=== PATIENT | female | born 1945 | race Caucasian/White ===

== ENCOUNTER 2020-12-09 19:57 | Emergency (ER) | payer MEDICARE, SELFPAY ==
--- NOTE | ~2020-12-09 | XR_ITS ---
XR foot LT min 3V DATE: 12/09/2020 20:20 INDICATION: Fall. Left lateral foot pain TECHNIQUE: 4 views COMPARISON: None FINDINGS: There is a linear oblique fracture through the mid to distal shaft of the fifth metatarsal bone with up to 1.5 mm medial and 2 mm dorsal displacement. No fracture or dislocation is noted otherwise. Osteopenia. IMPRESSION: Fifth metatarsal shaft fracture Reviewed, dictated and finalized at location A.
--- NOTE | 2020-12-09 20:05 | ED.LOWEXIN ---
HPI - Extremity Injury (Lower) General Chief Complaint: Extremity Injury, Lower Stated Complaint: left foot pain Time Seen by Provider: 12/09/20 20:05 Source: patient and RN notes reviewed Mode of arrival: ambulatory Limitations: no limitations History of Present Illness HPI Narrative: 75 yo female presents to the [facility] with C/O left lateral foot pain. States that she fell about 1500 today and her foot turned inversely. Pain and swelling along with Bruising noted along the 5th metatarsal. State that the pain and swelling was just getting worse so she came to the clinic. Walked into the clinic Denies hitting head. No back pain or neck pain. Denies loss of consciousness. Related Data Home Medications Medication Instructions Recorded Confirmed atorvastatin 10 mg PO HS 12/09/20 12/09/20 bimatoprost [Lumigan] 1 drp EACH EYE QPM 12/09/20 12/09/20 flecainide 100 mg PO Q12H 12/09/20 12/09/20 levothyroxine 112 mcg PO DAILY 12/09/20 12/09/20 lisinopril 10 mg PO DAILY 12/09/20 12/09/20 metformin 500 mg PO BID 12/09/20 12/09/20 metoprolol succinate 25 mg PO DAILY 12/09/20 12/09/20 pregabalin [Lyrica] 100 mg PO HS 12/09/20 12/09/20 rivaroxaban [Xarelto] 20 mg PO QPM 12/09/20 12/09/20 sertraline 50 mg PO DAILY 12/09/20 12/09/20 Allergies Allergy/AdvReac Type Severity Reaction Status Date / Time No Known Allergies Allergy Verified 12/09/20 20:20 Review of Systems Review of Systems: All systems reviewed & are unremarkable except as noted in HPI and below Constitutional: Constitutional: Reports no additional constitutional complaints Cardiovascular: Cardiovascular: Reports no additional cardiovascular complaints and Denies chest pain Respiratory: Respiratory: Reports no additional respiratory complaints, Denies cough and Denies dyspnea Gastrointestinal: Gastrointestinal: Reports no additional gastrointestinal complaints Musculoskeletal: Musculoskeletal: Reports no additional musculoskeletal complaints, Denies back pain, Denies myalgias, Denies arthralgias, Denies joint swelling and Denies muscle cramps Comments: Left foot pain lateral aspect, fifth metatarsal Integumentary/Breasts: Skin/Breast: Reports system reviewed and no additional complaints, except as docu and Denies rash Neurologic: Reports system reviewed and no additional complaints, except as documented, Denies dizziness, Denies headache(s), Denies focal weakness, Denies numbness and Denies weakness Psychiatric: Psychiatric: Reports no additional psychiatric complaints PMF Past Medical History Medical History (Updated 12/09/20 @ 20:32 by Marlene Baker) A-fib Depression Diabetes High cholesterol Hypertension Thyroid disease Surgical History Surgical History (Updated 12/09/20 @ 20:15 by Marlene Baker) H/O foot surgery H/O hand surgery History of thyroid surgery Comments At the time of my signature, I reviewed and agree with the nursing past medical, surgical, social, and family history. There is no relevant family history pertinent to the patient complaint. Exam Const: General: no acute distress and alert Nutritional Appearance: well nourished and obese Orientation/consciousness: patient oriented x3 Limitations: no limitations HENMT: Head: normal to inspection Neck: Neck: normal visual inspection, no lymphadenopathy and no meningeal signs Chest: Chest palpation & inspection: normal inspection of the chest Resp: Effort & Inspection: normal respiratory effort and no use of accessory muscles Auscultation: clear to auscultation bilaterally, no crackles, no rales, no rhonchi and no wheezes Cardio: Rate: regular rate Rhythm: regular rhythm Back/Spine/Pelvis: Back: no CVA tenderness Skin: General skin exam: normal color Rashes: no rashes Neuro: General: patient oriented x3, moves all extremities, no meningeal signs and no focal motor deficits Speech: normal speech Gait exam (Neuro): gait abnormal (limp favoring the left foor) Extrem
[2020-12-09 20:10] VITALS: BP 139/68; PULSE 73; RESP 16; TEMP 36.9; O2SAT 99
== END 2020-12-09 20:50 | disposition home or self-care (01) ==
PROVIDERS: Emergency Provider Nurse Practitioner
DX: S92.352A Displaced fracture of fifth metatarsal bone, left foot, initial encounter for closed fracture (principal); W19.XXXA Unspecified fall, initial encounter; I48.91 Unspecified atrial fibrillation; E11.9 Type 2 diabetes mellitus without complications; I10 Essential (primary) hypertension; F32.9 Major depressive disorder, single episode, unspecified; E03.9 Hypothyroidism, unspecified
CPT/HCPCS: 29515; 73630; 99204; G0463

== ENCOUNTER 2024-08-24 12:55 | Emergency (ER) | payer MEDICARE, SELFPAY ==
--- NOTE | ~2024-08-24 | XR_ITS ---
EXAMINATION: XR elbow LT min 3V DATE: 08/24/2024 13:29 INDICATION: Left arm pain post fall TECHNIQUE: Anteroposterior, two oblique and lateral views of the left elbow were obtained. COMPARISON: None. FINDINGS: Comminuted intra-articular fracture of the distal left humerus with sagittal oriented fracture plane separate fragments of the medial and lateral humeral condyles. There is 5 mm lateral of th e lateral condylar fragment. There is 6 mm anterior displacement and 45 degree valgus rotation of the medial condylar fragment. 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 No significant elbow joint effusion with no evident displa cement of the anterior posterior fat pads. There is mild soft tissue swelling about the elbow. IMPRESSION: 1. Comminuted intra-articular fracture of the distal humerus with mild displacement of the lateral co ndylar fragment and mild anterior displacement and 45 degree varus angulation of the medial condylar fragment. Reviewed, dictated and finalized at location A. COUNCIL MEMBER IMPRESSION: 1. Comminuted intra-articular fracture of the distal humerus with mild displace ment of the lateral condylar fragment and mild anterior displacement and 45 deg ree varus angulation of the medial condylar fragment.
[2024-08-24 12:58] VITALS: BP 181/63; PULSE 58; RESP 16; TEMP 36.1; O2SAT 98
--- OUTSIDE RECORDS SUMMARY | 2024-08-24 13:01 | XMS_ITS | Clinical Summary ---
Author Organization [facility] Address [address] [place] [address] Care Team Providers Care Bladder Trimmer Name Role Phone Shawn Huerta MD Primary Care Provider [phone] Leda Egan MD Unavailable [phone] John Lord MD Unavailable [phone] Paty Garcia MD Unavailable [phone] Allergies Active Allergy Reactions Criticality Noted Date Comments Metformin Diarrhea Low 05/24/2020 Medications cinnamon bark 500 mg capsule Take 1 capsule (500 mg total) by mouth labor contract analyst before breakfast Active cholecalciferol (VITAMIN D-3) 1,000 unitIndications:supple ment Take 1 tablet/capsule (1,000 Units total) by mouth labor contract analyst before breakfast Active blood glucose diagnostic (glucose blood) strip Patient tests once daily 100 each 11 2019 Active blood-glucose meter kit Use daily as directed 1 each 2019 Active Lumigan 0.01 % ophthalmic dropsIndications:ocula r hypertension Administer 1 drop into both eyes nightly 2020 Active nystatin-triamcinolone cream APPLY TO AFFECTED AREA TWICE A DAY FOR 7-14 DAYS,THEN NEEDED FOR RASH 15 g 2022 Active atorvastatin (LIPITOR) 10 mg tabletIndications:Pure hypercholesterolemia TAKE 1 TABLET BY MOUTH EVERY DAY 90 tablet 3 2023 Active Additional Information Patient taking differently:10 mg oralNightly, Indications: hyperlipidemia, Informant: Self, Reported on 07/29/2024 Xarelto 20 mg tablet TAKE 1 TABLET BY MOUTH EVERY DAY 90 tablet 3 2023 Active Additional Information Patient taking differently:20 mg oralDaily with breakfast, Indications: atrial fibrillation, Informant: Self, Reported on 07/29/2024 metoprolol XL (TOPROL-XL) 25 mg extended release tablet TAKE 1 TABLET BY MOUTH EVERY DAY IN THE EVENING 90 tablet 3 2023 Active Additional Information Patient taking differently:25 mg oralNightly, Indications: Atrial Arrhythmia, hypertension, Informant: Self, Reported on 07/29/2024 nystatin cream Apply topically 2 (two) times a day 60 g 3 10/22 Active Additional Information Patient taking differently: 1 ApplicationtopicalAs needed, Indications: Diaper Rash, Informant: Self, Reported on 07/14/2024 lisinopriL (PRINIVIL,ZESTRIL) 10 mg tabletIndications:Prim almita hypertension TAKE 1 TABLET BY MOUTH EVERY DAY 90 tablet 3 2023 Active Additional Information Patient taking differently: 10 mg oral Daily (early AM), Indications: hypertension, Informant: Self, Reported on 07/29/2024 levothyroxine (SYNTHROID) 112 mcg tabletIndications:Acqu ired hypothyroidism TAKE 1 TABLET BY MOUTH EVERY DAY 90 tablet 3 2023 Active Additional Information Patient taking differently:112 mcg oralDaily (early AM), Indications: hypothyroidism, Informant: Self, Reported on 07/29/2024 timolol (TIMOPTIC) 0.5 % ophthalmic solution Administer 1 drop into both eyes labor contract analyst before breakfast 2023 Active sertraline (ZOLOFT) 50 mg tabletIndications:Gene ralized anxiety disorder TAKE 1 TABLET BY MOUTH EVERY DAY 90 tablet 3 2023 Active Additional Information Patient taking differently:50 mg oralDaily (early AM), Indications: Anxiety with Depression, Generalized Anxiety Disorder, Informant: Self, Reported on 07/29/2024 flecainide (TAMBOCOR) 50 mg tablet TAKE 1 TABLET BY MOUTH TWICE A DAY 180 tablet 1 2023 Active Additional Information Patient taking differently:50 mg oral 2 times daily,Indications: Prevention of Recurrent Atrial Fibrillation, Informant: Self, Reported on 07/29/2024 Jardiance 25 mg tabletIndications:Type 2 diabetes mellitus without complication, without long-term current use of insulin ([facility]/HCC) (HCC) TAKE 1 TABLET BY MOUTH EVERY DAY 90 tablet 1 2023 Active Additional Information Patient taking differently:25 mg oralNightly, Indications: type 2 diabetes mellitus, Informant: Self, Reported on 07/29/2024 acetaminophen (TYLENOL) 500 mg tabletIndications:Post -op pain Take 1 tablet (500 mg total) by mouth every 6 (six) hours as needed for pain 40 tablet 2024 Active multivitamin tabletIndications:Post -op pain Take 1 tablet by mouth daily 30 tablet 2024 Active ibuprofen (ADVIL,MOTRIN) 600 mg tablet Take 1 tablet (600 mg total) by mouth every 6 (six) hours as needed for pain 40 tablet 07/28 Discont inued(R eorder) acetaminophen (TYLENOL) 500 mg tablet Take 1 tablet (500 mg total) by mouth every 6 (six) hours as needed for pain 40 tablet 07/28 Discont inued(R eorder) multivitamin tablet Take 1 tablet by mouth daily 30 tablet 07/28 Discont inued(R eorder) ibuprofen (ADVIL,MOTRIN) 600 mg tabletIndications:Post -op pain Take 1 tablet (600 mg total) by mouth every 6 (six) hours as needed for pain 40 tablet 07/29 Discont inued(S top Taking at [facility]) Active Problems Problem Noted Date Diagnosed Date Carpal tunnel syndrome of right wrist 05/24/2024 Left carpal tunnel syndrome 04/25/2024 Assessment & Plan (06/30/2024 1:38 PM BUSINESS ACCOUNT SPECIALIST): Encouraged completion of surgical rx given significant symptoms. Primary osteoarthritis involving multiple joints 10/23/2023 Overview (10/23/2023): Neck , shoulders, knees, back , thumb Assessment & Plan (06/30/2024 1:37 PM BUSINESS ACCOUNT SPECIALIST): Continue supportive care. Assessment & Plan (02/23/2024 10:37 AM CDT): Has been very bothered by her presumptive neck /shoulder issues Planning for nerve conduction studies, anticipate mri likely of neck after and then physiatry Assessment & Plan (10/26/2023 7:09 AM CDT): Continues to be bothersome especially in neck and shoulders now. Will evalutate the shoulder with x ray and mri if this normal. Possible ortho consult. Monitor for neurologic findings with neck pain High risk medication use 08/07/2023 Neck pain 06/23/2023 Assessment & Plan (06/23/2023 12:02 PM BUSINESS ACCOUNT SPECIALIST): No alarm neurologic complaint.s No weakness. Suggested PT Pain of right hip 06/23/2023 Assessment & Plan (06/23/2023 12:03 PM BUSINESS ACCOUNT SPECIALIST): Checking x rays , pt Cutaneous candidiasis 08/15/2022 Conductive hearing loss, bilateral 04/16/2022 Chronic right-sided low back pain without sciati ca 08/01/2021 Assessment & Plan (04/16/2022 10:18 AM CDT): Bothersome in the lower back Some hip pain as well No neurologic complications Continue exercises and will call if weakness, Pain is intolerable Assessment & Plan (08/01/2021 10:36 AM BUSINESS ACCOUNT SPECIALIST): This since the foot injury . Encouraged physical therapy . She will work on this and report if worsening. BMI 29.0-29.9,adult 05/17/2021 H/O thyroidectomy 01/24/2020 Assessment & Plan (01/24/2020 8:41 AM CDT): Checking tft's NO concerns. Pain in both hands 07/26/2019 Assessment & Plan (07/26/2019 12:29 PM BUSINESS ACCOUNT SPECIALIST): Likely dupytrens contracture. No complications . If progressive then ortho visit Sensorineural hearing loss, bilateral 10/05/2018 Medicare annual wellness visit, subsequent 08/31 Assessment & Plan (06/30/2024 1:36 PM BUSINESS ACCOUNT SPECIALIST): Checking labs per routine and pertaining to problems listed . HM items reviewed and updated . No new concerns. Immunizations reviewed and up-to-date Assessment & Plan (04/16/2022 10:24 AM CDT): Checking labs per routine and pertaining to problems listed . HM items reviewed and updated . No new concerns. Flu shot on Thursday . Assessment & Plan (01/29/2021 10:56 AM CDT): Checking labs per routine and pertaining to problems listed . HM items reviewed and updated . No new concerns. Memory difficulties 08/31/2018 Assessment & Plan (06/30/2024 1:37 PM BUSINESS ACCOUNT SPECIALIST): Not appreciable on exam . Monitoring clinically Assessment & Plan (02/23/2024 10:38 AM CDT): Mild lapses and not progressive Assessment & Plan (10/26/2023 7:09 AM CDT): No alarm neurologic complaints. Assessment & Plan (02/17/2023 1:07 PM CDT): Not obviously progressive . She will let me know if ongoing symptoms. Assessment & Plan (10/15/2022 9:53 AM CDT): No obvious progression in symptoms related. Assessment & Plan (04/16/2022 10:19 AM CDT): No progression in memory issues . Assessment & Plan (01/29/2021 10:55 AM CDT): Unchanged , Mild cognitive slips Assessment & Plan (01/24/2020 8:41 AM CDT): No progression . Not obvious on my exam Assessment & Plan (03/02/2019 3:08 PM CDT): Continue with current rx . With the sertraline. No complications. Assessment & Plan (08/31/2018 4:51 PM BUSINESS ACCOUNT SPECIALIST): Encouraged she get off lyrica and minimize meds. Checking labs now. NO other new complaints Knee pain 06/04/2017 Assessment & Plan (06/23/2023 12:00 PM BUSINESS ACCOUNT SPECIALIST): Symptoms are tolerble though encouraged PT Ganglion cyst 06/02/2017 Keratosis, senilis 02/19/2017 Lentigo 02/19/2017 Acne vulgaris 11/12/2016 Multiple actinic keratoses 10/17/2015 ALIN on CPAP 09/18/2015 Overview (06/11/2017): Obstructive sleep apnea apnea-hypopnea index 6.7. Desaturation 81%. Date of test September 10, 2015 Assessment & Plan (06/30/2024 11:30 AM BUSINESS ACCOUNT SPECIALIST): Stable on cpap Assessment & Plan (05/16/2024 11:38 AM BUSINESS ACCOUNT SPECIALIST): Compliance data reviewed and discussed ALIN - good compliance and response to therapy. Benefiting from therapy. Continue PAP therapy. Compliance data reviewed and discussed. Equipment maintenance discussed. RTC in one year or as needed. New Order for yearly supplies entered. gemma SIDDIQI Assessment & Plan (10/23/2023 11:51 AM CDT): Well treated on current regimen. Assessment & Plan (06/23/2023 11:59 AM BUSINESS ACCOUNT SPECIALIST): Stable cpap Well controlled on current regimen. Assessment & Plan (02/17/2023 1:03 PM CDT): Well controlled on cpap doing fine Assessment & Plan (04/16/2022 10:18 AM CDT): On cpap and feeling no differently than prior Assessment & Plan (01/29/2021 10:32 AM CDT): Is continuing to do well with CPAP machine - continue use of cpap Assessment & Plan (01/24/2020 8:34 AM CDT): Using her cpap mask regularly and no new sx. Assessment & Plan (03/02/2019 3:08 PM CDT): Doing well on the current cpap. No complications. Assessment & Plan (08/31/2018 4:47 PM BUSINESS ACCOUNT SPECIALIST): Continue supportive care and cpap. Paroxysmal atrial fibrillation (CMS/HCC) 016 Overview (2016): Paroxysmal atrial fibrillation Assessment & Plan (06/30/2024 11:30 AM BUSINESS ACCOUNT SPECIALIST): No a fib symptoms and following with ep. Assessment & Plan (02/23/2024 10:34 AM CDT): Her a fib has been well controlled on current regimen. No complications on the xarelto. Assessment & Plan (10/26/2023 7:07 AM CDT): Adequate rate control. No side effects on the xarelto. Assessment & Plan (06/23/2023 11:38 AM BUSINESS ACCOUNT SPECIALIST): No obvious palpitations, sob chest pain or other complaints. Assessment & Plan (03/17/2023 9:53 AM CDT): NSR in office Avoiding trial albuterol inh trial avoiding regressive arrhthymias Cnt flecainide for rate control, xarelto AC, CPAP use Assessment & Plan (02/17/2023 1:03 PM CDT): Well controlled since on cpap. Assessment & Plan (10/15/2022 9:52 AM CDT): No new symptoms related. No chest pain , palpitations. Assessment & Plan (04/16/2022 10:18 AM CDT): No symptoms. She has never had many symptoms. Much better since cpap Assessment & Plan (08/01/2021 10:37 AM BUSINESS ACCOUNT SPECIALIST): No Obvious symptoms related to this. Continue with current regimen. Assessment & Plan (01/29/2021 10:31 AM CDT): Doing well. Recently saw Dr. Martin. - continue Flecainide and Toprolol Assessment & Plan (08/01/2020 10:10 AM BUSINESS ACCOUNT SPECIALIST): No obvious palpitations, sob, Or other complications Following with cardiology . No complications of xarelto Assessment & Plan (01/24/2020 8:34 AM CDT): No recurrent sx. No chest pain , palpitations, Sob or other complaints. Assessment & Plan (07/26/2019 12:27 PM BUSINESS ACCOUNT SPECIALIST): No complications. Continue current regimen . Assessment & Plan (03/02/2019 3:07 PM CDT): Rarely in this with the flecainide. No symptoms related. Assessment & Plan (08/31/2018 4:48 PM BUSINESS ACCOUNT SPECIALIST): Has been tolerable. No palpitations or other complaints. 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 Otherwise prefer glp 1 med Then follow up in october Assessment & Plan (02/23/2024 10:36 AM CDT): Blood sugars poorly /inadequately controlled. She knows that insulin is needed if not now then by next visit if no improvement . She will work on diet since she hopes to avoid more medications. Assessment & Plan (10/26/2023 7:09 AM CDT): Blood sugars are elevated (A1c 8.2) and encouraged she increase the jardiance to 25 mg daily . Assessment & Plan (06/23/2023 11:59 AM BUSINESS ACCOUNT SPECIALIST): Diabetes Mellitus type II, under only checking occasionally so fair control. Current symptoms/problems include none and have been worsening. . Home blood sugar records: only checking occ Rx changes: none Counseling: Reviewed diabetes management : A1C , blood pressure , yearly eye exams and appropriate statin use Compliance at present is estimated to be excellent She prefers to try better diet control prior to increasing the jardiance . Assessment & Plan (02/17/2023 1:05 PM CDT): Diabetes Mellitus type II, under good control. Current symptoms/problems include none and have been improving. . Home blood sugar records: trend: stable Rx changes: none Counseling: Reviewed diabetes management : A1C , blood pressure , yearly eye exams and appropriate statin use Compliance at present is estimated to be good. Assessment & Plan (10/15/2022 1:29 PM CDT): Diabetes Mellitus type II, under fair control. Current symptoms/problems include none and have been worsening. . Home blood sugar records: trend: increasing steadily Rx changes: she wants to hold off med adjustment ie jardiance increase and try dietary rx first. Counseling: Reviewed diabetes management : A1C , blood pressure , yearly eye exams and appropriate statin use Compliance at present is estimated to be good. Assessment & Plan (04/16/2022 10:27 AM CDT): The patient has no obvious new dm related complaints. No hyper or hypoglycemic complaints. NO new complications. Eye md visit is utd. Tolerating current regimen well. Eye md is utd . Checking labs including hba1c, Urine microalbumin. Assessment & Plan (08/01/2021 10:37 AM BUSINESS ACCOUNT SPECIALIST): Diabetes Mellitus type II, under good control. Current symptoms/problems include none and have been unchanged. . Home blood sugar records: trend: stable Rx changes: none Counseling: Reviewed diabetes management : A1C , blood pressure , yearly eye exams and appropriate statin use Compliance at present is estimated to be excellent. Assessment & Plan (01/29/2021 10:42 AM CDT): A1c 7.2 today, up from 6.7. BG's 170's in the am. Tried metformin but could not tolerate because of diarrhea. Assessment & Plan (08/01/2020 10:15 AM BUSINESS ACCOUNT SPECIALIST): Well controlled , a1c at goal. She will work on diet and exercise. Dm education by summer. Assessment & Plan (01/24/2020 8:43 AM CDT): Has been without sx and checking hba1c now. Working on diet and exercise. NO new concerns. Encouraged home testing and inform me if sugars approaching 200 Assessment & Plan (07/27/2019 7:06 AM BUSINESS ACCOUNT SPECIALIST): Well controlled on current regimen . No complications. Discussed goals of rx . Her a1c is down from last visit so improving as listed. No other concerns. Assessment & Plan (03/02/2019 3:15 PM CDT): Checking hba1c now. No complications. Her a1c is elevated. She will work on behavioral measures and she will try and avoid metformin . However is aware this is clearly the next step Assessment & Plan (08/31/2018 4:54 PM BUSINESS ACCOUNT SPECIALIST): Diabetes is being checked, utd with eye md visit, Checking hba1c and chem panel. Urine microablumin Rosacea 03/11/2012 Assessment & Plan (08/31/2018 4:43 PM BUSINESS ACCOUNT SPECIALIST): Stable on metrogel. 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 Taking meds without obvious side effects . No muscle aches nor weakness. Assessment & Plan (02/23/2024 10:35 AM CDT): NO obvious sx or side effects from the elevation in cholesterol. Taking meds without obvious side effects . No muscle aches nor weakness. Assessment & Plan (10/26/2023 7:07 AM CDT): NO obvious sx or side effects from the elevation in cholesterol. Taking meds without obvious side effects . No muscle aches nor weakness. Assessment & Plan (06/23/2023 11:59 AM BUSINESS ACCOUNT SPECIALIST): NO obvious sx or side effects from the elevation in cholesterol. Taking meds without obvious side effects . No muscle aches nor weakness. ' Assessment & Plan (04/16/2022 10:30 AM CDT): No cholesterol related complications. Assessment & Plan (01/29/2021 10:43 AM CDT): Well treated on the lipitor. Assessment & Plan (01/24/2020 8:34 AM CDT): Checking labs now. No complications of meds. Assessment & Plan (07/26/2019 12:27 PM BUSINESS ACCOUNT SPECIALIST): Checking labs in follow up . Assessment & Plan (08/31/2018 4:44 PM BUSINESS ACCOUNT SPECIALIST): Lipid abnormalities are well controlled. Generalized anxiety disorder 02/13/2010 Assessment & Plan (06/30/2024 1:33 PM BUSINESS ACCOUNT SPECIALIST): No recent increased symptoms. No need for medications. Assessment & Plan (02/23/2024 10:35 AM CDT): Her symptoms have been well managed. No complications Assessment & Plan (10/26/2023 7:08 AM CDT): Generally well managed on sertraline. No breakthru panic . Assessment & Plan (06/23/2023 11:59 AM BUSINESS ACCOUNT SPECIALIST): Her anxiety is well controlled on current regimen. Assessment & Plan (02/17/2023 1:03 PM CDT): No progression in symptoms nor any depression. Assessment & Plan (10/15/2022 10:03 AM CDT): Adequately controlled currently. Assessment & Plan (04/16/2022 10:30 AM CDT): Symptoms are well controlled. No complications. Assessment & Plan (08/01/2021 10:41 AM BUSINESS ACCOUNT SPECIALIST): Doing fine on the sertraline Assessment & Plan (01/29/2021 10:43 AM CDT): Stress is well controlled on current regimen . NO new complications. Assessment & Plan (07/26/2019 12:27 PM BUSINESS ACCOUNT SPECIALIST): Well controlled on current regimen Assessment & Plan (08/31/2018 4:46 PM BUSINESS ACCOUNT SPECIALIST): Psychological condition is Well controlled on current regimen . Hypothyroidism 02/13/2010 Assessment & Plan (06/30/2024 1:34 PM BUSINESS ACCOUNT SPECIALIST): Checking TFTs though clinically euthyroid Assessment & Plan (02/23/2024 10:35 AM CDT): Her tft's are stable and will recheck in coming months Assessment & Plan (10/26/2023 7:08 AM CDT): No active symptoms Assessment & Plan (06/23/2023 11:40 AM BUSINESS ACCOUNT SPECIALIST): Checking tft's. NO complications. No associated Assessment & Plan (02/17/2023 1:05 PM CDT): Checking tft's next visit. Assessment & Plan (10/15/2022 9:58 AM CDT): Checking tft's yearly . Assessment & Plan (04/16/2022 10:30 AM CDT): Checking tft's . No overt symptoms related. Assessment & Plan (08/01/2021 10:38 AM BUSINESS ACCOUNT SPECIALIST): Stable by tft's Assessment & Plan (01/29/2021 10:42 AM CDT): Checking tft's . NO complications. Assessment & Plan (08/01/2020 10:13 AM BUSINESS ACCOUNT SPECIALIST): Checking labs in 6 months Assessment & Plan (07/26/2019 12:29 PM BUSINESS ACCOUNT SPECIALIST): stabvle clinically . No complicaitons Assessment & Plan (03/02/2019 3:12 PM CDT): Checking tft's at next visit. Assessment & Plan (08/31/2018 4:46 PM BUSINESS ACCOUNT SPECIALIST): Has been well controlled and checking on labs now. Hypertension 02/13/2010 Assessment & Plan (06/30/2024 1:34 PM BUSINESS ACCOUNT SPECIALIST): Blood pressure at goal and refilled medications. Checking labs Assessment & Plan (02/23/2024 10:36 AM CDT): Blood pressure is well controlled. Assessment & Plan (10/26/2023 7:08 AM CDT): Bp at goal on meds as reviewed. Assessment & Plan (06/23/2023 11:40 AM BUSINESS ACCOUNT SPECIALIST): Blood pressure is well controlled on current regimen. Assessment & Plan (02/17/2023 1:06 PM CDT): Blood pressure is well controlled. Assessment & Plan (10/15/2022 9:58 AM CDT): Blood pressure is well controlled on current regimen. Assessment & Plan (04/16/2022 10:30 AM CDT): Hypertension is improving with treatment. Associated signs and symptoms: none. Medication Side effects, no medication side effects noted Weight loss. Regular aerobic exercise. Patient Education: Reviewed risks of hypertension and principles of treatment. Blood pressure will be reassessed at the next regular appointment. Assessment & Plan (08/01/2021 10:38 AM BUSINESS ACCOUNT SPECIALIST): Hypertension is improving with treatment. Associated signs and symptoms: none. Medication Side effects, no medication side effects noted Continue current treatment regimen. Patient Education: Reviewed risks of hypertension and principles of treatment. Blood pressure will be reassessed at the next regular appointment. Assessment & Plan (01/29/2021 10:42 AM CDT): bp is well controlled on current regimen . NO complications. Assessment & Plan (08/01/2020 10:12 AM BUSINESS ACCOUNT SPECIALIST): Hypertension is improving with treatment. Associated signs and symptoms: none. Medication Side effects, no medication side effects noted Continue current treatment regimen. Patient Education: Reviewed risks of hypertension and principles of treatment. Blood pressure will be reassessed at the next regular appointment. Assessment & Plan (07/26/2019 12:29 PM BUSINESS ACCOUNT SPECIALIST): bp well controlled on current regimen . Assessment & Plan (03/02/2019 3:12 PM CDT): Well controlled on current regimen . No complications Assessment & Plan (08/31/2018 4:45 PM BUSINESS ACCOUNT SPECIALIST): Hypertension is Well controlled on current regimen. Resolved Problems Problem Noted Date Diagnosed Date Resolved Date Upper respiratory infection with cough and congestion 03/17/2023 03/17/2023 Assessment & Plan (03/17/2023 9:49 AM CDT): Suggestively viral URI w/ ongoing chest congestion Exam benign w/o PNA concerns- reassured Hopeful optimizing use of OTC supportives, alleviate chest congestion resolve over next few days + expectorant, flonase & coricidin & increase hydration benefit Update in 2-3 days for doxy course if warranted Nondisplaced fracture of fif th left metatarsal bone with routine healing 01/11/202106/2022 Assessment & Plan (08/01/2021 10:37 AM BUSINESS ACCOUNT SPECIALIST): Healing clinically . Reassured. If recurrent symptoms then repeat x ray Assessment & Plan (01/29/2021 10:43 AM CDT): Pain well controlled. Essential hypertension 08/15/201508/31 Overview (2016): Essential hypertension Snoring 08/15/2015 03/02/2019 Overview (2016): Snoring Skin benign neoplasm 03/11/2012 020 Encounters Date Type Department Care Team Description 08/16/2024 1:10 PM BUSINESS ACCOUNT SPECIALIST Office Visit [facility] Orthopaedic Surgery [id number] [place] [address] [address] [place] [address] Antonio Jasso MD Bilateral carpal tunnel syndrome (Primary Dx); Follow-up exam 08/10/2024 Telephone [facility] Cardiology [address] [facility] [place] [facility] [address]th [place] [address] [place] [address] Leda Egan MD 07/29/2024 8:20 AM BUSINESS ACCOUNT SPECIALIST Anesthesia Event [facility] [address] [place] [address] Gianluca Lainez MD DDS Dianna Earl NP 07/29/2024 8:15 AM BUSINESS ACCOUNT SPECIALIST - 07/29/2024 9:50 AM BUSINESS ACCOUNT SPECIALIST Surgery [facility] Operating [facility]) [address] [place] [id number] Antonio Jasso MD RELEASE CARPAL TUNNEL - RIGHT 07/29/2024 6:07 AM BUSINESS ACCOUNT SPECIALIST - 07/29/2024 9:57 AM BUSINESS ACCOUNT SPECIALIST Hospital Encounter [facility] ([facility]) [address] [place] [id number] Antonio Jasso MD Carpal tunnel syndrome of right wrist (Primary Dx) Discharge Disposition: Discharge to home or self care 07/28/2024 Telephone [facility] Orthopaedic Surgery [address] [facility] [place] [facility] 6th [place] [address] [place] [address] Antonio Jasso MD Ortho NPO 07/07/2024 Telephone [facility] Orthopaedic Surgery [address] [facility] 6th [place] [address] [place] [address] Antonio Jasso MD Pre-testing/Questions 06/30/2024 11:50 AM BUSINESS ACCOUNT SPECIALIST Lab [facility] at the [address] [id number] Memory difficulties; Acquired hypothyroidism; Primary osteoarthritis involving multiple joints; Type 2 diabetes mellitus without complication, without long-term current use of insulin (CMS/HCC) (HCC); Pure hypercholesterolemia; Medication monitoring encounter 06/30/2024 11:00 AM BUSINESS ACCOUNT SPECIALIST Office Visit [address] [id number] Shawn Huerta MD Medicare annual wellness visit, subsequent (Primary Dx); Type 2 diabetes mellitus without complication, without long-term current use of insulin (CMS/HCC) (HCC); ALIN on CPAP; Paroxysmal atrial fibrillation (CMS/HCC) (HCC); Pure hypercholesterolemia; Acquired hypothyroidism; Primary hypertension; Primary osteoarthritis involving multiple joints; Memory difficulties; Generalized anxiety disorder; Medication monitoring encounter; Left carpal tunnel syndrome from Last 3 Months Immunizations Immunization Administration Dates Next Due Hep A, Adult 09/01/2003,05/23/2002 Influenza, Quadrivalent, Hig h Dose, Preservative Free, Intrr 03/27/2023,04/14/2022,04/03/2021,04/18 Influenza, Trivalent, High D ose, Split, Preservative Free, Intramuscular 04/06/2024,03/23/2019,03/10/2018,03/11,04/15/2016,04/09/2015,04/15/2014 Influenza, Trivalent, Preser vative Free, Intramuscular 03/03/2013,03/09/2012 Moderna SARS-CoV-2 Monovalen t Vaccination (12+ YRS) 05/09/2021,09/12/2020,08/15/2020 Moderna Sars-cov-2 Bivalent Vaccine 50 Mcg/0.5 mL (12+ YRS)-Blue/Carcamo 04/14/2022 Pneumococcal Conjugate PCV 13 03/08/2019 Pneumococcal Polysaccharide PPV23 04/16/2022, RSV Vaccine, Pref, Recombina nt, Subunit, Adjuvanted, PF, IM (Arexvy) 03/31/2023 Tdap 04/22/2022,03/09/2012 ZOSTER LIVE 03/06/2011 ZOSTER Recombinant 02/28/2018,12/29/2017 Surgical History Surgery Date Site/Laterality Comments BUNIONECTOMY Right bunion surgery -pt unsure of date HAND SURGERY pt unsure date THYROIDECTOMY pt unsure of date COLONOSCOPY 07/06/2020 - 07/05/2021 CARPAL TUNNEL RELEASE 04/29/2024 Left Medical History Medical History Date Comments Primary fibromyalgia syndrome Fi bromyalgia Hypertension Hypertension Adiposity Obesity Anxiety disorder Anxiety Atrial fibrillation (CMS/HCC) (HCC) AFIB; Comments: AGR 08/01/2015 - Hypercholesterolemia Hypercholes terolemia; Comments: AGR 08/01/2015 - Rhinitis Rhinitis; Commen ts: AGR 08/01/2015 - Hx Other Medical Diabetes; Comme nts: AGR 08/01/2015 - Hypothyroidism Hypothyroidism; Comments: AGR 08/01/2015 - Personal history of other in fectious and parasitic diseases History of viral warts - (Ad ded by TW Conv) Local infection of skin and subcutaneous tissue Staph skin infection - (Adde d by TW Conv) Melena Hematochezia - ( Added by TW Conv) Impaired fasting glucose Impaire d fasting glucose - (Added by TW Conv) Ear problems HL (hearing loss) Type 2 diabetes mellitus (HCC) Cataract 2018 Glaucoma Fall 2019 Sleep apnea November 2015 PONV (postoperative nausea and vomiting) nausea, believes IV meds helps Family History Medical History Relation Name Comments Alzheimer's disease Brother Maddie Sewell Heart attack Father Tracy Sewell Acute Myocardia l Infarction - (Added by TW Conv)/Family history of heart attack - (Added by TW Conv). cause of Heart disease Father Tracy Sewell Cardiovascular disease; Cause of : Cardiovascular disease Stroke Mother arteri temporit is caused temporal arteritis Mother Heart disease Other Family history of Cardiovascular disease; Malig Hyperthermia Neg Hx Pseudochol deficiency Neg Hx Relation Name Status Comments Brother Maddie Sewell Father Tracy Sewell (Age 60) Mother Other Social History Tobacco Use Types Packs/Day Years Used Date Smoking Tobacco: Never Smokeless Tobacco: Never Tobacco Cessation:Counseling Given: Not Answered Alcohol Use Standard Drinks/Week Comments Not Currently 0 (1 standard drink = 0.6 oz pur e alcohol) AUDIT-C Answer Date Recorded Q1: How often do you have a drink containing alc ohol? Monthly or less 07/29/2024 Q2: How many drinks containi ng alcohol do you have on a typical day when you are drinking? 1 or 2 07/29/2024 Q3: How often do you have si x or more drinks on one occasion? Never 07/29/2024 PHQ-2 Answer Date Recorded PHQ-2 Total Score (If total score is 3 or more points, staff should administer the PHQ-9) 0 06/23/2024 Personal Safety Answer Date Recorded Have you ever been in or are you currently in a harmful physical or emotional relationship or is someone making you feel afraid or unsafe? Denies 07/29/2024 Comments No Sex and Gender Information Value Date Recorded Sex Assigned at Not on file Legal Sex Female 3:57 AM BUSINESS ACCOUNT SPECIALIST Gender Identity Not on file Sexual Orientation Not on file Obstetrics History Last Filed Vital Signs Vital Sign Reading Time Taken Comments Blood Pressure 125/58 07/29/2024 9:10 AM BUSINESS ACCOUNT SPECIALIST Pulse 58 07/29/2024 9:10 AM BUSINESS ACCOUNT SPECIALIST Temperature 36.2 C (97.2 F) 07/29/2024 8:55 AM BUSINESS ACCOUNT SPECIALIST Respiratory Rate 20 07/29/2024 9:10 AM BUSINESS ACCOUNT SPECIALIST Oxygen Saturation 94% 07/29/2024 9:10 AM BUSINESS ACCOUNT SPECIALIST Inhaled Oxygen Concentration - - Weight 80.3 kg (177 lb) 08/16/2024 1:12 PM BUSINESS ACCOUNT SPECIALIST Height 167.6 cm (5' 6 ) 08/16/2024 1:12 PM BUSINESS ACCOUNT SPECIALIST Body Mass Index 28.57 08/16/2024 1:12 PM BUSINESS ACCOUNT SPECIALIST Plan of Treatment Scheduled Procedures Name Priority Associated Diagnoses Date/Ti me COLONOSCOPY Screening for colon cancer Health Maintenance Due Date Last Done Comments Dilated Eye Exam 11/05/2021 11/05/2020 Foot Exam 04/16/2023 04/16/2022, 04/05, 01/29/2021, Additional history exists Osteoporosis Screening-Bone Density Scan 04/29/2024 04/29/2022, 03/14/2020, 02/08/2016, Additional history exists Covid-19 Vaccine (2023- 5 season) 2024 04/06/2024, 03/27/2023, 04/14/2022, Additional history exists Hemoglobin A1C 12/29/2024 06/30/2024, 02/04, 10/23/2023, Additional history exists Albumin Creatinine Ratio, Urine 06/30/2025 06/30/2024, 04/16/2022, 01/29/2021, Additional history exists Depression Screening 06/30/2025 06/30/2024, 06/23/2023, 04/16/2022, Additional history exists Lipid Panel 06/30/2025 06/30/2024, 06/05, 04/16/2022, Additional history exists Well Visit 65+ 06/30/2025 06/30/2024, 06/05, 04/16/2022, Additional history exists eGFR 06/30/2025 06/30/2024, 06/05, 10/15/2022, Additional history exists Fall Risk Assessment 07/29/2025 07/29/2024, 06/30/2024, 06/23/2023, Additional history exists DTaP/Tdap/Td Vaccine (3 - Td or Tdap) 04/22/2032 04/22/2022, 03/09/2012 Zoster Vaccine Completed 02/28/2018, 12/05, 03/06/2011 Hepatitis C Screening Completed 01/29/2021 Colon Cancer Screening-CT Colonography Discontinued 06/11/2021, 09/04/2015 Colon Cancer Screening-Colonoscopy Discontinued 06/11/2021, 09/04/2015 Colon Cancer Screening-DNA Stool Discontinued 06/11/20 21, 09/04/2015 Colon Cancer Screening-FIT Discontinued 06/11/2021, Colon Cancer Screening-FOBT Discontinued 06/11/2021, 0 09/04/2015 Colon Cancer Screening-Sigmoidoscopy Discontinued 06/11/2021, 09/04/2015 Colorectal Cancer Screening Discontinued Pneumococcal vaccine 65+ Completed 022, 03/08/2019, 06/21/2010 Influenza Vaccine Completed 04/06/2024, , 04/14/2022, Additional history exists Hepatitis B Screening Discontinued Procedures Procedure Name Priority Date/Time Associated Diagnosis Comments POCT GLUCOSE DEVICE Routine 07/29/2024 9 :01 AM BUSINESS ACCOUNT SPECIALIST RELEASE CARPAL TUNNEL 07/29/2024 8:23 AM BUSINESS ACCOUNT SPECIALIST Carpal tunnel syndrome of right wrist POCT GLUCOSE DEVICE Routine 07/29/2024 7 :02 AM BUSINESS ACCOUNT SPECIALIST EGFR Routine 06/30/2024 11:55 AM BUSINESS ACCOUNT SPECIALIST Medication monitoring encounter DIFFERENTIAL AUTO Routine 06/30/2024 11:55 AM BUSINESS ACCOUNT SPECIALIST Medication monitoring encounter CBC WITH AUTO DIFFERENTIAL Routine 06/30/2024 11:55 AM BUSINESS ACCOUNT SPECIALIST Medication monitoring encounter COMPREHENSIVE METABOLIC PANEL Routine 06/30/2024 11:55 AM BUSINESS ACCOUNT SPECIALIST Medication monitoring encounter LIPID PANEL Routine 06/30/2024 11:55 AM BUSINESS ACCOUNT SPECIALIST Pure hypercholesterolemia Medication monitoring encounter ALBUMIN CREATININE RATIO, URINE Routine 06/30/2024 11:55 AM BUSINESS ACCOUNT SPECIALIST Type 2 diabetes mellitus without complication, without long-term current use of insulin (CMS/HCC) ([facility]) ERYTHROCYTE SEDIMENTATION RATE Routine 06/30/2024 11:55 AM BUSINESS ACCOUNT SPECIALIST Primary osteoarthritis involving multiple joints TSH Routine 06/30/2024 11:55 AM BUSINESS ACCOUNT SPECIALIST Acquired hypothyroidism T4, FREE Routine 06/30/2024 11:55 AM BUSINESS ACCOUNT SPECIALIST Acquired hypothyroidism VITAMIN B12 Routine 06/30/2024 11:55 AM BUSINESS ACCOUNT SPECIALIST Memory difficulties POCT HEMOGLOBIN A1C Routine 06/30/2024 11:07 AM BUSINESS ACCOUNT SPECIALIST Type 2 diabetes mellitus without complication, without long-term current use of insulin (CMS/HCC) (HCC) DEXA AXIAL SKELETON BONE DENSITY 1 OR MORE SITES Schedule Routine, Read Routine (OP Routine) 04/29/2022 10:35 AM CDT Other specified disorders of bone density and structure, other site COLONOSCOPY 06/11/2021 2:25 PM BUSINESS ACCOUNT SPECIALIST HEPATITIS C ANTIBODY Routine 01/29/2021 11:40 AM CDT Need for hepatitis C screening test from Last 3 Months or Most Recently Relevant to Health Maintenance Results * POCT glucose (07/29/2024 9:01 AM BUSINESS ACCOUNT SPECIALIST) Glucose, POC 154 70 - 199 mg/dL Blood 07/29/2024 9:01 AM BUSINESS ACCOUNT SPECIALIST 07/29/2024 9:01 AM BUSINESS ACCOUNT SPECIALIST Antonio Jasso MD LAB POCT ORDERABLES - DEVICE Final Result Performing Organization Address [facility] Co de Phone Number [facility] Department [place] [address] * POCT glucose (07/29/2024 7:02 AM BUSINESS ACCOUNT SPECIALIST) Glucose, POC 183 70 - 199 mg/dL Blood 07/29/2024 7:02 AM BUSINESS ACCOUNT SPECIALIST 07/29/2024 7:02 AM BUSINESS ACCOUNT SPECIALIST Antonio Jasso MD LAB POCT ORDERABLES - DEVICE Final Result Performing Organization Address [facility] Co de Phone Number [facility] Department [place] [address] * eGFR (06/30/2024 11:55 AM BUSINESS ACCOUNT SPECIALIST) eGFR 64 >=60 mL/min/1. 73 m2 Comment: Interpretive Data Reference Interval Normal >/= 90 mL/min/1.73m2 Mildly decreased* 60 - 89 mL/min/1.73m2 Mildly to moderately decreased 45 - 59 mL/min/1.73m2 Moderately to severely decreased 30 - 44 mL/min/1.73m2 Severely decreased 15 - 29 mL/min/1.73m2 Kidney Failure < 15 mL/min/1.73m2 *Relative to young adult level Estimated glomerular filtration rate is determined by the 2020 CKD-EPI equation recommended by the National Kidney Foundation (A Unifying Approach to GFR Estimation: Recommendations of the NKF-ASK Task Force on Reassessing the Inclusion of Race in Diagnosing Kidney Disease, JASN 202). The CKD-EPI equation should not be used for patients with unstable renal function and has not been validated in children and those over 70. Current interpretive data was last reviewed 2021. Blood 06/30/2024 11:5 5 AM BUSINESS ACCOUNT SPECIALIST 06/30/2024 6:00 PM BUSINESS ACCOUNT SPECIALIST us Shawn Huerta MD LAB BLOOD ORDERABLES Final R esult [facility] Department [place] [address] * Differential, auto (06/30/2024 11:55 AM BUSINESS ACCOUNT SPECIALIST) Neutrophil abs 5.9 1.5 - 6.5 K/cumm Imm gran abs 0.0 0.0 - 0.1 K/cumm [facility] Lymphocyte abs 2.1 0.8 - 3.3 K/cumm [facility] Monocyte abs 0.7 0.2 - 0.8 K/cumm [facility] Eosinophil abs 0.2 0.0 - 0.5 K/cumm [facility] Basophil abs 0.0 0.0 - 0.1 K/cumm [facility] Neutrophil pct 66.1 % [facility] Comment: Interpretive Data Percent cell count reference ranges are not reported, since discordance with absolute values may lead to misinterpretation of CBC data. Current Interpretive Data was last revised on 2017. Imm gran pct 0.3 % [facility] Comment: Interpretive Data Percent cell count reference ranges are not reported, since discordance with absolute values may lead to misinterpretation of CBC data. Current Interpretive Data was last revised on 2017. Lymphocyte pct 22.9 % [facility] Comment: Interpretive Data Percent cell count reference ranges are not reported, since discordance with absolute values may lead to misinterpretation of CBC data. Current Interpretive Data was last revised on 2017. Monocyte pct 8.2 % [facility] Comment: Interpretive Data Percent cell count reference ranges are not reported, since discordance with absolute values may lead to misinterpretation of CBC data. Current Interpretive Data was last revised on 2017. Eosinophil pct 2.1 % [facility] Comment: Interpretive Data Percent cell count reference ranges are not reported, since discordance with absolute values may lead to misinterpretation of CBC data. Current Interpretive Data was last revised on 2017. Basophil pct 0.4 % [facility] Comment: Interpretive Data Percent cell count reference ranges are not reported, since discordance with absolute values may lead to misinterpretation of CBC data. Current Interpretive Data was last revised on 2017. Blood 06/30/2024 11:5 5 AM BUSINESS ACCOUNT SPECIALIST 06/30/2024 5:31 PM BUSINESS ACCOUNT SPECIALIST us Shawn Huerta MD LAB BLOOD ORDERABLES Final R esult [facility] Department [place] [address] * CBC with auto differential (06/30/2024 11:55 AM BUSINESS ACCOUNT SPECIALIST) WBC 9.0 3.8 - 9.9 K/cumm Hgb 14.6 11.9 - 15.5 g/dL [facility] Hct 44.5 35.6 - 45.5 % [facility] Plt 249 150 - 400 K/cumm [facility] MPV 10.4 9.1 - 12.[address] [facility] RBC 4.88 3.90 - 5.20 M/cumm [facility] MCV 91.2 81.3 - 96.[address] [facility] MCH 29.9 27.1 - 33.[address] [facility] MCHC 32.8 32.3 - 35.7 g/dL [facility] RDW CV 12.5 11.1 - 14.9 % [facility] RDW SD 41.8 35.7 - 48.[address] [facility] NRBC abs 0.00 0.00 - 0.01 K/cumm [facility] Blood 06/30/2024 11:5 5 AM BUSINESS ACCOUNT SPECIALIST 06/30/2024 5:31 PM BUSINESS ACCOUNT SPECIALIST Shawn Huerta MD LAB BLOOD ORDERABLES Final R esult Performing Organization Address [facility] Co de Phone Number [facility] [place] [address] * Albumin Creatinine Ratio, Urine (06/30/2024 11:55 AM BUSINESS ACCOUNT SPECIALIST) Albumin Ur 12.4 mg/L Comment: Interpretive Data No reference range established. Current interpretive data was last revised 2018. Creatinine Ur 61.6 mg/dL [facility] Comment: Interpretive Data No reference range established. Current interpretive data was last revised 2018. Albumin Creatinine Ratio, Ur 20 1 - 29 mg/g [facility] Urine 06/30/2024 11:5 5 AM BUSINESS ACCOUNT SPECIALIST 06/30/2024 5:31 PM BUSINESS ACCOUNT SPECIALIST Shawn Huerta MD LAB URINE ORDERABLES Final R esult Performing Organization Address [facility] Co de Phone Number [facility] [place] [address] * Erythrocyte sedimentation rate (06/30/2024 11:55 AM BUSINESS ACCOUNT SPECIALIST) Erythrocyte sedimentation rate 14 1 - 30 mm/hr Blood 06/30/2024 11:5 5 AM BUSINESS ACCOUNT SPECIALIST 06/30/2024 5:31 PM BUSINESS ACCOUNT SPECIALIST Shawn Huerta MD LAB BLOOD ORDERABLES Final R esult Performing Organization Address [facility] Co de Phone Number [facility] [place] [address] * TSH (06/30/2024 11:55 AM BUSINESS ACCOUNT SPECIALIST) Thyroid Stimulating Hormone 0.98 0.30 - 4.20 mcIUnit/mL Blood 06/30/2024 11:5 5 AM BUSINESS ACCOUNT SPECIALIST 06/30/2024 5:31 PM BUSINESS ACCOUNT SPECIALIST Shawn Huerta MD LAB BLOOD ORDERABLES Final R esult Performing Organization Address [facility] [place] [address] * T4, free (06/30/2024 11:55 AM BUSINESS ACCOUNT SPECIALIST) Pathologist [facility] Free T4 1.43 0.90 - 1.70 ng/dL Blood 06/30/2024 11:5 5 AM BUSINESS ACCOUNT SPECIALIST 06/30/2024 5:31 PM BUSINESS ACCOUNT SPECIALIST Shawn Huerta MD LAB BLOOD ORDERABLES Final R esult Performing Organization Address [facility] Co de Phone Number [facility] [place] [address] * Vitamin B12 (06/30/2024 11:55 AM BUSINESS ACCOUNT SPECIALIST) Pathologist [facility] Vitamin B12 1,097 230 - 1,250 pg/mL Blood 06/30/2024 11:5 5 AM BUSINESS ACCOUNT SPECIALIST 06/30/2024 5:31 PM BUSINESS ACCOUNT SPECIALIST Shawn Huerta MD LAB BLOOD ORDERABLES Final R esult Performing Organization Address [facility] Co de Phone Number [facility] [place] [address] * (ABNORMAL) Lipid panel (06/30/2024 11:55 AM BUSINESS ACCOUNT SPECIALIST) Cholesterol 189 30 - 199 mg/dL Comment: Interpretive Data Ages < or = 19 years Acceptable: <170 mg/dL Borderline high: 170-199 mg/dL High: >or= 200 mg/dL Ages > or = 20 years Desirable: <200 mg/dL Borderline high: 200-239 mg/dL High: >or= 240 mg/dL Literature References: 1. Expert Panel on Integrated Guidelines for Cardiovascular Health and Risk Reduction in Children and Adolescents. Pediatrics 2011;128:S213 2. NCEP Expert Panel. Circulation 2004;110:227 Current Interpretive Data was last revised on 2018. Triglycerides 177(H) <=149 mg/dL [facility] Comment: Interpretive Data Ages < or = 9 years Acceptable: <75 mg/dL Borderline high: 75-99 mg/dL High: >or= 100 mg/dL Ages 10 to 20 years Acceptable: <90 mg/dL Borderline high: 90-129 mg/dL High: >or= 130 mg/dL Ages > or = 20 years Desirable: <150 mg/dL Borderline high: 150-199 mg/dL High: 200-499 mg/dL Very high: >or= 499 mg/dL Literature References: 1. Expert Panel on Integrated Guidelines for Cardiovascular Health and Risk Reduction in Children and Adolescents. Pediatrics 2011;128:S213 2. NCEP Expert Panel. Circulation 2004;110:227 Current Interpretive Data was last revised on 2018. HDL 50 >=40 mg/dL [facility] Comment: Interpretive Data Ages < or = 19 years Acceptable: >45 mg/dL Borderline low: 40-45 mg/dL Low: <40 mg/dL Ages > or = 20 years Desirable: >or= 60 mg/dL Low: <40 mg/dL Literature References: 1. Expert Panel on Integrated Guidelines for Cardiovascular Health and Risk Reduction in Children and Adolescents. Pediatrics 2011;128:S213 2. NCEP Expert Panel. Circulation 2004;110:227 Current Interpretive Data was last revised on 2018. LDL, calculated 108 <=129 mg/dL [facility] Comment: Interpretive Data Ages < or = 19 years Acceptable: <110 mg/dL Borderline high: 110-129 mg/dL High: >or= 130 mg/dL Ages > or = 20 years Optimal: <100 mg/dL Near optimal: 100-129 mg/dL Borderline high: 130-159 mg/dL High: >160 mg/dL Calculated using the Leonel LDL-C estimating equation. This equation was implemented on 2024. Prior to this date LDL-C was estimated using the Friedewald equation. Literature References: 1. Expert Panel on Integrated Guidelines for Cardiovascular Health and Risk Reduction in Children and Adolescents. Pediatrics 2011;128:S213 2. NCEP Expert Panel. Circulation 2004;110:227 3. Leonel Haley et al. TAYLOR Cardiol. 2020 November 03;5(5):540-548. doi: 10.1001/jamacardio.2020.0013 Current Interpretive Data was last revised on 2024. Non-HDL Cholesterol 139 mg/dL [facility] Comment: Interpretive Data Ages < or = 19 years Acceptable: <120 mg/dL Borderline high: 120-144 mg/dL High: >145 mg/dL Ages > or = 20 years When triglycerides are >200 mg/dL, Non-HDL cholesterol is a secondary target of therapy with treatment goals that are 30 mg/dL greater than the LDL cholesterol target. Literature References: 1. Expert Panel on Integrated Guidelines for Cardiovascular Health and Risk Reduction in Children and Adolescents. Pediatrics 2011;128:S213 2. NCEP Expert Panel. Circulation 2004;110:227 Current Interpretive Data was last revised on 2018. Chol/HDL ratio [address] [facility] Blood 06/30/2024 11:5 5 AM BUSINESS ACCOUNT SPECIALIST 06/30/2024 5:31 PM BUSINESS ACCOUNT SPECIALIST us Shawn Huerta MD LAB BLOOD ORDERABLES Final R esult [facility] [place] [address] * (ABNORMAL) Comprehensive metabolic panel (06/30/2024 11:55 AM BUSINESS ACCOUNT SPECIALIST) Sodium 141 135 - 145 mmol/L Potassium, pl 4.6 3.3 - 4.9 mmol/L [facility] Chloride 101 97 - 110 mmol/L [facility] CO2 26 22 - 32 mmol/L [facility] Anion gap 14 2 - 15 mmol/L [facility] BUN 28(H) 6 - 25 mg/dL [facility] Creatinine 0.91 0.60 - 1.10 mg/dL [facility] Glucose 144 70 - 199 mg/dL [facility] Comment: Interpretive Data Fasting glucose >/= 126 mg/dl is diagnostic for diabetes. Fasting is defined as no caloric intake for at least 8 hours. Fasting glucose between 100 mg/dl to 125 mg/dl is diagnostic of prediabetes. In a patient with classic symptoms of hyperglycemia or hyperglycemic crisis, a random glucose >/= 200 mg/dl is diagnostic for diabetes. In the absence of unequivocal hyperglycemia, results should be confirmed by repeat testing. The classification and Diagnosis of Diabetes Diabetes Care 202; 46: S19-S40. Current interpretive data was last revised 2022. Calcium 10.7(H) 8.5 - 10.3 mg/dL [facility] Bilirubin, total 0.7 0.1 - 1.2 mg/dL [facility] Protein, pl 8.1 6.5 - 8.5 g/dL [facility] Albumin 4.9 3.5 - 5.0 g/dL [facility] Alk phos 87 40 - 130 Units/L [facility] ALT 17 7 - 45 Units/L [facility] AST 22 10 - 45 Units/L [facility] Blood 06/30/2024 11:5 5 AM BUSINESS ACCOUNT SPECIALIST 06/30/2024 5:31 PM BUSINESS ACCOUNT SPECIALIST Shawn Huerta MD LAB BLOOD ORDERABLES Final R esult [facility] Department [place] [address] * POCT hemoglobin A1c (06/30/2024 11:07 AM BUSINESS ACCOUNT SPECIALIST) Hemoglobin A1C, POC 8.5 4.0 - 5.6 % Blood 06/30/2024 11:0 7 AM BUSINESS ACCOUNT SPECIALIST us Shawn Huerta MD POINT OF CARE TEST ORDERABLE S Final Result * Dexa Axial Skeleton Bone Density 1 or 2 Site (04/29/2022 10:35 AM CDT) Anatomical Region Laterality Modality Body N/A Digital Radiogra phy 04/29/2022 10:3 9 AM CDT Impressions 04/29/2022 11:38 AM CDT 1. The bone mineral density of the lumbar spine is increased. There has been a statistically significant increase in bone mineral density since the baseline examination of 12/23/2012. Comparison with prior studies performed at this facility before March 2019 is less accurate because of a change in bone densitometry scanners. 2. The bone mineral density of the left femoral neck is mildly decreased. There has been a statistically significant decrease in bone mineral density since the baseline examination of 12/23/2012. Comparison with prior studies performed at this facility before March 2019 is less accurate because of a change in bone densitometry scanners. 3. The bone mineral density of the left total hip is mildly decreased. There has been a statistically significant decrease in bone mineral density since the baseline examination of 12/23/2012. Comparison with prior studies performed at this facility before March 2019 is less accurate because of a change in bone densitometry scanners. 4. Overall, the above findings are diagnostic of low bone mass (osteopenia) by WHO criteria. 5. Based on the FRAX fracture risk model, the 10-year probability for major osteoporotic fracture is 13% and that for hip fracture is 3.1%. This 10-year fracture risk estimate was calculated using the risk factors noted in the history above, along with the femoral neck bone density. FRAX is intended to help guide treatment decisions in men over age 50 and postmenopausal women with low bone mass (osteopenia). The National Osteoporosis Foundation (NOF) recommends that FDA-approved medical therapies be considered in postmenopausal women and men age 50 years and older with osteoporosis and those with low bone mass whose 10-year fracture probability by FRAX is >= 20% for major osteoporotic fracture or >= 3% for hip fracture. However, all treatment decisions require clinical judgment and consideration of individual patient factors, including patient preferences, comorbidities, previous drug use, risk factors not captured in the FRAX model (e.g., frailty, falls, vitamin D deficiency, increased bone turnover, interval significant decline in bone density) and possible under- or overestimation of fracture risk by FRAX. General comments regarding interpretation of bone density measurements: A) In children, premenopausal woman and males under age 50 not at increased risk for fractures only Z-scores, not T-scores are used to indicate risk. A Z-score above -2.0 is defined as within the expected range for age and Z-score at or less than -2.0 is below the expected range for age . A Z-score below the expected range for age in a patient with recent fractures and/or chronic corticosteroid treatment is consistent with a diagnosis of osteoporosis. B) In post menopausal women and males over 50, comparison of the measured bone mineral density with the average value in young normal subjects (the T-score ) has been found to be useful in assessing fracture risk. Fracture risk approximately doubles for each 1.0 standard deviation (SD) in individual's hip or spine bone mineral density is below the average value of young normal subjects. The World Health Organization (WHO) has defined T-scores of -1.0 to -2.5 as diagnostic of low bone mass (OSTEOPENIA), and T-scores of -2.5 or lower to be diagnostic of OSTEOPOROSIS, based on the site of lowest bone density. Note that there will be a change in reporting format and reference databases as patients move from the younger population (group A) to the older population (group B) The National Osteoporosis Foundation (www.nof.org) recommends adequate intake of calcium and vitamin D and regular weight-bearing exercise in all patients. They recommend pharmacologic treatment in postmenopausal women and men age 50 and older presenting with any of the followin) Osteoporosis, after appropriate evaluation to exclude secondary causes. 2) A hip or vertebral (clinical or radiographic) fracture, regardless of the bone density. 3) Low bone mass (Osteopenia) and one or more of: other prior fractures, secondary causes associated with high risk of fracture (such as glucocorticoid use or total immobilization), or computed high risk of fracture (10-yr probability of hip fracture >= 3% or a 10-yr probability of any major osteoporosis-related fracture >= 20% based on the [place].-adapted WHO algorithm), available at http://www.shef.ac.uk/FRAX). Dictated by: Paty Baeza M.D. The radiology attending physician has personally reviewed this study, and had reviewed and/or edited this written report and agrees with it. Electronically signed by: Violeta Martinez M.D. Narrative 04/29/2022 11:38 AM CDT BONE DENSITOMETRY OF THE SPINE AND HIP DATE OF STUDY: 04/29/2022 HISTORY: 76-year-old postmenopausal woman with osteopenia. She is being treated with calcium and vitamin D. Evaluate bone mineral density. Additional risk factors for fracture: none. FINDINGS (SPINE): The bone mineral density of L1-L4 was assessed by dual-energy x-ray absorptiometry. The average bone mineral density within this region is 1.273 gm/sq-cm. This is 4.6 standard deviations above the mean of the average bone mineral density for age- and gender-matched subjects (the Z-score). It is 2.1 standard deviations above the mean peak bone mineral density in young adults (the T-score). FINDINGS (FEMORAL NECK): The bone mineral density of the left femoral neck was assessed by dual-energy x-ray absorptiometry. The average bone mineral density within the femoral neck region is 0.649 gm/sq-cm. This is 0.4 standard deviations above the mean of the average bone mineral density for age- and gender-matched subjects (the Z-score). It is 1.8 standard deviations below the mean peak bone mineral density in young adults (the T-score). FINDINGS (TOTAL HIP): The bone mineral density of the left hip was assessed by dual-energy x-ray absorptiometry. The average bone mineral density within the total hip region is 0.721 gm/sq-cm. This is 0.1 standard deviations above the mean of the average bone mineral density for age- and gender-matched subjects (the Z-score). It is 1.8 standard deviations below the mean peak bone mineral density in young adults (the T-score). SUMMARY OF CURRENT RESULTS: Region BMD T-score Z-score AP Spine (L1-L4) 1.273 2.1 4.6 Femoral Neck (Left) 0.649 -1.8 0.4 Total Hip (Left) 0.721 -1.8 0.1 COMPARISON WITH PREVIOUS RESULTS Region Age BMD T-score BMD Change BMD Change Exam Date g/cm2 vs Baseline vs Previous AP Spine (L1-L4) 04/29/2022 76 1.273 2.1 22.1%# 3.4%* 03/14/2020 74 1.231 1.7 18.1%# 8.2%# 02/08/2016 70 1.138 0.8 9.2%* 9.2%* 12/23/2012 67 1.043 Femoral Neck(Left) 04/29/2022 76 0.649 -1.8 -5.6%# 2.6% 03/14/2020 74 0.633 -1.9 -8.0%# 0.9%# 02/08/2016 70 0.627 -2.0 -8.9%* -8.9%* 12/23/2012 67 0.688 -1.5 Total Hip(Left) 04/29/2022 76 0.721 -1.8 -16.2%# -1.6% 03/14/2020 74 0.733 -1.7 -14.8%# -12.0%# 02/08/2016 70 0.833 -0.9 -3.2%* -3.2%* 12/23/2012 67 0.861 -0.7 *Denotes significance at 95% confidence level # Denotes dissimilar scan types or analysis methods Procedure Note Violeta Martinez MD - 04/29/2022 BONE DENSITOMETRY OF THE SPINE AND HIP DATE OF STUDY: 04/29/2022 HISTORY: 76-year-old postmenopausal woman with osteopenia. She is being treated with calcium and vitamin D. Evaluate bone mineral density. Additional risk factors for fracture: none. FINDINGS (SPINE): The bone mineral density of L1-L4 was assessed by dual-energy x-ray absorptiometry. The average bone mineral density within this region is 1.273 gm/sq-cm. This is 4.6 standard deviations above the mean of the average bone mineral density for age- and gender-matched subjects (the Z-score). It is 2.1 standard deviations above the mean peak bone mineral density in young adults (the T-score). FINDINGS (FEMORAL NECK): The bone mineral density of the left femoral neck was assessed by dual-energy x-ray absorptiometry. The average bone mineral density within the femoral neck region is 0.649 gm/sq-cm. This is 0.4 standard deviations above the mean of the average bone mineral density for age- and gender-matched subjects (the Z-score). It is 1.8 standard deviations below the mean peak bone mineral density in young adults (the T-score). FINDINGS (TOTAL HIP): The bone mineral density of the left hip was assessed by dual-energy x-ray absorptiometry. The average bone mineral density within the total hip region is 0.721 gm/sq-cm. This is 0.1 standard deviations above the mean of the average bone mineral density for age- and gender-matched subjects (the Z-score). It is 1.8 standard deviations below the mean peak bone mineral density in young adults (the T-score). SUMMARY OF CURRENT RESULTS: Region BMD T-score Z-score AP Spine (L1-L4) 1.273 2.1 4.6 Femoral Neck (Left) 0.649 -1.8 0.4 Total Hip (Left) 0.721 -1.8 0.1 COMPARISON WITH PREVIOUS RESULTS Region Age BMD T-score BMD Change BMD Change Exam Date g/cm2 vs Baseline vs Previous AP Spine (L1-L4) 04/29/2022 76 1.273 2.1 22.1%# 3.4%* 03/14/2020 74 1.231 1.7 18.1%# 8.2%# 02/08/2016 70 1.138 0.8 9.2%* 9.2%* 12/23/2012 67 1.043 Femoral Neck(Left) 04/29/2022 76 0.649 -1.8 -5.6%# 2.6% 03/14/2020 74 0.633 -1.9 -8.0%# 0.9%# 02/08/2016 70 0.627 -2.0 -8.9%* -8.9%* 12/23/2012 67 0.688 -1.5 Total Hip(Left) 04/29/2022 76 0.721 -1.8 -16.2%# -1.6% 03/14/2020 74 0.733 -1.7 -14.8%# -12.0%# 02/08/2016 70 0.833 -0.9 -3.2%* -3.2%* 12/23/2012 67 0.861 -0.7 *Denotes significance at 95% confidence level # Denotes dissimilar scan types or analysis methods IMPRESSION: 1. The bone mineral density of the lumbar spine is increased. There has been a statistically significant increase in bone mineral density since the baseline examination of 12/23/2012. Comparison with prior studies performed at this facility before March 2019 is less accurate because of a change in bone densitometry scanners. 2. The bone mineral density of the left femoral neck is mildly decreased. There has been a statistically significant decrease in bone mineral density since the baseline examination of 12/23/2012. Comparison with prior studies performed at this facility before March 2019 is less accurate because of a change in bone densitometry scanners. 3. The bone mineral density of the left total hip is mildly decreased. There has been a statistically significant decrease in bone mineral density since the baseline examination of 12/23/2012. Comparison with prior studies performed at this facility before March 2019 is less accurate because of a change in bone densitometry scanners. 4. Overall, the above findings are diagnostic of low bone mass (osteopenia) by WHO criteria. 5. Based on the FRAX fracture risk model, the 10-year probability for major osteoporotic fracture is 13% and that for hip fracture is 3.1%. This 10-year fracture risk estimate was calculated using the risk factors noted in the history above, along with the femoral neck bone density. FRAX is intended to help guide treatment decisions in men over age 50 and postmenopausal women with low bone mass (osteopenia). The National Osteoporosis Foundation (NOF) recommends that FDA-approved medical therapies be considered in postmenopausal women and men age 50 years and older with osteoporosis and those with low bone mass whose 10-year fracture probability by FRAX is >= 20% for major osteoporotic fracture or >= 3% for hip fracture. However, all treatment decisions require clinical judgment and consideration of individual patient factors, including patient preferences, comorbidities, previous drug use, risk factors not captured in the FRAX model (e.g., frailty, falls, vitamin D deficiency, increased bone turnover, interval significant decline in bone density) and possible under- or overestimation of fracture risk by FRAX. General comments regarding interpretation of bone density measurements: A) In children, premenopausal woman and males under age 50 not at increased risk for fractures only Z-scores, not T-scores are used to indicate risk. A Z-score above -2.0 is defined as within the expected range for age and Z-score at or less than -2.0 is below the expected range for age . A Z-score below the expected range for age in a patient with recent fractures and/or chronic corticosteroid treatment is consistent with a diagnosis of osteoporosis. B) In post menopausal women and males over 50, comparison of the measured bone mineral density with the average value in young normal subjects (the T-score ) has been found to be useful in assessing fracture risk. Fracture risk approximately doubles for each 1.0 standard deviation (SD) in individual's hip or spine bone mineral density is below the average value of young normal subjects. The World Health Organization (WHO) has defined T-scores of -1.0 to -2.5 as diagnostic of low bone mass (OSTEOPENIA), and T-scores of -2.5 or lower to be diagnostic of OSTEOPOROSIS, based on the site of lowest bone density. Note that there will be a change in reporting format and reference databases as patients move from the younger population (group A) to the older population (group B) The National Osteoporosis Foundation (www.nof.org) recommends adequate intake of calcium and vitamin D and regular weight-bearing exercise in all patients. They recommend pharmacologic treatment in postmenopausal women and men age 50 and older presenting with any of the followin) Osteoporosis, after appropriate evaluation to exclude secondary causes. 2) A hip or vertebral (clinical or radiographic) fracture, regardless of the bone density. 3) Low bone mass (Osteopenia) and one or more of: other prior fractures, secondary causes associated with high risk of fracture (such as glucocorticoid use or total immobilization), or computed high risk of fracture (10-yr probability of hip fracture >= 3% or a 10-yr probability of any major osteoporosis-related fracture >= 20% based on the [place].-adapted WHO algorithm), available at http://www.shef.ac.uk/FRAX). Dictated by: Paty Baeza M.D. The radiology attending physician has personally reviewed this study, and had reviewed and/or edited this written report and agrees with it. Electronically signed by: Violeta Martinez M.D. Shawn Huerta MD IMG DXA PROCEDURES Final Res ult * COLONOSCOPY (06/11/2021 2:25 PM BUSINESS ACCOUNT SPECIALIST) Anatomical Region Laterality Modality Other Narrative Procedure Note Daxa Arita MD PhD - 06/11/2021 2:25 PM [facility] Patient Name: Ivania Sewell Procedure Date: 06/11/2021 2:25 PM Date of : 1945 Admit Type: Outpatient Age: 75 Gender: Female Attending MD: Daxa Arita MD,PHD Room: [facility] ENDOSCOPY ROOM 8 Note Status: Finalized Procedure: Colonoscopy Indications: High risk colon cancer surveillance: Personalhistory of colonic polyps, Last colonoscopy: June 2010 (the patient reported having colonoscopy 5 yearsago at an outside facility) Referring MD: Shawn Huerta M.D. Providers: Daxa Arita MD, PHD Medicines: Monitored Anesthesia Care Complications: No immediate complications. Estimated Blood Loss: Estimated blood loss: none. Procedure: Pre-Anesthesia Assessment: - Immediately prior to administration ofmedications, the patient was re-assessed for adequacy to receive sedatives. - The risks and benefits of the procedure and the sedation options and risks were discussed with the patient. All questions were answered and informed consent was obtained. The benefits, risks and alternatives of theprocedure and sedation were discussed and informed consentwas obtained. All questions were answered. Please referto the signed informed consent document in the medical record. The scope was passed under direct vision.The CF [id number] endoscope was introduced through the anus and advanced to the terminal ileum. The colonoscopy was performed with ease. The patient tolerated the procedure well. The quality of thebowel preparation was excellent. The quality of the bowel preparation was evaluated using the BBPS (BostonBowel Preparation Scale) with scores of: Right Colon = 3, Transverse Colon = 3 and Left Colon = 3 (entiremucosa seen well with no residual staining, smallfragments of stool or opaque liquid). The total BBPS score equals 9. The bowel preparation used waspolyethylene glycol (PEG) via split dose instruction. Bowel prep was administered using a split dose. Findings: The perianal and digital rectal examinations were normal. The terminal ileum appeared normal. Multiple small and large-mouthed diverticula were found in thesigmoid colon. The exam was otherwise without abnormality on direct and retroflexion views. Impression: - The examined portion of the ileum was normal. - Diverticulosis in the sigmoid colon. - The examination was otherwise normal on directand retroflexion views. Recommendation: - High fiber diet. - Return to referring physician as previously scheduled. Attending Participation: I personally performed the entire procedure. Electronically signed by Daxa Arita MD. Daxa Arita MD, PHD 06/11/2021 2:57:54 PM Number of Addenda: 0 Note Initiated On: 06/11/2021 2:25 PM Recognized by the [employer] for promoting quality in endoscopy Daxa Arita MD PhD ENDOSCOPY PROCEDURES Lilian l Result * Hepatitis C antibody (01/29/2021 11:40 AM CDT) Hep C Ab Nonreactive Nonreactive [facility] Comment:Antibodies to HCV no t detected. Does NOT exclude the possibility of recent exposure to HCV. Blood specimen (specimen) 01/29/2021 11:40 AM CDT 01/29/2021 1:46 PM CDT Shawn Huerta MD LAB MICROBIOLOGY - GENERAL O RDERABLES Edited Result - Final [facility] Department [place] [address] from Last 3 Months or Most Recently Relevant to Health Maintenance Insurance T MEDICARE MEDICARE MEDICARE MEDICARE Advance Directives For more information, please contact: [phone] * Full Code (Latest Code Status on File) Date Activated Date Inactivated Comments 06/11/2021 1:56 PM 06/11/2021 8:00 PM Care Teams Bladder Trimmer Relationship Specialty Start Date End Date Shawn Huerta MD PCP - General 10/08/16 Leda Egan MD Referring Physician Cardiology 08/31/18 John Lord MD [address] [facility] [address] [place], [place] [id number] Consulting Physician Pulmonary Disease 08/31/18 Paty Garcia MD [address] [place] [facility] [email or web address] [address] [place] [address] Referring Physician Dermatology 08/31/18
--- OUTSIDE RECORDS SUMMARY | 2024-08-24 13:01 | XMS_ITS | Referral Summary ---
Author Organization [facility] Address [address] [place] [address] Care Team Providers Care Concrete Mixer Truck Driver Name Role Phone Shawn Huerta MD Primary Care Provider [phone] Leda Egan MD Unavailable [phone] John Lord MD Unavailable [phone] Paty Garcia MD Unavailable [phone] Encounters Date Type Department Care Team Description 08/16/2024 1:10 PM RODDING MACHINE TENDER Office Visit [facility] Orthopaedic Surgery [address] [facility] 2nd [address] [place] [phone] Antonio Jasso MD Bilateral carpal tunnel syndrome (Primary Dx); Follow-up exam 08/10/2024 Telephone [facility] Cardiology [address] [facility] 8th [place] [address] [place] [address] Leda Egan MD 07/29/2024 8:15 AM RODDING MACHINE TENDER - 07/29/2024 9:50 AM RODDING MACHINE TENDER Surgery [facility] [address] [place] [address] Antonio Jasso MD RELEASE CARPAL TUNNEL - RIGHT 07/29/2024 8:20 AM RODDING MACHINE TENDER Anesthesia Event [facility] [address] [place] [address] Gianluca Lainez MD DDS Dianna Earl NP 07/29/2024 6:07 AM RODDING MACHINE TENDER - 07/29/2024 9:57 AM RODDING MACHINE TENDER Hospital Encounter [facility] [address] [place] [address] Antonio Jasso MD Carpal tunnel syndrome of right wrist (Primary Dx) Discharge Disposition: Discharge to home or self care 07/28/2024 Telephone [facility] Orthopaedic Surgery [address] [facility] 6th [place] [address] [place] [address] Antonio Jasso MD Ortho NPO 07/07/2024 Telephone [facility] Orthopaedic Surgery [facility] [facility] 6th [place] [address] [place] [address] Antonio Jasso MD Pre-testing/Questions 06/30/2024 11:50 AM RODDING MACHINE TENDER Lab [facility] at the [address] [address] Memory difficulties; Acquired hypothyroidism; Primary osteoarthritis involving multiple joints; Type 2 diabetes mellitus without complication, without long-term current use of insulin ([facility]) ([facility]); Pure hypercholesterolemia; Medication monitoring encounter 06/30/2024 11:00 AM RODDING MACHINE TENDER Office Visit [address] [address] Shawn Huerta MD Medicare annual wellness visit, subsequent (Primary Dx); Type 2 diabetes mellitus without complication, without long-term current use of insulin ([facility]) ([facility]); ALIN on CPAP; Paroxysmal atrial fibrillation (CMS/[facility]) ([facility]); Pure hypercholesterolemia; Acquired hypothyroidism; Primary hypertension; Primary osteoarthritis involving multiple joints; Memory difficulties; Generalized anxiety disorder; Medication monitoring encounter; Left carpal tunnel syndrome from Last 3 Months Allergies Active Allergy Reactions Criticality Noted Date Comments Metformin Diarrhea Low 05/24/2020 Medications cinnamon bark 500 mg capsule Take 1 capsule (500 mg total) by mouth electronic prepress technician before breakfast Active cholecalciferol (VITAMIN D-3) 1,000 unitIndications:supple ment Take 1 tablet/capsule (1,000 Units total) by mouth electronic prepress technician before breakfast Active blood glucose diagnostic (glucose [...] solution Administer 1 drop into both eyes electronic prepress technician before breakfast 2023 Active sertraline (ZOLOFT) 50 [...] complication, without long-term current use of insulin ([facility]) ([facility]) TAKE 1 TABLET BY MOUTH EVERY DAY [...] tablet 07/29 Discont inued(S top Taking at Dischar ) Active Problems Problem Noted Date Diagnosed Date Carpal tunnel syndrome of right wrist 05/24/2024 Left carpal tunnel syndrome 04/25/2024 Assessment & Plan (06/30/2024 1:38 PM RODDING MACHINE TENDER): Encouraged completion of surgical rx given significant symptoms. Primary osteoarthritis involving multiple joints 10/23/2023 Overview (10/23/2023): Neck , shoulders, knees, back , thumb Assessment & Plan (06/30/2024 1:37 PM RODDING MACHINE TENDER): Continue supportive care. Assessment & Plan (02/23/2024 [...] 06/23/2023 Assessment & Plan (06/23/2023 12:02 PM RODDING MACHINE TENDER): No alarm neurologic complaint.s No weakness. Suggested PT Pain of right hip 06/23/2023 Assessment & Plan (06/23/2023 12:03 PM RODDING MACHINE TENDER): Checking x rays , pt Cutaneous candidiasis 08/15/2022 Conductive hearing loss, bilateral 04/16/2022 Chronic right-sided low back pain without sciati ca 08/01/2021 Assessment & Plan (04/16/2022 10:18 AM CDT): Bothersome in the lower back Some hip pain as well No neurologic complications Continue exercises and will call if weakness, Pain is intolerable Assessment & Plan (08/01/2021 10:36 AM RODDING MACHINE TENDER): This since the foot injury . Encouraged physical therapy . She will work on this and report if worsening. BMI 29.0-29.9,adult 05/17/2021 H/O thyroidectomy 01/24/2020 Assessment & Plan (01/24/2020 8:41 AM CDT): Checking tft's NO concerns. Pain in both hands 07/26/2019 Assessment & Plan (07/26/2019 12:29 PM RODDING MACHINE TENDER): Likely dupytrens contracture. No complications . If progressive then ortho visit Sensorineural hearing loss, bilateral 10/05/2018 Medicare annual wellness visit, subsequent 08/31 Assessment & Plan (06/30/2024 1:36 PM RODDING MACHINE TENDER): Checking labs per routine and pertaining to [...] 08/31/2018 Assessment & Plan (06/30/2024 1:37 PM RODDING MACHINE TENDER): Not appreciable on exam . Monitoring clinically [...] complications. Assessment & Plan (08/31/2018 4:51 PM RODDING MACHINE TENDER): Encouraged she get off lyrica and minimize meds. Checking labs now. NO other new complaints Knee pain 06/04/2017 Assessment & Plan (06/23/2023 12:00 PM RODDING MACHINE TENDER): Symptoms are tolerble though encouraged PT Ganglion cyst 06/02/2017 Keratosis, senilis 02/19/2017 Lentigo 02/19/2017 Acne vulgaris 11/12/2016 Multiple actinic keratoses 10/17/2015 ALIN on CPAP 09/18/2015 Overview (06/11/2017): Obstructive sleep apnea apnea-hypopnea index 6.7. Desaturation 81%. Date of test September 10, 2015 Assessment & Plan (06/30/2024 11:30 AM RODDING MACHINE TENDER): Stable on cpap Assessment & Plan (05/16/2024 11:38 AM RODDING MACHINE TENDER): Compliance data reviewed and discussed ALIN - good compliance and response to therapy. Benefiting from therapy. Continue PAP therapy. Compliance data reviewed and discussed. Equipment maintenance discussed. RTC in one year or as needed. New Order for yearly supplies entered. gemma SIDDIQI Assessment & Plan (10/23/2023 11:51 AM CDT): Well treated on current regimen. Assessment & Plan (06/23/2023 11:59 AM RODDING MACHINE TENDER): Stable cpap Well controlled on current regimen. [...] complications. Assessment & Plan (08/31/2018 4:47 PM RODDING MACHINE TENDER): Continue supportive care and cpap. Paroxysmal atrial fibrillation ([facility]/HCC) 016 Overview (2016): Paroxysmal atrial fibrillation Assessment & Plan (06/30/2024 11:30 AM RODDING MACHINE TENDER): No a fib symptoms and following with ep. Assessment & Plan (02/23/2024 10:34 AM CDT): Her a fib has been well controlled on current regimen. No complications on the xarelto. Assessment & Plan (10/26/2023 7:07 AM CDT): Adequate rate control. No side effects on the xarelto. Assessment & Plan (06/23/2023 11:38 AM RODDING MACHINE TENDER): No obvious palpitations, sob chest pain or [...] cpap Assessment & Plan (08/01/2021 10:37 AM RODDING MACHINE TENDER): No Obvious symptoms related to this. Continue with current regimen. Assessment & Plan (01/29/2021 10:31 AM CDT): Doing well. Recently saw Dr. Martin. - continue Flecainide and Toprolol Assessment & Plan (08/01/2020 10:10 AM RODDING MACHINE TENDER): No obvious palpitations, sob, Or other complications Following with cardiology . No complications of xarelto Assessment & Plan (01/24/2020 8:34 AM CDT): No recurrent sx. No chest pain , palpitations, Sob or other complaints. Assessment & Plan (07/26/2019 12:27 PM RODDING MACHINE TENDER): No complications. Continue current regimen . Assessment & Plan (03/02/2019 3:07 PM CDT): Rarely in this with the flecainide. No symptoms related. Assessment & Plan (08/31/2018 4:48 PM RODDING MACHINE TENDER): Has been tolerable. No palpitations or other complaints. Senile lentigo 10/11/2014 Neoplasm of connective and soft tissue 3 Diabetes mellitus 03/28/2013 Assessment & Plan (06/30/2024 1:37 PM RODDING MACHINE TENDER): She prefers to hold off more meds [...] . Assessment & Plan (06/23/2023 11:59 AM RODDING MACHINE TENDER): Diabetes Mellitus type II, under only checking [...] microalbumin. Assessment & Plan (08/01/2021 10:37 AM RODDING MACHINE TENDER): Diabetes Mellitus type II, under good control. [...] diarrhea. Assessment & Plan (08/01/2020 10:15 AM RODDING MACHINE TENDER): Well controlled , a1c at goal. She will work on diet and exercise. Dm education by summer. Assessment & Plan (01/24/2020 8:43 AM CDT): Has been without sx and checking hba1c now. Working on diet and exercise. NO new concerns. Encouraged home testing and inform me if sugars approaching 200 Assessment & Plan (07/27/2019 7:06 AM RODDING MACHINE TENDER): Well controlled on current regimen . No [...] step Assessment & Plan (08/31/2018 4:54 PM RODDING MACHINE TENDER): Diabetes is being checked, utd with eye md visit, Checking hba1c and chem panel. Urine microablumin Rosacea 03/11/2012 Assessment & Plan (08/31/2018 4:43 PM RODDING MACHINE TENDER): Stable on metrogel. 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 Assessment & Plan (06/23/2023 11:59 AM RODDING MACHINE TENDER): NO obvious sx or side effects from [...] meds. Assessment & Plan (07/26/2019 12:27 PM RODDING MACHINE TENDER): Checking labs in follow up . Assessment & Plan (08/31/2018 4:44 PM RODDING MACHINE TENDER): Lipid abnormalities are well controlled. Generalized anxiety disorder 02/13/2010 Assessment & Plan (06/30/2024 1:33 PM RODDING MACHINE TENDER): No recent increased symptoms. No need for medications. Assessment & Plan (02/23/2024 10:35 AM CDT): Her symptoms have been well managed. No complications Assessment & Plan (10/26/2023 7:08 AM CDT): Generally well managed on sertraline. No breakthru panic . Assessment & Plan (06/23/2023 11:59 AM RODDING MACHINE TENDER): Her anxiety is well controlled on current regimen. Assessment & Plan (02/17/2023 1:03 PM CDT): No progression in symptoms nor any depression. Assessment & Plan (10/15/2022 10:03 AM CDT): Adequately controlled currently. Assessment & Plan (04/16/2022 10:30 AM CDT): Symptoms are well controlled. No complications. Assessment & Plan (08/01/2021 10:41 AM RODDING MACHINE TENDER): Doing fine on the sertraline Assessment & Plan (01/29/2021 10:43 AM CDT): Stress is well controlled on current regimen . NO new complications. Assessment & Plan (07/26/2019 12:27 PM RODDING MACHINE TENDER): Well controlled on current regimen Assessment & Plan (08/31/2018 4:46 PM RODDING MACHINE TENDER): Psychological condition is Well controlled on current regimen . Hypothyroidism 02/13/2010 Assessment & Plan (06/30/2024 1:34 PM RODDING MACHINE TENDER): Checking TFTs though clinically euthyroid Assessment & Plan (02/23/2024 10:35 AM CDT): Her tft's are stable and will recheck in coming months Assessment & Plan (10/26/2023 7:08 AM CDT): No active symptoms Assessment & Plan (06/23/2023 11:40 AM RODDING MACHINE TENDER): Checking tft's. NO complications. No associated Assessment & Plan (02/17/2023 1:05 PM CDT): Checking tft's next visit. Assessment & Plan (10/15/2022 9:58 AM CDT): Checking tft's yearly . Assessment & Plan (04/16/2022 10:30 AM CDT): Checking tft's . No overt symptoms related. Assessment & Plan (08/01/2021 10:38 AM RODDING MACHINE TENDER): Stable by tft's Assessment & Plan (01/29/2021 10:42 AM CDT): Checking tft's . NO complications. Assessment & Plan (08/01/2020 10:13 AM RODDING MACHINE TENDER): Checking labs in 6 months Assessment & Plan (07/26/2019 12:29 PM RODDING MACHINE TENDER): stabvle clinically . No complicaitons Assessment & Plan (03/02/2019 3:12 PM CDT): Checking tft's at next visit. Assessment & Plan (08/31/2018 4:46 PM RODDING MACHINE TENDER): Has been well controlled and checking on labs now. Hypertension 02/13/2010 Assessment & Plan (06/30/2024 1:34 PM RODDING MACHINE TENDER): Blood pressure at goal and refilled medications. Checking labs Assessment & Plan (02/23/2024 10:36 AM CDT): Blood pressure is well controlled. Assessment & Plan (10/26/2023 7:08 AM CDT): Bp at goal on meds as reviewed. Assessment & Plan (06/23/2023 11:40 AM RODDING MACHINE TENDER): Blood pressure is well controlled on current [...] appointment. Assessment & Plan (08/01/2021 10:38 AM RODDING MACHINE TENDER): Hypertension is improving with treatment. Associated signs [...] complications. Assessment & Plan (08/01/2020 10:12 AM RODDING MACHINE TENDER): Hypertension is improving with treatment. Associated signs and symptoms: none. Medication Side effects, no medication side effects noted Continue current treatment regimen. Patient Education: Reviewed risks of hypertension and principles of treatment. Blood pressure will be reassessed at the next regular appointment. Assessment & Plan (07/26/2019 12:29 PM RODDING MACHINE TENDER): bp well controlled on current regimen . Assessment & Plan (03/02/2019 3:12 PM CDT): Well controlled on current regimen . No complications Assessment & Plan (08/31/2018 4:45 PM RODDING MACHINE TENDER): Hypertension is Well controlled on current regimen. [...] 01/11/202106/2022 Assessment & Plan (08/01/2021 10:37 AM RODDING MACHINE TENDER): Healing clinically . Reassured. If recurrent symptoms then repeat x ray Assessment & Plan (01/29/2021 10:43 AM CDT): Pain well controlled. Essential hypertension 08/15/201508/31 Overview (2016): Essential hypertension Snoring 08/15/2015 03/02/2019 Overview (2016): Snoring Skin benign neoplasm 03/11/2012 020 Immunizations Immunization Administration Dates Next Due Hep [...] 04/22/2022,03/09/2012 ZOSTER LIVE 03/06/2011 ZOSTER Recombinant 02/28/2018,12/29/2017 Social History Tobacco Use Types Packs/Day Years [...] on file Legal Sex Female 3:57 AM RODDING MACHINE TENDER Gender Identity Not on file Sexual Orientation Not on file Last Filed Vital Signs Vital Sign Reading Time Taken Comments Blood Pressure 125/58 07/29/2024 9:10 AM RODDING MACHINE TENDER Pulse 58 07/29/2024 9:10 AM RODDING MACHINE TENDER Temperature 36.2 C (97.2 F) 07/29/2024 8:55 AM RODDING MACHINE TENDER Respiratory Rate 20 07/29/2024 9:10 AM RODDING MACHINE TENDER Oxygen Saturation 94% 07/29/2024 9:10 AM RODDING MACHINE TENDER Inhaled Oxygen Concentration - - Weight 80.3 kg (177 lb) 08/16/2024 1:12 PM RODDING MACHINE TENDER Height 167.6 cm (5' 6 ) 08/16/2024 1:12 PM RODDING MACHINE TENDER Body Mass Index 28.57 08/16/2024 1:12 PM RODDING MACHINE TENDER Plan of Treatment Scheduled Procedures Name Priority Associated Diagnoses Date/Ti me COLONOSCOPY Screening for colon cancer Procedures Procedure Name Priority Date/Time Associated Diagnosis Comments POCT GLUCOSE DEVICE Routine 07/29/2024 9 :01 AM RODDING MACHINE TENDER RELEASE CARPAL TUNNEL 07/29/2024 8:23 AM RODDING MACHINE TENDER Carpal tunnel syndrome of right wrist POCT GLUCOSE DEVICE Routine 07/29/2024 7 :02 AM RODDING MACHINE TENDER EGFR Routine 06/30/2024 11:55 AM RODDING MACHINE TENDER Medication monitoring encounter DIFFERENTIAL AUTO Routine 06/30/2024 11:55 AM RODDING MACHINE TENDER Medication monitoring encounter CBC WITH AUTO DIFFERENTIAL Routine 06/30/2024 11:55 AM RODDING MACHINE TENDER Medication monitoring encounter COMPREHENSIVE METABOLIC PANEL Routine 06/30/2024 11:55 AM RODDING MACHINE TENDER Medication monitoring encounter LIPID PANEL Routine 06/30/2024 11:55 AM RODDING MACHINE TENDER Pure hypercholesterolemia Medication monitoring encounter ALBUMIN CREATININE RATIO, URINE Routine 06/30/2024 11:55 AM RODDING MACHINE TENDER Type 2 diabetes mellitus without complication, without long-term current use of insulin (CMS/HCC) (HCC) ERYTHROCYTE SEDIMENTATION RATE Routine 06/30/2024 11:55 AM RODDING MACHINE TENDER Primary osteoarthritis involving multiple joints TSH Routine 06/30/2024 11:55 AM RODDING MACHINE TENDER Acquired hypothyroidism T4, FREE Routine 06/30/2024 11:55 AM RODDING MACHINE TENDER Acquired hypothyroidism VITAMIN B12 Routine 06/30/2024 11:55 AM RODDING MACHINE TENDER Memory difficulties POCT HEMOGLOBIN A1C Routine 06/30/2024 11:07 AM RODDING MACHINE TENDER Type 2 diabetes mellitus without complication, without long-term current use of insulin (CMS/HCC) (HCC) DEXA AXIAL SKELETON BONE DENSITY 1 OR MORE SITES Schedule Routine, Read Routine (OP Routine) 04/29/2022 10:35 AM CDT Other specified disorders of bone density and structure, other site COLONOSCOPY 06/11/2021 2:25 PM RODDING MACHINE TENDER HEPATITIS C ANTIBODY Routine 01/29/2021 11:40 AM CDT Need for hepatitis C screening test from Last 3 Months or Most Recently Relevant to Health Maintenance Results * POCT glucose (07/29/2024 9:01 AM RODDING MACHINE TENDER) Glucose, POC 154 70 - 199 mg/dL Blood 07/29/2024 9:01 AM RODDING MACHINE TENDER 07/29/2024 9:01 AM RODDING MACHINE TENDER Antonio Jasso MD LAB POCT ORDERABLES - DEVICE Final Result Performing Organization Address [facility]/ZIP Co de Phone Number [facility] Department [place] [address] * POCT glucose (07/29/2024 7:02 AM RODDING MACHINE TENDER) Glucose, POC 183 70 - 199 mg/dL Blood 07/29/2024 7:02 AM RODDING MACHINE TENDER 07/29/2024 7:02 AM RODDING MACHINE TENDER Antonio Jasso MD LAB POCT ORDERABLES - DEVICE Final Result Performing Organization Address City/[facility]/ZIP Co de Phone Number [facility] [place] [address] * eGFR (06/30/2024 11:55 AM RODDING MACHINE TENDER) eGFR 64 >=60 mL/min/1. 73 m2 Comment: [...] of Race in Diagnosing Kidney Disease, JASN 2020). The CKD-EPI equation should not be used for patients with unstable renal function and has not been validated in children and those over 70. Current interpretive data was last reviewed 2021. Blood 06/30/2024 11:5 5 AM RODDING MACHINE TENDER 06/30/2024 6:00 PM RODDING MACHINE TENDER us Shawn Huerta MD LAB BLOOD ORDERABLES Final R esult [facility] [place] [address] * Differential, auto (06/30/2024 11:55 AM RODDING MACHINE TENDER) Neutrophil abs 5.9 1.5 - 6.5 K/cumm Imm gran abs 0.0 0.0 - 0.1 K/cumm [facility] Lymphocyte abs 2.1 0.8 - 3.3 K/cumm [facility] Monocyte abs 0.7 0.2 - 0.8 K/cumm [facility] Eosinophil abs 0.2 0.0 - 0.5 K/cumm [facility] Basophil abs 0.0 0.0 - 0.1 K/cumm [facility] Neutrophil pct 66.1 % [facility] Comment: Interpretive Data Percent cell count reference ranges are not reported, since discordance with absolute values may lead to misinterpretation of CBC data. Current Interpretive Data was last revised on 2017. Imm gran pct 0.3 % [facility] Comment: Interpretive Data Percent cell count reference ranges are not reported, since discordance with absolute values may lead to misinterpretation of CBC data. Current Interpretive Data was last revised on 2017. Lymphocyte pct 22.9 % [facility] Comment: Interpretive Data Percent cell count reference ranges are not reported, since discordance with absolute values may lead to misinterpretation of CBC data. Current Interpretive Data was last revised on 2017. Monocyte pct 8.2 % [facility] Comment: Interpretive Data Percent cell count reference ranges are not reported, since discordance with absolute values may lead to misinterpretation of CBC data. Current Interpretive Data was last revised on 2017. Eosinophil pct 2.1 % [facility] Comment: Interpretive Data Percent cell count reference ranges are not reported, since discordance with absolute values may lead to misinterpretation of CBC data. Current Interpretive Data was last revised on 2017. Basophil pct 0.4 % [facility] Comment: Interpretive Data Percent cell count reference ranges are not reported, since discordance with absolute values may lead to misinterpretation of CBC data. Current Interpretive Data was last revised on 2017. Blood 06/30/2024 11:5 5 AM RODDING MACHINE TENDER 06/30/2024 5:31 PM RODDING MACHINE TENDER us Shawn Huerta MD LAB BLOOD ORDERABLES Final R esult [facility] [place] [address] * CBC with auto differential (06/30/2024 11:55 AM RODDING MACHINE TENDER) WBC 9.0 3.8 - 9.9 K/cumm Hgb 14.6 11.9 - 15.5 g/dL [facility] Hct 44.5 35.6 - 45.5 % [facility] Plt 249 150 - 400 K/cumm [facility] MPV 10.4 9.1 - 12.3 fL [facility] RBC 4.88 3.90 - 5.20 M/cumm [facility] MCV 91.2 81.3 - 96.4 fL [facility] MCH 29.9 27.1 - 33.3 pg [facility] MCHC 32.8 32.3 - 35.7 g/dL [facility] RDW CV 12.5 11.1 - 14.9 % [facility] RDW SD 41.8 35.7 - 48.1 fL [facility] NRBC abs 0.00 0.00 - 0.01 K/cumm [facility] Blood 06/30/2024 11:5 5 AM RODDING MACHINE TENDER 06/30/2024 5:31 PM RODDING MACHINE TENDER Shawn Huerta MD LAB BLOOD ORDERABLES Final R esult Performing Organization Address City/[facility] Co de Phone Number [facility] [place] [address] * Albumin Creatinine Ratio, Urine (06/30/2024 11:55 AM RODDING MACHINE TENDER) Albumin Ur 12.4 mg/L Comment: Interpretive Data No reference range established. Current interpretive data was last revised 2018. Creatinine Ur 61.6 mg/dL [facility] Comment: Interpretive Data No reference range established. Current interpretive data was last revised 2018. Albumin Creatinine Ratio, Ur 20 1 - 29 mg/g [facility] Urine 06/30/2024 11:5 5 AM RODDING MACHINE TENDER 06/30/2024 5:31 PM RODDING MACHINE TENDER Shawn Huerta MD LAB URINE ORDERABLES Final R esult [facility] Department [place] [address] * Erythrocyte sedimentation rate (06/30/2024 11:55 AM RODDING MACHINE TENDER) Erythrocyte sedimentation rate 14 1 - 30 mm/hr Blood 06/30/2024 11:5 5 AM RODDING MACHINE TENDER 06/30/2024 5:31 PM RODDING MACHINE TENDER Shawn Huerta MD LAB BLOOD ORDERABLES Final R esult Performing Organization Address City/[facility] Co de Phone Number [facility] [place] [address] * TSH (06/30/2024 11:55 AM RODDING MACHINE TENDER) Thyroid Stimulating Hormone 0.98 0.30 - 4.20 mcIUnit/mL Blood 06/30/2024 11:5 5 AM RODDING MACHINE TENDER 06/30/2024 5:31 PM RODDING MACHINE TENDER Shawn Huerta MD LAB BLOOD ORDERABLES Final R esult Performing Organization Address [facility] [place] [address] * T4, free (06/30/2024 11:55 AM RODDING MACHINE TENDER) Free T4 1.43 0.90 - 1.70 ng/dL Blood 06/30/2024 11:5 5 AM RODDING MACHINE TENDER 06/30/2024 5:31 PM RODDING MACHINE TENDER Shawn Huerta MD LAB BLOOD ORDERABLES Final R esult Performing Organization Address [facility] Co de Phone Number [facility] [place] [address] * Vitamin B12 (06/30/2024 11:55 AM RODDING MACHINE TENDER) Vitamin B12 1,097 230 - 1,250 pg/mL Blood 06/30/2024 11:5 5 AM RODDING MACHINE TENDER 06/30/2024 5:31 PM RODDING MACHINE TENDER Shawn Huerta MD LAB BLOOD ORDERABLES Final R esult Performing Organization Address [facility] Co de Phone Number [facility] [place] [address] * (ABNORMAL) Lipid panel (06/30/2024 11:55 AM RODDING MACHINE TENDER) Cholesterol 189 30 - 199 mg/dL Comment: [...] revised on 2018. Triglycerides 177(H) <=149 mg/dL [facility] Comment: Interpretive Data Ages < or = [...] revised on 2018. HDL 50 >=40 mg/dL [facility] Comment: Interpretive Data Ages < or = [...] on 2018. LDL, calculated 108 <=129 mg/dL [facility] Comment: Interpretive Data Ages < or = [...] revised on 2024. Non-HDL Cholesterol 139 mg/dL [facility] Comment: Interpretive Data Ages < or [...] last revised on 2018. Chol/HDL ratio 4 [facility] Blood 06/30/2024 11:5 5 AM RODDING MACHINE TENDER 06/30/2024 5:31 PM RODDING MACHINE TENDER us Shawn Huerta MD LAB BLOOD ORDERABLES Final R esult [facility] [place] [address] * (ABNORMAL) Comprehensive metabolic panel (06/30/2024 11:55 AM RODDING MACHINE TENDER) Sodium 141 135 - 145 mmol/L Potassium, pl 4.6 3.3 - 4.9 mmol/L [facility] Chloride 101 97 - 110 mmol/L [facility] CO2 26 22 - 32 mmol/L [facility] Anion gap 14 2 - 15 mmol/L [facility] BUN 28(H) 6 - 25 mg/dL [facility] Creatinine 0.91 0.60 - 1.10 mg/dL [facility] Glucose 144 70 - 199 mg/dL [facility] Comment: Interpretive Data Fasting glucose >/= [...] 2022. Calcium 10.7(H) 8.5 - 10.3 mg/dL [facility] Bilirubin, total 0.7 0.1 - 1.2 mg/dL [facility] Protein, pl 8.1 6.5 - 8.5 g/dL [facility] Albumin 4.9 3.5 - 5.0 g/dL [facility] Alk phos 87 40 - 130 Units/L [facility] ALT 17 7 - 45 Units/L [facility] AST 22 10 - 45 Units/L [facility] Blood 06/30/2024 11:5 5 AM RODDING MACHINE TENDER 06/30/2024 5:31 PM RODDING MACHINE TENDER Shawn Huerta MD LAB BLOOD ORDERABLES Final R esult [facility] [place] [address] * POCT hemoglobin A1c (06/30/2024 11:07 AM RODDING MACHINE TENDER) Hemoglobin A1C, POC 8.5 4.0 - 5.6 % Blood 06/30/2024 11:0 7 AM RODDING MACHINE TENDER us Shawn Huerta MD POINT OF CARE [...] it. Electronically signed by: Violeta Martinez M.D. us Shawn Huerta MD IMG DXA PROCEDURES Final Res ult * COLONOSCOPY (06/11/2021 2:25 PM RODDING MACHINE TENDER) Anatomical Region Laterality Modality Other Narrative Procedure Note Daxa Arita MD PhD - 06/11/2021 2:25 PM CST [facility] Patient Name: Ivania Sewell Procedure Date: 06/11/2021 2:25 PM Date of : 1945 Admit Type: Outpatient Age: 75 Gender: Female Attending MD: Daxa Arita MD,PHD Room: [facility] ENDOSCOPY ROOM 8 Note Status: Finalized Procedure: [...] scope was passed under direct vision.The CF [id number] endoscope was introduced through the anus [...] On: 06/11/2021 2:25 PM Recognized by the [place] [employer] for promoting quality in endoscopy Daxa Arita MD PhD ENDOSCOPY PROCEDURES Lilian l Result * Hepatitis C antibody (01/29/2021 11:40 AM CDT) Hep C Ab Nonreactive Nonreactive [facility] Comment:Antibodies to HCV no t detected. Does NOT exclude the possibility of recent exposure to HCV. Blood specimen (specimen) 01/29/2021 11:40 AM CDT 01/29/2021 1:46 PM CDT Shawn Huerta MD LAB MICROBIOLOGY - GENERAL O RDERABLES Edited Result - Final [facility] [place] [address] from Last 3 Months or Most Recently Relevant to Health Maintenance Insurance T MEDICARE MEDICARE MEDICARE MEDICARE Advance Directives For more information, please contact: [phone] * Full Code (Latest Code Status on File) Date Activated Date Inactivated Comments 06/11/2021 1:56 PM 06/11/2021 8:00 PM Care Teams Concrete Mixer Truck Driver Relationship Specialty Start Date End Date Shawn Huerta MD PCP - General 10/08/16 Leda Egan MD Referring Physician Cardiology 08/31/18 John Lord MD [address] [facility] [address] [place], [place] [id number] Consulting Physician Pulmonary Disease 08/31/18 Paty Garcia MD [address] [facility] [address] [place], [place] [id number] Referring Physician Dermatology 08/31/18
--- OUTSIDE RECORDS SUMMARY | 2024-08-24 13:01 | XMS_ITS | Encounter Summary ---
Author Organization [facility] Address [address] [place] [address] Phone Care Team Providers Care Filling Station Laborer Name Role Phone Shawn Huerta MD Primary Care Provider [phone] Leda Egan MD Unavailable [phone] John Lord MD Unavailable [phone] Paty Garcia MD Unavailable [phone] Encounter Details Date Type Department Care Team (Latest Contact Info) Description 02/28/2020 Orders Only [facility] Scanning, Provider Social History Tobacco Use Types Packs/Day Years Used Date Smoking Tobacco: Never Smokeless Tobacco: Never Alcohol Use Standard Drinks/Week Comments Not Currently 0 (1 standard drink = 0.6 oz pur e alcohol) PHQ-2 Answer Date Recorded PHQ-2 Total Score (If total score is 3 or more points, staff should administer the PHQ-9) 0 01/24/2020 Comments Unknown Sex and Gender Information Value Date Recorded Sex Assigned at Not on file Legal Sex Female 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 Gender Identity Not on file Sexual Orientation Not on file documented as of this encounter Plan of Treatment Scheduled Procedures Name Priority Associated Diagnoses Date/Ti me COLONOSCOPY Screening for colon cancer documented as of this encounter Procedures Procedure Name Priority Date/Time Associated Diagnosis Comments CARDIOLOGY DOCUMENT SCAN 02/28/2020 documented in this encounter Results * SCAN - CARDIOLOGY (02/28/2020) Anatomical Region Laterality Modality Other us Provider Scanning [facility] CARDIAC SERVICES PROCEDURES Final Result documented in this encounter Visit Diagnoses Not on filedocumented in this encounter Care Teams Filling Station Laborer Relationship Specialty Start Date End Date Shawn Huerta MD PCP - General 10/08/16 Leda Egan MD Referring Physician Cardiology 08/31/18 John oLrd MD [address] [facility] [address] [place] [address] Consulting Physician Pulmonary Disease 08/31/18 Paty Garcia MD [address] [facility] [address] [place] [address] Referring Physician Dermatology 08/31/18 documented as of this encounter
--- OUTSIDE RECORDS SUMMARY | 2024-08-24 13:01 | XMS_ITS | Encounter Summary ---
Author Organization [facility] Address [address] [place] [address] Phone Care Team Providers Care Advertising Account Executive Name Role Phone Shawn Huerta MD Primary Care Provider [phone] Leda Egan MD Unavailable [phone] John Lord MD Unavailable [phone] Paty Garcia MD Unavailable Encounter Details Date Type Department Care Team (Late st Contact Info) Description 08/10/2024 Telephone [facility] Cardiology [address] [facility] [address] [place] [address] [place] [address] Leda Egan MD [address] [facility] [address] [place] [address] Social History Tobacco Use Types Packs/Day Years [...] on file Legal Sex Female 3:57 AM DIRECTOR HARDWARE Gender Identity Not on file Sexual Orientation Not on file documented as of this encounter Miscellaneous Notes * Telephone Encounter - Goivanna Campa - 08/10/2024 3:33 PM CST Julisa Pt calling and states she received VM she needs to call and reschedule 08/12 ROV w/ Dr. Egan. No device. CTOR HARDWARE documented in this encounter Plan of Treatment Scheduled Procedures Name Priority Associated Diagnoses Date/Ti me COLONOSCOPY Screening for colon cancer documented as of this encounter Visit Diagnoses Not on filedocumented in this encounter Care Teams Advertising Account Executive Relationship Specialty Start Date End Date Shawn Huerta MD PCP - General 10/08/16 Leda Egan MD Referring Physician Cardiology 08/31/18 John Lord MD [address] [place] [address] Consulting Physician Pulmonary Disease 08/31/18 Paty Garcia MD [address] [place] [address] Referring Physician Dermatology 08/31/18 documented as of this encounter
[2024-08-24] MEDS: ACETAMINOPHEN 500 MG TABLET 1000 MG PO (13:39)
[2024-08-24] MEDS: ONDANSETRON HCL ODT 4 MG TABLET PO (13:39)
--- NOTE | 2024-08-24 13:55 | ED.FALL ---
HPI - Fall General Chief Complaint: Fall Stated Complaint: fall Time Seen by Provider: 08/24/24 12:59 Source: patient Mode of arrival: ambulatory Limitations: no limitations History of Present Illness HPI Narrative: This is a 78-year-old female that presents to the emergency department after a fall today with left elbow pain. Reports she slipped and landed on her left elbow. Reports pain in the elbow, decreased range of motion, nausea. She did not hit her head or lose consciousness. No other injuries or focal areas of pain. Denies numbness. Related Data Home Medications ?Medication ?Instructions ?Recorded ?Confirmed ?Last Taken ?Type atorvastatin 10 mg tablet 10 mg PO HS 12/09/20 12/09/20 Unknown History bimatoprost 0.01 % eye drops 1 drp EACH EYE QPM 12/09/20 12/09/20 Unknown History (Parvez) flecainide 100 mg tablet 100 mg PO Q12H 12/09/20 12/09/20 Unknown History levothyroxine 112 mcg tablet 112 mcg PO DAILY 12/09/20 12/09/20 Unknown History lisinopril 10 mg tablet 10 mg PO DAILY 12/09/20 12/09/20 Unknown History metformin 500 mg tablet 500 mg PO BID 12/09/20 12/09/20 Unknown History metoprolol succinate 25 mg 25 mg PO DAILY 12/09/20 12/09/20 Unknown History tablet,extended release 24 hr pregabalin 100 mg capsule (Lyrica) 100 mg PO HS 12/09/20 12/09/20 Unknown History rivaroxaban 20 mg tablet (Xarelto) 20 mg PO QPM 12/09/20 12/09/20 Unknown History sertraline 50 mg tablet 50 mg PO DAILY 12/09/20 12/09/20 Unknown History Allergies Allergy/AdvReac Type Severity Reaction Status Date / Time No Known Allergies Allergy Verified 12/09/20 20:20 Review of Systems Review of Systems: CONSTITUTIONAL: Denies fever MUSCULOSKELETAL: Reports joint pain, and myalgia. NEUROLOGIC: Denies numbness, or weakness. All systems reviewed & are unremarkable except as noted in HPI and below PMFSH Past Medical History Medical History (Updated 08/24/24 @ 15:56 by Heidi Alvarez PA-C) Diabetes Depression Thyroid disease A-fib Hypertension High cholesterol Surgical History Surgical History (Updated 12/09/20 @ 20:15 by Marlene Baker APRN) H/O foot surgery H/O hand surgery History of thyroid surgery Exam Narrative: GENERAL: Well-appearing, well-nourished, and in no acute distress. HEAD: Normocephalic, atraumatic. EYES: EOMI. CHEST: No respiratory distress. HEART: Regular rate EXTREMITIES: Normal range of motion, except decreased active ROM in the left elbow. No obvious deformity. Normal radial pulse. Normal sensation SKIN: Warm, dry, no rash. NEURO: No focal deficits. Alert and oriented x3. PSYCH: Normal mood and affect Course Course Emergency Course: patient updated on workup. Agrees with plan of care. Reports she will get a referral to orthopedics by her PCP. I will print her a disc of her images Vital Signs Vital signs: Vital Signs Temperature 97.0 F L 08/24/24 12:58 Pulse Rate 58 L 08/24/24 12:58 Respiratory Rate 16 08/24/24 12:58 Blood Pressure 181/63 H 08/24/24 12:58 Pulse Oximetry 98 08/24/24 12:58 Temperature 97.0 F L 08/24/24 12:58 Pulse Rate 58 L 08/24/24 12:58 Respiratory Rate 16 08/24/24 12:58 Blood Pressure 181/63 H 08/24/24 12:58 Pulse Oximetry 98 08/24/24 12:58 Procedures Orthopedic Splinting/Casting Injury #1: Splinting/Casting Date: 08/24/24 Splinting/Casting Time: 16:02 Side: left Upper Extremity Injury Location: elbow Splint: customized in ED OCL: long arm Pre-Procedure Neuro Vascular Exam: normal Post-Procedure Neuro Vascular Exam: normal Other Orthopedic Equipment: other (sling) MDM - Fall MDM Narrative Medical decision making narrative: patient presents the emergency department after a fall today with left elbow pain. She is neurovascularly intact. Left elbow x-ray shows a comminuted intra-articular fracture of the distal humerus. Patient placed in a long-arm posterior. patient updated on workup. Agrees with plan of care. Reports she will get a referral to orthopedics by her PCP. I will print her a disc of her images. She was given warnings to return to the ER Differential Diagnosis Differential diagnosis: Likely other ( elbow fracture, elbow contusion, elbow sprain) Imaging Data Radiologist's impression: ITS Impressions Elbow X-Ray 08/24/24 13:30 IMPRESSION: 1. Comminuted intra-articular fracture of the distal humerus with mild displacement of the lateral condylar fragment and mild anterior displacement and 45 degree varus angulation of the medial condylar fragment. Critical Care Time Critical Care Time Critical Care Time: No Discharge Plan Discharge Clinical Impression: Closed fracture of distal end of left humerus Patient Disposition: Home, Self-Care Condition: Stable Instructions: Elbow Fracture (ED) Additional Instructions: Return to the ER if you experience fever, redness and swelling of your extremity, numbness or any other symptoms that are concerning to you Wear splint. No weight on the affected extremity. Ice and elevate extremity. Artm-nug-gaolaat pain medication as needed. Prescribed pain medication as needed Follow up with orthopedics for further care. Patient Language: Gabonese Prescriptions: New hydrocodone-acetaminophen 5-325 mg tablet 1 tablet PO Q6H PRN (Reason: pain) Qty: 20 0RF No Action metformin 500 mg Tablet 500 mg PO BID atorvastatin 10 mg Tablet 10 mg PO HS lisinopril 10 mg Tablet 10 mg PO DAILY flecainide 100 mg Tablet 100 mg PO Q12H metoprolol succinate 25 mg Tablet Extended Release 24 Hr 25 mg PO DAILY sertraline 50 mg Tablet 50 mg PO DAILY levothyroxine 112 mcg Tablet 112 mcg PO DAILY pregabalin [Lyrica] 100 mg Capsule 100 mg PO HS Lumigan 0.01 % Drops 1 drp EACH EYE QPM Xarelto 20 mg Tablet 20 mg PO QPM hydrocodone-acetaminophen 5-325 mg tablet 1 tablet PO Q6H PRN (Reason: pain) Qty: 15 0RF Follow-up/Referrals: Barry Cabrera MD [Physician] - UNKNOWN,DOCTOR [Primary Care Provider] -
[2024-08-24 14:50] VITALS: BP 168/79; PULSE 64; RESP 17; O2SAT 99
== END 2024-08-24 16:14 | disposition home or self-care (01) ==
PROVIDERS: Emergency Provider Physician Assistant
DX: S42.492A Other displaced fracture of lower end of left humerus, initial encounter for closed fracture (principal); I48.91 Unspecified atrial fibrillation; I10 Essential (primary) hypertension; E78.00 Pure hypercholesterolemia, unspecified; E11.9 Type 2 diabetes mellitus without complications; E07.9 Disorder of thyroid, unspecified; Z79.84 Long term (current) use of oral hypoglycemic drugs; Z79.899 Other long term (current) drug therapy; Z79.01 Long term (current) use of anticoagulants; W01.0XXA Fall on same level from slipping, tripping and stumbling without subsequent striking against object, initial encounter
CPT/HCPCS: 29105; 73080; 96374; 99284; A4565; A9270

== ENCOUNTER 2025-05-29 06:27 | Inpatient (IN) | payer MEDICARE, SELFPAY ==
[2025-05-29] VITALS (13 sets, daily range): BP systolic 155–183; BP diastolic 56–91; PULSE 75–83; RESP 16–20; TEMP 36.5–37.3; O2SAT 90–98; BMI 28.8
--- NOTE | 2025-05-29 | ECHO_ITS ---
Patient Info Name: Ivania Sewell Age: 79 years : 1945 Gender: Female Ht: 66 in Wt: 178 lbs BSA: 1.96 m2 BP: 155 / 85 mmHg Technical Quality: Poor Exam Date: 05/29/2025 3:12 PM Patient Status: I Admit Date: 05/29/2025 Exam Type: CA echo dop color flow w con Complete two-dimensional, color flow and Doppler transthoracic echocardiogram is performed with contrast to opacify the left ventricle and to improve the deliniation of the left ventricle endocardial borders. Staff Referring Physician: Romaine Kelly MD Cotton Jammer: Prema Quinones Attending Provider: Rehan Dean Contrast/Agitated Saline Contrast/Ag. Saline: Definity Amount: 2.00 ml Existing IV Access: Yes Reason for Poor Study: poor patient cooperation Summary 1. Normal left ventricular size with hyperdynamic systolic function. 2. Grade 1 diastolic noncompliance. 3. Mild left atrial enlargement. 4. Mild mitral regurgitation. Left Ventricle Left ventricular chamber dimension is normal. Left ventricular systolic function is hyperdynamic, estimated at >70. There is mild concentric increased left ventricular wall thickness. The left ventricular diastolic function is grade I diastolic dysfunction. Right Ventricle Right ventricular chamber dimension is normal. Left Atria Left atrial chamber dimension is mildly enlarged. Right Atria Right atrial chamber dimension is normal. Aortic Valve The aortic valve is normal. Pulmonic Valve The pulmonic valve is normal. Mitral Valve The mitral valve has normal leaflets. There is mild mitral valve regurgitation. Tricuspid Valve The tricuspid valve leaflets are normal. Pericardium/Pleural The pericardium appears normal. Aorta The aortic root size at the sinus of Valsalva is normal. Left Ventricular Outflow Tract Name Value Normal LVOT 2D LVOT Diameter 1.9 cm LVOT Doppler LVOT Peak Velocity 97 cm/s LVOT Peak Gradient 4 mmHg LVOT Mean Gradient 2 mmHg LVOT VTI 20 cm LVOT VTI/AV VTI Ratio 0.8 LVOT Stroke Volume 55 ml LVOT CO 5.0 l/min LVOT CI 2.5 l/min/m2 Pulmonic Valve Name Value Normal PV Doppler PV Peak Velocity 121 cm/s PV Peak Gradient 6 mmHg Mitral Valve Name Value Normal MV Diastolic Function MV E Peak Velocity 69 cm/s MV A Peak Velocity 104 cm/s MV E/A 0.7 MV Decel Time (PW) 169 ms MV Annular TDI MV E/e' (Septal) 10.4 MV E/e' (Lateral) 9.1 MV E/e' (Average) 9.8 Tricuspid Valve Name Value Normal TV Regurgitation Doppler TR Peak Velocity 287 cm/s TR Peak Gradient 17 mmHg Estimated PAP/RSVP RA Pressure 10 mmHg <=5 PA Systolic Pressure 43 mmHg <36 RV Systolic Pressure 43 mmHg <36 Aortic Valve Name Value Normal AV Doppler AV Peak Velocity 136 cm/s AV Peak Gradient 7 mmHg AV Mean Gradient 4 mmHg AV VTI 24 cm AV Area (Cont Eq VTI) 2.3 cm2 >=3.0 AV Area (Cont Eq Jose Raul) 2.0 cm2 AV DI (Jose Raul) 0.71 AV Regurgitation 2D LVOT Area 2.8 cm2 Ventricles Name Value Normal LV Dimensions 2D/MM IVS Diastolic Thickness (2D) 0.8 cm 0.6-1.0 LVID Diastole (2D) 4.1 cm 3.8-5.2 LVIW Diastolic Thickness (2D) 0.8 cm 0.6-0.9 LVID Systole (2D) 2.4 cm 2.2-3.5 LVOT Diameter 1.9 cm LV Mass (2D Cubed) 102.06 g 67.00-162.00 LV Mass Index (2D Cubed) 52 g/m2 43-95 Relative Wall Thickness (2D) 0.40 <=0.42 LV Fractional Shortening/Ejection Fraction 2D/MM LV Fractional Shortening (2D) 41 % 27-45 LV EF (2D Teichholz) 72 % LV Diastolic Volume (4C MOD) 82 ml LV EF (4C MOD) 44 % LV Diastolic Volume (2C MOD) 85 ml LV EF (2C MOD) 67 % LV Diastolic Volume (BP MOD) 89 ml 46-106 LV Diastolic Volume Index (BP MOD) 45 ml/m2 29-61 LV Systolic Volume (BP MOD) 31 ml 14-42 LV Systolic Volume Index (BP MOD) 16 ml/m2 8-24 LV EF (BP MOD) 65 % 54-74 LV Diastolic Length (4C) 7.0 cm LV Systolic Length (4C) 7.1 cm LV Stroke Volume (4C MOD) 36 ml Atria Name Value Normal LA Dimensions LA Volume (4C A-L) 73 ml LA Volume (BP A-L) 58 ml Report Signatures
--- NOTE | ~2025-05-29 | XR_ITS ---
EXAMINATION: XR hip RT 1V w AP pelvis, 05/30/2025 13:42 PERCUSSION TEACHER HISTORY: POST-OP RIGHT BIPOLAR HIP COMPARISON: No comparisons available. Findings: No acute fracture or malalignment. Right arthroplasty intact. Moderate to severe left-sided degenerative changes Soft tissues unremarkable. Impression: No acute fracture or malalignment. Reviewed, dictated and finalized at location P. USSION TEACHER Impression: No acute fracture or malalignment.
--- NOTE | ~2025-05-29 | XR_ITS ---
EXAMINATION: XR surgery orthopedic DATE: 05/30/2025 11:37 INDICATION: Intraoperative evaluation during right total hip arthroplasty TECHNIQUE: Frontal view of the right hip was obtained on 2 radiographs. COMPARISON: None. FINDINGS: Intraoperative image during a right total hip arthroplasty demonstrate resection of the previously fractured right femoral head and neck. There has been placement of a femoral broach which is in expected position with the proximal tip centered in the right acetabulum. Portions of the pelvis are obscured by overlying surgical instrumentation. No fractures in the visualized bones. IMPRESSION: 1. Expected appearance during right total hip arthroplasty. Reviewed, dictated and finalized at location A. NETWORK ARCHITECT
--- NOTE | ~2025-05-29 | XR_ITS ---
XR hip RT 2V w AP pelvis 05/29/2025 06:57 Indication: Right hip pain Procedure: AP pelvis and 2 views right hip Comparison: No prior studies for comparison. Findings: There is a right femoral intertrochanteric fracture with varus angulation. 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 Pelvic rings intact. No soft tissue abnormality. Impression: 1: Right femoral intertrochanteric fracture with varus angulation. Reviewed, dictated and finalized at location O. RVOIR ENGINEER Impression: 1: Right femoral intertrochanteric fracture with varus angulation.
--- NOTE | ~2025-05-29 | XR_ITS ---
Examination: XR chest 1V Clinical History: trauma, FELL, AFIB Comparison: None Technique: Portable AP Findings: Heart size normal. Lungs clear. No acute bony abnormality. IMPRESSION: 1. No acute cardiopulmonary findings given portable technique. Reviewed, dictated and finalized at location R. O COORDINATOR
--- NOTE | ~2025-05-29 | CT_ITS ---
EXAMINATION: CT hip RT wo con DATE: 05/29/2025 13:33 INDICATION: Right hip fracture TECHNIQUE: High resolution computed tomography (CT) of the right hip was performed without intravenous contrast. Additional sagittal and coronal reconstructions were performed. Automated exposure control and iterative reconstruction technique were employed. The dose-length product was 327.37 mGy-cm. COMPARISON: Radiographs dated 05/29/2025 FINDINGS: There is a sagittally oriented transcervical fracture of the proximal right femur, the inferior extent of which extends to the anterosuperior margin of the lesser trochanter. There is mild varus and anterior angulation with the femoral head rotated within the right acetabulum as with mild abduction and internal rotation. There is mild comminution along the main fracture plane. No fracture of the visualized pelvis. Moderate osteoarthritis at the right sacroiliac joint. Mild osteoarthritis at the right hip. No significant joint effusion/osteoarthrosis or other abnormal fluid collections. Bladder is normal. Age-appropriate uterine atrophy. There are several diverticula along the sigmoid colon without adjacent inflammatory stranding to suggest diverticulitis. No pathologically enlarged right pelvic or inguinal lymphadenopathy. IMPRESSION 1. Mildly comminuted transcervical fracture of the proximal right femur with mild varus and anterior angulation. Reviewed, dictated and finalized at location A. LOPMENTAL MATHEMATICS PROFESSOR IMPRESSION 1. Mildly comminuted transcervical fracture of the proximal right femur with mi ld varus and anterior angulation.
--- NOTE | ~2025-05-29 | XR_ITS ---
EXAMINATION: XR hip RT 1V DATE: 05/29/2025 08:29 INDICATION: Right hip fracture TECHNIQUE: Crosstable lateral views of the right hip were obtained. COMPARISON: None. FINDINGS: There is foreshortening of the right femoral neck resulting from the varus angulation of the right femoral neck fracture which is seen on the prior radiograph and which is not well profiled on the current study. There is no significant anteroposterior displacement of the femoral head remains normally c entered in the right acetabulum. IMPRESSION: 1. Right femoral neck fracture Reviewed, dictated and finalized at location A. RESEARCH AIDE
--- NOTE | ~2025-05-29 | CT_ITS ---
CT HEAD NON-CONTRAST Clinical History: trauma Comparison: None Technique: Unenhanced axial images skull base to vertex Coronal, sagittal reformats CT images acquired with automatic exposure control for dose reduction DLP: 605 mGy-cm Findings: Chronic white matter microvascular ischemic changes. Age-related atrophy. Sulci, ventricles: Unremarkable. No intracerebral hemorrhage. No evidence acute territorial infarct. No mass effect, midline shift. Bony calvarium intact. Visualized paranasal sinuses: Clear. Mastoid air cells: Clear. IMPRESSION: 1. No acute intracranial findings. Reviewed, dictated and finalized at location R. BUSINESS PARTNER
--- NOTE | 2025-05-29 07:02 | ECG_ITS ---
Test Date: 2025-05-29 07:25:40 Measurements Intervals [place] Rate: 74 P: 17 MI: 176 QRS: -14 QRSD: 101 T: 45 QT: 392 QTc: 435 Interpretive Statements SINUS RHYTHM INFERIOR MYOCARDIAL INFARCTION , PROBABLY OLD [40+ ms Q WAVE AND/OR ST/T ABNORMALITY IN II/aVF] LOW QRS VOLTAGE ABNORMAL ECG No previous ECG available for comparison Electronically Signed On 05-29-2025 07:29:37 BREEDER HEN SERVICE TECHNICIAN by Stone Red M.D.
[2025-05-29 07:14] LABS: Hematocrit 45.5 % (37.0-47.0); Hemoglobin 15.2 g/dL (12.0-15.0); Immature Granulocyte Percent A 0.6 % (0-0.5); Lymphocytes Absolute Auto 1.32 K/mm3 (0.9-3.2); Mean Corpuscular HGB Conc 33.4 g/dl (32-36); Mean Corpuscular Hemoglobin 29.9 pg (26-34); Mean Corpuscular Volume 89.6 fl (80-100); Nucleated Red Blood Cells Absolute Auto 0.000 K/mm3 (0.0-0.012); Nucleated Red Blood Cells Perc 0.0 % (0.0-0.2); Platelet Count Result 214 k/mm3 (150-375); Red Blood Count 5.08 M/mm3 (4.2-5.4); White Blood Count 14.3 K/mm3 (4.5-10.0)
[2025-05-29 07:26] LABS: INR 1.1; Partial Thromboplastin Time 26.1 Seconds (22.3-36.8); Prothrombin Time 14.3 Seconds (11.1-14.7)
[2025-05-29 07:33] LABS: Alanine Aminotransferase 34 U/L (6-35); Albumin Level 5.0 g/dL (3.5-5.1); Alkaline Phosphatase 111 U/L (38-126); Anion Gap 13 mmol/L (4-12); Aspartate Amino Transferase 39 U/L (14-36); Bilirubin,Total 1.0 mg/dL (0.2-1.3); Blood Urea Nitrogen 24 mg/dL (7-17); Calcium 10.7 mg/dL (8.4-10.2); Carbon Dioxide 21 mmol/L (22-30); Chloride 102 mmol/L (98-107); Creatine Kinase 48 U/L (30-135); Estimated Glomerular Filt Rate > 60; Glucose 197 mg/dL (65-110); Potassium 4.2 mmol/L (3.4-5.0); Sodium 136 mmol/L (137-145); Total Protein 8.7 g/dL (6.3-8.2)
--- OUTSIDE RECORDS SUMMARY | 2025-05-29 07:42 | XMS_ITS | Encounter Summary ---
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 [address] [place] [address] PCP - General Internal Medicine 09/03/24 09/05/24 [place] [address] [facility] [address] [place] [address] PCP - General Internal Medicine 09/06/24 Leda Egan MD Referring Physician Cardiology 08/31/18 John Lord MD [address] [facility] [address] [place] [address] Consulting Physician Pulmonary Disease 08/31/18 Paty Garcia MD [address] [facility] [address] [place] [address] Referring Physician Dermatology 08/31/18 documented as of this encounter
--- OUTSIDE RECORDS SUMMARY | 2025-05-29 07:42 | XMS_ITS | Encounter Summary ---
Author Organization [facility] Address [address] [place] [address] Phone Care Team Providers Care Fitness Consultant Name Role Phone Leda Egan MD Unavailable [phone] John Lord MD Unavailable [phone] Paty Garcia MD Unavailable [phone] Shawn Huerta MD Primary Care Provider [phone] Encounter Details Date Type Department Care Team (Latest Contact Info) Description 05/27/2025 Results Follow-Up [facility] [address] [place] [address] [place] [address] [facility] [address] [place] [address] Hemoglobin A1c, Comprehensive metabolic panel Social History Tobacco Use Types Packs/Day Years Used Date Smoking Tobacco: Never Smokeless Tobacco: Never Alcohol Use Standard Drinks/Week Comments Not Currently 0 (1 standard drink = 0.6 oz pur e alcohol) AUDIT-C Answer Date Recorded Q1: How often do you have a drink containing alc ohol? Monthly or less 09/02/2024 Q2: How many drinks containi ng alcohol do you have on a typical day when you are drinking? 1 or 2 09/02/2024 Q3: How often do you have si x or more drinks on one occasion? Never 09/02/2024 PHQ-2 Answer Date Recorded PHQ-2 Total Score (If total score is 3 or more points, staff should administer the PHQ-9) 0 06/23/2024 Personal Safety Answer Date Recorded Have you ever been in or are you currently in a harmful physical or emotional relationship or is someone making you feel afraid or unsafe? Denies 09/02/2024 Comments No Sex and Gender Information Value Date Recorded Sex Assigned at Not on file Legal Sex Female 3:57 AM SHOE CASER Gender Identity Not on file Sexual Orientation Not on file documented as of this encounter Plan of Treatment Scheduled Procedures Name Priority Associated Diagnoses Date/Ti me COLONOSCOPY Screening for colon cancer documented as of this encounter Visit Diagnoses Not on filedocumented in this encounter Care Teams Fitness Consultant Relationship Specialty [place] [address] [place] [address] PCP - General Internal Medicine 09/06/24 Leda Egan MD Referring Physician Cardiology 08/31/18 John Lord MD [address] [place] [address] Consulting Physician Pulmonary Disease 08/31/18 Paty Garcia MD [address] [place] [address] Referring Physician Dermatology 08/31/18 documented as of this encounter
--- OUTSIDE RECORDS SUMMARY | 2025-05-29 07:42 | XMS_ITS | Encounter Summary ---
Author Organization [facility] Address [address] [place] [address] Care Team Providers Care Corporate Communications Associate Name Role Phone Leda Egan MD Unavailable [phone] John Lord MD Unavailable [phone] Paty Garcia MD Unavailable [phone] Shawn Huerta MD Primary Care Provider [phone] Encounter Details Date Type Department Care Team (Late st Contact Info) Description 01/23/2025 Telephone [facility] [address] [place] [address] Doreen Chen, RT Social History Tobacco Use Types Packs/Day Years [...] on file 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 Gender Identity Not on file Sexual Orientation Not on file documented as of this encounter Functional Status * BP Location Answer Date of Assessment Author Left arm 01/25/2025 1:07 PM CDT Gene Santacruz RMA * BP Location Answer Date of Assessment Author Left arm 01/25/2025 1:07 PM CDT Gene Santacruz RMA documented as of this encounter Plan of Treatment Scheduled Procedures Name Priority Associated Diagnoses Date/Ti me COLONOSCOPY Screening for colon cancer documented as of this encounter Visit Diagnoses Not on filedocumented in this encounter Care Teams Corporate Communications Associate Relationship Specialty [place] [address] [facility] [address] [place] [address] PCP - General Internal Medicine 09/06/24 Leda Egan MD Referring Physician Cardiology 08/31/18 John Lord MD [address] [facility] [address] [place] [address] Consulting Physician Pulmonary Disease 08/31/18 Paty Garcia MD [address] [facility] [address] [place] [address] Referring Physician Dermatology 08/31/18 documented as of this encounter
--- OUTSIDE RECORDS SUMMARY | 2025-05-29 07:42 | XMS_ITS | Clinical Summary ---
Author Organization [facility] Address [address] [place] [address] Care Team Providers Care Turning Sander Tender Name Role Phone Leda Egan MD Unavailable [phone] John Lord MD Unavailable [phone] Paty Garcia MD Unavailable [phone] Shawn Huerta MD Primary Care Provider [phone] Allergies Active Allergy Reactions Criticality Noted Date Comments Metformin Diarrhea Low 05/24/2020 Medications blood glucose diagnostic (glucose blood) strip Patient tests once daily 100 each 11 01/24/20 20 Active blood-glucose meter kit Use daily as directed 1 each 01/24/20 20 Active Lumigan 0.01 % ophthalmic dropsIndications:ocular hypertension Administer 1 drop into both eyes nightly 07/20/19 21 Active timolol (TIMOPTIC) 0.5 % ophthalmic solution 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 02/19/20 24 Active acetaminophen (TYLENOL) 500 mg tabletIndications:Posto perative Acute Pain Take 1 tablet (500 mg total) by mouth every 6 (six) hours as needed for pain 60 tablet 09/02/19 25 Active cholecalciferol (VITAMIN D-3) 25 mcg (1,000 unit) tabletIndications:Vitam in D Deficiency Take 1 tablet (1,000 Units total) by mouth daily 30 tablet 09/02/19 25 Active multivitamin tabletIndications:Vitam in Deficiency Prevention Take 1 tablet by mouth daily 30 tablet 09/02/19 25 Active lisinopriL (PRINIVIL,ZESTRIL) 10 mg tabletIndications:Prima ry hypertension TAKE 1 TABLET BY MOUTH EVERY DAY 90 tablet 3 09/07/19 25 Active atorvastatin (LIPITOR) 10 mg tabletIndications:Pure hypercholesterolemia TAKE 1 TABLET BY MOUTH EVERY DAY 90 tablet 3 09/11/19 25 Active Xarelto 20 mg tablet TAKE 1 TABLET BY MOUTH EVERY DAY 90 tablet 3 09/30/19 25 Active metoprolol XL (TOPROL-XL) 25 mg extended release tablet TAKE 1 TABLET BY MOUTH EVERY DAY IN THE EVENING 90 tablet 3 10/20/19 25 Active Jardiance 25 mg tabletIndications:Type 2 diabetes mellitus without complication, without long-term current use of insulin (HCC) TAKE 1 TABLET BY MOUTH EVERY DAY 90 tablet 1 11/09/19 25 Active sertraline (ZOLOFT) 50 mg tabletIndications:Gener alized anxiety disorder TAKE 1 TABLET BY MOUTH EVERY DAY 90 tablet 3 12/22/19 25 Active flecainide (TAMBOCOR) 50 mg tablet TAKE 1 TABLET BY MOUTH TWICE A DAY 180 tablet 1 01/27/20 25 Active levothyroxine (SYNTHROID) 112 mcg tabletIndications:Acqui red hypothyroidism Take 1 tablet (112 mcg total) by mouth daily 90 tablet 3 02/03/20 25 Active Ozempic 0.25 mg or 0.5 mg (2 mg/3 mL) pen injector injection Inject 0.5 mg under the skin once a week 3 mL 11 04/24/20 Active blood-glucose sensor (FreeStyle Malik 3 Plus Sensor) device Use as directed to monitor blood sugar, change sensor every 15 days 6 each 3 05/26/20 Active Active Problems Problem Noted Date Diagnosed Date Left elbow pain 05/26/2025 Assessment & Plan (05/26/2025 10:46 AM COUPLES THERAPIST): From previous fracture though based upon location could be some tendonitis. Continue with some exercises as taught and suggested stretching exercises for this prior to more ortho intervention Other specified disorders of bone density and structure, other site 01/11/2025 Closed fracture of left distal humerus Carpal tunnel syndrome of right wrist 05/24/2024 Left carpal tunnel syndrome 04/25/2024 Assessment & Plan (06/30/2024 1:38 PM COUPLES THERAPIST): Encouraged completion of surgical rx given significant symptoms. Primary osteoarthritis involving multiple joints 10/23/2023 Overview (10/23/2023): Neck , shoulders, knees, back , thumb Assessment & Plan (01/11/2025 10:18 AM CDT): Continue with current regimen of tylenol. NO new concerns Assessment & Plan (06/30/2024 1:37 PM COUPLES THERAPIST): Continue supportive care. Assessment & Plan (02/23/2024 [...] 06/23/2023 Assessment & Plan (06/23/2023 12:02 PM COUPLES THERAPIST): No alarm neurologic complaint.s No weakness. Suggested PT Pain of right hip 06/23/2023 Assessment & Plan (06/23/2023 12:03 PM COUPLES THERAPIST): Checking x rays , pt Cutaneous candidiasis 08/15/2022 Conductive hearing loss, bilateral 04/16/2022 Chronic right-sided low back pain without sciati ca 08/01/2021 Assessment & Plan (04/16/2022 10:18 AM CDT): Bothersome in the lower back Some hip pain as well No neurologic complications Continue exercises and will call if weakness, Pain is intolerable Assessment & Plan (08/01/2021 10:36 AM COUPLES THERAPIST): This since the foot injury . Encouraged physical therapy . She will work on this and report if worsening. BMI 29.0-29.9,adult 05/17/2021 H/O thyroidectomy 01/24/2020 Assessment & Plan (01/24/2020 8:41 AM CDT): Checking tft's NO concerns. Pain in both hands 07/26/2019 Assessment & Plan (07/26/2019 12:29 PM COUPLES THERAPIST): Likely dupytrens contracture. No complications . If progressive then ortho visit Sensorineural hearing loss, bilateral 10/05/2018 Medicare annual wellness visit, subsequent 08/31 Assessment & Plan (06/30/2024 1:36 PM COUPLES THERAPIST): Checking labs per routine and pertaining to [...] 08/31/2018 Assessment & Plan (06/30/2024 1:37 PM COUPLES THERAPIST): Not appreciable on exam . Monitoring clinically [...] complications. Assessment & Plan (08/31/2018 4:51 PM COUPLES THERAPIST): Encouraged she get off lyrica and minimize meds. Checking labs now. NO other new complaints Knee pain 06/04/2017 Assessment & Plan (06/23/2023 12:00 PM COUPLES THERAPIST): Symptoms are tolerble though encouraged PT Ganglion cyst 06/02/2017 Keratosis, senilis 02/19/2017 Lentigo 02/19/2017 Acne vulgaris 11/12/2016 Multiple actinic keratoses 10/17/2015 ALIN on CPAP 09/18/2015 Overview (06/11/2017): Obstructive sleep apnea apnea-hypopnea index 6.7. Desaturation 81%. Date of test September 10, 2015 Assessment & Plan (05/16/2025 11:27 AM COUPLES THERAPIST): Compliance data reviewed and discussed ALIN - good compliance and response to therapy. Benefiting from therapy. Continue PAP therapy. Compliance data reviewed and discussed. Equipment maintenance discussed. RTC in one year or as needed. Continue non-invasive ventilation, New Order for yearly supplies entered. DME is [facility]. Mask is Nasal Pillows Assessment & Plan (01/11/2025 10:19 AM CDT): Restarting the cpap. NO complications though recent fracture Assessment & Plan (06/30/2024 11:30 AM COUPLES THERAPIST): Stable on cpap Assessment & Plan (05/16/2024 11:38 AM COUPLES THERAPIST): Compliance data reviewed and discussed ALIN - good compliance and response to therapy. Benefiting from therapy. Continue PAP therapy. Compliance data reviewed and discussed. Equipment maintenance discussed. RTC in one year or as needed. New Order for yearly supplies entered. BJC, pillows Assessment & Plan (10/23/2023 11:51 AM CDT): Well treated on current regimen. Assessment & Plan (06/23/2023 11:59 AM COUPLES THERAPIST): Stable cpap Well controlled on current regimen. [...] complications. Assessment & Plan (08/31/2018 4:47 PM COUPLES THERAPIST): Continue supportive care and cpap. Paroxysmal atrial fibrillation 08/15/2015 Overview (2016): Paroxysmal atrial fibrillation Assessment & Plan (05/26/2025 10:47 AM COUPLES THERAPIST): No symptoms related . NO palpitations, sob , or other complaints Assessment & Plan (01/11/2025 9:59 AM CDT): Has been fine without symptoms or complaints. Assessment & Plan (06/30/2024 11:30 AM COUPLES THERAPIST): No a fib symptoms and following with ep. Assessment & Plan (02/23/2024 10:34 AM CDT): Her a fib has been well controlled on current regimen. No complications on the xarelto. Assessment & Plan (10/26/2023 7:07 AM CDT): Adequate rate control. No side effects on the xarelto. Assessment & Plan (06/23/2023 11:38 AM COUPLES THERAPIST): No obvious palpitations, sob chest pain or [...] cpap Assessment & Plan (08/01/2021 10:37 AM COUPLES THERAPIST): No Obvious symptoms related to this. Continue with current regimen. Assessment & Plan (01/29/2021 10:31 AM CDT): Doing well. Recently saw Dr. Martin. - continue Flecainide and Toprolol Assessment & Plan (08/01/2020 10:10 AM COUPLES THERAPIST): No obvious palpitations, sob, Or other complications Following with cardiology . No complications of xarelto Assessment & Plan (01/24/2020 8:34 AM CDT): No recurrent sx. No chest pain , palpitations, Sob or other complaints. Assessment & Plan (07/26/2019 12:27 PM COUPLES THERAPIST): No complications. Continue current regimen . Assessment & Plan (03/02/2019 3:07 PM CDT): Rarely in this with the flecainide. No symptoms related. Assessment & Plan (08/31/2018 4:48 PM COUPLES THERAPIST): Has been tolerable. No palpitations or other complaints. Senile lentigo 10/11/2014 Neoplasm of connective and soft tissue 3 Diabetes mellitus 03/28/2013 Assessment & Plan (05/26/2025 10:49 AM COUPLES THERAPIST): Inadequate control of blood sugars. No hyper or hypoglycemic complaints. Checking hba1c Assessment & Plan (01/11/2025 10:01 AM CDT): The patient has no obvious new dm related complaints. No hyper or hypoglycemic complaints. NO new complications. Eye md visit is utd. Tolerating current regimen well. No hyper hypoglycemic complaints. Assessment & Plan (06/30/2024 1:37 PM COUPLES THERAPIST): She prefers to hold off more meds [...] . Assessment & Plan (06/23/2023 11:59 AM COUPLES THERAPIST): Diabetes Mellitus type II, under only checking [...] microalbumin. Assessment & Plan (08/01/2021 10:37 AM COUPLES THERAPIST): Diabetes Mellitus type II, under good control. [...] diarrhea. Assessment & Plan (08/01/2020 10:15 AM COUPLES THERAPIST): Well controlled , a1c at goal. She will work on diet and exercise. Dm education by summer. Assessment & Plan (01/24/2020 8:43 AM CDT): Has been without sx and checking hba1c now. Working on diet and exercise. NO new concerns. Encouraged home testing and inform me if sugars approaching 200 Assessment & Plan (07/27/2019 7:06 AM COUPLES THERAPIST): Well controlled on current regimen . No [...] step Assessment & Plan (08/31/2018 4:54 PM COUPLES THERAPIST): Diabetes is being checked, utd with eye md visit, Checking hba1c and chem panel. Urine microablumin Rosacea 03/11/2012 Assessment & Plan (08/31/2018 4:43 PM COUPLES THERAPIST): Stable on metrogel. Atypical migraine 02/13/2010 Assessment & Plan (05/26/2025 10:47 AM COUPLES THERAPIST): No recent increase in symptoms. Hyperlipidemia 02/13/2010 Assessment & Plan (01/11/2025 9:59 AM CDT): NO obvious sx or side effects from the elevation in cholesterol. Taking meds without obvious side effects . No muscle aches nor weakness. Assessment & Plan (06/30/2024 1:33 PM COUPLES THERAPIST): NO obvious sx or side effects from [...] weakness. Assessment & Plan (06/23/2023 11:59 AM COUPLES THERAPIST): NO obvious sx or side effects from [...] meds. Assessment & Plan (07/26/2019 12:27 PM COUPLES THERAPIST): Checking labs in follow up . Assessment & Plan (08/31/2018 4:44 PM COUPLES THERAPIST): Lipid abnormalities are well controlled. Generalized anxiety disorder 02/13/2010 Assessment & Plan (01/11/2025 10:00 AM CDT): Has been well controlled on sertraline. NO complications Assessment & Plan (06/30/2024 1:33 PM COUPLES THERAPIST): No recent increased symptoms. No need for medications. Assessment & Plan (02/23/2024 10:35 AM CDT): Her symptoms have been well managed. No complications Assessment & Plan (10/26/2023 7:08 AM CDT): Generally well managed on sertraline. No breakthru panic . Assessment & Plan (06/23/2023 11:59 AM COUPLES THERAPIST): Her anxiety is well controlled on current regimen. Assessment & Plan (02/17/2023 1:03 PM CDT): No progression in symptoms nor any depression. Assessment & Plan (10/15/2022 10:03 AM CDT): Adequately controlled currently. Assessment & Plan (04/16/2022 10:30 AM CDT): Symptoms are well controlled. No complications. Assessment & Plan (08/01/2021 10:41 AM COUPLES THERAPIST): Doing fine on the sertraline Assessment & Plan (01/29/2021 10:43 AM CDT): Stress is well controlled on current regimen . NO new complications. Assessment & Plan (07/26/2019 12:27 PM COUPLES THERAPIST): Well controlled on current regimen Assessment & Plan (08/31/2018 4:46 PM COUPLES THERAPIST): Psychological condition is Well controlled on current regimen . Hypothyroidism 02/13/2010 Assessment & Plan (01/11/2025 10:00 AM CDT): Checking tft's . NO low thyroid related complaints. Assessment & Plan (06/30/2024 1:34 PM COUPLES THERAPIST): Checking TFTs though clinically euthyroid Assessment & Plan (02/23/2024 10:35 AM CDT): Her tft's are stable and will recheck in coming months Assessment & Plan (10/26/2023 7:08 AM CDT): No active symptoms Assessment & Plan (06/23/2023 11:40 AM COUPLES THERAPIST): Checking tft's. NO complications. No associated Assessment & Plan (02/17/2023 1:05 PM CDT): Checking tft's next visit. Assessment & Plan (10/15/2022 9:58 AM CDT): Checking tft's yearly . Assessment & Plan (04/16/2022 10:30 AM CDT): Checking tft's . No overt symptoms related. Assessment & Plan (08/01/2021 10:38 AM COUPLES THERAPIST): Stable by tft's Assessment & Plan (01/29/2021 10:42 AM CDT): Checking tft's . NO complications. Assessment & Plan (08/01/2020 10:13 AM COUPLES THERAPIST): Checking labs in 6 months Assessment & Plan (07/26/2019 12:29 PM COUPLES THERAPIST): stabvle clinically . No complicaitons Assessment & Plan (03/02/2019 3:12 PM CDT): Checking tft's at next visit. Assessment & Plan (08/31/2018 4:46 PM COUPLES THERAPIST): Has been well controlled and checking on labs now. Hypertension 02/13/2010 Assessment & Plan (05/26/2025 10:49 AM COUPLES THERAPIST): Blood pressure is well controlled on current regimen. Assessment & Plan (01/11/2025 10:33 AM CDT): Blood pressure is well controlled on current regimen. Mild elevation here today. Encouraged she check at home and report back Assessment & Plan (06/30/2024 1:34 PM COUPLES THERAPIST): Blood pressure at goal and refilled medications. Checking labs Assessment & Plan (02/23/2024 10:36 AM CDT): Blood pressure is well controlled. Assessment & Plan (10/26/2023 7:08 AM CDT): Bp at goal on meds as reviewed. Assessment & Plan (06/23/2023 11:40 AM COUPLES THERAPIST): Blood pressure is well controlled on current [...] appointment. Assessment & Plan (08/01/2021 10:38 AM COUPLES THERAPIST): Hypertension is improving with treatment. Associated signs [...] complications. Assessment & Plan (08/01/2020 10:12 AM COUPLES THERAPIST): Hypertension is improving with treatment. Associated signs and symptoms: none. Medication Side effects, no medication side effects noted Continue current treatment regimen. Patient Education: Reviewed risks of hypertension and principles of treatment. Blood pressure will be reassessed at the next regular appointment. Assessment & Plan (07/26/2019 12:29 PM COUPLES THERAPIST): bp well controlled on current regimen . Assessment & Plan (03/02/2019 3:12 PM CDT): Well controlled on current regimen . No complications Assessment & Plan (08/31/2018 4:45 PM COUPLES THERAPIST): Hypertension is Well controlled on current regimen. [...] 01/11/202106/2022 Assessment & Plan (08/01/2021 10:37 AM COUPLES THERAPIST): Healing clinically . Reassured. If recurrent symptoms then repeat x ray Assessment & Plan (01/29/2021 10:43 AM CDT): Pain well controlled. Essential hypertension 08/15/201508/31 Overview (2016): Essential hypertension Snoring 08/15/2015 03/02/2019 Overview (2016): Snoring Skin benign neoplasm 03/11/2012 020 Encounters Date Type Department Care Team Description 05/27/[address] [address] [facility] [address] [place] [address] Shawn Huerta MD 05/27/2025 Results Follow-Up [facility] [address] [facility] [address] [place] [address] Shawn Huerta MD Hemoglobin A1c, Comprehensive metabolic panel 05/26/2025 10:15 AM COUPLES THERAPIST Office Visit [facility] [address] [facility] [address] [place] [address] Shawn Huerta MD Type 2 diabetes mellitus without complication, without long-term current use of insulin (HCC) (Primary Dx); Left elbow pain; Primary hypertension; Paroxysmal atrial fibrillation (HCC); Atypical migraine; Medication monitoring encounter 05/16/2025 10:30 AM COUPLES THERAPIST Office Visit [facility] [address] [place] [address] [address] [place] [address] Cameron [place] DO ALIN on CPAP (Primary Dx); Hyperglycemia 04/28/2025 10:30 AM CDT Office Visit [facility] Dermatology [address] [place] [address] [address] [place] [address] Paty Garcia MD Actinic keratosis (Primary Dx); Multiple benign nevi; Solar lentigo; Seborrheic keratosis; History of nonmelanoma skin cancer; Excoriation 04/17/2025 3:20 PM CDT Office Visit [facility] Orthopaedic Surgery [address] [facility] [address] [place] [address] [place] [id number] Antonio Jasso MD Left elbow pain (Primary Dx); Other closed displaced fracture of distal end of left humerus with routine healing, subsequent encounter 04/17/2025 3:12 PM CDT - 04/17/2025 11:59 PM CDT Hospital Encounter [facility] [address] [place] [address] Antonio Jasso MD Discharge Disposition: Discharge to home or self care 03/07/2025 Orders Only [facility] [id number] [place] [address] [address] [place] [address] Marta Ruiz MD from Last 3 Months Immunizations Immunization Administration Dates Next Due COVID-19 mRNA (PFIZER) 0.3 m L (30 mcg) vaccine (12 years and up) 01/15/2025 Hep A, Adult 09/01/2003,05/23/2002 Influenza, Quadrivalent, Hig [...] date THYROIDECTOMY pt unsure of date COLONOSCOPY 06/11/2021 CARPAL TUNNEL RELEASE 04/29/2024 Left CARPAL TUNNEL RELEASE 07/29/2024 Right Medical History Medical History Date Comments Primary fibromyalgia syndrome Fi bromyalgia Hypertension Jun 1994 Hypertension Adiposity Obesity Anxiety disorder Anxiety Atrial fibrillation (HCC) AFIB; Comments: AGR 08/01/2015 - Hypercholesterolemia [...] HL (hearing loss) Type 2 diabetes mellitus Cataract 2018 Glaucoma Fall 2019 Sleep apnea November 2015 uses cpap corinne e PONV (postoperative nausea and vomiting) nausea, believes IV meds helps Motion sickness Family History Medical History Relation Name Comments [...] on file Legal Sex Female 3:57 AM COUPLES THERAPIST Gender Identity Not on file Sexual Orientation Not on file Last Filed Vital Signs Vital Sign Reading Time Taken Comments Blood Pressure 136/72 05/26/2025 10:04 AM COUPLES THERAPIST Pulse 77 05/26/2025 10:04 AM COUPLES THERAPIST Temperature 36.7 C (98.1 F) 05/16/2025 11:03 AM COUPLES THERAPIST Respiratory Rate 21 05/16/2025 11:03 AM COUPLES THERAPIST Oxygen Saturation 94% 05/26/2025 10:04 AM COUPLES THERAPIST Inhaled Oxygen Concentration - - Weight 78 kg (172 lb) 05/26/2025 10:04 AM COUPLES THERAPIST Height 167.6 cm (5' 6) 05/16/2025 11:03 AM COUPLES THERAPIST Body Mass Index 27.76 05/16/2025 11:03 AM COUPLES THERAPIST Plan of Treatment Scheduled Procedures Name Priority Associated Diagnoses Date/Ti me COLONOSCOPY Screening for colon cancer Health Maintenance Due Date Last Done Comments Dilated Eye Exam 11/05/2021 11/05/2020 Foot Exam 04/16/2023 04/16/2022, 04/05, 01/29/2021, Additional history exists Influenza Vaccine (#1) 2025 , 03/27/2023, 04/14/2022, Additional history exists Covid-19 Vaccine (2024-08 6 season) 2025 01/15/2025, 04/06/2024, 03/27/2023, Additional history exists Albumin Creatinine Ratio, Urine 06/30/2025 06/30/2024, 04/16/2022, 01/29/2021, Additional history exists Depression Screening 06/30/2025 06/30/2024, 06/23/2023, 04/16/2022, Additional history exists Lipid Panel 06/30/2025 06/30/2024, 06/05, 04/16/2022, Additional history exists Well Visit 65+ 06/30/2025 06/30/2024, 06/05, 04/16/2022, Additional history exists Fall Risk Assessment 09/02/2025 09/02/2024, 06/30/2024, 06/23/2023, Additional history exists Hemoglobin A1C 11/23/2025 05/26/2025, 07/0 03/2025, 06/30/2024, Additional history exists eGFR 05/26/2026 05/26/2025, 07/0 03/2025, 06/30/2024, Additional history exists Osteoporosis Screening-Bone Density Scan 01/25/2027 01/25/2025, 04/29/2022, 03/14/2020, Additional history exists DTaP/Tdap/Td Vaccine (3 - Td or Tdap) 04/22/2032 04/22/2022, 03/09/2012 Zoster Vaccine Completed 02/28/2018, 12/05, 03/06/2011 Colon Cancer Screening-CT Colonography Discontinued 06/11/2021, 09/04/2015 Colon Cancer Screening-Colonoscopy Discontinued 06/11/2021, 09/04/2015 Colon Cancer Screening-DNA Stool Discontinued 06/11/20 21, 09/04/2015 Colon Cancer Screening-FIT Discontinued 06/11/2021, Colon Cancer Screening-FOBT Discontinued 06/11/2021, 0 09/04/2015 Colon Cancer Screening-Sigmoidoscopy Discontinued 06/11/2021, 09/04/2015 Colorectal Cancer Screening Discontinued Pneumococcal vaccine 65+ Completed 022, 03/08/2019, 06/21/2010 Hepatitis B Screening Discontinued Medical Devices Implanted Type Area Groundhand Device Identifier Shelf Expiration Date Model / Serial / Lot Allosource Freeze Dried Chips Graft 15ml Bone Cancellous Cortical [id number] - [id number] - [id number] Implanted:Qty: 1 on 09/02/2024 by Antonio Jasso MD at [facility] Graft Left: Elbow [employer]ource 06/20/2029 [id number] / [id number] / [id number] Digby Graft Bone Augment 3cc Allograft Injectable Kit [id number] - [id number] Implanted:Qty: 1 on 09/02/2024 by Antonio Jasso MD at [facility] Left: Elbow [employer] [id number] 11/30/2026 [id number] / / [id number] 2.4mm X 46 Locking Implanted:Qty: 1 on 09/02/2024 by Antonio Jasso MD at [facility] Left: Elbow Melissa [id number] / / Description:INACTIVE SENT TO [facility]ONSO [facility]AR[facility] #[id number] [employer] Screw Bone Cortical Full Thread Locking Variax 2.4x28mm Ti [id number] - [id number] Implanted:Qty: 1 on 09/02/2024 by Antonio Jasso MD at [facility] Left: Elbow [employer] [id number] / / [employer] Screw Bone Cortical Full Thread Locking Variax 2.4x18mm Ti [id number] - [id number] Implanted:Qty: 1 on 09/02/2024 by Antonio Jasso MD at [facility] Left: Elbow [employer] [id number] / / [employer] Variax 2.4mm 16mm Lock T8 Full Thread Screw Bone Nonsterile [id number] - [id number] Implanted:Qty: 1 on 09/02/2024 by Antonio Jasso MD at [facility] Left: Elbow [employer] [id number] / / 10 Hole 2.4mm Plate Implanted:Qty: 1 on 09/02/2024 by Antonio Jasso MD at [facility] Left: Elbow [place] [id number] / / Description:ITEM INACTIVE SE NT TO [facility]ON[facility] #[id number] [employer] Screw Bone Cortical St Full Thread Non Locking Evolve 2.7x26mm Ss [id number] - [id number] Implanted:Qty: 1 on 09/02/2024 by Antonio Jasso MD at [facility] Left: Elbow [employer] [id number] / / [employer] Screw Bone Cortical St Full Thread Non Locking Evolve 2.7x16mm Ss [id number] - [id number] Implanted:Qty: 1 on 09/02/2024 by Antonio Jasso MD at [facility] Left: Elbow [employer] [id number] / / [employer] Screw Bone Cortical St Full Thread Non Locking Evolve 2.7x20mm Ss [id number] - [id number] Implanted:Qty: 1 on 09/02/2024 by Antonio Jasso MD at [facility] Left: Elbow [employer] [id number] / / [employer] Plate Bone Compression Locking 9 Hole Left Right Olecranon Evolve Ortholoc 76mm Ss [id number] - [id number] Implanted:Qty: 1 on 09/02/2024 by Antonio Jasso MD at [facility] Left: Elbow [employer] [id number] / / [employer] Plate Bone Compression Locking 13 Hole Left Posterior Lateral Evolve Ortholoc 91mm Ss [id number] - [id number] Implanted:Qty: 1 on 09/02/2024 by Antonio Jasso MD at [facility] Left: Elbow [employer] [id number] / / [employer] Ortholoc 2.7mm 16mm Polyaxial Lock Self Tap Foot Cortical 15d [id number] - [id number] Implanted:Qty: 4 on 09/02/2024 by Antonio Jasso MD at [facility] Left: Elbow [employer] [id number] / / [employer] Plate Bone Compression Locking 12 Hole Left Right Evolve Ortholoc 94mm Ss [id number] - [id number] Implanted:Qty: 1 on 09/02/2024 by Antonio Jasso MD at [facility] Left: Elbow [employer] [id number] / / [employer] Screw Bone Cortical Full Thread Non Locking Variax 2.4x38mm Ti [id number] - [id number] Implanted:Qty: 1 on 09/02/2024 by Antonio Jasso MD at [facility] Left: Elbow [employer] [id number] / / [employer] Screw Bone Cortical St Full Thread Non Locking Evolve 2.7x28mm Ss [id number] - [id number] Implanted:Qty: 1 on 09/02/2024 by Antonio Jasso MD at [facility] Left: Elbow [employer] [id number] / / [employer] Screw Bone Cortical St Full Thread Non Locking Evolve 2.7x45mm Ss [id number] - [id number] Implanted:Qty: 1 on 09/02/2024 by Antonio Jasso MD at [facility] Left: Elbow [employer] [id number] / / [employer] Ortholoc 2.7mm 18mm Polyaxial Lock Self Tap Foot Cortical 15d [id number] - [id number] Implanted:Qty: 1 on 09/02/2024 by Antonio Jasso MD at [facility] Left: Elbow [employer] [id number] / / [employer] Ortholoc 2.7mm 26mm Polyaxial Lock Self Tap Foot Ankle Cortical [id number] - [id number] Implanted:Qty: 1 on 09/02/2024 at [facility] Left: Elbow [employer] [id number] / / [employer] Claw Ii Ortholoc 2.7mm 24mm 3dsi Technology Locking Cortical [id number] - [id number] Implanted:Qty: 2 on 09/02/2024 by Antonio Jasso MD at [facility] Left: Elbow [employer] [id number] / / [employer] Screw Bone Cortical St Full Thread Non Locking Evolve Eps 2.7x50mm Ss [id number] - [id number] Implanted:Qty: 1 on 09/02/2024 by Antonio Jasso MD at [facility] Left: Elbow [employer] [id number] / / [employer] Ortholoc 2.7mm 28mm Polyaxial Lock Self Tap Foot Ankle Cortical [id number] - [id number] Implanted:Qty: 1 on 09/02/2024 by Antonio Jasso MD at [facility] Left: Elbow [employer] [id number] / / [employer] Ortholoc Claw Ii 2.7mm 34mm 3dsi Technology Polyaxial Locking [id number] - [id number] Implanted:Qty: 1 on 09/02/2024 by Antonio Jasso MD at [facility] Left: Elbow [employer] [id number] / / Procedures Procedure Name Priority Date/Time Associated Diagnosis Comments COMPREHENSIVE METABOLIC PANEL Routine 05/26/2025 10:50 AM COUPLES THERAPIST Type 2 diabetes mellitus without complication, without long-term current use of insulin (HCC) Medication monitoring encounter HEMOGLOBIN A1C Routine 05/26/2025 10:50 AM COUPLES THERAPIST Type 2 diabetes mellitus without complication, without long-term current use of insulin (HCC) XR ELBOW LEFT 3 OR MORE VIEWS Schedule Routine, Read Routine (OP Routine) 04/17/2025 3:22 PM CDT Left elbow pain MAMMOGRAPHY Schedule Routine, Read Routine (OP Routine) 03/07/2025 3:21 PM CDT DEXA AXIAL SKELETON BONE DENSITY 1 OR MORE SITES Schedule Routine, Read Routine (OP Routine) 01/25/2025 2:43 PM CDT Other specified disorders of bone density and structure, other site LIPID PANEL Routine 06/30/2024 11:55 AM COUPLES THERAPIST Pure hypercholesterole ailyn Medication monitoring encounter ALBUMIN CREATININE RATIO, URINE Routine 06/30/2024 11:55 AM COUPLES THERAPIST Type 2 diabetes mellitus without complication, without long-term current use of insulin (HCC) COLONOSCOPY 06/11/2021 2:25 PM COUPLES THERAPIST from Last 3 Months or Most Recently Relevant to Health Maintenance Results * (ABNORMAL) Hemoglobin A1c (05/26/2025 10:50 AM COUPLES THERAPIST) Hgb A1C 7.5(H) <5.7 % of total Hgb [facility] Torres Comment: For someone without known diabetes, a hemoglobin A1c value of 6.5% or greater indicates that they may have diabetes and this should be confirmed with a follow-up test. For someone with known diabetes, a value <7% indicates that their diabetes is well controlled and a value greater than or equal to 7% indicates suboptimal control. A1c targets should be individualized based on duration of diabetes, age, comorbid conditions, and other considerations. Currently, no consensus exists regarding use of hemoglobin A1c for diagnosis of diabetes for children. Blood 05/26/2025 10:5 0 AM COUPLES THERAPIST 05/26/2025 10:29 PM COUPLES THERAPIST us Shawn Huerta MD LAB BLOOD ORDERABLES Final R esult [facility] [address] [place] [address] * (ABNORMAL) Comprehensive metabolic panel (05/26/2025 10:50 AM COUPLES THERAPIST) Glucose 133(H) 65 - 99 mg/dL Britany [employer] courtney Brian Comment: Fasting reference interval For someone without known diabetes, a glucose value >125 mg/dL indicates that they may have diabetes and this should be confirmed with a follow-up test. BUN 25 7 - 25 mg/dL Britany JonesDavid courtney Brian Creatinine 0.86 0.60 - 0.95 mg/dL Britany Jaron courtney Brian eGFR 68 > OR = 60 mL/min/1.7 3m2 Britany courtney Brian BUN/creat ratio SEE NOTE: 6 - 22 (calc) Britany courtney Brian Comment: Not Reported: BUN and Creatinine are within reference range. Sodium 139 135 - 146 mmol/L Britany JonesDavid courtney Brian Potassium, pl 4.1 3.5 - 5.3 mmol/L Britany JonesDavid courtney Brian Chloride 105 98 - 110 mmol/L Britany [employer]David courtney Brian CO2 27 20 - 32 mmol/L Britany RobertDavid courtney Brian Calcium 10.3 8.6 - 10.4 mg/dL Britany courtney Brian Protein, sr 8.0 6.1 - 8.1 g/dL Britany JonesDavid courtney Brian Albumin 4.9 3.6 - 5.1 g/dL Britany JonesDavid courtney Brian GLOBULIN 3.1 1.9 - 3.7 g/dL (calc) Britany JonesDavid courtney Brian Alb/glob ratio 1.6 1.0 - 2.5 (calc) Britany [employer] courtney Brian Bilirubin, total 0.6 0.2 - 1.2 mg/dL Britany [employer] courtney Brian Alk phos 83 37 - 153 U/L Britany [employer] courtney Brian AST 23 10 - 35 U/L Britany RobertDavid courtney Brian ALT (SGPT) 21 6 - 29 U/L [employer] courtney Brian Blood 05/26/2025 10:5 0 AM COUPLES THERAPIST 05/26/2025 10:30 PM COUPLES THERAPIST Shawn Huerta MD LAB BLOOD ORDERABLES Final R esult [facility] [address] [place] [address] * XR Elbow Left 3 or More Views (04/17/2025 3:22 PM CDT) Anatomical Region Laterality Modality Upper Extremities, Elbow Left Compute d Radiography 04/17/2025 4:37 PM CDT Impressions 04/17/2025 4:37 PM CDT Healing reduced and internally fixed left distal humerus fracture and internally fixed olecranon osteotomy. Electronically signed by: Girish Hawk M.D. Narrative 04/17/2025 4:37 PM CDT EXAMINATION: XR ELBOW LEFT 3 OR MORE VIEWS HISTORY: Left elbow fracture FINDINGS: 3 views of the left elbow were performed with comparison made to 01/30/2025. There is a healing reduced and internally fixed intra-articular left distal humerus fracture. There is a healing internally fixed ulnar osteotomy. There is a small elbow effusion. There is mild osteoarthritis. Instrumentation appears intact and unchanged. Procedure Note Girish Hawk MD PhD - 04/17/2025 EXAMINATION: XR ELBOW LEFT 3 OR MORE VIEWS HISTORY: Left elbow fracture FINDINGS: 3 views of the left elbow were performed with comparison made to 01/30/2025. There is a healing reduced and internally fixed intra-articular left distal humerus fracture. There is a healing internally fixed ulnar osteotomy. There is a small elbow effusion. There is mild osteoarthritis. Instrumentation appears intact and unchanged. IMPRESSION: Healing reduced and internally fixed left distal humerus fracture and internally fixed olecranon osteotomy. Electronically signed by: Girish Hawk M.D. Antonio Jasso MD IMG XR PROCEDURES Fi nal Result * MAMMOGRAPHY (03/07/2025 3:21 PM CDT) Anatomical Region Laterality Modality Breast Mammography Historical Provider MD SAEZ MAMMO PROCEDURES Lilian l Result * Dexa Axial Skeleton Bone Density 1 or 2 Site (01/25/2025 2:43 PM CDT) Anatomical Region Laterality Modality Body N/A Digital Radiogra phy 01/25/2025 3:01 PM CDT Impressions 01/25/2025 5:20 PM CDT 1. The bone mineral density of the lumbar spine is increased. There has been no significant change in bone mineral density since the baseline examination of 04/29/2022. 2. The bone mineral density of the left femoral neck is mildly decreased. 3. The bone mineral density of the left total hip is mildly decreased. There has been no significant change in bone mineral density since the baseline examination of 04/29/2022. 4. Overall, the above findings are diagnostic of low bone mass (osteopenia) by WHO criteria. 5. Based on the FRAX fracture risk model, the 10-year probability for major osteoporotic fracture is 21% and that for hip fracture is 4.8%. This 10-year fracture risk estimate was calculated [...] -2.0 is below the expected range for age. A Z-score below the expected range for age in a patient with recent fractures and/or chronic corticosteroid treatment is consistent with a diagnosis of osteoporosis. B) In post menopausal women and males over 50, comparison of the measured bone mineral density with the average value in young normal subjects (the T-score) has been found to be useful in [...] WHO algorithm), available at http://www.shef.ac.uk/FRAX). Dictated by: Stone Pavon M.D.(R) The radiology attending physician has personally reviewed this study, and had reviewed and/or edited this written report and agrees with it. Electronically signed by: DO Dali Hernandez 01/25/2025 5:20 PM CDT BONE DENSITOMETRY OF THE SPINE AND HIP DATE OF STUDY: 01/25/2025 HISTORY: 79-year-old postmenopausal woman with previously diagnosed osteopenia. She is being treated with bone medications. Evaluate bone mineral density. Additional risk factors for fracture: previous fracture. FINDINGS (SPINE): The bone mineral density of L1, L2 was assessed by dual-energy x-ray absorptiometry. The L3 and L4 vertebrae were excluded because of degenerative changes. The average bone mineral density within this region is 1.200 gm/sq-cm. This is 4.5 standard deviations above the mean of the average bone mineral density for age- and gender-matched subjects (the Z-score). It is 2.0 standard deviations above the mean peak bone mineral density in young adults (the T-score). FINDINGS (FEMORAL NECK): The bone mineral density of the left femoral neck was assessed by dual-energy x-ray absorptiometry. The average bone mineral density within the femoral neck region is 0.660 gm/sq-cm. This is 0.6 standard deviations above the mean of the average bone mineral density for age- and gender-matched subjects (the Z-score). It is 1.7 standard deviations below the mean peak bone mineral density in young adults (the T-score). FINDINGS (TOTAL HIP): The bone mineral density of the left hip was assessed by dual-energy x-ray absorptiometry. The average bone mineral density within the total hip region is 0.701 gm/sq-cm. This is 0.1 standard deviations above the mean of the average bone mineral density for age- and gender-matched subjects (the Z-score). It is 2.0 standard deviations below the mean peak bone mineral density in young adults (the T-score). SUMMARY OF CURRENT RESULTS: Region BMD T-score Z-score AP Spine (L1, L2) 1.200 2.0 4.5 Femoral Neck (Left) 0.660 -1.7 0.6 Total Hip (Left) 0.701 -2.0 0.1 COMPARISON WITH PREVIOUS RESULTS Region Age BMD T-score BMD Change BMD Change Exam Date g/cm2 vs Baseline vs Previous AP Spine (L1-L2) 01/25/2025 79 1.200 2.0 0.5% 0.5% 04/29/2022 76 1.194 2.0 Total Hip(Left) 01/25/2025 79 0.701 -2.0 -2.8% -2.8% 04/29/2022 76 0.721 -1.8 *Denotes significance at 95% confidence level Procedure Note Rahul Malagon DO - 01/25/2025 BONE DENSITOMETRY OF THE SPINE AND HIP DATE OF STUDY: 01/25/2025 HISTORY: 79-year-old postmenopausal woman with previously diagnosed osteopenia. She is being treated with bone medications. Evaluate bone mineral density. Additional risk factors for fracture: previous fracture. FINDINGS (SPINE): The bone mineral density of L1, L2 was assessed by dual-energy x-ray absorptiometry. The L3 and L4 vertebrae were excluded because of degenerative changes. The average bone mineral density within this region is 1.200 gm/sq-cm. This is 4.5 standard deviations above the mean of the average bone mineral density for age- and gender-matched subjects (the Z-score). It is 2.0 standard deviations above the mean peak bone mineral density in young adults (the T-score). FINDINGS (FEMORAL NECK): The bone mineral density of the left femoral neck was assessed by dual-energy x-ray absorptiometry. The average bone mineral density within the femoral neck region is 0.660 gm/sq-cm. This is 0.6 standard deviations above the mean of the average bone mineral density for age- and gender-matched subjects (the Z-score). It is 1.7 standard deviations below the mean peak bone mineral density in young adults (the T-score). FINDINGS (TOTAL HIP): The bone mineral density of the left hip was assessed by dual-energy x-ray absorptiometry. The average bone mineral density within the total hip region is 0.701 gm/sq-cm. This is 0.1 standard deviations above the mean of the average bone mineral density for age- and gender-matched subjects (the Z-score). It is 2.0 standard deviations below the mean peak bone mineral density in young adults (the T-score). SUMMARY OF CURRENT RESULTS: Region BMD T-score Z-score AP Spine (L1, L2) 1.200 2.0 4.5 Femoral Neck (Left) 0.660 -1.7 0.6 Total Hip (Left) 0.701 -2.0 0.1 COMPARISON WITH PREVIOUS RESULTS Region Age BMD T-score BMD Change BMD Change Exam Date g/cm2 vs Baseline vs Previous AP Spine (L1-L2) 01/25/2025 79 1.200 2.0 0.5% 0.5% 04/29/2022 76 1.194 2.0 Total Hip(Left) 01/25/2025 79 0.701 -2.0 -2.8% -2.8% 04/29/2022 76 0.721 -1.8 *Denotes significance at 95% confidence level IMPRESSION: 1. The bone mineral density of the lumbar spine is increased. There has been no significant change in bone mineral density since the baseline examination of 04/29/2022. 2. The bone mineral density of the left femoral neck is mildly decreased. 3. The bone mineral density of the left total hip is mildly decreased. There has been no significant change in bone mineral density since the baseline examination of 04/29/2022. 4. Overall, the above findings are diagnostic of low bone mass (osteopenia) by WHO criteria. 5. Based on the FRAX fracture risk model, the 10-year probability for major osteoporotic fracture is 21% and that for hip fracture is 4.8%. This 10-year fracture risk estimate was calculated [...] -2.0 is below the expected range for age. A Z-score below the expected range for age in a patient with recent fractures and/or chronic corticosteroid treatment is consistent with a diagnosis of osteoporosis. B) In post menopausal women and males over 50, comparison of the measured bone mineral density with the average value in young normal subjects (the T-score) has been found to be useful in [...] WHO algorithm), available at http://www.shef.ac.uk/FRAX). Dictated by: Stone Pavon M.D.(R) The radiology attending physician has personally reviewed this study, and had reviewed and/or edited this written report and agrees with it. Electronically signed by: Rahul Malagon DO Shawn Huerta MD IMG DXA PROCEDURES Final Res ult * Albumin Creatinine Ratio, Urine (06/30/2024 11:55 AM COUPLES THERAPIST) Albumin Ur 12.4 mg/L Comment: Interpretive Data No reference range established. Current interpretive data was last revised 2018. Creatinine Ur 61.6 mg/dL [facility] Comment: Interpretive Data No reference range established. Current interpretive data was last revised 2018. Albumin Creatinine Ratio, Ur 20 1 - 29 mg/g [facility] Urine 06/30/2024 11:5 5 AM COUPLES THERAPIST 06/30/2024 5:31 PM COUPLES THERAPIST Shawn Huerta MD LAB URINE ORDERABLES Final R esult [facility] Department [place] [address] * (ABNORMAL) Lipid panel (06/30/2024 11:55 AM COUPLES THERAPIST) Cholesterol 189 30 - 199 mg/dL Comment: [...] revised on 2018. Triglycerides 177(H) <=149 mg/dL [facility] Comment: Interpretive Data Ages < or [...] on 2018. HDL 50 >=40 mg/dL [facility] Comment: Interpretive Data Ages < or = [...] 2018. LDL, calculated 108 <=129 mg/dL [facility] Comment: Interpretive Data Ages < or = [...] NCEP Expert Panel. Circulation 2004;110:227 3. Leonel Dukes al. TAYLOR Cardiol. 2020 November 03;5(5):540-548. doi: 10.1001/jamacardio.2020.0013 Current Interpretive Data was last revised on 2024. Non-HDL Cholesterol 139 mg/dL [facility] Comment: Interpretive Data Ages < or [...] last revised on 2018. Chol/HDL ratio 4 [facility] Blood 06/30/2024 11:5 5 AM COUPLES THERAPIST 06/30/2024 5:31 PM COUPLES THERAPIST us Shawn Huerta MD LAB BLOOD ORDERABLES Final R esult [facility] Department [place] [address] * COLONOSCOPY (06/11/2021 2:25 PM COUPLES THERAPIST) Anatomical Region Laterality Modality Other Narrative Procedure Note Daxa Arita MD PhD - 06/11/2021 2:25 PM [facility] Patient Name: Ivania Sewell Procedure Date: 06/11/2021 2:25 PM Date of : 1945 Admit Type: Outpatient Age: 75 Gender: Female Attending MD: Daxa Arita MD,PHD Room: [facility] ENDOSCOPY ROOM 8 Note Status: Finalized Procedure: [...] The scope was passed under direct vision.The [id number] endoscope was introduced through the anus [...] On: 06/11/2021 2:25 PM Recognized by the [place] [employer] for promoting quality in endoscopy Daxa Arita MD PhD ENDOSCOPY PROCEDURES Lilian l Result from Last 3 Months or Most Recently Relevant to Health Maintenance Insurance [employer] MEDICARE [facility] MEDICARE MEDICARE MEDICARE MEDICARE Advance Directives For more information, please contact: [phone] * Full Code (Latest Code Status on File) Date Activated Date Inactivated Comments 06/11/2021 1:56 PM 06/11/2021 8:00 PM Care Teams Turning Sander Tender Relationship Specialty [place] [id number] [facility] [address] [place] [address] PCP - General Internal Medicine 09/06/24 Leda Egan MD Referring Physician Cardiology 08/31/18 John Lord MD [address] [facility] [address] [place] [address] Consulting Physician Pulmonary Disease 08/31/18 Paty Garcia MD [address] [facility] [address] [place] [address] Referring Physician Dermatology 08/31/18
--- OUTSIDE RECORDS SUMMARY | 2025-05-29 07:42 | XMS_ITS | Encounter Summary ---
Author Organization [facility] Address [address] [place] [address] Phone Care Team Providers Care Continuous Linter Drier Operator Name Role Phone Leda Egan MD Unavailable [phone] John Lord MD Unavailable [phone] Paty Garcia MD Unavailable [phone] Shawn Huerta MD Primary Care Provider [phone] Encounter Details Date Type Department Care Team (Late st Contact Info) Description 05/27/2025 Telephone [facility] [address] [place] [address] [place] [address] [place] [address] Social History Tobacco Use Types Packs/Day Years [...] on file Legal Sex Female 3:57 AM POWER EQUIPMENT TECHNOLOGY INSTRUCTOR Gender Identity Not on file Sexual Orientation Not on file documented as of this encounter Miscellaneous Notes * Telephone Encounter - Shawn Huerta MD - 05/27/2025 11:16 AM POWER EQUIPMENT TECHNOLOGY INSTRUCTOR Please make certain patient aware sugars are in acceptable range and improved. Will recheck in 4 months R EQUIPMENT TECHNOLOGY INSTRUCTOR documented in this encounter Plan of Treatment Scheduled Procedures Name Priority Associated Diagnoses Date/Ti me COLONOSCOPY Screening for colon cancer documented as of this encounter Visit Diagnoses Not on filedocumented in this encounter Care Teams Continuous Linter Drier Operator Relationship Specialty [place] [address] [address] [address] [place] [address] PCP - General Internal Medicine 09/06/24 Leda Egan MD Referring Physician Cardiology 08/31/18 John Lord MD [address] [facility] [address] [place] [address] Consulting Physician Pulmonary Disease 08/31/18 Paty Garcia MD [address] [facility] [address] [place] [address] Referring Physician Dermatology 08/31/18 documented as of this encounter
--- NOTE | 2025-05-29 07:44 | ED.GENADULT ---
HPI - General Adult General Chief complaint: Fall Stated complaint: GLF c R hip pain/poss fx Time Seen by Provider: 05/29/25 06:59 History of Present Illness HPI narrative: 79-year-old female presented to the emergency department for evaluation for right hip pain. Patient reports that she got caught up in her sheets and had mechanical fall causing her to land on her right hip. Patient denies any other pain or injury but patient was unable to stand after the injury. Patient is on Xarelto for AFib. Patient has been taking his medication. Patient denies striking head denies loss of consciousness. Patient reports she did land the ground for approximately 4 hours hoping that the hip pain would improve. patient denies any prior history of ACS, patient does have history AFib, hypertension and she is borderline diabetic. Related Data Home Medications ?Medication ?Instructions ?Recorded ?Confirmed ?Last Taken ?Type atorvastatin 10 mg tablet 10 mg PO HS 12/09/20 05/29/25 05/28/25 History bimatoprost 0.01 % eye drops 1 drp EACH EYE QPM 12/09/20 05/29/25 05/28/25 History (Lumigan) levothyroxine 112 mcg tablet 112 mcg PO DAILY 12/09/20 05/29/25 05/28/25 History lisinopril 10 mg tablet 10 mg PO DAILY 12/09/20 05/29/25 05/28/25 History metoprolol succinate 25 mg 25 mg PO DAILY 12/09/20 05/29/25 05/28/25 History tablet,extended release 24 hr pregabalin 100 mg capsule (Lyrica) 100 mg PO HS 12/09/20 05/29/25 05/28/25 History rivaroxaban 20 mg tablet (Xarelto) 20 mg PO QPM 12/09/20 05/29/25 05/28/25 History sertraline 50 mg tablet 50 mg PO DAILY 12/09/20 05/29/25 05/28/25 History empagliflozin 25 mg tablet 25 mg PO HS 05/29/25 05/29/25 05/28/25 History (Jardidemetrius) flecainide 50 mg tablet 50 mg PO Q12H 05/29/25 05/29/25 05/28/25 History timolol maleate 0.5 % eye drops 1 drp EACH EYE DAILY 1105/29/25 05/28/25 History Allergies Allergy/AdvReac Type Severity Reaction Status Date / Time metformin AdvReac Diarrhea Verified 05/29/25 09:49 Review of Systems Review of Systems: All systems reviewed & are unremarkable except as noted in HPI and below PMFSH Past Medical History Medical History Diabetes Depression Thyroid disease A-fib Hypertension High cholesterol Surgical History Surgical History H/O foot surgery H/O hand surgery History of thyroid surgery Social History Social History Smoking status: Never smoker Alcohol intake: current Drinks per week: 0 Substance use: never Lack of Transportation: No Lack of Food: Never True Current Housing: I Have Housing Concerned About Future Housing: No Difficulty Paying Gas/Electric Bills: No Difficulty Paying for Meds: No Currently Unemployed: No Education: Decline to Answer Difficulty w/ Childcare or Family Care: No Spiritual care concerns: No Exam Narrative: APPEARANCE: Well appearing, no pain, no distress, well-nourished. HEAD: normocephalic, atraumatic. EYES: PERRLA/EOMI, conjunctivae clear. NOSE: Normal no drainage EARS:TMS clear with good light reflex. THROAT: Pharynx clear, no exudate. NECK: Supple. No adenopathy, no masses. RESPIRATORY: Airway patent, respirations nonlabored. Clear to auscultation bilaterally, no rales, rhonchi, wheezing. CARDIOVASCULAR: Regular rate and rhythm without murmurs rubs or gallops. ABDOMINAL: Soft, nontender, nondistended, normal bowel sounds MUSCULOSKELETAL: Tenderness of the right hip, right leg is neurovascularly intact with strong distal pulse NEURO: Alert. Cranial nerves II through XII intact. Good gait. Good coordination SKIN: Warm, dry. Normal Color Course Vital Signs Vital signs: Vital Signs Temperature 98.1 F 05/29/25 06:34 Pulse Rate 75 05/29/25 06:34 Respiratory Rate 20 05/29/25 06:34 Blood Pressure 170/91 H 05/29/25 06:34 Pulse Oximetry 97 05/29/25 06:34 Oxygen Delivery Room Air 05/29/25 06:34 Temperature 97.7 F 05/29/25 14:00 Pulse Rate 81 05/29/25 16:00 Respiratory Rate 16 05/29/25 14:00 Blood Pressure 155/85 H 05/29/25 14:00 Pulse Oximetry 90 05/29/25 14:00 Oxygen Delivery Nasal Cannula 05/29/25 12:52 Oxygen Flow Rate 1 05/29/25 12:52 Medical Decision Making MDM Narrative Medical decision making narrative: 79 year old female presented emergency department for evaluation after having a ground level fall. Patient does have intertrochanteric fracture of the right hip. head CT was negative. Chest x-ray shows no acute cardiopulmonary abnormality. Patient is afebrile but does have a leukocytosis of 14.3 and hemoglobin of 15.2. INR of 1.1 but patient is on Xarelto. X-ray does show a intertrochanteric fracture of the right hip. Head CT was negative. Case was discussed with Orthopedics and they suspect they may be able to operate tonight. Patient was made NPO. Case was discussed with hospitalist patient was accepted for admission. Patient was updated on the results of the imaging, plan for admission and potential plan for surgery. All questions concerns were addressed patient was well-appearing at time of admission. Differential Diagnosis Differential Diagnosis: Subdural hematoma, subarachnoid hemorrhage, hip fracture, hip strain pelvic fracture Vital Signs Vital Signs: Vital Signs Temperature 98.1 F 05/29/25 06:34 Pulse Rate 75 05/29/25 06:34 Respiratory Rate 20 05/29/25 06:34 Blood Pressure 170/91 H 05/29/25 06:34 Pulse Oximetry 97 05/29/25 06:34 Oxygen Delivery Room Air 05/29/25 06:34 Temperature 97.7 F 05/29/25 14:00 Pulse Rate 81 05/29/25 16:00 Respiratory Rate 16 05/29/25 14:00 Blood Pressure 155/85 H 05/29/25 14:00 Pulse Oximetry 90 05/29/25 14:00 Oxygen Delivery Nasal Cannula 05/29/25 12:52 Oxygen Flow Rate 1 05/29/25 12:52 Lab Data Lab results reviewed: Yes I reviewed the patient's lab results. 05/29/25 07:06 05/29/25 07:06 Labs: Lab Results 05/29/25 Range/Units 07:06 WBC 14.3 H (4.5-10.0) K/mm3 RBC 5.08 (4.2-5.4) M/mm3 Hgb 15.2 H (12.0-15.0) g/dL Hct 45.5 (37.0-47.0) % MCV 89.6 (80-100) fl MCH 29.9 (26-34) pg MCHC 33.4 (32-36) g/dl RDW 12.6 (11.5-14.5) % Plt Count 214 (150-375) k/mm3 MPV 9.8 (7.4-10.4) fl Immature Gran % (Auto) 0.6 H (0-0.5) % Neut % (Auto) 83.9 H (45.5-73.1) % Lymph % (Auto) 9.2 L (18.3-44.2) % [place] % (Auto) 5.8 (2.6-8.5) % Eos % (Auto) 0.2 (0-4.4) % Baso % (Auto) 0.3 (0.2-1.2) % Lymph # (Auto) 1.32 (0.9-3.2) K/mm3 [place] # (Auto) 0.8 H (0.1-0.6) K/mm3 Eos # (Auto) 0.0 (0-0.3) K/mm3 Baso # (Auto) 0.0 (0.0-0.1) K/mm3 Abs Immat Gran (auto) 0.08 H (0.00-0.031) K/mm3 Absolute Neuts (auto) 12.0 H (1.3-6.7) K/mm3 Absolute Nucleated RBC 0.000 (0.0-0.012) K/mm3 Nucleated RBC % 0.0 (0.0-0.2) % PT 14.3 (11.1-14.7) Seconds INR 1.1 APTT 26.1 (22.3-36.8) Seconds Sodium 136 L (137-145) mmol/L Potassium 4.2 (3.4-5.0) mmol/L Chloride 102 (98-107) mmol/L Carbon Dioxide 21 L (22-30) mmol/L Anion Gap 13 H (4-12) mmol/L BUN 24 H (7-17) mg/dL Creatinine 0.77 (0.7-1.0) mg/dL Estim Creat Clear Calc Not Reportable Estimated GFR > 60 (59 - ) Glucose 197 H (65-110) mg/dL Hemoglobin A1c 7.0 H (<5.7) % Calcium 10.7 H (8.4-10.2) mg/dL Total Bilirubin 1.0 (0.2-1.3) mg/dL AST 39 H (14-36) U/L ALT 34 (6-35) U/L Alkaline Phosphatase 111 (38-126) U/L Total Creatine Kinase 48 (30-135) U/L Total Protein 8.7 H (6.3-8.2) g/dL Albumin 5.0 (3.5-5.1) g/dL Blood Type O Positive Antibody Screen Negative Imaging Data Radiologist's impression: Impressions Hip/Pelvis X-Ray 05/29/25 07:00 Impression: 1: Right femoral intertrochanteric fracture with varus angulation. Chest X-Ray 05/29/25 07:35 IMPRESSION: 1. No acute cardiopulmonary findings given portable technique. Head CT 05/29/25 07:38 IMPRESSION: 1. No acute intracranial findings. Discharge Plan Discharge Clinical Impression: Hip fracture, right Clinical Impression: (Ruled Out): Concussion with loss of consciousness Patient Disposition: Still a Patient Condition: Stable
--- NOTE | 2025-05-29 07:53 | PM.IMHP ---
H&P: HPI History of Present Illness Date/Time: 05/29/25 07:53 Chief Complaint: Fall Narrative: Patient is an 79-year-old female with a past medical history of atrial fibrillation on Xarelto and metoprolol, diabetes, and hypothyroidism who visited the ER due to a ground-level fall. She was on the ground for approximately 4 hours, hoping that her hip pain would improve but eventually got help. Patient has a friend and niece in [place]. Never got or had children. Her Labs review indicated WBC 14.3, probably reactive nad no other significant findings. CK level is 48. HbA1c pending. The right hip X-ray shows a right femoral fracture. Orthopedics was consulted, and possible surgery is tomorrow. Will continue to hold Xarelto; the last dose was yesterday. Cardiology has been consulted for a pre-op evaluation. [facility] Past Medical History Medical History Diabetes Depression Thyroid disease A-fib Hypertension High cholesterol Surgical History Surgical History H/O foot surgery H/O hand surgery History of thyroid surgery Social History Social History Smoking status: Never smoker Alcohol intake: current Drinks per week: 0 Substance use: never Lack of Transportation: No Lack of Food: Never True Current Housing: I Have Housing Concerned About Future Housing: No Difficulty Paying Gas/Electric Bills: No Difficulty Paying for Meds: No Currently Unemployed: No Education: Decline to Answer Difficulty w/ Childcare or Family Care: No Spiritual care concerns: No Meds Home Medications and Allergies Home Medications ?Medication ?Instructions ?Recorded ?Confirmed ?Type atorvastatin 10 mg tablet 10 mg PO HS 12/09/20 05/29/25 History bimatoprost 0.01 % eye drops 1 drp EACH EYE QPM 12/09/20 05/29/25 History (Parvez) levothyroxine 112 mcg tablet 112 mcg PO DAILY 12/09/20 05/29/25 History lisinopril 10 mg tablet 10 mg PO DAILY 12/09/20 05/29/25 History metoprolol succinate 25 mg 25 mg PO DAILY 12/09/20 05/29/25 History tablet,extended release 24 hr pregabalin 100 mg capsule (Lyrica) 100 mg PO HS 12/09/20 05/29/25 History rivaroxaban 20 mg tablet (Xarelto) 20 mg PO QPM 12/09/20 05/29/25 History sertraline 50 mg tablet 50 mg PO DAILY 12/09/20 05/29/25 History empagliflozin 25 mg tablet 25 mg PO HS 05/29/25 05/29/25 History (Jardiance) flecainide 50 mg tablet 50 mg PO Q12H 05/29/25 05/29/25 History timolol maleate 0.5 % eye drops 1 drp EACH EYE DAILY 05/29/25 05/29/25 History Allergies Allergy/AdvReac Type Severity Reaction Status Date / Time metformin AdvReac Diarrhea Verified 05/29/25 09:49 Vital Signs Vital Signs - 24 hr 05/29/25 06:34 05/29/25 07:30 05/29/25 07:50 Temperature 98.1 F Pulse Rate 75 75 78 Respiratory Rate 20 18 Blood Pressure 170/91 H 183/86 H Pulse Oximetry 97 96 Oxygen Delivery Room Air Exam Narrative: APPEARANCE: Well appearing, no pain, no distress, well-nourished. HEAD: normocephalic, atraumatic. EYES: PERRLA/EOMI, conjunctivae clear. NOSE: Normal no drainage EARS:TMS clear with good light reflex. THROAT: Pharynx clear, no exudate. NECK: Supple. No adenopathy, no masses. RESPIRATORY: Airway patent, respirations nonlabored. Clear to auscultation bilaterally, no rales, rhonchi, wheezing. CARDIOVASCULAR: Regular rate and rhythm without murmurs rubs or gallops. ABDOMINAL: Soft, nontender, nondistended, normal bowel sounds MUSCULOSKELETAL: venous of the right hip, right leg is neurovascularly intact with strong distal pulse NEURO: Alert. Cranial nerves II through XII intact. Good gait. Good coordination SKIN: Warm, dry. Normal Color H&P: Results Labs Labs: Short CBC 05/29/25 Range/Units 07:06 WBC 14.3 H (4.5-10.0) K/mm3 Hgb 15.2 H (12.0-15.0) g/dL Hct 45.5 (37.0-47.0) % Plt Count 214 (150-375) k/mm3 BMP 05/29/25 07:06 Sodium 136 L Potassium 4.2 Chloride 102 Carbon Dioxide 21 L BUN 24 H Creatinine 0.77 Glucose 197 H Calcium 10.7 H Cardiac Enzymes 05/29/25 Range/Units 07:06 Total Creatine Kinase 48 (30-135) U/L Liver Function 05/29/25 Range/Units 07:06 Total Bilirubin 1.0 (0.2-1.3) mg/dL AST 39 H (14-36) U/L ALT 34 (6-35) U/L Alkaline Phosphatase 111 (38-126) U/L Albumin 5.0 (3.5-5.1) g/dL Assessment and Plan Assessment and plan (1) Hip fracture, right: Code(s): S72.001A - Fracture of unspecified part of neck of right femur, initial encounter for closed fracture Status: Acute Assessment and Plan: -hip x-ray: right femoral neck fracture -evaluate for incidence of hypoglycemia -avoid any sedatives or anxiolytic -will evaluate for any arrhythmias -we evaluate for postural hypotension -medications were reviewed which does not include anxiolytics or sedatives -head CT scan shows no acute intracranial findings -physical therapy for balance, gait and strength training after clearance from Orthopedics (2) A-fib: Code(s): I48.91 - Unspecified atrial fibrillation Status: Acute Assessment and Plan: Holding Xarelto due to possible surgery tomorrow Continue metoprolol 25 mg p.o. q.d. (3) Hypothyroid: Code(s): E03.9 - Hypothyroidism, unspecified Status: Acute Assessment and Plan: Continue levothyroxine 112 mcg Hospitalist [facility] Advance Care Plan I have confirmed that the patient's Advanced Care Plan is present, code status is documented, or surrogate decision maker is listed in patient medical record.: Yes Medication Reconciliation I have utilized all available resources to obtain, update and review the patients current medications (includes all prescriptions, OTC, herbals, cannabis, and nutritional supplements).: Yes
[2025-05-29] MEDS: LACTATED RINGERS 1,000 ML 999 ML IV CONT (08:03)
[2025-05-29] MEDS: HYDROmorphone HCL INJ (*CRX) 1 MG/ML SYR 0.5 MG IV PUSH (08:03)
[2025-05-29] MEDS: LACTATED RINGERS 1,000 ML 125 ML IV CONT ×2 (08:42→23:54)
--- NOTE | 2025-05-29 08:45 | WPCEDHO ---
ED Hand Off Checklist All vitals saved: YES IV Site documented: YES All med administrations documented: YES Triage Note Triage Note brought in by ems from home. pt 05/29/25 06:34 said she was going to get up to go to bathroom and tripped and fell from wrapped in bedsheet and landed on left hip. i just laid there for 4 hours and dragged myself in to other room to get my cell phone to call for help. hx of afib on xeralto. left hip appears externally rotated and shortened. +anterior pulse weak and posterior pedal pulse per doppler. oriented x 4 Allergies No Known Allergies Allergy (Verified 05/29/25 07:30) Active Medications including assessments/comments Lactated Ringer's (Lr - Lactated Ringers Iv) 1,000 mls @ 999 mls/hr IV CONT .Q1H1M STA Stop: 05/29/25 08:50 Last Admin: 05/29/25 08:03 Dose: 999 mls/hr Documented By: LUKE Infusion/Titration Document 05/29/25 08:03 LUKE (Rec: 05/29/25 08:03 LUKE [id number]) Intake IV Site Peripheral Access Right Antecubital Container Volume 1,000 Waste Amount 0 Dosing Infusion Rate 999 Cumulative Dose Not Applicable Increase/Decrease Started Elapsed Time Elapsed Time ( 0m minutes) Lactated Ringer's (Lr - Lactated Ringers Iv) 1,000 mls @ 125 mls/hr IV CONT .Q8H [facility] Last Admin: 05/29/25 08:42 Dose: 125 mls/hr Documented By: LUKE Infusion/Titration Document 05/29/25 08:42 LUKE (Rec: 05/29/25 08:42 LUKE [id number]) Intake IV Site Peripheral Access Right Antecubital Container Volume 1,000 Waste Amount 0 Dosing Infusion Rate 125 Cumulative Dose Not Applicable Increase/Decrease Started Elapsed Time Elapsed Time ( 0m minutes) Administered/Completed Medications Discontinued Medications Hydromorphone HCl (Hydromorphone Hcl Inj (*Crx) 1 Mg/Ml Syr) 0.5 mg IV PUSH ONCE STA Stop: 05/29/25 07:52 Last Admin: 05/29/25 08:03 Dose: 0.5 mg Documented By: LUKE Interventions/Assessments Cardiac Monitoring Start: 05/29/25 07:50 Freq: Status: Active Protocol: Document 05/29/25 08:36 KED (Rec: 05/29/25 08:37 KED [id number]) District Court Administrator Assessment District Court Administrator Yes Applied Pulse Rate (60-100) 75 EKG Rythm Sinus Rhythm IV / Saline Lock, Insert Start: 05/29/25 08:01 Freq: ONCE Status: Active Protocol: Document 05/29/25 08:36 KED (Rec: 05/29/25 08:37 KED [id number]) IV Assessment Peripheral Access Left Antecubital IV Catheter Access Initiated IV Insertion Date 05/29/25 IV Insertion Time 08:37 Catheter Gauge 20 IV Insertion 1 Attempts Ultrasound Used for No Placement IV Site Assessment WNL IV Care and WNL Maintenance IV Line Assessment Start: 05/29/25 06:20 Freq: Status: Active Protocol: Document 05/29/25 06:43 SRW (Rec: 05/29/25 06:43 SRW [id number]) IV Assessment Peripheral Access Right Antecubital IV Catheter Access Initiated Before Arrival Catheter Gauge 20 Ultrasound Used for No Placement IV Site Assessment WNL IV Care and WNL Maintenance PA: Neurological Assessment Start: 05/29/25 06:20 Freq: Status: Active Protocol: Document 05/29/25 07:30 KED (Rec: 05/29/25 08:13 KED [id number]) Neurological Assessment Level of Alert,Awake Consciousness Arousable to Verbal Orientation Oriented to Person,Oriented to Place,Oriented to Time Behavior Appropriate,Cooperative Patient Able to Comprehend Comprehension Last Vital Signs Temperature 98.1 F 05/29/25 08:36 Pulse Rate 75 05/29/25 08:36 Respiratory Rate 16 05/29/25 08:36 Pulse Oximetry 98 05/29/25 08:36 Blood Pressure 164/68 H 05/29/25 08:36 Blood Pressure Mean 100 05/29/25 08:36 Blood Pressure Position Supine 05/29/25 06:34 Oxygen Delivery Nasal Cannula 05/29/25 08:14 Oxygen Flow Rate 1 05/29/25 08:14 Last Result - Abnormals Only WBC 14.3 K/mm3 (4.5-10.0) H 05/29/25 07:06 Hgb 15.2 g/dL (12.0-15.0) H 05/29/25 07:06 Immature Gran % (Auto) 0.6 % (0-0.5) H 05/29/25 07:06 Neut % (Auto) 83.9 % (45.5-73.1) H 05/29/25 07:06 Lymph % (Auto) 9.2 % (18.3-44.2) L 05/29/25 07:06 [place] # (Auto) 0.8 K/mm3 (0.1-0.6) H 05/29/25 07:06 Abs Immat Gran (auto) 0.08 K/mm3 (0.00-0.031) H 05/29/25 07:06 Absolute Neuts (auto) 12.0 K/mm3 (1.3-6.7) H 05/29/25 07:06 Sodium 136 mmol/L (137-145) L 05/29/25 07:06 Carbon Dioxide 21 mmol/L (22-30) L 05/29/25 07:06 Anion Gap 13 mmol/L (4-12) H 05/29/25 07:06 BUN 24 mg/dL (7-17) H 05/29/25 07:06 Glucose 197 mg/dL (65-110) H 05/29/25 07:06 Calcium 10.7 mg/dL (8.4-10.2) H 05/29/25 07:06 AST 39 U/L (14-36) H 05/29/25 07:06 Total Protein 8.7 g/dL (6.3-8.2) H 05/29/25 07:06 Most Recent Suicide Severity Rating Suicide Severity Rating NO RISK INDICATED 05/29/25 06:34
--- NOTE | 2025-05-29 09:45 | ADMGEN ---
This patient, Ivania Sewell, was admitted to [facility] Surg Room 307-01. Patient/family oriented to hospital policies and general routines including ID bracelet, bed and alarms, visiting hours, pain management, procedures, bathroom and other care routines, personal items, smoking policy, room service/diet, and visiting hours. Information on how to activate the Rapid Response Team has been discussed. Patient/Family are encouraged to report perceived risks to care and to ask questions if they do not understand what they are told or what they should do.
[2025-05-29] MEDS: MORPHINE SULFATE (*CRX) 4 MG/ML INJ 2 MG IV PUSH ×2 (12:19→21:57)
--- NOTE | 2025-05-29 13:31 | PM.CNCAR ---
Assessment and Plan Assessment and plan (1) Preoperative cardiovascular examination: Code(s): Z01.810 - Encounter for preprocedural cardiovascular examination <VIANEY Griffin - Last Filed: 05/29/25 15:22> Status: Acute <Adrianna KaurGumaro VIANEY Maciel - Last Filed: 05/29/25 15:22> Assessment and Plan: She has atrial fibrillation which is rhythm controlled with flecainide. She is on anticoagulation for stroke risk reduction. No other cardiac diagnoses. Will check an echocardiogram, but her most recent echocardiogram performed in 2020 showed normal biventricular function with no valvular abnormalities. Would consider her low risk for intraoperative cardiovascular events. <VIANEY Griffin - Last Filed: 05/29/25 15:22> She has atrial fibrillation which is rhythm controlled with flecainide. She is on anticoagulation for stroke risk reduction. No other cardiac diagnoses. Will check an echocardiogram, but her most recent echocardiogram performed in 2020 showed normal biventricular function with no valvular abnormalities. She is low risk for intraoperative cardiovascular events from planned orthopedic surgery for right hip fracture. No further cardiac work up recommended prior to surgery. <Coty Valderrama MD - Last Filed: 05/29/25 15:48> (2) A-fib: Code(s): I48.91 - Unspecified atrial fibrillation <VIANEY Griffin - Last Filed: 05/29/25 15:22> Status: Acute <VIANEY Griffin - Last Filed: 05/29/25 15:22> Assessment and Plan: Rhythm controlled with flecainide. Would resume anticoagulation post surgery as soon as okay with Dr. Valentin. <VIANEY Griffin - Last Filed: 05/29/25 15:22> Assessment and Plan: If echocardiogram is unremarkable, Cardiology will sign off. Please call with any questions. <VIANEY Griffin - Last Filed: 05/29/25 15:22> History of Present Illness History of Present Illness Consult date/time: 05/29/25 13:31 <VIANEY Griffin - Last Filed: 05/29/25 15:22> Requesting physician: Romaine Kelly MD <VIANEY Griffin - Last Filed: 05/29/25 15:22> Consult reason: pre-op evaluation <VIANEY Griffin - Last Filed: 05/29/25 15:22> Reason For Visit: right hip it fracture <VIANEY Griffin - Last Filed: 05/29/25 15:22> Narrative: Ivania Sewell is an 79 year old female with atrial fibrillation on flecainide and anticoagulation, diabetes, hypertension, and hyperlipidemia. She comes to the hospital with right hip fracture following a fall. Cardiology is consulted for preoperative cardiac risk assessment. She states that she has had a diagnosis of atrial fibrillation for many years and has been rhythm controlled on flecainide for several years. She has no other cardiac history. She denies any chest pain, shortness of breath, palpitations, swelling. <VIANEY Griffin - Last Filed: 05/29/25 15:22> Ivania Sewell is an 79 year old female with atrial fibrillation on flecainide and anticoagulation, diabetes, hypertension, and hyperlipidemia. She comes to the hospital with right hip fracture following a fall. Cardiology is consulted for preoperative cardiac risk assessment prior to planned orthopedic surgery. She states that she has had a diagnosis of atrial fibrillation for many years and has been rhythm controlled on flecainide for several years. She has no other cardiac history. She denies any chest pain, shortness of breath, palpitations, swelling. <Coty Valderrama MD - Last Filed: 05/29/25 15:48> Review of Systems Review of Systems: All systems reviewed & are unremarkable except as noted in HPI and below <VIANEY Griffin - Last Filed: 05/29/25 15:22> [facility] Past Medical History Medical History: Medical History Diabetes Depression Thyroid disease A-fib Hypertension High cholesterol <VIANEY Griffin - Last Filed: 05/29/25 15:22> Surgical History Surgical History: Surgical History H/O foot surgery H/O hand surgery History of thyroid surgery <VIANEY Griffin - Last Filed: 05/29/25 15:22> Social History Social History: Social History Smoking status: Never smoker Alcohol intake: current Drinks per week: 0 Substance use: never Lack of Transportation: No Lack of Food: Never True Current Housing: I Have Housing Concerned About Future Housing: No Difficulty Paying Gas/Electric Bills: No Difficulty Paying for Meds: No Currently Unemployed: No Education: Decline to Answer Difficulty w/ Childcare or Family Care: No Spiritual care concerns: No <VIANEY Griffin - Last Filed: 05/29/25 15:22> Meds Home Medications and Allergies Home medications: Home Medications ?Medication ?Instructions ?Recorded ?Confirmed ?Type atorvastatin 10 mg tablet 10 mg PO HS 12/09/20 12/09/20 History bimatoprost 0.01 % eye drops 1 drp EACH EYE QPM 12/09/20 12/09/20 History (Parvez) flecainide 100 mg tablet 100 mg PO Q12H 12/09/20 12/09/20 History hydrocodone 5 mg-acetaminophen 325 1 tablet PO Q6H PRN pain #15 tabs 12/09/20 Rx mg tablet levothyroxine 112 mcg tablet 112 mcg PO DAILY 12/09/20 12/09/20 History lisinopril 10 mg tablet 10 mg PO DAILY 12/09/20 12/09/20 History metformin 500 mg tablet 500 mg PO BID 12/09/20 12/09/20 History metoprolol succinate 25 mg 25 mg PO DAILY 12/09/20 12/09/20 History tablet,extended release 24 hr pregabalin 100 mg capsule (Lyrica) 100 mg PO HS 12/09/20 12/09/20 History rivaroxaban 20 mg tablet (Xarelto) 20 mg PO QPM 12/09/20 12/09/20 History sertraline 50 mg tablet 50 mg PO DAILY 12/09/20 12/09/20 History hydrocodone 5 mg-acetaminophen 325 1 tablet PO Q6H PRN pain #20 tabs 08/24/24 Rx mg tablet <VIANEY Griffin - Last Filed: 05/29/25 15:22> Allergies/Adverse reactions: Allergies Allergy/AdvReac Type Severity Reaction Status Date / Time metformin AdvReac Diarrhea Verified 05/29/25 09:49 <VIANEY Griffin - Last Filed: 05/29/25 15:22> Vital Signs Vital Signs - 24 hr 05/29/25 06:34 05/29/25 07:30 05/29/25 07:50 Temperature 36.7 C Pulse Rate 75 75 78 Respiratory Rate 20 18 Blood Pressure 170/91 H 183/86 H Pulse Oximetry 97 96 Oxygen Delivery Room Air Oxygen Flow Rate 05/29/25 08:14 05/29/25 08:36 05/29/25 08:36 Temperature 36.7 C Pulse Rate 75 75 Respiratory Rate 16 Blood Pressure 164/68 H Pulse Oximetry 97 98 Oxygen Delivery Nasal Cannula Oxygen Flow Rate 1 05/29/25 08:59 05/29/25 09:45 05/29/25 12:52 Temperature Pulse Rate 75 75 Respiratory Rate 18 18 Blood Pressure 169/72 H Pulse Oximetry 96 96 92 Oxygen Delivery Nasal Cannula Nasal Cannula Oxygen Flow Rate 1 1 <VIANEY Griffin - Last Filed: 05/29/25 15:22> Exam Const: General: comfortable, no acute distress, alert and awake <VIANEY Griffin - Last Filed: 05/29/25 15:22> Orientation/consciousness: patient oriented x3 <VIANEY Griffin - Last Filed: 05/29/25 15:22> HENMT: Head: normal to inspection <VIANEY Griffin - Last Filed: 05/29/25 15:22> Eyes: General: appearance normal, both eyes and all related structures <VIANEY Griffin - Last Filed: 05/29/25 15:22> Pupils: Equal, round and reactive pupils present <VIANEY Griffin - Last Filed: 05/29/25 15:22> Neck: Neck: normal visual inspection, supple and no JVD <VIANEY Griffin - Last Filed: 05/29/25 15:22> Carotids: normal carotid upstroke <GUILLERIMNA GriffinC - Last Filed: 05/29/25 15:22> Resp: Effort & Inspection: normal respiratory effort <GUILLERMINA GriffinC - Last Filed: 05/29/25 15:22> Auscultation: clear to auscultation bilaterally <GUILLERMINA GriffinC - Last Filed: 05/29/25 15:22> Cardio: Rate: regular rate <GUILLERMINA GriffinC - Last Filed: 05/29/25 15:22> Rhythm: regular rhythm <GUILLERMINA GriffinC - Last Filed: 05/29/25 15:22> Heart sounds: S1 normal heart sound present, S2 normal heart sound present and no murmurs <GUILLERMINA GriffinC - Last Filed: 05/29/25 15:22> GI: Auscultation: normal bowel sounds <GUILLERMINA GriffinC - Last Filed: 05/29/25 15:22> Skin: General skin exam: normal color <VIANEY Griffin - Last Filed: 05/29/25 15:22> Neuro: General: patient oriented x3 <GUILLERMINA GriffinC - Last Filed: 05/29/25 15:22> Cranial nerves: Yes Equal, round and reactive pupils present <GUILLERMINA GriffinC - Last Filed: 05/29/25 15:22> Extrem: General: normal to inspection <GUILLERMINA GriffinC - Last Filed: 05/29/25 15:22> Psych: Appearance: grossly normal <VIANEY Griffin - Last Filed: 05/29/25 15:22> Mental Status: mental status grossly normal <VIANEY Griffin - Last Filed: 05/29/25 15:22> Results Labs and Meds Result diagrams: 05/29/25 07:06 05/29/25 07:06 <VIANEY Griffin - Last Filed: 05/29/25 15:22> Lab results: Cardiac Enzymes 05/29/25 Range/Units 07:06 AST 39 H (14-36) U/L Coagulation 05/29/25 Range/Units 07:06 PT 14.3 (11.1-14.7) Seconds APTT 26.1 (22.3-36.8) Seconds CBC 05/29/25 Range/Units 07:06 WBC 14.3 H (4.5-10.0) K/mm3 RBC 5.08 (4.2-5.4) M/mm3 Hgb 15.2 H (12.0-15.0) g/dL Hct 45.5 (37.0-47.0) % Plt Count 214 (150-375) k/mm3 Lymph # (Auto) 1.32 (0.9-3.2) K/mm3 [place] # (Auto) 0.8 H (0.1-0.6) K/mm3 Eos # (Auto) 0.0 (0-0.3) K/mm3 Baso # (Auto) 0.0 (0.0-0.1) K/mm3 Comprehensive Metabolic Panel 05/29/25 Range/Units 07:06 Sodium 136 L (137-145) mmol/L Potassium 4.2 (3.4-5.0) mmol/L Chloride 102 (98-107) mmol/L Carbon Dioxide 21 L (22-30) mmol/L BUN 24 H (7-17) mg/dL Creatinine 0.77 (0.7-1.0) mg/dL Glucose 197 H (65-110) mg/dL Calcium 10.7 H (8.4-10.2) mg/dL AST 39 H (14-36) U/L ALT 34 (6-35) U/L Alkaline Phosphatase 111 (38-126) U/L Total Protein 8.7 H (6.3-8.2) g/dL Albumin 5.0 (3.5-5.1) g/dL Intake and Output 05/28/25 05/29/25 05/29/25 23:59 07:59 15:59 Intake Total 1000 Balance 1000 Intake: IV 1000 Lactated Ringers 1,000 ml @ 999 1000 mls/hr IV CONT .Q1H1M STA Rx#: [id number] Patient Weight 11/24/25 23:59 Weight 81.1 kg <Adrianna Maciel APN-Marce - Last Filed: 05/29/25 15:22>
[2025-05-29 13:49] LABS: Hemoglobin A1C 7.0 % (<5.7)
[2025-05-29] MEDS: PERFLUTREN LIPID MICROSPHERES 1.5 ML VIAL DILUTED TO 10 ML TOTAL VOLUME IV PUSH (15:54)
--- NOTE | 2025-05-29 15:54 | IVDEFINITY ---
Prior to administration of IV Definity the patient was educated on the risks and benefits of the imaging enhancing agent including potential adverse side effects. The patient verbalized understanding. Allergies were verified. No exclusion criteria were identified and at least one of the following inclusion criteria were met: 1) physician request, 2) patient technically difficult to image (per the [place] [employer] guidelines of two or more segments not discernable within the apical view), or 3) questionable left ventricular function. ?
--- NOTE | 2025-05-29 16:13 | PM.CNOR ---
Assessment and Plan Assessment and plan (1) Displaced fracture of right femoral neck: Code(s): S72.001A - Fracture of unspecified part of neck of right femur, initial encounter for closed fracture Status: Acute Assessment and Plan: Patient is an 79-year-old female who was seen in the emergency room at 7:00 a.m. this morning after a fall last night when she had her feet tangled up on the bed sheets and she laid on the floor for for hours waiting for symptoms to improve but she was still unable to ambulate. X-rays demonstrate a transcervical right femoral neck fracture with proximal extension. CT scan demonstrates that posteromedial calcar comminution the reaches down to about 5 mm proximal to the lesser trochanter laterally the fracture is subcapital so this is a displaced vertical transcervical femoral neck fracture pattern. Patient does take Xarelto 20 mg each evening and her last dose was last evening. She has a history of atrial fibrillation. The cardiology service has seen her and felt that she should be at acceptably low risk for cardiac complications with planned hip surgery as long as there were no new abnormalities noted on echocardiogram which has been performed and we are waiting for tax processor interpretation. ECG this morning showed sinus rhythm, inferior myocardial infarction, probably old, low QRS voltage, abnormal EKG. No previous EKG available for comparison. Laboratory studies this morning on admission hemoglobin 15.2, white count 14.3, normal INR protime and APTT, sodium 136, BUN 24, creatinine 0.77, GFR greater than 60, glucose 197, hemoglobin A1c 7.0, mild elevation in total protein 8.7. Albumin 5.0. It would appear she may be dehydrated. AST slightly elevated at 39 is nonspecific and may be related to laying on the floor for 4 hours. Assessment and plan Patient has displaced transcervical right femoral neck fracture. Internal fixation is not successful with this pattern and a bipolar hemiarthroplasty will be recommended. Because of the comminution extending below the anticipated femoral neck cut, a cemented bipolar hemiarthroplasty femoral component would be utilized. She will be approximately 38 hours from her last Xarelto dose at the time of surgery. Several more recent study show that it is not necessary or advisable to postpone hip surgery due to being on these anticoagulants if patient is deemed stable to proceed as the increased blood loss associated with the anticoagulation the does not seem to be clinically important and the benefit of early surgery outweighs the risk of some degree of increased bleeding. The Her history of diabetes increases her risk of infection therefore extended oral antibiotics will be indicated to mitigate the increased risk. Surgery has been tentatively scheduled for 9:30 a.m. Wednesday 05/30 Addendum: This morning, 05/30/2025, her echocardiogram which appear to be unremarkable. She has normal left ventricular size with hyperdynamic systolic function estimated at greater than 70%. Grade 1 diastolic noncompliance. Mild left atrial enlargement. Mild mitral regurgitation. Her laboratory studies this morning are stable. Hemoglobin is still 14.6. White count 10.7. Platelets 435325. Creatinine 0.76. Creatinine clearance 55. AST is now normal. Creatinine kinase was checked yesterday morning and was normal. This morning total protein and albumin are in the normal range. It would appear that she was somewhat dehydrated yesterday and this has been corrected with IV fluids. Physical examination On examination today the right leg is shortened and externally rotated. She has 2+ posterior tibial and dorsalis pedis pulses palpable. She has intact sensation in the right foot in is able to wiggle her toes up and down. She reports her greatest pain is in the anterior groin area of the right hip secondly she has pain in the right buttock. She fell backwards onto the right buttock. She did not hit her head and she denies any other injury. Examination of her upper extremities is unremarkable except for some loss of range of motion of the left elbow due to open reduction internal fixation previous left T-condylar distal humerus fracture that she sustained on August 24 which was treated with internal fixation in [place]. She has reasonable ability to push with the left arm but does have mild soreness in the left elbow while doing this. Left lower extremity is atraumatic. She denies any pain in her head or neck. She is alert and oriented. She verbalized today with present the year and the date today. She is an excellent historian. She lives alone in her home and takes care of all of her finances. She walks normally and does not use a gait aid such as a cane or walker. She was a fairly avid golfer until this year and did not play this year due to her left elbow injury. Patient denies any history of problems with her right hip prior to her fall. Assessment and plan Patient has a comminuted vertical transfer occult displaced right femoral neck fracture with fracture extension to below the anticipated level of the femoral neck cut for bipolar hemiarthroplasty therefore methylmethacrylate will be indicated. I explained the procedure of bipolar hemiarthroplasty to her. Risks of surgery were discussed in detail including risk of dislocation fracture leg length discrepancy. Risk of infection blood clots nerve injury, need for revision surgery, and medical complications such as heart attack stroke pulmonary embolism and were reviewed. I discussed the alternative to having this operation which would be to treat her fracture non operatively which would result in her being unable to walk and she wants to proceed as discussed. Questions were answered. I explained that we would have her use a walker for approximately 6 weeks after surgery but a lower to be weight-bearing as tolerated. After that she would use a cane for a while until she felt her balance was excellent at which time she could wean off the cane if she chose to do so. All of her questions were answered. 65 minutes were spent in total care this patient History of Present Illness HPI Consult date: 05/30/25 Chief complaint: right hip it fracture PMFSH Past Medical History Medical History Diabetes Depression Thyroid disease A-fib Hypertension High cholesterol Surgical History Surgical History H/O foot surgery H/O hand surgery History of thyroid surgery Social History Social History Smoking status: Never smoker Alcohol intake: current Drinks per week: 0 Substance use: never Lack of Transportation: No Lack of Food: Never True Current Housing: I Have Housing Concerned About Future Housing: No Difficulty Paying Gas/Electric Bills: No Difficulty Paying for Meds: No Currently Unemployed: No Education: Decline to Answer Difficulty w/ Childcare or Family Care: No Spiritual care concerns: No Meds Home Medications and Allergies Home Medications ?Medication ?Instructions ?Recorded ?Confirmed ?Type atorvastatin 10 mg tablet 10 mg PO HS 12/09/20 05/29/25 History bimatoprost 0.01 % eye drops 1 drp EACH EYE QPM 12/09/20 05/29/25 History (Parvez) levothyroxine 112 mcg tablet 112 mcg PO DAILY 12/09/20 05/29/25 History lisinopril 10 mg tablet 10 mg PO DAILY 12/09/20 05/29/25 History metoprolol succinate 25 mg 25 mg PO DAILY 12/09/20 05/29/25 History tablet,extended release 24 hr pregabalin 100 mg capsule (Lyrica) 100 mg PO HS 12/09/20 05/29/25 History rivaroxaban 20 mg tablet (Xarelto) 20 mg PO QPM 12/09/20 05/29/25 History sertraline 50 mg tablet 50 mg PO DAILY 12/09/20 05/29/25 History empagliflozin 25 mg tablet 25 mg PO HS 05/29/25 05/29/25 History (Jardiance) flecainide 50 mg tablet 50 mg PO Q12H 05/29/25 05/29/25 History timolol maleate 0.5 % eye drops 1 drp EACH EYE DAILY 05/29/25 05/29/25 History Allergies Allergy/AdvReac Type Severity Reaction Status Date / Time metformin AdvReac Diarrhea Verified 05/29/25 09:49 Vital Signs Vital Signs - 24 hr 05/29/25 06:34 05/29/25 07:30 05/29/25 07:50 Temperature 36.7 C Pulse Rate 75 75 78 Respiratory Rate 20 18 Blood Pressure 170/91 H 183/86 H Pulse Oximetry 97 96 Oxygen Delivery Room Air Oxygen Flow Rate 05/29/25 08:14 05/29/25 08:36 05/29/25 08:36 Temperature 36.7 C Pulse Rate 75 75 Respiratory Rate 16 Blood Pressure 164/68 H Pulse Oximetry 97 98 Oxygen Delivery Nasal Cannula Oxygen Flow Rate 1 05/29/25 08:59 05/29/25 09:45 05/29/25 12:00 Temperature Pulse Rate 75 75 78 Respiratory Rate 18 18 Blood Pressure 169/72 H Pulse Oximetry 96 96 Oxygen Delivery Nasal Cannula Oxygen Flow Rate 1 05/29/25 12:52 05/29/25 14:00 Temperature 36.5 C Pulse Rate 78 Respiratory Rate 16 Blood Pressure 155/85 H Pulse Oximetry 92 90 Oxygen Delivery Nasal Cannula Oxygen Flow Rate 1 Results Labs 05/30/25 06:22 05/30/25 06:22 Labs: Abnormal lab results 05/29/25 Range/Units 07:06 WBC 14.3 H (4.5-10.0) K/mm3 Hgb 15.2 H (12.0-15.0) g/dL Immature Gran % (Auto) 0.6 H (0-0.5) % Neut % (Auto) 83.9 H (45.5-73.1) % Lymph % (Auto) 9.2 L (18.3-44.2) % [place] # (Auto) 0.8 H (0.1-0.6) K/mm3 Abs Immat Gran (auto) 0.08 H (0.00-0.031) K/mm3 Absolute Neuts (auto) 12.0 H (1.3-6.7) K/mm3 Sodium 136 L (137-145) mmol/L Carbon Dioxide 21 L (22-30) mmol/L Anion Gap 13 H (4-12) mmol/L BUN 24 H (7-17) mg/dL Glucose 197 H (65-110) mg/dL Hemoglobin A1c 7.0 H (<5.7) % Calcium 10.7 H (8.4-10.2) mg/dL AST 39 H (14-36) U/L Total Protein 8.7 H (6.3-8.2) g/dL H & H 05/29/25 Range/Units 07:06 Hgb 15.2 H (12.0-15.0) g/dL Hct 45.5 (37.0-47.0) % Coagulation 05/29/25 Range/Units 07:06 INR 1.1 All other labs normal.
[2025-05-30] VITALS (21 sets, daily range): BP systolic 101–159; BP diastolic 55–66; PULSE 73–96; RESP 14–20; TEMP 36.2–38.1; O2SAT 90–100
[2025-05-30 06:43] LABS: Hematocrit 43.9 % (37.0-47.0); Hemoglobin 14.6 g/dL (12.0-15.0); Mean Corpuscular HGB Conc 33.3 g/dl (32-36); Mean Corpuscular Hemoglobin 29.9 pg (26-34); Mean Corpuscular Volume 89.8 fl (80-100); Platelet Count Result 167 k/mm3 (150-375); Red Blood Count 4.89 M/mm3 (4.2-5.4); White Blood Count 10.7 K/mm3 (4.5-10.0)
[2025-05-30 07:34] LABS: Alanine Aminotransferase 21 U/L (6-35); Albumin Level 4.2 g/dL (3.5-5.1); Alkaline Phosphatase 85 U/L (38-126); Anion Gap 10 mmol/L (4-12); Aspartate Amino Transferase 30 U/L (14-36); Bilirubin,Total 1.7 mg/dL (0.2-1.3); Blood Urea Nitrogen 18 mg/dL (7-17); Calcium 9.4 mg/dL (8.4-10.2); Carbon Dioxide 23 mmol/L (22-30); Chloride 100 mmol/L (98-107); Estimated CRCL calculation 55 ml/min; Estimated Glomerular Filt Rate > 60; Glucose 142 mg/dL (65-110); Potassium 4.2 mmol/L (3.4-5.0); Sodium 133 mmol/L (137-145); Total Protein 7.3 g/dL (6.3-8.2)
[2025-05-30] MEDS: LACTATED RINGERS 1,000 ML 30 ML IV CONT ×2 (08:00→13:32)
[2025-05-30] MEDS: VANCOMYCIN 1,250 MG/NS 250 ML BAG 166.67 MG IVPB (08:01)
[2025-05-30] MEDS: TRANEXAMIC ACID 1,000MG/ISO100 1,000 MG/100 ML BAG 200 MG IVPB (09:00)
--- NOTE | 2025-05-30 09:08 | WPDHPUPDATE1 ---
History and Physical Update Update Date/Time: 05/30/25 09:08 History and Physical has been reviewed, including an updated exam of the patient. There are NO changes in the patient's condition. Risks, benefits, and alternatives have been discussed and questions answered. Patient agrees to proceed with procedure.
--- NOTE | 2025-05-30 09:35 | WPDANESEPPF ---
Anes - Initial Pre Proc Eval Procedure: Operation Date: 05/30/25 09:30 Proposed Procedures p Right Bipolar Hip Replacement - Romaine Kelly MD Date/Time: 05/30/25 09:35 Surgeon: Rehan Dean MD Pre Op Diagnosis: right hip it fracture Patient Data Age: 79 Gender: F Height: 1.68 m Weight: 81.1 kg Last Vital Signs Temp 38.1 C H 05/30/25 09:00 Pulse 89 05/30/25 08:00 Resp 14 05/30/25 05:42 BP 159/60 H 05/30/25 08:00 Pulse Ox 92 05/30/25 08:00 O2 Del Method Nasal Cannula 05/30/25 08:00 O2 Flow Rate 1 05/30/25 08:00 Allergies Allergy/AdvReac Type Severity Reaction Status Date / Time metformin AdvReac Diarrhea Verified 05/29/25 09:49 Home Medications ?Medication ?Instructions ?Recorded ?Confirmed ?Type atorvastatin 10 mg tablet 10 mg PO HS 12/09/20 05/29/25 History bimatoprost 0.01 % eye drops 1 drp EACH EYE QPM 12/09/20 05/29/25 History (Lumigan) levothyroxine 112 mcg tablet 112 mcg PO DAILY 12/09/20 05/29/25 History lisinopril 10 mg tablet 10 mg PO DAILY 12/09/20 05/29/25 History metoprolol succinate 25 mg 25 mg PO DAILY 12/09/20 05/29/25 History tablet,extended release 24 hr pregabalin 100 mg capsule (Lyrica) 100 mg PO HS 12/09/20 05/29/25 History rivaroxaban 20 mg tablet (Xarelto) 20 mg PO QPM 12/09/20 05/29/25 History sertraline 50 mg tablet 50 mg PO DAILY 12/09/20 05/29/25 History empagliflozin 25 mg tablet 25 mg PO HS 05/29/25 05/29/25 History (Jardiance) flecainide 50 mg tablet 50 mg PO Q12H 05/29/25 05/29/25 History timolol maleate 0.5 % eye drops 1 drp EACH EYE DAILY 05/29/25 05/29/25 History Laboratory Tests 05/29/25 05/29/25 05/29/25 07:06 17:13 20:53 WBC RBC Hgb Hct MCV MCH MCHC RDW Plt Count MPV Sodium Potassium Chloride Carbon Dioxide Anion Gap BUN Creatinine Estim Creat Clear Calc Estimated GFR Glucose POC Capillary Glucose 134 H mg/dl 150 H mg/dl (65-105) (65-105) Hemoglobin A1c 7.0 H % (<5.7) Calcium Total Bilirubin AST ALT Alkaline Phosphatase Total Protein Albumin 05/30/25 05/30/25 06:22 08:18 WBC 10.7 H K/mm3 (4.5-10.0) RBC 4.89 M/mm3 (4.2-5.4) Hgb 14.6 g/dL (12.0-15.0) Hct 43.9 % (37.0-47.0) MCV 89.8 fl (80-100) MCH 29.9 pg (26-34) MCHC 33.3 g/dl (32-36) RDW 12.3 % (11.5-14.5) Plt Count 167 k/mm3 (150-375) MPV 9.5 fl (7.4-10.4) Sodium 133 L mmol/L (137-145) Potassium 4.2 mmol/L (3.4-5.0) Chloride 100 mmol/L (98-107) Carbon Dioxide 23 mmol/L (22-30) Anion Gap 10 mmol/L (4-12) BUN 18 H mg/dL (7-17) Creatinine 0.76 mg/dL (0.7-1.0) Estim Creat Clear Calc 55 ml/min Estimated GFR > 60 (59 - ) Glucose 142 H mg/dL (65-110) POC Capillary Glucose 161 H mg/dl (65-105) Hemoglobin A1c Calcium 9.4 mg/dL (8.4-10.2) Total Bilirubin 1.7 H mg/dL (0.2-1.3) AST 30 U/L (14-36) ALT 21 U/L (6-35) Alkaline Phosphatase 85 U/L (38-126) Total Protein 7.3 g/dL (6.3-8.2) Albumin 4.2 g/dL (3.5-5.1) Patient hx anesthesia problems: none Family hx anesthesia problems: none Results Review: All pre-operative results and documents have been reviewed as part of the pre-operative evaluation. [facility] Past Medical History Medical History Diabetes Depression Thyroid disease A-fib Hypertension High cholesterol Surgical History Surgical History H/O foot surgery H/O hand surgery History of thyroid surgery Social History Social History Smoking status: Never smoker Alcohol intake: current Drinks per week: 0 Substance use: never Lack of Transportation: No Lack of Food: Never True Current Housing: I Have Housing Concerned About Future Housing: No Difficulty Paying Gas/Electric Bills: No Difficulty Paying for Meds: No Currently Unemployed: No Education: Decline to Answer Difficulty w/ Childcare or Family Care: No Spiritual care concerns: No Anes - Eval Final PreProcedure Day of Procedure 05/30/25 09:35 Patient weight: overweight Heart: regular rate and rhythm Lungs: clear to auscultation Airway: Mallampati scale class II Neurological: alert and oriented Last oral intake: >/= 8 hours ASA classification: III Emergent: no Anesthetic plan: proceed Anesthesia type and monitoring: general ETT and standard monitoring Results Review: All pre-operative results and documents have been reviewed as part of the pre-operative evaluation. Informed Consent: The patient's anesthetic plan and its attendant risks and benefits were discussed with the patient/family/POA. Questions were solicited and answers provided to the satisfaction of the patient/family/POA.
[2025-05-30] MEDS: ceFAZolin 2 GM in SODIUM CHLORIDE 0.9% IV 50 ML 100 ML IVPB ×2 (10:18→22:19)
--- NOTE | 2025-05-30 11:08 | S_PTH ---
PATIENT: Ivania Sewell LOC: [id number] U#:[id number] AGE/SX: 79/F ROOM: 243 RE05/29/[address]: Molly Low MD : [id number] BED: 01 DIS: 06/08/2025 SPEC #: [id number] RECD: 05/30/25 13:18 STATUS: SOUMYA REQ #: [id number] JENNIFER: 05/30/25 11:[address]: Romaine Kelly DEPT: [facility] Surgical RECD BY: Marc Perry ENTERED: 05/30/25 13:19 SP TYPE: Surgical OTHR DR: MD Adrianna Truong, DISTILLER-C MD Lv Terrell MD UNKNOWN,DOCTOR Tissues: A - Femoral Head Procedures: Hematoxylin and Eosin Stain Gross and Microscopic Level 5 Decalcification
[2025-05-30] MEDS: SODIUM CHLORIDE 0.9% IV 37.7 ML, MORPHINE SULFATE INJ (*CRX) 2 MG, ROPivacaine HCL 1% 2... INFILTRATE (11:24)
[2025-05-30 11:25] LABS: Add Urine Microscopic? YES; Appearance Urine Clear (Clear); Glucose Urine UA 3+ mg/dL (Negative); Leukocyte Esterase Ur Negative LEU/UL (Negative); Need Manual Microscopic Reviewed; Nitrate Urine Negative (Negative); Specific Grav Ur 1.032 (1.001-1.035)
[2025-05-30] MEDS: TRANEXAMIC ACID 1,000 MG/10 ML AMPUL 1000 MG IV PUSH (12:12)
--- NOTE | 2025-05-30 14:53 | PM.IMPN ---
Progress Note: A&P Assessment and Plan (1) Hip fracture, right: Code(s): S72.001A - Fracture of unspecified part of neck of right femur, initial encounter for closed fracture Status: Acute Assessment and Plan: -hip x-ray: right femoral neck fracture -evaluate for incidence of hypoglycemia -avoid any sedatives or anxiolytic -will evaluate for any arrhythmias -we evaluate for postural hypotension -medications were reviewed which does not include anxiolytics or sedatives -head CT scan shows no acute intracranial findings -For ORIF today (2) A-fib: Code(s): I48.91 - Unspecified atrial fibrillation Status: Acute Assessment and Plan: Holding Xarelto due to possible surgery today Continue metoprolol 25 mg p.o. q.d. (3) Hypothyroid: Code(s): E03.9 - Hypothyroidism, unspecified Status: Acute Assessment and Plan: Continue levothyroxine 112 mcg Plan DVT prophylaxis on Sq Lovenox Subjective Date/time seen: 05/30/25 14:53 Interval history: comfortable at bedside FOr OR today Exam Narrative: APPEARANCE: Well appearing, no pain, no distress, well-nourished. HEAD: normocephalic, atraumatic. EYES: PERRLA/EOMI, conjunctivae clear. NOSE: Normal no drainage EARS:TMS clear with good light reflex. THROAT: Pharynx clear, no exudate. NECK: Supple. No adenopathy, no masses. RESPIRATORY: Airway patent, respirations nonlabored. Clear to auscultation bilaterally, no rales, rhonchi, wheezing. CARDIOVASCULAR: Regular rate and rhythm without murmurs rubs or gallops. ABDOMINAL: Soft, nontender, nondistended, normal bowel sounds MUSCULOSKELETAL: venous of the right hip, right leg is neurovascularly intact with strong distal pulse NEURO: Alert. Cranial nerves II through XII intact. Good gait. Good coordination SKIN: Warm, dry. Normal Color Objective Data Vital Signs Vital Signs: Vital Signs - 24 hr 05/29/25 16:00 05/29/25 20:00 05/29/25 20:00 Temperature Pulse Rate 81 81 Respiratory Rate Blood Pressure Pulse Oximetry 90 Oxygen Delivery Nasal Cannula Oxygen Flow Rate 1 05/29/25 22:00 05/30/25 00:00 05/30/25 04:00 Temperature 99.1 F Pulse Rate 83 88 92 Respiratory Rate 16 Blood Pressure 165/56 H Pulse Oximetry 90 Oxygen Delivery Oxygen Flow Rate 05/30/25 05:42 05/30/25 08:00 05/30/25 09:00 Temperature 99.2 F 99.6 F 100.6 F H Pulse Rate 96 89 Respiratory Rate 14 Blood Pressure 125/66 159/60 H Pulse Oximetry 92 92 Oxygen Delivery Nasal Cannula Oxygen Flow Rate 1 05/30/25 13:32 05/30/25 13:45 05/30/25 14:00 Temperature 97.2 F L Pulse Rate 83 83 84 Respiratory Rate 15 18 18 Blood Pressure 144/66 H 145/56 H 150/65 H Pulse Oximetry 100 100 97 Oxygen Delivery Bag Valve Mask Simple Face Mask Nasal Cannula Oxygen Flow Rate 8 8 2 05/30/25 14:15 05/30/25 14:30 05/30/25 14:42 Temperature Pulse Rate 80 80 86 Respiratory Rate 20 20 20 Blood Pressure 148/64 H 148/65 H 143/60 H Pulse Oximetry 98 93 97 Oxygen Delivery Nasal Cannula Nasal Cannula Nasal Cannula Oxygen Flow Rate 2 2 2 Intake/Output Intake/Output: Intake & Output 05/27/25 05/28/25 05/29/25 05/30/25 23:59 23:59 23:59 23:59 Intake Total 2240 250 Output Total 600 1050 Balance 1640 -800 Meds/Results Medications: Active Medications Generic Name Dose Route Start Last Admin Trade Name Freq PRN Reason Stop Dose Admin Acetaminophen 500 mg 05/30/25 14:46 Acetaminophen 500 Mg Tablet PO Q4H [facility] Atorvastatin Calcium 10 mg 05/30/25 21:00 Atorvastatin 10 Mg Tablet PO HS [facility] Doxycycline Hyclate 100 mg 05/31/25 09:00 Doxycycline Hyclate 100 Mg Tablet PO 06/12/25 08:59 Q12HR [facility] Empagliflozin 25 mg 05/30/25 21:00 Empagliflozin 25 Mg Tablet PO HS [facility] Flecainide Acetate 50 mg 05/30/25 21:00 Flecainide Acetate 50 Mg Tablet PO Q12H VICTORIA Vancomycin HCl 1,000 mg/ 250 mls @ 250 mls/hr 05/30/25 14:46 Sodium Chloride IVPB 05/31/25 03:45 Q12H [facility] Cefazolin Sodium 2 gm/ Sodium 50 mls @ 100 mls/hr 05/30/25 14:46 Chloride IVPB 05/31/25 07:15 Q8H [facility] Sodium Chloride 1,000 mls @ 125 mls/hr 05/30/25 14:46 Normal Saline Iv IV CONT .Q8H [facility] Latanoprost 1 drop 05/30/25 18:00 Latanoprost 0.005% Op Soln 2.5 Ml Btl EACH EYE QPM [facility] Levothyroxine Sodium 112 mcg 05/31/25 06:30 Levothyroxine Sodium 112 Mcg Tablet PO DAILY@0630 [facility] Metoprolol Succinate 25 mg 05/30/25 14:55 Metoprolol Succinate Ext Rel 25 Mg Tabcr PO DAILY [facility] Morphine Sulfate 2 mg 05/29/25 07:51 05/29/25 21:57 Morphine Sulfate (*Crx) 4 Mg/Ml Inj IV PUSH 2 mg Q2H PRN Administration Pain Rated 7-10 Naloxone HCl 0.1 mg 05/30/25 14:46 Naloxone Hcl 0.4 Mg/Ml Vial IV PUSH Q2M PRN Opiate Reversal Oxycodone HCl 2.5 mg 05/30/25 14:46 Oxycodone Hcl (*Crx) 2.5 Mg Tab Ir PO Q4H [facility] Oxycodone HCl 2.5 mg 05/30/25 14:46 Oxycodone Hcl (*Crx) 2.5 Mg Tab Ir PO Q4H PRN Pain Rated 4-10 Polyethylene Glycol 17 gm 05/31/25 09:00 Polyethylene Glycol 3350 17 Gm Powd.Pack PO QAM [facility] Polyethylene Glycol 17 gm 05/31/25 09:00 Polyethylene Glycol 3350 17 Gm Powd.Pack PO QAM [facility] Pregabalin 100 mg 05/30/25 21:00 Pregabalin (*Crx) 50 Mg Capsule PO HS [facility] Rivaroxaban 10 mg 05/31/25 08:00 Rivaroxaban 10 Mg Tablet PO DAILY@17 [facility] Senna/Docusate Sodium 2 tab 05/30/25 17:00 Senna/Docusate Sodium Tablet PO BID [facility] Sertraline HCl 50 mg 05/31/25 09:00 Sertraline Hcl 50 Mg Tablet PO DAILY [facility] Timolol Maleate 1 drop 05/31/25 09:00 Timolol Maleate 0.5% Op Soln 5 Ml Bottle EACH EYE DAILY [facility] Radiology Results: ITS Impressions Chest X-Ray 05/29/25 07:35 IMPRESSION: 1. No acute cardiopulmonary findings given portable technique. Head CT 05/29/25 07:38 IMPRESSION: 1. No acute intracranial findings. Hip X-Ray 05/29/25 08:30 IMPRESSION: 1. Right femoral neck fracture Hip CT 05/29/25 13:34 IMPRESSION 1. Mildly comminuted transcervical fracture of the proximal right femur with mild varus and anterior angulation. Intraoperative X-Ray 05/30/25 13:14 IMPRESSION: 1. Expected appearance during right total hip arthroplasty. Hip/Pelvis X-Ray 05/30/25 13:53 Impression: No acute fracture or malalignment. Labs Labs: Laboratory Results - last 24 hr 05/29/25 05/29/25 05/30/25 17:13 20:53 06:22 WBC 10.7 H RBC 4.89 Hgb 14.6 Hct 43.9 MCV 89.8 MCH 29.9 MCHC 33.3 RDW 12.3 Plt Count 167 MPV 9.5 Sodium 133 L Potassium 4.2 Chloride 100 Carbon Dioxide 23 Anion Gap 10 BUN 18 H Creatinine 0.76 Estim Creat Clear Calc 55 Estimated GFR > 60 Glucose 142 H POC Capillary Glucose 134 H 150 H Calcium 9.4 Total Bilirubin 1.7 H AST 30 ALT 21 Alkaline Phosphatase 85 Total Protein 7.3 Albumin 4.2 Urine Color Urine Appearance Urine pH Ur Specific [place] Urine Protein Urine Glucose (UA) Urine Ketones Ur Blood (Man) Urine Nitrate Urine Bilirubin Urine Urobilinogen Add Ur Microanalysis Leukocyte Esterase Rfl Urine RBC Urine WBC Ur Squamous Epith Cells Urine Bacteria Urine Casts 05/30/25 05/30/25 08:18 10:51 WBC RBC Hgb Hct MCV MCH MCHC RDW Plt Count MPV Sodium Potassium Chloride Carbon Dioxide Anion Gap BUN Creatinine Estim Creat Clear Calc Estimated GFR Glucose POC Capillary Glucose 161 H Calcium Total Bilirubin AST ALT Alkaline Phosphatase Total Protein Albumin Urine Color Yellow Urine Appearance Clear Urine pH 6.0 Ur Specific [place] 1.032 Urine Protein Trace Urine Glucose (UA) 3+ H Urine Ketones 3+ H Ur Blood (Man) Negative Urine Nitrate Negative Urine Bilirubin Negative Urine Urobilinogen 1.0 Add Ur Microanalysis Reviewed Leukocyte Esterase Rfl Negative Urine RBC 0-2 Urine WBC 0-5 Ur Squamous Epith Cells None seen Urine Bacteria None seen Urine Casts 3-5
[2025-05-30] MEDS: ACETAMINOPHEN 500 MG TABLET PO ×3 (15:12→22:21)
[2025-05-30] MEDS: oxyCODONE HCL (*CRX) 2.5 MG TAB IR PO ×3 (15:12→22:20)
[2025-05-30] MEDS: METOPROLOL SUCCINATE EXT REL 25 MG TABCR PO (15:12)
[2025-05-30] MEDS: SERTRALINE HCL 50 MG TABLET PO (15:12)
[2025-05-30] MEDS: LATANOPROST 0.005% OP SOLN 2.5 ML BTL 1 DROP EACH EYE (18:00)
[2025-05-30] MEDS: SENNA/DOCUSATE SODIUM TABLET 2 TAB PO (18:00)
[2025-05-30] MEDS: INSULIN ASPART (*BKC) 100 UNITS/ML SUB-Q (18:46)
[2025-05-30] MEDS: VANCOMYCIN HCL 1,000 MG in SODIUM CHLORIDE 0.9% IV 250 ML 250 MG IVPB (20:06)
[2025-05-30] MEDS: PREGABALIN (*CRX) 50 MG CAPSULE 100 MG PO (22:20)
[2025-05-30] MEDS: EMPAGLIFLOZIN 25 MG TABLET PO (22:20)
[2025-05-30] MEDS: ATORVASTATIN 10 MG TABLET PO (22:20)
[2025-05-30] MEDS: FLECAINIDE ACETATE 50 MG TABLET PO (22:22)
[2025-05-30] MEDS: SODIUM CHLORIDE 0.9% IV 1,000 ML 125 ML IV CONT (22:27)
[2025-05-31] VITALS (17 sets, daily range): BP systolic 93–137; BP diastolic 46–64; PULSE 64–150; RESP 14–18; TEMP 36.4–37.4; O2SAT 90–98
[2025-05-31 06:05] LABS: Anion Gap 2 mmol/L (4-12); Blood Urea Nitrogen 21 mg/dL (7-17); Calcium 8.7 mg/dL (8.4-10.2); Carbon Dioxide 25 mmol/L (22-30); Chloride 105 mmol/L (98-107); Estimated CRCL calculation 57 ml/min; Estimated Glomerular Filt Rate > 60; Glucose 110 mg/dL (65-110); Potassium 4.1 mmol/L (3.4-5.0); Sodium 132 mmol/L (137-145)
[2025-05-31 06:10] LABS: Hematocrit 34.8 % (37.0-47.0); Hemoglobin 11.5 g/dL (12.0-15.0); Immature Granulocyte Percent A 0.5 % (0-0.5); Lymphocytes Absolute Auto 1.20 K/mm3 (0.9-3.2); Mean Corpuscular HGB Conc 33.0 g/dl (32-36); Mean Corpuscular Hemoglobin 30.6 pg (26-34); Mean Corpuscular Volume 92.6 fl (80-100); Nucleated Red Blood Cells Absolute Auto 0.000 K/mm3 (0.0-0.012); Nucleated Red Blood Cells Perc 0.0 % (0.0-0.2); Platelet Count Result 148 k/mm3 (150-375); Red Blood Count 3.76 M/mm3 (4.2-5.4); White Blood Count 11.1 K/mm3 (4.5-10.0)
[2025-05-31] MEDS: SODIUM CHLORIDE 0.9% IV 1,000 ML 125 ML IV CONT ×2 (06:25→22:01)
[2025-05-31] MEDS: ceFAZolin 2 GM in SODIUM CHLORIDE 0.9% IV 50 ML 100 ML IVPB ×2 (06:25→14:33)
[2025-05-31] MEDS: ACETAMINOPHEN 500 MG TABLET PO ×5 (06:26→22:02)
[2025-05-31] MEDS: LEVOTHYROXINE SODIUM 112 MCG TABLET PO (06:26)
[2025-05-31] MEDS: oxyCODONE HCL (*CRX) 2.5 MG TAB IR PO ×5 (06:26→22:02)
--- NOTE | 2025-05-31 07:18 | W.PM.PROC2 ---
Procedure Note - Detailed Date of Procedure 05/31/25 Pre-op Diagnosis Displaced vertical transcervical right femoral neck fracture Post-op Diagnosis Same Procedure Performed Cemented bipolar hemiarthroplasty right hip Surgeon Romaine Kelly MD Manager Corporate Marketing Shari Anesthesia General Description of Procedure Patient was brought to the operating room and general anesthesia was administered. She received 2 g of Ancef preoperatively 1 g of TXA and weight based vancomycin. A Bauman catheter was placed and a urine specimen sent before giving the Ancef. She had had a single episode of elevated temperature in the preop holding area. She was placed in the lateral decubitus position. The skin was carefully scrubbed with the Ari prep chlorhexidine cloths. The right hip was prepped draped usual fashion. A 7 in longitudinal incision was made over lateral aspect of the hip fascia francisco javier incised in line with the incision and anterior 40% of gluteus medius and gluteus minimus elevated off the greater trochanter. Standard Oakes approach utilized She was noted to have intermediate grade articular sided partial thickness tearing of the gluteus minimus and medius tendons which looked normal from the outside but the had significant detachment from the proximal 1/2 of the insertions on the greater trochanter of both tendons and there were rather large smooth bulbous enthesophytes associated with the deep sided tendon tearing on the anterior and lateral aspects of the proximal 1/2 the lateral surface of the greater trochanter and these were debrided to bleeding cancellous bone surface. Capsule was incised longitudinally at the superior aspect of the joint. Labrum was intact. Provisional femoral neck cut made. The head was removed. It had a long cortical spike extending down the medial neck attached to the femoral head with some comminution the fragments were removed. The femoral head measured 46.5 mm in diameter and the 47 bipolar head fit snugly in the acetabulum. The cartilage in the acetabulum and on the surface of the femoral head looked normal. The head was sent for pathology per routine. The proximal femur was prepared. After broaching to a size 3 intraoperative x-ray was obtained and showed we were at the proper neck height but suggested we could go up 1 size on the broach. We broached up to a Dougherty cemented size 4 broach and an intraoperative x-ray was obtained trialing with the standard neck and the 47 bipolar head and the size 1.5 mm length inner head and a showed equal offsets and leg lengths matching our preoperative templating plan. Calcar planing was then performed. We continued to have a v-shaped defect along the medial femoral neck at the calcar extending about 7 or 8 mm distal to the level of the neck cut and at the neck cut the defect was about 1 cm wide for this reason we elected to use a cemented stem. A cement restrictor was placed 1 cm distal to the anticipated placement of the stem with a 9 mm centralizer attached to the distal aspect of the cemented Dougherty stem. Pulsavac lavage was used to thoroughly irrigate the canal epinephrine-soaked sponges used followed by drying. Two batches of methylmethacrylate were mixed on the back table 1 with gentamicin powder and the cement was injected into the canal pressurized and the size 4 standard neck offset Dougherty cemented stem was inserted and carefully inserted flush with the neck cut. The collar was over the defect and therefore it required great care to maintain the proper height of the stem which was carefully held until cement curing at 15 minutes. Excess cement was removed and we trialed with the 47 bipolar in the 1.5 long head which gave appropriate soft tissue tension and stability in all positions. After changing our gloves and after thorough irrigation of the wound the 47 mm bipolar head was assembled to the 28 mm inner head 1.5 mm length and this construct placed on the clean and dried trunnion of the femoral component impacted in place hip reduced stability reconfirmed. The superior limb of the capsulotomy was repaired with running number 2 Ethibond. The gluteus minimus and medius were reapproximated to the greater trochanter with number 5 Ethibond and multiple number 2 at the bounce through bone. The split in the vastus medialis and gluteus medius repaired with running number 2 Ethibond. The fascia was repaired with interrupted 2. Vicryl and running 1. Unidirectional barbed Stratafix suture in a watertight closure was achieved. A medium Hemovac drain was placed deep in the subcutaneous tissues and the skin closed with 2 subcutaneous Vicryl and glue. EBL was 250 cc. Two additional g of Ancef 1 g of TXA given time wound closure. There were no complications. She was transferred to postop recovery room in stable condition. Urine Output 600 [facility] Billing Surgery - Charge Forward: Surgery Billing (Bipolar hemiarthroplasty for displaced femoral neck fracture)
--- NOTE | 2025-05-31 07:31 | PM.PNORT ---
Progress Note: A&P Assessment and Plan (1) Status post hemiarthroplasty of right hip: Code(s): Z96.641 - Presence of right artificial hip joint Status: Acute Assessment and Plan: Patient is post op day 1. After cemented bipolar hemiarthroplasty right hip for transcervical femoral neck fracture. She is comfortable this morning. She is completely alert and oriented. She has not been out of bed yet. Her drain was removed earlier this morning. There is no blood showing on the Mepilex dressing. She has no swelling in the leg. Intact sensation motor function right foot. She has no other complaints. Laboratory studies show hemoglobin 11.5 representing acute blood loss anemia. Platelets 554005. Sodium 132. She did have an elevated glucose at 300 yesterday and diabetic treatment protocol initiated per hospitalist. Patient was under the impression that she had borderline diabetes but I think she has true type 2 diabetes. Hemoglobin A1c is 7 despite oral anti hypoglycemics. We will mobilize her today. 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 She will be allowed to be weight-bearing as tolerated trying to keep a little bit of weight off the right hip to protect the soft tissue repair as much as she can. She may require placement in rehab facility postoperatively. We will see how she does over the next couple of days. Since her bilirubin was elevated yesterday we will check a CMP tomorrow. Subjective Subjective Date/Time Seen: 05/31/25 07:31 Objective Data Vital Signs Vital Signs: Vital Signs - 24 hr 05/30/25 08:00 05/30/25 09:00 05/30/25 13:32 Temperature 37.6 C 38.1 C H 36.2 C L Pulse Rate 89 83 Respiratory Rate 15 Blood Pressure 159/60 H 144/66 H Pulse Oximetry 92 100 Oxygen Delivery Nasal Cannula Bag Valve Mask Oxygen Flow Rate 1 8 Fraction of Inspired Oxygen 05/30/25 13:45 05/30/25 14:00 05/30/25 14:15 Temperature Pulse Rate 83 84 80 Respiratory Rate 18 18 20 Blood Pressure 145/56 H 150/65 H 148/64 H Pulse Oximetry 100 97 98 Oxygen Delivery Simple Face Mask Nasal Cannula Nasal Cannula Oxygen Flow Rate 8 2 2 Fraction of Inspired Oxygen 05/30/25 14:30 05/30/25 14:42 05/30/25 14:46 Temperature 36.6 C Pulse Rate 80 86 82 Respiratory Rate 20 20 18 Blood Pressure 148/65 H 143/60 H 136/62 Pulse Oximetry 93 97 99 Oxygen Delivery Nasal Cannula Nasal Cannula Oxygen Flow Rate 2 2 Fraction of Inspired Oxygen 05/30/25 15:01 05/30/25 15:12 05/30/25 15:31 Temperature 36.3 C L 36.7 C Pulse Rate 85 86 96 Respiratory Rate 19 18 Blood Pressure 148/63 H 146/55 H Pulse Oximetry 97 95 Oxygen Delivery Oxygen Flow Rate Fraction of Inspired Oxygen 05/30/25 16:00 05/30/25 16:00 05/30/25 16:31 Temperature 37.1 C Pulse Rate 88 88 80 Respiratory Rate 18 Blood Pressure 101/58 L Pulse Oximetry 90 Oxygen Delivery Oxygen Flow Rate Fraction of Inspired Oxygen 05/30/25 19:56 05/30/25 20:00 05/30/25 20:00 Temperature Pulse Rate 77 73 Respiratory Rate Blood Pressure Pulse Oximetry 95 Oxygen Delivery Nasal Cannula Oxygen Flow Rate 1 Fraction of Inspired Oxygen 05/30/25 20:31 05/30/25 22:22 05/31/25 00:00 Temperature 36.7 C Pulse Rate 82 75 77 Respiratory Rate 18 Blood Pressure 106/55 L Pulse Oximetry 96 Oxygen Delivery Oxygen Flow Rate Fraction of Inspired Oxygen 05/31/25 00:31 05/31/25 04:00 05/31/25 04:31 Temperature 36.6 C 36.4 C L Pulse Rate 70 73 76 Respiratory Rate 14 16 Blood Pressure 98/64 L 115/49 L Pulse Oximetry 96 98 Oxygen Delivery Oxygen Flow Rate Fraction of Inspired Oxygen Intake/Output Intake/Output: Intake & Output 05/28/25 05/29/25 05/30/25 05/31/25 23:59 23:59 23:59 23:59 Intake Total 2240 1290 995.8 Output Total 600 1500 1500 Balance 2143 -050 -745.2 Meds/Results Medications: Active Medications Generic Name Dose Route Start Last Admin Trade Name Freq PRN Reason Stop Dose Admin Acetaminophen 500 mg 05/30/25 15:00 05/31/25 06:26 Acetaminophen 500 Mg Tablet PO 500 mg Q4H VICTORIA Administration Atorvastatin Calcium 10 mg 05/30/25 21:00 05/30/25 22:20 Atorvastatin 10 Mg Tablet PO 10 mg HS VICTORIA Administration Dextrose 12.5 gm 05/30/25 17:28 Dextrose 50% 25 Gm/50 Ml Syringe IV PUSH PRN PRN Hypoglycemia Protocol Doxycycline Hyclate 100 mg 05/31/25 09:00 Doxycycline Hyclate 100 Mg Tablet PO 06/12/25 08:59 Q12HR VICTORIA Empagliflozin 25 mg 05/30/25 21:00 05/30/25 22:20 Empagliflozin 25 Mg Tablet PO 25 mg HS VICTORIA Administration Flecainide Acetate 50 mg 05/30/25 21:00 05/30/25 22:22 Flecainide Acetate 50 Mg Tablet PO 50 mg Q12H VICTORIA Administration Glucagon 1 mg 05/30/25 17:28 Glucagon For Inj 1 Mg Vial IM PRN PRN Hypoglycemia Protocol Glucose 15 gm 05/30/25 17:28 Glucose Oral Gel 15 Gm Of Glucse In 37.5 Gm Tube PO PRN PRN Hypoglycemia Protocol Vancomycin HCl 1,000 mg/ 250 mls @ 250 mls/hr 05/30/25 20:00 05/30/25 21:06 Sodium Chloride IVPB 05/31/25 08:59 Infused Q12H VICTORIA Infusion Cefazolin Sodium 2 gm/ Sodium 50 mls @ 100 mls/hr 05/30/25 22:00 05/31/25 06:25 Chloride IVPB 05/31/25 14:29 100 mls/hr Q8H VICTORIA Administration Sodium Chloride 1,000 mls @ 125 mls/hr 05/30/25 14:46 05/31/25 06:25 Normal Saline Iv IV CONT 125 mls/hr .Q8H VICTORIA Administration Dextrose 1,000 mls @ 100 mls/hr 05/30/25 17:28 Dextrose 5% 1,000 Ml IVPB PRN PRN Hypoglycemia Protocol Insulin Aspart 2 - 5 units 05/30/25 18:40 05/30/25 18:46 Insulin Aspart (*Bkc) 100 Units/Ml SUB-Q 4 units TIDWM VICTORIA Administration Protocol Latanoprost 1 drop 05/30/25 18:00 05/30/25 18:00 Latanoprost 0.005% Op Soln 2.5 Ml Btl EACH EYE 1 drop QPM VICTORIA Administration Levothyroxine Sodium 112 mcg 05/31/25 06:30 05/31/25 06:26 Levothyroxine Sodium 112 Mcg Tablet PO 112 mcg DAILY@0630 [facility] Administration Metoprolol Succinate 25 mg 05/30/25 14:55 05/30/25 15:12 Metoprolol Succinate Ext Rel 25 Mg Tabcr PO 25 mg DAILY VICTORIA Administration Morphine Sulfate 2 mg 05/29/25 07:51 05/29/25 21:57 Morphine Sulfate (*Crx) 4 Mg/Ml Inj IV PUSH 2 mg Q2H PRN Administration Pain Rated 7-10 Naloxone HCl 0.1 mg 05/30/25 14:46 Naloxone Hcl 0.4 Mg/Ml Vial IV PUSH Q2M PRN Opiate Reversal Oxycodone HCl 2.5 mg 05/30/25 15:00 05/31/25 06:26 Oxycodone Hcl (*Crx) 2.5 Mg Tab Ir PO 2.5 mg Q4H VICTORIA Administration Oxycodone HCl 2.5 mg 05/30/25 14:46 Oxycodone Hcl (*Crx) 2.5 Mg Tab Ir PO Q4H PRN Pain Rated 4-10 Polyethylene Glycol 17 gm 05/31/25 09:00 Polyethylene Glycol 3350 17 Gm Powd.Pack PO QAM VICTORIA Polyethylene Glycol 17 gm 05/31/25 09:00 Polyethylene Glycol 3350 17 Gm Powd.Pack PO QAM VICTORIA Pregabalin 100 mg 05/30/25 21:00 05/30/25 22:20 Pregabalin (*Crx) 50 Mg Capsule PO 100 mg HS [facility] Administration Rivaroxaban 10 mg 05/31/25 08:00 Rivaroxaban 10 Mg Tablet PO DAILY@17 [facility] Senna/Docusate Sodium 2 tab 05/30/25 17:00 05/30/25 18:00 Senna/Docusate Sodium Tablet PO 2 tab BID [facility] Administration Sertraline HCl 50 mg 05/30/25 14:55 05/30/25 15:12 Sertraline Hcl 50 Mg Tablet PO 50 mg DAILY [facility] Administration Timolol Maleate 1 drop 05/31/25 09:00 Timolol Maleate 0.5% Op Soln 5 Ml Bottle EACH EYE DAILY [facility] Radiology Results: ITS Impressions Chest X-Ray 05/29/25 07:35 IMPRESSION: 1. No acute cardiopulmonary findings given portable technique. Head CT 05/29/25 07:38 IMPRESSION: 1. No acute intracranial findings. Hip X-Ray 05/29/25 08:30 IMPRESSION: 1. Right femoral neck fracture Hip CT 05/29/25 13:34 IMPRESSION 1. Mildly comminuted transcervical fracture of the proximal right femur with mild varus and anterior angulation. Intraoperative X-Ray 05/30/25 13:14 IMPRESSION: 1. Expected appearance during right total hip arthroplasty. Hip/Pelvis X-Ray 05/30/25 13:53 Impression: No acute fracture or malalignment. Labs Labs: Laboratory Results - last 24 hr 05/30/25 05/30/25 05/30/25 06:22 08:18 10:51 WBC RBC Hgb Hct MCV MCH MCHC RDW Plt Count MPV Immature Gran % (Auto) Neut % (Auto) Lymph % (Auto) [place] % (Auto) Eos % (Auto) Baso % (Auto) Lymph # (Auto) [place] # (Auto) Eos # (Auto) Baso # (Auto) Abs Immat Gran (auto) Absolute Neuts (auto) Absolute Nucleated RBC Nucleated RBC % Sodium 133 L Potassium 4.2 Chloride 100 Carbon Dioxide 23 Anion Gap 10 BUN 18 H Creatinine 0.76 Estim Creat Clear Calc 55 Estimated GFR > 60 Glucose 142 H POC Capillary Glucose 161 H Calcium 9.4 Total Bilirubin 1.7 H AST 30 ALT 21 Alkaline Phosphatase 85 Total Protein 7.3 Albumin 4.2 Urine Color Yellow Urine Appearance Clear Urine pH 6.0 Ur Specific [place] 1.032 Urine Protein Trace Urine Glucose (UA) 3+ H Urine Ketones 3+ H Ur Blood (Man) Negative Urine Nitrate Negative Urine Bilirubin Negative Urine Urobilinogen 1.0 Add Ur Microanalysis Reviewed Leukocyte Esterase Rfl Negative Urine RBC 0-2 Urine WBC 0-5 Ur Squamous Epith Cells None seen Urine Bacteria None seen Urine Casts 3-5 05/30/25 05/30/25 05/31/25 17:02 20:11 05:30 WBC 11.1 H RBC 3.76 L Hgb 11.5 L D Hct 34.8 L MCV 92.6 MCH 30.6 MCHC 33.0 RDW 12.8 Plt Count 148 L MPV 9.7 Immature Gran % (Auto) 0.5 Neut % (Auto) 77.5 H Lymph % (Auto) 10.8 L [place] % (Auto) 10.3 H Eos % (Auto) 0.7 Baso % (Auto) 0.2 Lymph # (Auto) 1.20 [place] # (Auto) 1.2 H Eos # (Auto) 0.1 Baso # (Auto) 0.0 Abs Immat Gran (auto) 0.06 H Absolute Neuts (auto) 8.6 H Absolute Nucleated RBC 0.000 Nucleated RBC % 0.0 Sodium 132 L Potassium 4.1 Chloride 105 Carbon Dioxide 25 Anion Gap 2 L BUN 21 H Creatinine 0.73 Estim Creat Clear Calc 57 Estimated GFR > 60 Glucose 110 POC Capillary Glucose 307 H 213 H Calcium 8.7 Total Bilirubin AST ALT Alkaline Phosphatase Total Protein Albumin Urine Color Urine Appearance Urine pH Ur Specific [place] Urine Protein Urine Glucose (UA) Urine Ketones Ur Blood (Man) Urine Nitrate Urine Bilirubin Urine Urobilinogen Add Ur Microanalysis Leukocyte Esterase Rfl Urine RBC Urine WBC Ur Squamous Epith Cells Urine Bacteria Urine Casts
[2025-05-31] MEDS: FLECAINIDE ACETATE 50 MG TABLET PO ×2 (09:17→20:57)
[2025-05-31] MEDS: VANCOMYCIN HCL 1,000 MG in SODIUM CHLORIDE 0.9% IV 250 ML 250 MG IVPB (09:17)
[2025-05-31] MEDS: SENNA/DOCUSATE SODIUM TABLET 2 TAB PO ×2 (09:17→17:39)
[2025-05-31] MEDS: DOXYCYCLINE HYCLATE 100 MG TABLET PO ×2 (09:17→20:57)
[2025-05-31] MEDS: RIVAROXABAN 10 MG TABLET PO ×2 (09:17→17:40)
[2025-05-31] MEDS: TIMOLOL MALEATE 0.5% OP SOLN 5 ML BOTTLE 1 DROP EACH EYE (09:19)
[2025-05-31] MEDS: CALCIUM CITRATE 315 MG/VITAMIN D 6.25 MCG (250 UNITS) TAB 1 TABLET PO ×2 (09:20→17:39)
[2025-05-31] MEDS: SERTRALINE HCL 50 MG TABLET PO (12:35)
[2025-05-31] MEDS: METOPROLOL SUCCINATE EXT REL 25 MG TABCR PO (12:35)
[2025-05-31] MEDS: INSULIN ASPART (*BKC) 100 UNITS/ML SUB-Q (12:36)
--- NOTE | 2025-05-31 14:06 | P.PNIM_ITS ---
Progress Note: A&P Assessment and Plan (1) Hip fracture, right: Code(s): S72.001A - Fracture of unspecified part of neck of right femur, initial encounter for closed fracture Status: Acute Assessment and Plan: -hip x-ray: right femoral neck fracture -evaluate for incidence of hypoglycemia -avoid any sedatives or anxiolytic -will evaluate for any arrhythmias -we evaluate for postural hypotension -medications were reviewed which does not include anxiolytics or sedatives -head CT scan shows no acute intracranial findings -s/p ORIF, pain controlled, will continue current treatment. (2) A-fib: Code(s): I48.91 - Unspecified atrial fibrillation Status: Acute Assessment and Plan: Continue with Xarelto Continue metoprolol 25 mg p.o. q.d. (3) Hypothyroid: Code(s): E03.9 - Hypothyroidism, unspecified Status: Acute Assessment and Plan: Continue levothyroxine 112 mcg Plan DVT prophylaxis on xarelto Subjective Date/time seen: 05/31/25 14:06 Interval history: Patient was seen during the morning rounds today. Patient pain is under control. No shortness of breath or chest pain Review of Systems Review of Systems: All systems reviewed & are unremarkable except as noted in HPI and below (the History and physical examination.) Exam Narrative: APPEARANCE: Well appearing, no pain, no distress, well-nourished. HEAD: normocephalic, atraumatic. EYES: PERRLA/EOMI, conjunctivae clear. NOSE: Normal no drainage EARS:TMS clear with good light reflex. THROAT: Pharynx clear, no exudate. NECK: Supple. No adenopathy, no masses. RESPIRATORY: Airway patent, respirations nonlabored. Clear to auscultation bilaterally, no rales, rhonchi, wheezing. CARDIOVASCULAR: Regular rate and rhythm without murmurs rubs or gallops. ABDOMINAL: Soft, nontender, nondistended, normal bowel sounds MUSCULOSKELETAL: s/p surgery of the right hip, right leg is neurovascularly intact with strong distal pulse NEURO: Alert. Cranial nerves II through XII intact. Good gait. Good coordination SKIN: Warm, dry. Normal Color Objective Data Vital Signs Vital Signs: Vital Signs - 24 hr 05/30/25 14:15 05/30/25 14:30 05/30/25 14:42 Temperature Pulse Rate 80 80 86 Respiratory Rate 20 20 20 Blood Pressure 148/64 H 148/65 H 143/60 H Pulse Oximetry 98 93 97 Oxygen Delivery Nasal Cannula Nasal Cannula Nasal Cannula Oxygen Flow Rate 2 2 2 Fraction of Inspired Oxygen 05/30/25 14:46 05/30/25 15:01 05/30/25 15:12 Temperature 36.6 C 36.3 C L Pulse Rate 82 85 86 Respiratory Rate 18 19 Blood Pressure 136/62 148/63 H Pulse Oximetry 99 97 Oxygen Delivery Oxygen Flow Rate Fraction of Inspired Oxygen 05/30/25 15:31 05/30/25 16:00 05/30/25 16:00 Temperature 36.7 C Pulse Rate 96 88 88 Respiratory Rate 18 Blood Pressure 146/55 H Pulse Oximetry 95 Oxygen Delivery Oxygen Flow Rate Fraction of Inspired Oxygen 05/30/25 16:31 05/30/25 19:56 05/30/25 20:00 Temperature 37.1 C Pulse Rate 80 77 Respiratory Rate 18 Blood Pressure 101/58 L Pulse Oximetry 90 95 Oxygen Delivery Nasal Cannula Oxygen Flow Rate 1 Fraction of Inspired Oxygen 05/30/25 20:00 05/30/25 20:31 05/30/25 22:22 Temperature 36.7 C Pulse Rate 73 82 75 Respiratory Rate 18 Blood Pressure 106/55 L Pulse Oximetry 96 Oxygen Delivery Oxygen Flow Rate Fraction of Inspired Oxygen 05/31/25 00:00 05/31/25 00:31 05/31/25 04:00 Temperature 36.6 C Pulse Rate 77 70 73 Respiratory Rate 14 Blood Pressure 98/64 L Pulse Oximetry 96 Oxygen Delivery Oxygen Flow Rate Fraction of Inspired Oxygen 05/31/25 04:31 05/31/25 07:53 05/31/25 08:00 Temperature 36.4 C L Pulse Rate 76 Respiratory Rate 16 Blood Pressure 115/49 L Pulse Oximetry 98 Oxygen Delivery Room Air Room Air Oxygen Flow Rate Fraction of Inspired Oxygen 05/31/25 08:00 05/31/25 08:16 05/31/25 09:23 Temperature 37.0 C Pulse Rate 64 81 Respiratory Rate 18 Blood Pressure 108/58 L Pulse Oximetry 90 Oxygen Delivery Room Air Oxygen Flow Rate Fraction of Inspired Oxygen 05/31/25 12:00 05/31/25 12:29 05/31/25 12:35 Temperature 37.0 C Pulse Rate 86 93 64 Respiratory Rate 18 Blood Pressure 100/46 L Pulse Oximetry 93 Oxygen Delivery Oxygen Flow Rate Fraction of Inspired Oxygen Intake/Output Intake/Output: Intake & Output 05/28/25 05/29/25 05/30/25 05/31/25 23:59 23:59 23:59 23:59 Intake Total 2240 1290 2165.8 Output Total 600 1500 2000 Balance 1640 -210 165.8 Meds/Results Medications: Active Medications Generic Name Dose Route Start Last Admin Trade Name Freq PRN Reason Stop Dose Admin Acetaminophen 500 mg 05/30/25 15:00 05/31/25 12:01 Acetaminophen 500 Mg Tablet PO 500 mg Q4H VICTORIA Administration Atorvastatin Calcium 10 mg 05/30/25 21:00 05/30/25 22:20 Atorvastatin 10 Mg Tablet PO 10 mg HS VICTORIA Administration Calcium Citrate 1 tablet 05/31/25 09:00 05/31/25 09:20 Calcium Citrate 315 Mg/Vitamin D 6.25 Mcg (250 Units) Tab PO 1 tablet BID VICTORIA Administration Dextrose 12.5 gm 05/30/25 17:28 Dextrose 50% 25 Gm/50 Ml Syringe IV PUSH PRN PRN Hypoglycemia Protocol Doxycycline Hyclate 100 mg 05/31/25 09:00 05/31/25 09:17 Doxycycline Hyclate 100 Mg Tablet PO 06/12/25 08:59 100 mg Q12HR VICTORIA Administration Empagliflozin 25 mg 05/30/25 21:00 05/30/25 22:20 Empagliflozin 25 Mg Tablet PO 25 mg HS VICTORIA Administration Flecainide Acetate 50 mg 05/30/25 21:00 05/31/25 09:17 Flecainide Acetate 50 Mg Tablet PO 50 mg Q12H VICTORIA Administration Glucagon 1 mg 05/30/25 17:28 Glucagon For Inj 1 Mg Vial IM PRN PRN Hypoglycemia Protocol Glucose 15 gm 05/30/25 17:28 Glucose Oral Gel 15 Gm Of Glucse In 37.5 Gm Tube PO PRN PRN Hypoglycemia Protocol Cefazolin Sodium 2 gm/ Sodium 50 mls @ 100 mls/hr 05/30/25 22:00 05/31/25 06:25 Chloride IVPB 05/31/25 14:29 100 mls/hr Q8H VICTORIA Administration Sodium Chloride 1,000 mls @ 125 mls/hr 05/30/25 14:46 05/31/25 06:25 Normal Saline Iv IV CONT 125 mls/hr .Q8H VICTORIA Administration Dextrose 1,000 mls @ 100 mls/hr 05/30/25 17:28 Dextrose 5% 1,000 Ml IVPB PRN PRN Hypoglycemia Protocol Insulin Aspart 2 - 5 units 05/30/25 18:40 05/31/25 12:36 Insulin Aspart (*Bkc) 100 Units/Ml SUB-Q 3 units TIDWM VICTORIA Administration Protocol Latanoprost 1 drop 05/30/25 18:00 05/30/25 18:00 Latanoprost 0.005% Op Soln 2.5 Ml Btl EACH EYE 1 drop QPM VICTORIA Administration Levothyroxine Sodium 112 mcg 05/31/25 06:30 05/31/25 06:26 Levothyroxine Sodium 112 Mcg Tablet PO 112 mcg DAILY@0630 [facility]CTORIA Administration Metoprolol Succinate 25 mg 05/30/25 14:55 05/31/25 12:35 Metoprolol Succinate Ext Rel 25 Mg Tabcr PO 25 mg DAILY VICTORIA Administration Morphine Sulfate 2 mg 05/29/25 07:51 05/29/25 21:57 Morphine Sulfate (*Crx) 4 Mg/Ml Inj IV PUSH 2 mg Q2H PRN Administration Pain Rated 7-10 Naloxone HCl 0.1 mg 05/30/25 14:46 Naloxone Hcl 0.4 Mg/Ml Vial IV PUSH Q2M PRN Opiate Reversal Oxycodone HCl 2.5 mg 05/30/25 15:00 05/31/25 12:01 Oxycodone Hcl (*Crx) 2.5 Mg Tab Ir PO 2.5 mg Q4H VICTORIA Administration Oxycodone HCl 2.5 mg 05/30/25 14:46 Oxycodone Hcl (*Crx) 2.5 Mg Tab Ir PO Q4H PRN Pain Rated 4-10 Polyethylene Glycol 17 gm 05/31/25 09:00 05/31/25 09:18 Polyethylene Glycol 3350 17 Gm Powd.Pack PO Not Given QAM VICTORIA Polyethylene Glycol 17 gm 05/31/25 09:00 05/31/25 09:18 Polyethylene Glycol 3350 17 Gm Powd.Pack PO Not Given QAM VICTORIA Pregabalin 100 mg 05/30/25 21:00 05/30/25 22:20 Pregabalin (*Crx) 50 Mg Capsule PO 100 mg HS VICTORIA Administration Rivaroxaban 10 mg 05/31/25 08:00 05/31/25 09:17 Rivaroxaban 10 Mg Tablet PO 10 mg DAILY@17 VICTORIA Administration Senna/Docusate Sodium 2 tab 05/30/25 17:00 05/31/25 09:17 Senna/Docusate Sodium Tablet PO 2 tab BID VICTORIA Administration Sertraline HCl 50 mg 05/30/25 14:55 05/31/25 12:35 Sertraline Hcl 50 Mg Tablet PO 50 mg DAILY VICTORIA Administration Timolol Maleate 1 drop 05/31/25 09:00 05/31/25 09:19 Timolol Maleate 0.5% Op Soln 5 Ml Bottle EACH EYE 1 drop DAILY VICTORIA Administration Radiology Results: ITS Impressions Chest X-Ray 05/29/25 07:35 IMPRESSION: 1. No acute cardiopulmonary findings given portable technique. Head CT 05/29/25 07:38 IMPRESSION: 1. No acute intracranial findings. Hip X-Ray 05/29/25 08:30 IMPRESSION: 1. Right femoral neck fracture Hip CT 05/29/25 13:34 IMPRESSION 1. Mildly comminuted transcervical fracture of the proximal right femur with mild varus and anterior angulation. Intraoperative X-Ray 05/30/25 13:14 IMPRESSION: 1. Expected appearance during right total hip arthroplasty. Hip/Pelvis X-Ray 05/30/25 13:53 Impression: No acute fracture or malalignment. Labs Labs: Laboratory Results - last 24 hr 05/30/25 05/30/25 05/31/25 17:02 20:11 05:30 WBC 11.1 H RBC 3.76 L Hgb 11.5 L D Hct 34.8 L MCV 92.6 MCH 30.6 MCHC 33.0 RDW 12.8 Plt Count 148 L MPV 9.7 Immature Gran % (Auto) 0.5 Neut % (Auto) 77.5 H Lymph % (Auto) 10.8 L [place] % (Auto) 10.3 H Eos % (Auto) 0.7 Baso % (Auto) 0.2 Lymph # (Auto) 1.20 [place] # (Auto) 1.2 H Eos # (Auto) 0.1 Baso # (Auto) 0.0 Abs Immat Gran (auto) 0.06 H Absolute Neuts (auto) 8.6 H Absolute Nucleated RBC 0.000 Nucleated RBC % 0.0 Sodium 132 L Potassium 4.1 Chloride 105 Carbon Dioxide 25 Anion Gap 2 L BUN 21 H Creatinine 0.73 Estim Creat Clear Calc 57 Estimated GFR > 60 Glucose 110 POC Capillary Glucose 307 H 213 H Calcium 8.7 05/31/25 05/31/25 07:56 11:37 WBC RBC Hgb Hct MCV MCH MCHC RDW Plt Count MPV Immature Gran % (Auto) Neut % (Auto) Lymph % (Auto) [place] % (Auto) Eos % (Auto) Baso % (Auto) Lymph # (Auto) [place] # (Auto) Eos # (Auto) Baso # (Auto) Abs Immat Gran (auto) Absolute Neuts (auto) Absolute Nucleated RBC Nucleated RBC % Sodium Potassium Chloride Carbon Dioxide Anion Gap BUN Creatinine Estim Creat Clear Calc Estimated GFR Glucose POC Capillary Glucose 112 H 271 H Calcium
[2025-05-31] MEDS: METOPROLOL TARTRATE 25 MG TABLET PO (17:40)
[2025-05-31] MEDS: METOPROLOL TARTRATE INJ 5 MG/5 ML VIAL IV PUSH ×2 (17:56→18:50)
[2025-05-31] MEDS: LATANOPROST 0.005% OP SOLN 2.5 ML BTL 1 DROP EACH EYE (18:51)
[2025-05-31 19:48] LABS: Thyroid Stimulating Hormone 0.124 uIU/mL (0.465-4.680)
--- NOTE | 2025-05-31 20:14 | PM.EVENT ---
Event Note Event Note Event Note: Patient currently an AFib RVR, rate 150. Patient has history of same and is on metoprolol ER 25 mg daily. Patient received metoprolol 25 mg p.o. this afternoon at 5:30 a.m. and metoprolol 5 mg IV x2 without rate control. Diltiazem 10 mg IV additionally given with little effect on rate, only briefly had reduction in rate to 119 but has continue to sustain in the 140s to 150s. Patient to be transferred to IMU for close telemetry monitoring and initiation of diltiazem gtt. Metoprolol held. Continue Flecainide. Repeat EKG upon transfer. BP 112/56.
--- NOTE | 2025-05-31 20:17 | ECG_ITS ---
Test Date: 2025-05-31 21:44:24 Measurements Intervals [place] Rate: 136 P: 0 MA: 0 QRS: 19 QRSD: 110 T: 10 QT: 293 QTc: 441 Interpretive Statements ATRIAL FIBRILLATION WITH RAPID VENTRICULAR RESPONSE INFERIOR MYOCARDIAL INFARCTION, OLD ABNORMAL ECG Compared to ECG 05/29/2025 07:25:40 Sinus rhythm no longer present Electronically Signed On 06-01-2025 08:50:53 RETRIMMER by Robbie Whipple M.D.
[2025-05-31] MEDS: ATORVASTATIN 10 MG TABLET PO (20:57)
[2025-05-31] MEDS: EMPAGLIFLOZIN 25 MG TABLET PO (20:57)
[2025-05-31] MEDS: PREGABALIN (*CRX) 50 MG CAPSULE 100 MG PO (20:57)
--- NOTE | 2025-05-31 21:42 | ADMGEN ---
This patient, Ivania Sewell, was admitted to IMU Room 206-01. Patient/family oriented to hospital policies and general routines including ID bracelet, bed and alarms, visiting hours, pain management, procedures, bathroom and other care routines, personal items, smoking policy, room service/diet, and visiting hours. Information on how to activate the Rapid Response Team has been discussed. Patient/Family are encouraged to report perceived risks to care and to ask questions if they do not understand what they are told or what they should do.
[2025-05-31] MEDS: dilTIAZem 100 MG/100 ML 100 MG/100 ML BAG IV CONT (22:00)
--- NOTE | 2025-05-31 22:18 | PC.NURSE ---
This patient, Ivania Sewell, was transferred to [facility] on 05/31/25 at 2140. Personal belongings sent with patient. Report given to Hilary QUACH. Appropriate documentation sent with patient.
--- NOTE | 2025-05-31 23:46 | ECG_ITS ---
Test Date: 2025-05-31 23:53:21 Measurements Intervals [place] Rate: 83 P: 4 MN: 163 QRS: 1 QRSD: 96 T: 11 QT: 373 QTc: 439 Interpretive Statements SINUS RHYTHM INFERIOR MYOCARDIAL INFARCTION, OLD ABNORMAL ECG Compared to ECG 05/31/2025 21:44:24 Atrial fibrillation no longer present Electronically Signed On 06-01-2025 08:52:21 [employer]ATOR by Robbie Whipple M.D.
--- NOTE | 2025-05-31 23:57 | PC.NURSE ---
pt converted from Afib RVR to normal sinus rhythm at 2350 rate of 80-90s
[2025-06-01] VITALS (20 sets, daily range): BP systolic 100–136; BP diastolic 44–62; PULSE 70–104; RESP 12–28; TEMP 36.7–37.2; O2SAT 90–98
[2025-06-01] MEDS: ACETAMINOPHEN 500 MG TABLET PO ×6 (03:50→23:19)
[2025-06-01] MEDS: oxyCODONE HCL (*CRX) 2.5 MG TAB IR PO ×5 (03:50→20:17)
[2025-06-01 04:12] LABS: Hematocrit 34.3 % (37.0-47.0); Hemoglobin 11.0 g/dL (12.0-15.0); Mean Corpuscular HGB Conc 32.1 g/dl (32-36); Mean Corpuscular Hemoglobin 30.0 pg (26-34); Mean Corpuscular Volume 93.5 fl (80-100); Platelet Count Result 138 k/mm3 (150-375); Red Blood Count 3.67 M/mm3 (4.2-5.4); White Blood Count 9.5 K/mm3 (4.5-10.0)
[2025-06-01 04:32] LABS: Alanine Aminotransferase 21 U/L (6-35); Albumin Level 3.5 g/dL (3.5-5.1); Alkaline Phosphatase 81 U/L (38-126); Anion Gap 5 mmol/L (4-12); Aspartate Amino Transferase 44 U/L (14-36); Bilirubin,Total 0.8 mg/dL (0.2-1.3); Blood Urea Nitrogen 20 mg/dL (7-17); Calcium 9.2 mg/dL (8.4-10.2); Carbon Dioxide 22 mmol/L (22-30); Chloride 108 mmol/L (98-107); Estimated CRCL calculation 57 ml/min; Estimated Glomerular Filt Rate > 60; Glucose 123 mg/dL (65-110); Potassium 3.7 mmol/L (3.4-5.0); Sodium 135 mmol/L (137-145); Total Protein 6.3 g/dL (6.3-8.2)
--- NOTE | 2025-06-01 07:55 | P.PNOP_ITS ---
Progress Note: A&P Assessment and Plan (1) Status post hemiarthroplasty of right hip: Code(s): Z96.641 - Presence of right artificial hip joint Status: Acute Assessment and Plan: 79 yr old female s/p Right Hip Hemiarthroplasty 05/30/2025 with RVR in the 150s last night. Feeling much better this morning with HR 70s, Hgb 11, WBC 9.5 Platelet 138 and Glucose 127. - she lives alone and will be transitioning to rehab postop. - encouraged ankle pumps and incentive spirometry regularly as well as sitting in a chair most of the day - especially with meals. - long history of Afib, continue Xarelto and telemetry. Time Spent With Patient Time with patient: 15 - 25 minutes Subjective Subjective Date/Time Seen: 06/01/25 07:55 Post Op day: 2 (Right Hip Hemiarthroplasty) Principal diagnosis: POD 2 - Right Hip Hemiarthroplasty Interval history: Feeling much better today, increase energy and good appetite. Minimal Right Hip Pain. Exam Narrative: Right hip bandaged and dry. Heels off of bed with pillow under calves. +DF at ankle. Const: General: comfortable, no acute distress, alert and awake Orientation/consciousness: oriented to person, oriented to place and oriented to time Objective Data Vital Signs Vital Signs: Vital Signs - 24 hr 05/31/25 08:00 05/31/25 08:00 05/31/25 08:16 Temperature 37.0 C Pulse Rate 64 81 Respiratory Rate 18 Blood Pressure 108/58 L Pulse Oximetry 90 Oxygen Delivery Room Air 05/31/25 09:23 05/31/25 12:00 05/31/25 12:29 Temperature 37.0 C Pulse Rate 86 93 Respiratory Rate 18 Blood Pressure 100/46 L Pulse Oximetry 93 Oxygen Delivery Room Air 05/31/25 12:35 05/31/25 16:00 05/31/25 16:31 Temperature 37.3 C Pulse Rate 64 90 90 Respiratory Rate 18 Blood Pressure 137/62 Pulse Oximetry 93 Oxygen Delivery 05/31/25 18:35 05/31/25 18:50 05/31/25 20:27 Temperature 37.4 C Pulse Rate 150 H 82 Respiratory Rate 18 Blood Pressure 112/56 L 107/50 L Pulse Oximetry 90 Oxygen Delivery 05/31/25 20:57 05/31/25 22:00 05/31/25 22:02 Temperature 37.4 C Pulse Rate 145 H 139 H 131 H Respiratory Rate 18 Blood Pressure 115/62 93/54 L Pulse Oximetry 92 Oxygen Delivery 06/01/25 00:00 06/01/25 00:00 06/01/25 00:09 Temperature 36.8 C Pulse Rate 81 82 83 Respiratory Rate 18 Blood Pressure 100/56 L 100/56 L Pulse Oximetry 90 Oxygen Delivery 06/01/25 02:00 06/01/25 02:07 06/01/25 04:00 Temperature Pulse Rate 79 76 Respiratory Rate Blood Pressure 106/58 L Pulse Oximetry Oxygen Delivery Room Air 06/01/25 04:00 06/01/25 04:04 06/01/25 04:50 Temperature 36.8 C Pulse Rate 101 H 104 H Respiratory Rate 16 25 H Blood Pressure 106/47 L Pulse Oximetry 90 90 98 Oxygen Delivery Autopap CPAP 06/01/25 05:32 06/01/25 06:13 Temperature Pulse Rate 73 71 Respiratory Rate Blood Pressure 106/47 L 108/52 L Pulse Oximetry Oxygen Delivery Intake/Output Intake/Output: Intake & Output 05/29/25 05/30/25 05/31/25 06/01/25 23:59 23:59 23:59 23:59 Intake Total 2240 1290 3635.8 41.1 Output Total 600 1500 2400 500 Balance 1640 -210 1235.8 -458.9 Meds/Results Medications: Active Medications Generic Name Dose Route Start Last Admin Trade Name Freq PRN Reason Stop Dose Admin Acetaminophen 500 mg 05/30/25 15:00 06/01/25 03:50 Acetaminophen 500 Mg Tablet PO 500 mg Q4H VICTORIA Administration Atorvastatin Calcium 10 mg 05/30/25 21:00 05/31/25 20:57 Atorvastatin 10 Mg Tablet PO 10 mg HS VICTORIA Administration Calcium Citrate 1 tablet 05/31/25 09:00 05/31/25 17:39 Calcium Citrate 315 Mg/Vitamin D 6.25 Mcg (250 Units) Tab PO 1 tablet BID VICTORIA Administration Dextrose 12.5 gm 05/30/25 17:28 Dextrose 50% 25 Gm/50 Ml Syringe IV PUSH PRN PRN Hypoglycemia Protocol Doxycycline Hyclate 100 mg 05/31/25 09:00 05/31/25 20:57 Doxycycline Hyclate 100 Mg Tablet PO 06/12/25 08:59 100 mg Q12HR VICTORIA Administration Empagliflozin 25 mg 05/30/25 21:00 05/31/25 20:57 Empagliflozin 25 Mg Tablet PO 25 mg HS VICTORIA Administration Flecainide Acetate 50 mg 05/30/25 21:00 05/31/25 20:57 Flecainide Acetate 50 Mg Tablet PO 50 mg Q12H VICTORIA Administration Glucagon 1 mg 05/30/25 17:28 Glucagon For Inj 1 Mg Vial IM PRN PRN Hypoglycemia Protocol Glucose 15 gm 05/30/25 17:28 Glucose Oral Gel 15 Gm Of Glucse In 37.5 Gm Tube PO PRN PRN Hypoglycemia Protocol Dextrose 1,000 mls @ 100 mls/hr 05/30/25 17:28 Dextrose 5% 1,000 Ml IVPB PRN PRN Hypoglycemia Protocol Diltiazem HCl 100 mg in 100 mls @ 5 mls/hr 05/31/25 20:15 06/01/25 06:13 Cardizem 100 Mg/100 Ml IV CONT 5 mg/hr .Q20H VICTORIA 5 mls/hr 5 MG/HR Infusion Insulin Aspart 2 - 5 units 05/30/25 18:40 05/31/25 16:59 Insulin Aspart (*Bkc) 100 Units/Ml SUB-Q Not Given TIDWM [facility] Protocol Latanoprost 1 drop 05/30/25 18:00 05/31/25 18:51 Latanoprost 0.005% Op Soln 2.5 Ml Btl EACH EYE 1 drop QPM VICTORIA Administration Levothyroxine Sodium 112 mcg 05/31/25 06:30 05/31/25 06:26 Levothyroxine Sodium 112 Mcg Tablet PO 112 mcg On Hold: 05/31/25 19:22 DAILY@0630 VICTORIA Administration Metoprolol Succinate 25 mg 05/30/25 14:55 05/31/25 12:35 Metoprolol Succinate Ext Rel 25 Mg Tabcr PO 25 mg DAILY VICTORIA Administration Morphine Sulfate 2 mg 05/29/25 07:51 05/29/25 21:57 Morphine Sulfate (*Crx) 4 Mg/Ml Inj IV PUSH 2 mg Q2H PRN Administration Pain Rated 7-10 Naloxone HCl 0.1 mg 05/30/25 14:46 Naloxone Hcl 0.4 Mg/Ml Vial IV PUSH Q2M PRN Opiate Reversal Oxycodone HCl 2.5 mg 05/30/25 15:00 06/01/25 03:50 Oxycodone Hcl (*Crx) 2.5 Mg Tab Ir PO 2.5 mg Q4H VICTORIA Administration Oxycodone HCl 2.5 mg 05/30/25 14:46 Oxycodone Hcl (*Crx) 2.5 Mg Tab Ir PO Q4H PRN Pain Rated 4-10 Polyethylene Glycol 17 gm 05/31/25 09:00 05/31/25 09:18 Polyethylene Glycol 3350 17 Gm Powd.Pack PO Not Given QAM VICTORIA Pregabalin 100 mg 05/30/25 21:00 05/31/25 20:57 Pregabalin (*Crx) 50 Mg Capsule PO 100 mg HS VICTORIA Administration Rivaroxaban 10 mg 05/31/25 08:00 05/31/25 17:40 Rivaroxaban 10 Mg Tablet PO 10 mg DAILY@17 VICTORIA Administration Senna/Docusate Sodium 2 tab 05/30/25 17:00 05/31/25 17:39 Senna/Docusate Sodium Tablet PO 2 tab BID VICTORIA Administration Sertraline HCl 50 mg 05/30/25 14:55 05/31/25 12:35 Sertraline Hcl 50 Mg Tablet PO 50 mg DAILY VICTORIA Administration Timolol Maleate 1 drop 05/31/25 09:00 05/31/25 09:19 Timolol Maleate 0.5% Op Soln 5 Ml Bottle EACH EYE 1 drop DAILY VICTORIA Administration Radiology Results: ITS Impressions Chest X-Ray 05/29/25 07:35 IMPRESSION: 1. No acute cardiopulmonary findings given portable technique. Head CT 05/29/25 07:38 IMPRESSION: 1. No acute intracranial findings. Hip X-Ray 05/29/25 08:30 IMPRESSION: 1. Right femoral neck fracture Hip CT 05/29/25 13:34 IMPRESSION 1. Mildly comminuted transcervical fracture of the proximal right femur with mild varus and anterior angulation. Intraoperative X-Ray 05/30/25 13:14 IMPRESSION: 1. Expected appearance during right total hip arthroplasty. Hip/Pelvis X-Ray 05/30/25 13:53 Impression: No acute fracture or malalignment. Labs Labs: Laboratory Results - last 24 hr 05/31/25 05/31/25 05/31/25 05:30 07:56 11:37 WBC RBC Hgb Hct MCV MCH MCHC RDW Plt Count MPV Sodium Potassium Chloride Carbon Dioxide Anion Gap BUN Creatinine Estim Creat Clear Calc Estimated GFR Glucose POC Capillary Glucose 112 H 271 H Calcium Total Bilirubin AST ALT Alkaline Phosphatase Total Protein Albumin Vitamin D 25-Hydroxy TSH 0.124 L 05/31/25 05/31/25 06/01/25 16:54 19:36 04:02 WBC 9.5 RBC 3.67 L Hgb 11.0 L Hct 34.3 L MCV 93.5 MCH 30.0 MCHC 32.1 RDW 13.0 Plt Count 138 L MPV 9.5 Sodium 135 L Potassium 3.7 Chloride 108 H Carbon Dioxide 22 Anion Gap 5 BUN 20 H Creatinine 0.73 Estim Creat Clear Calc 57 Estimated GFR > 60 Glucose 123 H POC Capillary Glucose 171 H 221 H Calcium 9.2 Total Bilirubin 0.8 AST 44 H ALT 21 Alkaline Phosphatase 81 Total Protein 6.3 Albumin 3.5 Vitamin D 25-Hydroxy 31.9 TSH 06/01/25 07:07 WBC RBC Hgb Hct MCV MCH MCHC RDW Plt Count MPV Sodium Potassium Chloride Carbon Dioxide Anion Gap BUN Creatinine Estim Creat Clear Calc Estimated GFR Glucose POC Capillary Glucose 127 H Calcium Total Bilirubin AST ALT Alkaline Phosphatase Total Protein Albumin Vitamin D 25-Hydroxy TSH
[2025-06-01] MEDS: SENNA/DOCUSATE SODIUM TABLET 2 TAB PO ×2 (08:36→20:17)
[2025-06-01] MEDS: CALCIUM CITRATE 315 MG/VITAMIN D 6.25 MCG (250 UNITS) TAB 1 TABLET PO ×2 (08:36→20:16)
[2025-06-01] MEDS: DOXYCYCLINE HYCLATE 100 MG TABLET PO ×2 (08:36→20:17)
[2025-06-01] MEDS: SERTRALINE HCL 50 MG TABLET PO (08:36)
[2025-06-01] MEDS: METOPROLOL SUCCINATE EXT REL 25 MG TABCR PO (08:36)
[2025-06-01] MEDS: FLECAINIDE ACETATE 50 MG TABLET PO ×2 (08:36→20:17)
--- NOTE | 2025-06-01 09:18 | P.PNCA_ITS ---
Progress Note: A&P Assessment and Plan (1) Preoperative cardiovascular examination: Code(s): Z01.810 - Encounter for preprocedural cardiovascular examination Status: Acute Assessment and Plan: She has atrial fibrillation which is rhythm controlled with flecainide. She is on anticoagulation for stroke risk reduction. No other cardiac diagnoses. (2) A-fib: Code(s): I48.91 - Unspecified atrial fibrillation Status: Acute Assessment and Plan: She should be on full-dose anticoagulation Xarelto 20 mg p.o. daily if okay with Dr. Valentin. Otherwise, will discontinue the diltiazem drip that was started yesterday. Resume metoprolol succinate 25 mg p.o. daily. Continue flecainide. Okay to transfer out of IMU Subjective Date/time seen: 06/01/25 09:18 Interval history: 79-year-old status post hip fracture history atrial fibrillation Date of service 06/01/2025: Was called to see patient again because of atrial fibrillation. Patient went in atrial fibrillation with rapid ventricular response. Transferred from 3rd floor to IMU for diltiazem drip. She has since reverted back into sinus rhythm. She otherwise feels fine and denies any chest pain or shortness of breath Review of Systems Review of Systems: All systems reviewed & are unremarkable except as noted in HPI and below ENT: Reports Normal hearing present Cardiovascular: Cardiovascular: Denies chest pain and Denies palpitations Respiratory: Respiratory: Denies hemoptysis Genitourinary: Genitourinary: Denies hematuria Integumentary/Breasts: Skin/Breast: Reports dry skin Exam Const: General: comfortable, no acute distress, alert and awake Orientation/consciousness: patient oriented x3 HENMT: Head: normal to inspection Eyes: General: appearance normal, both eyes and all related structures Pupils: Equal, round and reactive pupils present Neck: Neck: normal visual inspection, supple and no JVD Carotids: normal carotid upstroke Resp: Effort & Inspection: normal respiratory effort Auscultation: clear to auscultation bilaterally Cardio: Rate: regular rate Rhythm: regular rhythm Heart sounds: S1 normal heart sound present, S2 normal heart sound present and no murmurs GI: Auscultation: normal bowel sounds Skin: General skin exam: normal color Neuro: General: patient oriented x3 Cranial nerves: Yes Equal, round and reactive pupils present Extrem: General: normal to inspection Psych: Appearance: grossly normal Mental Status: mental status grossly normal Objective Data Vital Signs Vital Signs: Vital Signs - 24 hr 05/31/25 09:23 05/31/25 12:00 05/31/25 12:29 Temperature 37.0 C Pulse Rate 86 93 Respiratory Rate 18 Blood Pressure 100/46 L Pulse Oximetry 93 Oxygen Delivery Room Air 05/31/25 12:35 05/31/25 16:00 05/31/25 16:31 Temperature 37.3 C Pulse Rate 64 90 90 Respiratory Rate 18 Blood Pressure 137/62 Pulse Oximetry 93 Oxygen Delivery 05/31/25 18:35 05/31/25 18:50 05/31/25 20:27 Temperature 37.4 C Pulse Rate 150 H 82 Respiratory Rate 18 Blood Pressure 112/56 L 107/50 L Pulse Oximetry 90 Oxygen Delivery 05/31/25 20:57 05/31/25 22:00 05/31/25 22:02 Temperature 37.4 C Pulse Rate 145 H 139 H 131 H Respiratory Rate 18 Blood Pressure 115/62 93/54 L Pulse Oximetry 92 Oxygen Delivery 06/01/25 00:00 06/01/25 00:00 06/01/25 00:09 Temperature 36.8 C Pulse Rate 81 82 83 Respiratory Rate 18 Blood Pressure 100/56 L 100/56 L Pulse Oximetry 90 Oxygen Delivery 06/01/25 02:00 06/01/25 02:07 06/01/25 04:00 Temperature Pulse Rate 79 76 Respiratory Rate Blood Pressure 106/58 L Pulse Oximetry Oxygen Delivery Room Air 06/01/25 04:00 06/01/25 04:04 06/01/25 04:50 Temperature 36.8 C Pulse Rate 101 H 104 H Respiratory Rate 16 25 H Blood Pressure 106/47 L Pulse Oximetry 90 90 98 Oxygen Delivery Autopap CPAP 06/01/25 05:32 06/01/25 06:13 06/01/25 08:00 Temperature 36.7 C Pulse Rate 73 71 73 Respiratory Rate 20 Blood Pressure 106/47 L 108/52 L 115/53 L Pulse Oximetry 94 Oxygen Delivery 06/01/25 08:36 06/01/25 08:36 Temperature Pulse Rate 77 75 Respiratory Rate Blood Pressure Pulse Oximetry Oxygen Delivery Intake/Output Intake/Output: Intake & Output 1105/30/25 05/31/25 06/01/25 23:59 23:59 23:59 23:59 Intake Total 2240 1290 3635.8 161.1 Output Total 600 1500 2400 500 Balance 1640 -210 1235.8 -338.9 Meds/Results Medications: Active Medications Generic Name Dose Route Start Last Admin Trade Name Freq PRN Reason Stop Dose Admin Acetaminophen 500 mg 05/30/25 15:00 06/01/25 08:36 Acetaminophen 500 Mg Tablet PO 500 mg Q4H VICTORIA Administration Atorvastatin Calcium 10 mg 05/30/25 21:00 05/31/25 20:57 Atorvastatin 10 Mg Tablet PO 10 mg HS VICTORIA Administration Calcium Citrate 1 tablet 05/31/25 09:00 06/01/25 08:36 Calcium Citrate 315 Mg/Vitamin D 6.25 Mcg (250 Units) Tab PO 1 tablet BID VICTORIA Administration Dextrose 12.5 gm 05/30/25 17:28 Dextrose 50% 25 Gm/50 Ml Syringe IV PUSH PRN PRN Hypoglycemia Protocol Doxycycline Hyclate 100 mg 05/31/25 09:00 06/01/25 08:36 Doxycycline Hyclate 100 Mg Tablet PO 06/12/25 08:59 100 mg Q12HR VICTORIA Administration Empagliflozin 25 mg 05/30/25 21:00 05/31/25 20:57 Empagliflozin 25 Mg Tablet PO 25 mg HS VICTORIA Administration Flecainide Acetate 50 mg 05/30/25 21:00 06/01/25 08:36 Flecainide Acetate 50 Mg Tablet PO 50 mg Q12H VICTORIA Administration Glucagon 1 mg 05/30/25 17:28 Glucagon For Inj 1 Mg Vial IM PRN PRN Hypoglycemia Protocol Glucose 15 gm 05/30/25 17:28 Glucose Oral Gel 15 Gm Of Glucse In 37.5 Gm Tube PO PRN PRN Hypoglycemia Protocol Dextrose 1,000 mls @ 100 mls/hr 05/30/25 17:28 Dextrose 5% 1,000 Ml IVPB PRN PRN Hypoglycemia Protocol Insulin Aspart 2 - 5 units 05/30/25 18:40 06/01/25 08:35 Insulin Aspart (*Bkc) 100 Units/Ml SUB-Q Not Given TIDWM VICTORIA Protocol Latanoprost 1 drop 05/30/25 18:00 05/31/25 18:51 Latanoprost 0.005% Op Soln 2.5 Ml Btl EACH EYE 1 drop QPM VICTORIA Administration Levothyroxine Sodium 112 mcg 05/31/25 06:30 05/31/25 06:26 Levothyroxine Sodium 112 Mcg Tablet PO 112 mcg On Hold: 05/31/25 19:22 DAILY@0630 VICTORIA Administration Metoprolol Succinate 25 mg 05/30/25 14:55 06/01/25 08:36 Metoprolol Succinate Ext Rel 25 Mg Tabcr PO 25 mg DAILY VICTORIA Administration Morphine Sulfate 2 mg 05/29/25 07:51 05/29/25 21:57 Morphine Sulfate (*Crx) 4 Mg/Ml Inj IV PUSH 2 mg Q2H PRN Administration Pain Rated 7-10 Naloxone HCl 0.1 mg 05/30/25 14:46 Naloxone Hcl 0.4 Mg/Ml Vial IV PUSH Q2M PRN Opiate Reversal Oxycodone HCl 2.5 mg 05/30/25 15:00 06/01/25 08:36 Oxycodone Hcl (*Crx) 2.5 Mg Tab Ir PO 2.5 mg Q4H VICTORIA Administration Oxycodone HCl 2.5 mg 05/30/25 14:46 Oxycodone Hcl (*Crx) 2.5 Mg Tab Ir PO Q4H PRN Pain Rated 4-10 Polyethylene Glycol 17 gm 05/31/25 09:00 06/01/25 08:38 Polyethylene Glycol 3350 17 Gm Powd.Pack PO 17 gm QAM VICTORIA Administration Pregabalin 100 mg 05/30/25 21:00 05/31/25 20:57 Pregabalin (*Crx) 50 Mg Capsule PO 100 mg HS VICTORIA Administration Rivaroxaban 10 mg 05/31/25 08:00 05/31/25 17:40 Rivaroxaban 10 Mg Tablet PO 10 mg DAILY@17 VICTORIA Administration Senna/Docusate Sodium 2 tab 05/30/25 17:00 06/01/25 08:36 Senna/Docusate Sodium Tablet PO 2 tab BID VICTORIA Administration Sertraline HCl 50 mg 05/30/25 14:55 06/01/25 08:36 Sertraline Hcl 50 Mg Tablet PO 50 mg DAILY VICTORIA Administration Timolol Maleate 1 drop 05/31/25 09:00 05/31/25 09:19 Timolol Maleate 0.5% Op Soln 5 Ml Bottle EACH EYE 1 drop DAILY VICTORIA Administration Radiology Results: ITS Impressions Chest X-Ray 05/29/25 07:35 IMPRESSION: 1. No acute cardiopulmonary findings given portable technique. Head CT 05/29/25 07:38 IMPRESSION: 1. No acute intracranial findings. Hip X-Ray 05/29/25 08:30 IMPRESSION: 1. Right femoral neck fracture Hip CT 05/29/25 13:34 IMPRESSION 1. Mildly comminuted transcervical fracture of the proximal right femur with mil d varus and anterior angulation. Intraoperative X-Ray 05/30/25 13:14 IMPRESSION: 1. Expected appearance during right total hip arthroplasty. Hip/Pelvis X-Ray 05/30/25 13:53 Impression: No acute fracture or malalignment. Labs Labs: Laboratory Results - last 24 hr 05/31/25 05/31/25 05/31/25 05:30 11:37 16:54 WBC RBC Hgb Hct MCV MCH MCHC RDW Plt Count MPV Sodium Potassium Chloride Carbon Dioxide Anion Gap BUN Creatinine Estim Creat Clear Calc Estimated GFR Glucose POC Capillary Glucose 271 H 171 H Calcium Total Bilirubin AST ALT Alkaline Phosphatase Total Protein Albumin Vitamin D 25-Hydroxy TSH 0.124 L 05/31/25 06/01/25 06/01/25 19:36 04:02 07:07 WBC 9.5 RBC 3.67 L Hgb 11.0 L Hct 34.3 L MCV 93.5 MCH 30.0 MCHC 32.1 RDW 13.0 Plt Count 138 L MPV 9.5 Sodium 135 L Potassium 3.7 Chloride 108 H Carbon Dioxide 22 Anion Gap 5 BUN 20 H Creatinine 0.73 Estim Creat Clear Calc 57 Estimated GFR > 60 Glucose 123 H POC Capillary Glucose 221 H 127 H Calcium 9.2 Total Bilirubin 0.8 AST 44 H ALT 21 Alkaline Phosphatase 81 Total Protein 6.3 Albumin 3.5 Vitamin D 25-Hydroxy 31.9 TSH
--- NOTE | 2025-06-01 11:17 | PM.IMPN ---
Progress Note: A&P Assessment and Plan (1) Hip fracture, right: Code(s): S72.001A - Fracture of unspecified part of neck of right femur, initial encounter for closed fracture Status: Acute Assessment and Plan: Hip x-ray on admission showing right femoral IT fracture with varus angulation Ortho consulted. Patient underwent a cemented bipolar hemiarthroplasty right hip on 05/31/25 Patient tolerated the procedure well. Tolerating therapy. Pain controlled (2) Fall: Code(s): W19.XXXA - Unspecified fall, initial encounter Status: Acute Assessment and Plan: Patient with ground level fall. Related to hypoglycemia? UA not consistent with UTI. Medications were reviewed which does not include anxiolytics or sedatives Head CT scan shows no acute intracranial findings PT/OT ordered (3) A-fib: Code(s): I48.91 - Unspecified atrial fibrillation Status: Acute Assessment and Plan: Patient developed AFib/RVR and was moved to IMU. Metoprolol resumed but ultimately had to be placed on Diltiazem drip. She has been continued with Xarelto at lower dose. She has converted to NSR so will resume oral metoprolol Stop diltiazem. Continue flecanide Home with Xarelto 20mg daily (4) Hypothyroid: Code(s): E03.9 - Hypothyroidism, unspecified Status: Acute Assessment and Plan: TSH low at 0.124. But no FT4 ordered Resume levothyroxine 112 mcg Check FT4 (5) Diabetes: Code(s): E11.9 - Type 2 diabetes mellitus without complications Status: Acute Assessment and Plan: The patient's blood glucose was reviewed on 06/01 Glucose better controlled today. Continue AccuCheks covering with sliding scale. Hypoglycemia protocol available as needed. Continue to follow (6) Hypertension: Code(s): I10 - Essential (primary) hypertension Status: Acute Assessment and Plan: Patient's blood pressure was reviewed on 06/01 Blood pressure remains well controlled. Will continue to follow Plan DVT prophylaxis on xarelto Code status - full Subjective Date/time seen: 06/01/25 11:17 Interval history: 79yo female with DM, HTN and pAFib here afte sustaining a ground-level fall and hip pain. Assuming care. Chart reviewed. She is eating okay. No nausea vomiting. No chest pain or shortness of breath. Minimal hip pain at rest. She was up walking to the bathroom yesterday. Hip pain with walking was tolerable. Exam Narrative: AF 98.1 115/53 77 20 94% ra Gen - NARD Chest - CTA bilaterally, nml RR CV - RRR S1/S2. Tele showing atrial fibrillation that shows she converted to normal sinus rhythm Abd - Soft, NT/ND, Positive BS Ext - No pedal edema. Right hip dressing is clean, dry and intact Neuro - Alert and oriented. Nonfocal exam. Psych - Nml mood and affect Skin - Warm and dry Objective Data Vital Signs Vital Signs: Vital Signs - 24 hr 05/31/25 12:00 05/31/25 12:29 05/31/25 12:35 Temperature 98.6 F Pulse Rate 86 93 64 Respiratory Rate 18 Blood Pressure 100/46 L Pulse Oximetry 93 Oxygen Delivery 05/31/25 16:00 05/31/25 16:31 05/31/25 18:35 Temperature 99.1 F Pulse Rate 90 90 Respiratory Rate 18 Blood Pressure 137/62 112/56 L Pulse Oximetry 93 Oxygen Delivery 05/31/25 18:50 05/31/25 20:27 05/31/25 20:57 Temperature 99.4 F Pulse Rate 150 H 82 145 H Respiratory Rate 18 Blood Pressure 107/50 L Pulse Oximetry 90 Oxygen Delivery 05/31/25 22:00 05/31/25 22:02 06/01/25 00:00 Temperature 99.4 F Pulse Rate 139 H 131 H 81 Respiratory Rate 18 Blood Pressure 115/62 93/54 L 100/56 L Pulse Oximetry 92 Oxygen Delivery 06/01/25 00:00 06/01/25 00:09 06/01/25 02:00 Temperature 98.3 F Pulse Rate 82 83 Respiratory Rate 18 Blood Pressure 100/56 L Pulse Oximetry 90 Oxygen Delivery Room Air 06/01/25 02:07 06/01/25 04:00 06/01/25 04:00 Temperature 98.2 F Pulse Rate 79 76 101 H Respiratory Rate 16 Blood Pressure 106/58 L 106/47 L Pulse Oximetry 90 Oxygen Delivery 06/01/25 04:04 06/01/25 04:50 06/01/25 05:32 Temperature Pulse Rate 104 H 73 Respiratory Rate 25 H Blood Pressure 106/47 L Pulse Oximetry 90 98 Oxygen Delivery Autopap CPAP 06/01/25 06:13 06/01/25 08:00 06/01/25 08:00 Temperature 98.1 F Pulse Rate 71 73 73 Respiratory Rate 20 Blood Pressure 108/52 L 115/53 L 115/53 L Pulse Oximetry 94 Oxygen Delivery 06/01/25 08:00 06/01/25 08:36 06/01/25 08:36 Temperature Pulse Rate 74 77 75 Respiratory Rate Blood Pressure Pulse Oximetry Oxygen Delivery 06/01/25 09:00 Temperature Pulse Rate 73 Respiratory Rate Blood Pressure 115/53 L Pulse Oximetry Oxygen Delivery Intake/Output Intake/Output: Intake & Output 05/29/25 05/30/25 05/31/25 06/01/25 23:59 23:59 23:59 23:59 Intake Total 2240 1290 3635.8 175.0 Output Total 600 1500 2400 500 Balance 1640 -210 1235.8 -325.0 Meds/Results Medications: Active Medications Generic Name Dose Route Start Last Admin Trade Name Freq PRN Reason Stop Dose Admin Acetaminophen 500 mg 05/30/25 15:00 06/01/25 08:36 Acetaminophen 500 Mg Tablet PO 500 mg Q4H VICTORIA Administration Atorvastatin Calcium 10 mg 05/30/25 21:00 05/31/25 20:57 Atorvastatin 10 Mg Tablet PO 10 mg HS VICTORIA Administration Calcium Citrate 1 tablet 06/01/25 21:00 Calcium Citrate 315 Mg/Vitamin D 6.25 Mcg (250 Units) Tab PO Q12HR VICTORIA Dextrose 12.5 gm 05/30/25 17:28 Dextrose 50% 25 Gm/50 Ml Syringe IV PUSH PRN PRN Hypoglycemia Protocol Doxycycline Hyclate 100 mg 05/31/25 09:00 06/01/25 08:36 Doxycycline Hyclate 100 Mg Tablet PO 06/12/25 08:59 100 mg Q12HR VICTORIA Administration Empagliflozin 25 mg 05/30/25 21:00 05/31/25 20:57 Empagliflozin 25 Mg Tablet PO 25 mg HS VICTORIA Administration Flecainide Acetate 50 mg 05/30/25 21:00 06/01/25 08:36 Flecainide Acetate 50 Mg Tablet PO 50 mg Q12H VICTORIA Administration Glucagon 1 mg 05/30/25 17:28 Glucagon For Inj 1 Mg Vial IM PRN PRN Hypoglycemia Protocol Glucose 15 gm 05/30/25 17:28 Glucose Oral Gel 15 Gm Of Glucse In 37.5 Gm Tube PO PRN PRN Hypoglycemia Protocol Dextrose 1,000 mls @ 100 mls/hr 05/30/25 17:28 Dextrose 5% 1,000 Ml IVPB PRN PRN Hypoglycemia Protocol Insulin Aspart 2 - 5 units 05/30/25 18:40 06/01/25 08:35 Insulin Aspart (*Bkc) 100 Units/Ml SUB-Q Not Given TIDWM [facility] Protocol Latanoprost 1 drop 05/30/25 18:00 05/31/25 18:51 Latanoprost 0.005% Op Soln 2.5 Ml Btl EACH EYE 1 drop QPM VICTORIA Administration Levothyroxine Sodium 112 mcg 05/31/25 06:30 05/31/25 06:26 Levothyroxine Sodium 112 Mcg Tablet PO 112 mcg On Hold: 05/31/25 19:22 DAILY@0630 VICTORIA Administration Metoprolol Succinate 25 mg 05/30/25 14:55 06/01/25 08:36 Metoprolol Succinate Ext Rel 25 Mg Tabcr PO 25 mg DAILY VICTORIA Administration Morphine Sulfate 2 mg 05/29/25 07:51 05/29/25 21:57 Morphine Sulfate (*Crx) 4 Mg/Ml Inj IV PUSH 2 mg Q2H PRN Administration Pain Rated 7-10 Naloxone HCl 0.1 mg 05/30/25 14:46 Naloxone Hcl 0.4 Mg/Ml Vial IV PUSH Q2M PRN Opiate Reversal Oxycodone HCl 2.5 mg 05/30/25 15:00 06/01/25 08:36 Oxycodone Hcl (*Crx) 2.5 Mg Tab Ir PO 2.5 mg Q4H VICTORIA Administration Oxycodone HCl 2.5 mg 05/30/25 14:46 Oxycodone Hcl (*Crx) 2.5 Mg Tab Ir PO Q4H PRN Pain Rated 4-10 Polyethylene Glycol 17 gm 05/31/25 09:00 06/01/25 08:38 Polyethylene Glycol 3350 17 Gm Powd.Pack PO 17 gm QAM VICTORIA Administration Pregabalin 100 mg 05/30/25 21:00 05/31/25 20:57 Pregabalin (*Crx) 50 Mg Capsule PO 100 mg HS VICTORIA Administration Rivaroxaban 10 mg 06/01/25 17:00 Rivaroxaban 10 Mg Tablet PO 07/04/25 17:01 DAILY@17 VICTORIA Senna/Docusate Sodium 2 tab 06/01/25 21:00 Senna/Docusate Sodium Tablet PO Q12HR VICTORIA Sertraline HCl 50 mg 05/30/25 14:55 06/01/25 08:36 Sertraline Hcl 50 Mg Tablet PO 50 mg DAILY VI[facility]IA Administration Timolol Maleate 1 drop 05/31/25 09:00 05/31/25 09:19 Timolol Maleate 0.5% Op Soln 5 Ml Bottle EACH EYE 1 drop DAILY VICTORIA Administration Radiology Results: ITS Impressions Chest X-Ray 05/29/25 07:35 IMPRESSION: 1. No acute cardiopulmonary findings given portable technique. Head CT 05/29/25 07:38 IMPRESSION: 1. No acute intracranial findings. Hip X-Ray 05/29/25 08:30 IMPRESSION: 1. Right femoral neck fracture Hip CT 05/29/25 13:34 IMPRESSION 1. Mildly comminuted transcervical fracture of the proximal right femur with mild varus and anterior angulation. Intraoperative X-Ray 05/30/25 13:14 IMPRESSION: 1. Expected appearance during right total hip arthroplasty. Hip/Pelvis X-Ray 05/30/25 13:53 Impression: No acute fracture or malalignment. Labs Labs: Laboratory Results - last 24 hr 05/31/25 05/31/25 05/31/25 05:30 11:37 16:54 WBC RBC Hgb Hct MCV MCH MCHC RDW Plt Count MPV Sodium Potassium Chloride Carbon Dioxide Anion Gap BUN Creatinine Estim Creat Clear Calc Estimated GFR Glucose POC Capillary Glucose 271 H 171 H Calcium Total Bilirubin AST ALT Alkaline Phosphatase Total Protein Albumin Vitamin D 25-Hydroxy TSH 0.124 L 05/31/25 06/01/25 06/01/25 19:36 04:02 07:07 WBC 9.5 RBC 3.67 L Hgb 11.0 L Hct 34.3 L MCV 93.5 MCH 30.0 MCHC 32.1 RDW 13.0 Plt Count 138 L MPV 9.5 Sodium 135 L Potassium 3.7 Chloride 108 H Carbon Dioxide 22 Anion Gap 5 BUN 20 H Creatinine 0.73 Estim Creat Clear Calc 57 Estimated GFR > 60 Glucose 123 H POC Capillary Glucose 221 H 127 H Calcium 9.2 Total Bilirubin 0.8 AST 44 H ALT 21 Alkaline Phosphatase 81 Total Protein 6.3 Albumin 3.5 Vitamin D 25-Hydroxy 31.9 TSH
[2025-06-01] MEDS: TIMOLOL MALEATE 0.5% OP SOLN 5 ML BOTTLE 1 DROP EACH EYE (12:07)
[2025-06-01] MEDS: RIVAROXABAN 10 MG TABLET PO (16:20)
[2025-06-01] MEDS: PREGABALIN (*CRX) 50 MG CAPSULE 100 MG PO (20:17)
[2025-06-01] MEDS: ATORVASTATIN 10 MG TABLET PO (20:18)
[2025-06-01] MEDS: EMPAGLIFLOZIN 25 MG TABLET PO (20:18)
[2025-06-01] MEDS: LATANOPROST 0.005% OP SOLN 2.5 ML BTL 1 DROP EACH EYE (20:19)
[2025-06-02] VITALS (15 sets, daily range): BP systolic 103–152; BP diastolic 43–94; PULSE 70–97; RESP 16–22; TEMP 36.3–36.8; O2SAT 91–93
[2025-06-02] MEDS: oxyCODONE HCL (*CRX) 2.5 MG TAB IR PO ×7 (00:08→23:30)
[2025-06-02] MEDS: ACETAMINOPHEN 500 MG TABLET PO ×6 (03:46→23:31)
[2025-06-02 03:56] LABS: Hematocrit 36.1 % (37.0-47.0); Hemoglobin 11.6 g/dL (12.0-15.0); Mean Corpuscular HGB Conc 32.1 g/dl (32-36); Mean Corpuscular Hemoglobin 30.2 pg (26-34); Mean Corpuscular Volume 94.0 fl (80-100); Platelet Count Result 163 k/mm3 (150-375); Red Blood Count 3.84 M/mm3 (4.2-5.4); White Blood Count 9.2 K/mm3 (4.5-10.0)
[2025-06-02 04:09] LABS: Anion Gap 5 mmol/L (4-12); Blood Urea Nitrogen 21 mg/dL (7-17); Calcium 9.2 mg/dL (8.4-10.2); Carbon Dioxide 21 mmol/L (22-30); Chloride 106 mmol/L (98-107); Estimated CRCL calculation 61 ml/min; Estimated Glomerular Filt Rate > 60; Glucose 105 mg/dL (65-110); Potassium 3.8 mmol/L (3.4-5.0); Sodium 132 mmol/L (137-145)
[2025-06-02 04:40] LABS: Thyroid Stimulating Hormone Reflex 1.720 uIU/mL (0.465-4.68)
--- NOTE | 2025-06-02 07:53 | PM.PNORT ---
Progress Note: A&P Assessment and Plan (1) Status post hemiarthroplasty of right hip: Code(s): Z96.641 - Presence of right artificial hip joint Status: Acute Assessment and Plan: Hemoglobin stable 11.6. No change management coordinator the past 2 days. Therefore it should be safe to resume her home Xarelto 20 mg every 5:00 p.m. today at 5:00 p.m.. She received 10 mg Xarelto yesterday at 5:00 p.m.. Systolic blood pressure this morning was 150 at 3:00 a.m.. Will resume the lisinopril that has been on hold anticipating lower blood pressure due to acute blood loss anemia associated with her fracture and her surgery. Since pressure is higher today will resume 10 mg daily. Subjective Subjective Date/Time Seen: 06/02/25 07:53 Objective Data Vital Signs Vital Signs: Vital Signs - 24 hr 06/01/25 08:00 06/01/25 08:00 06/01/25 08:00 Temperature 36.7 C Pulse Rate 73 73 74 Respiratory Rate 20 Blood Pressure 115/53 L 115/53 L Pulse Oximetry 94 Oxygen Delivery 06/01/25 08:36 06/01/25 08:36 06/01/25 09:00 Temperature Pulse Rate 77 75 73 Respiratory Rate Blood Pressure 115/53 L Pulse Oximetry Oxygen Delivery 06/01/25 10:00 06/01/25 12:00 06/01/25 12:00 Temperature 36.7 C Pulse Rate 77 73 76 Respiratory Rate 12 Blood Pressure 104/53 L Pulse Oximetry 92 Oxygen Delivery 06/01/25 12:00 06/01/25 14:00 06/01/25 16:00 Temperature Pulse Rate 70 73 Respiratory Rate Blood Pressure Pulse Oximetry 92 Oxygen Delivery Room Air 06/01/25 16:00 06/01/25 18:00 06/01/25 20:00 Temperature 36.7 C 37.2 C Pulse Rate 74 73 73 Respiratory Rate 28 H 28 H Blood Pressure 122/49 L 136/62 Pulse Oximetry 91 90 Oxygen Delivery 06/01/25 20:00 06/01/25 20:00 06/01/25 20:17 Temperature Pulse Rate 74 74 Respiratory Rate Blood Pressure Pulse Oximetry Oxygen Delivery Room Air 06/01/25 22:00 06/01/25 22:30 06/01/25 23:26 Temperature 36.9 C Pulse Rate 76 73 Respiratory Rate 28 H Blood Pressure 127/44 L Pulse Oximetry 95 Oxygen Delivery Autopap 06/02/25 00:00 06/02/25 00:00 06/02/25 02:00 Temperature Pulse Rate 76 77 Respiratory Rate Blood Pressure Pulse Oximetry Oxygen Delivery CPAP 06/02/25 03:44 06/02/25 04:00 06/02/25 04:00 Temperature 36.8 C Pulse Rate 73 72 Respiratory Rate 20 Blood Pressure 152/63 H Pulse Oximetry 91 Oxygen Delivery CPAP 06/02/25 06:00 Temperature Pulse Rate 70 Respiratory Rate Blood Pressure Pulse Oximetry Oxygen Delivery Intake/Output Intake/Output: Intake & Output 05/30/25 05/31/25 06/01/25 06/02/25 23:59 23:59 23:59 23:59 Intake Total 1290 3635.8 855.0 Output Total 1500 2400 1100 900 Balance -210 1235.8 -245.0 -900 Meds/Results Medications: Active Medications Generic Name Dose Route Start Last Admin Trade Name Freq PRN Reason Stop Dose Admin Acetaminophen 500 mg 05/30/25 15:00 06/02/25 03:46 Acetaminophen 500 Mg Tablet PO 500 mg Q4H VICTORIA Administration Atorvastatin Calcium 10 mg 05/30/25 21:00 06/01/25 20:18 Atorvastatin 10 Mg Tablet PO 10 mg HS VICTORIA Administration Calcium Citrate 1 tablet 06/01/25 21:00 06/01/25 20:16 Calcium Citrate 315 Mg/Vitamin D 6.25 Mcg (250 Units) Tab PO 1 tablet Q12HR VICTORIA Administration Dextrose 12.5 gm 05/30/25 17:28 Dextrose 50% 25 Gm/50 Ml Syringe IV PUSH PRN PRN Hypoglycemia Protocol Doxycycline Hyclate 100 mg 05/31/25 09:00 06/01/25 20:17 Doxycycline Hyclate 100 Mg Tablet PO 06/12/25 08:59 100 mg Q12HR VICTORIA Administration Empagliflozin 25 mg 05/30/25 21:00 06/01/25 20:18 Empagliflozin 25 Mg Tablet PO 25 mg HS VICTORIA Administration Flecainide Acetate 50 mg 05/30/25 21:00 06/01/25 20:17 Flecainide Acetate 50 Mg Tablet PO 50 mg Q12H VICTORIA Administration Glucagon 1 mg 05/30/25 17:28 Glucagon For Inj 1 Mg Vial IM PRN PRN Hypoglycemia Protocol Glucose 15 gm 05/30/25 17:28 Glucose Oral Gel 15 Gm Of Glucse In 37.5 Gm Tube PO PRN PRN Hypoglycemia Protocol Dextrose 1,000 mls @ 100 mls/hr 05/30/25 17:28 Dextrose 5% 1,000 Ml IVPB PRN PRN Hypoglycemia Protocol Insulin Aspart 2 - 5 units 05/30/25 18:40 06/01/25 18:34 Insulin Aspart (*Bkc) 100 Units/Ml SUB-Q Not Given TIDWM [facility] Protocol Latanoprost 1 drop 06/01/25 21:00 06/01/25 20:19 Latanoprost 0.005% Op Soln 2.5 Ml Btl EACH EYE 1 drop HS VICTORIA Administration Levothyroxine Sodium 112 mcg 05/31/25 06:30 05/31/25 06:26 Levothyroxine Sodium 112 Mcg Tablet PO 112 mcg On Hold: 05/31/25 19:22 DAILY@0630 VICTORIA Administration Lisinopril 10 mg 06/02/25 09:00 Lisinopril 10 Mg Tablet PO DAILY VICTORIA Metoprolol Succinate 25 mg 05/30/25 14:55 06/01/25 08:36 Metoprolol Succinate Ext Rel 25 Mg Tabcr PO 25 mg DAILY [facility] Administration Morphine Sulfate 2 mg 05/29/25 07:51 05/29/25 21:57 Morphine Sulfate (*Crx) 4 Mg/Ml Inj IV PUSH 2 mg Q2H PRN Administration Pain Rated 7-10 Naloxone HCl 0.1 mg 05/30/25 14:46 Naloxone Hcl 0.4 Mg/Ml Vial IV PUSH Q2M PRN Opiate Reversal Oxycodone HCl 2.5 mg 05/30/25 14:46 Oxycodone Hcl (*Crx) 2.5 Mg Tab Ir PO Q4H PRN Pain Rated 4-10 Oxycodone HCl 2.5 mg 06/01/25 16:00 06/02/25 03:46 Oxycodone Hcl (*Crx) 2.5 Mg Tab Ir PO 2.5 mg Q4H VICTORIA Administration Polyethylene Glycol 17 gm 05/31/25 09:00 06/01/25 08:38 Polyethylene Glycol 3350 17 Gm Powd.Pack PO 17 gm QAM VICTORIA Administration Pregabalin 100 mg 05/30/25 21:00 06/01/25 20:17 Pregabalin (*Crx) 50 Mg Capsule PO 100 mg HS VICTORIA Administration Rivaroxaban 20 mg 06/02/25 17:00 Rivaroxaban 20 Mg Tablet PO DAILY@1700 VICTORIA Senna/Docusate Sodium 2 tab 06/01/25 21:00 06/01/25 20:17 Senna/Docusate Sodium Tablet PO 2 tab Q12HR VICTORIA Administration Sertraline HCl 50 mg 05/30/25 14:55 06/01/25 08:36 Sertraline Hcl 50 Mg Tablet PO 50 mg DAILY VICTORIA Administration Timolol Maleate 1 drop 05/31/25 09:00 06/01/25 12:07 Timolol Maleate 0.5% Op Soln 5 Ml Bottle EACH EYE 1 drop DAILY VICTORIA Administration Radiology Results: ITS Impressions Chest X-Ray 05/29/25 07:35 IMPRESSION: 1. No acute cardiopulmonary findings given portable technique. Head CT 05/29/25 07:38 IMPRESSION: 1. No acute intracranial findings. Hip X-Ray 05/29/25 08:30 IMPRESSION: 1. Right femoral neck fracture Hip CT 05/29/25 13:34 IMPRESSION 1. Mildly comminuted transcervical fracture of the proximal right femur with mild varus and anterior angulation. Intraoperative X-Ray 05/30/25 13:14 IMPRESSION: 1. Expected appearance during right total hip arthroplasty. Hip/Pelvis X-Ray 05/30/25 13:53 Impression: No acute fracture or malalignment. Labs Labs: Laboratory Results - last 24 hr 06/01/25 06/01/25 06/01/25 11:24 15:54 20:23 WBC RBC Hgb Hct MCV MCH MCHC RDW Plt Count MPV Sodium Potassium Chloride Carbon Dioxide Anion Gap BUN Creatinine Estim Creat Clear Calc Estimated GFR Glucose POC Capillary Glucose 171 H 131 H 129 H Calcium TSH (Reflex) 06/02/25 06/02/25 03:32 07:25 WBC 9.2 RBC 3.84 L Hgb 11.6 L Hct 36.1 L MCV 94.0 MCH 30.2 MCHC 32.1 RDW 12.7 Plt Count 163 MPV 9.7 Sodium 132 L Potassium 3.8 Chloride 106 Carbon Dioxide 21 L Anion Gap 5 BUN 21 H Creatinine 0.68 L Estim Creat Clear Calc 61 Estimated GFR > 60 Glucose 105 POC Capillary Glucose 111 H Calcium 9.2 TSH (Reflex) 1.720
[2025-06-02] MEDS: SERTRALINE HCL 50 MG TABLET PO (09:22)
[2025-06-02] MEDS: CALCIUM CITRATE 315 MG/VITAMIN D 6.25 MCG (250 UNITS) TAB 1 TABLET PO ×2 (09:23→20:47)
[2025-06-02] MEDS: FLECAINIDE ACETATE 50 MG TABLET PO ×2 (09:23→20:47)
[2025-06-02] MEDS: DOXYCYCLINE HYCLATE 100 MG TABLET PO ×2 (09:23→20:47)
[2025-06-02] MEDS: SENNA/DOCUSATE SODIUM TABLET 2 TAB PO ×2 (09:23→20:47)
[2025-06-02] MEDS: METOPROLOL SUCCINATE EXT REL 25 MG TABCR PO (09:23)
[2025-06-02] MEDS: TIMOLOL MALEATE 0.5% OP SOLN 5 ML BOTTLE 1 DROP EACH EYE (09:24)
--- NOTE | 2025-06-02 09:24 | P.PNIM_ITS ---
Progress Note: A&P Assessment and Plan (1) Hip fracture, right: Code(s): S72.001A - Fracture of unspecified part of neck of right femur, initial encounter for closed fracture Status: Acute Assessment and Plan: Hip x-ray on admission showing right femoral IT fracture with varus angulation Ortho consulted. Patient underwent a cemented bipolar hemiarthroplasty right hip on 05/31/25 Patient tolerated the procedure well. Tolerating therapy. Pain controlled (2) Fall: Code(s): W19.XXXA - Unspecified fall, initial encounter Status: Acute Assessment and Plan: Patient with ground level fall. Related to hypoglycemia? UA not consistent with UTI. Medications were reviewed which does not include anxiolytics or sedatives Head CT scan shows no acute intracranial findings PT/OT ordered working with therapy. Suggest LUCHO (3) A-fib: Code(s): I48.91 - Unspecified atrial fibrillation Status: Acute Assessment and Plan: Patient developed AFib/RVR and was moved to IMU. Metoprolol resumed but ultimately had to be placed on Diltiazem drip. She has been continued with Xarelto at lower dose. She has converted to NSR so will resume oral metoprolol Stop diltiazem. Continue flecanide Home with Xarelto 20mg daily (4) Hypothyroid: Code(s): E03.9 - Hypothyroidism, unspecified Status: Acute Assessment and Plan: TSH low at 0.124. But no FT4 ordered. Repeat TSH was normal 06/02/2025 Resume levothyroxine 112 mcg (5) Diabetes: Code(s): E11.9 - Type 2 diabetes mellitus without complications Status: Acute Assessment and Plan: Glucose better controlled today. Continue AccuCheks covering with sliding scale. Hypoglycemia protocol available as needed. Continue to follow (6) Hypertension: Code(s): I10 - Essential (primary) hypertension Status: Acute Assessment and Plan: Blood pressure remains well controlled. Will continue to follow On lisinopril 10 mg Plan DVT prophylaxis on xarelto Code status - full Disposition: Plan for LUCHO. Awaiting insurance authorization. Transferred to [facility] Date/time seen: 06/02/25 09:24 Interval history: No overnight events. See is status post hip surgery. Post surgery developed AFib with RVR. Placed on diltiazem drip. Converted back to sinus rhythm and Remains in sinus rhythm Review of Systems Review of Systems: All systems reviewed & are unremarkable except as noted in HPI and below (the History and physical examination.) Exam Narrative: Gen - NARD Chest - CTA bilaterally, nml RR CV - RRR S1/S2. Tele showing sinus rhythm Abd - Soft, NT/ND, Positive BS Ext - No pedal edema. Right hip dressing is clean, dry and intact Neuro - Alert and oriented. Nonfocal exam. Psych - Nml mood and affect Skin - Warm and dry Objective Data Vital Signs Vital Signs: Vital Signs - 24 hr 06/01/25 10:00 06/01/25 12:00 06/01/25 12:00 Temperature 98.1 F Pulse Rate 77 73 76 Respiratory Rate 12 Blood Pressure 104/53 L Pulse Oximetry 92 Oxygen Delivery 06/01/25 12:00 06/01/25 14:00 06/01/25 16:00 Temperature Pulse Rate 70 73 Respiratory Rate Blood Pressure Pulse Oximetry 92 Oxygen Delivery Room Air 06/01/25 16:00 06/01/25 18:00 06/01/25 20:00 Temperature 98.0 F 98.9 F Pulse Rate 74 73 73 Respiratory Rate 28 H 28 H Blood Pressure 122/49 L 136/62 Pulse Oximetry 91 90 Oxygen Delivery 06/01/25 20:00 06/01/25 20:00 06/01/25 20:17 Temperature Pulse Rate 74 74 Respiratory Rate Blood Pressure Pulse Oximetry Oxygen Delivery Room Air 06/01/25 22:00 06/01/25 22:30 06/01/25 23:26 Temperature 98.4 F Pulse Rate 76 73 Respiratory Rate 28 H Blood Pressure 127/44 L Pulse Oximetry 95 Oxygen Delivery Autopap 06/02/25 00:00 06/02/25 00:00 06/02/25 02:00 Temperature Pulse Rate 76 77 Respiratory Rate Blood Pressure Pulse Oximetry Oxygen Delivery CPAP 06/02/25 03:44 06/02/25 04:00 06/02/25 04:00 Temperature 98.3 F Pulse Rate 73 72 Respiratory Rate 20 Blood Pressure 152/63 H Pulse Oximetry 91 Oxygen Delivery CPAP 06/02/25 06:00 06/02/25 07:56 06/02/25 08:00 Temperature 97.4 F L Pulse Rate 70 75 78 Respiratory Rate 18 Blood Pressure 127/94 H Pulse Oximetry 91 Oxygen Delivery Intake/Output Intake/Output: Intake & Output 05/30/25 05/31/25 06/01/25 06/02/25 23:59 23:59 23:59 23:59 Intake Total 1290 3635.8 855.0 100 Output Total 1500 2400 1100 900 Balance -210 1235.8 -245.0 -800 Meds/Results Medications: Active Medications Generic Name Dose Route Start Last Admin Trade Name Freq PRN Reason Stop Dose Admin Acetaminophen 500 mg 05/30/25 15:00 06/02/25 03:46 Acetaminophen 500 Mg Tablet PO 500 mg Q4H VICTORIA Administration Atorvastatin Calcium 10 mg 05/30/25 21:00 06/01/25 20:18 Atorvastatin 10 Mg Tablet PO 10 mg HS VICTORIA Administration Calcium Citrate 1 tablet 06/01/25 21:00 06/01/25 20:16 Calcium Citrate 315 Mg/Vitamin D 6.25 Mcg (250 Units) Tab PO 1 tablet Q12HR VICTORIA Administration Dextrose 12.5 gm 05/30/25 17:28 Dextrose 50% 25 Gm/50 Ml Syringe IV PUSH PRN PRN Hypoglycemia Protocol Doxycycline Hyclate 100 mg 05/31/25 09:00 06/01/25 20:17 Doxycycline Hyclate 100 Mg Tablet PO 06/12/25 08:59 100 mg Q12HR VICTORIA Administration Empagliflozin 25 mg 05/30/25 21:00 06/01/25 20:18 Empagliflozin 25 Mg Tablet PO 25 mg HS VICTORIA Administration Flecainide Acetate 50 mg 05/30/25 21:00 06/01/25 20:17 Flecainide Acetate 50 Mg Tablet PO 50 mg Q12H VICTORIA Administration Glucagon 1 mg 05/30/25 17:28 Glucagon For Inj 1 Mg Vial IM PRN PRN Hypoglycemia Protocol Glucose 15 gm 05/30/25 17:28 Glucose Oral Gel 15 Gm Of Glucse In 37.5 Gm Tube PO PRN PRN Hypoglycemia Protocol Dextrose 1,000 mls @ 100 mls/hr 05/30/25 17:28 Dextrose 5% 1,000 Ml IVPB PRN PRN Hypoglycemia Protocol Insulin Aspart 2 - 5 units 05/30/25 18:40 06/01/25 18:34 Insulin Aspart (*Bkc) 100 Units/Ml SUB-Q Not Given TIDWM VICTORIA Protocol Latanoprost 1 drop 06/01/25 21:00 06/01/25 20:19 Latanoprost 0.005% Op Soln 2.5 Ml Btl EACH EYE 1 drop HS [facility] Administration Levothyroxine Sodium 112 mcg 05/31/25 06:30 05/31/25 06:26 Levothyroxine Sodium 112 Mcg Tablet PO 112 mcg On Hold: 05/31/25 19:22 DAILY@0630 VICTORIA Administration Lisinopril 10 mg 06/02/25 09:00 Lisinopril 10 Mg Tablet PO DAILY [facility] Metoprolol Succinate 25 mg 05/30/25 14:55 06/01/25 08:36 Metoprolol Succinate Ext Rel 25 Mg Tabcr PO 25 mg DAILY [facility] Administration Morphine Sulfate 2 mg 05/29/25 07:51 05/29/25 21:57 Morphine Sulfate (*Crx) 4 Mg/Ml Inj IV PUSH 2 mg Q2H PRN Administration Pain Rated 7-10 Naloxone HCl 0.1 mg 05/30/25 14:46 Naloxone Hcl 0.4 Mg/Ml Vial IV PUSH Q2M PRN Opiate Reversal Oxycodone HCl 2.5 mg 05/30/25 14:46 Oxycodone Hcl (*Crx) 2.5 Mg Tab Ir PO Q4H PRN Pain Rated 4-10 Oxycodone HCl 2.5 mg 06/01/25 16:00 06/02/25 03:46 Oxycodone Hcl (*Crx) 2.5 Mg Tab Ir PO 2.5 mg Q4H VICTORIA Administration Polyethylene Glycol 17 gm 05/31/25 09:00 06/01/25 08:38 Polyethylene Glycol 3350 17 Gm Powd.Pack PO 17 gm QAM VICTORIA Administration Pregabalin 100 mg 05/30/25 21:00 06/01/25 20:17 Pregabalin (*Crx) 50 Mg Capsule PO 100 mg HS VICTORIA Administration Rivaroxaban 20 mg 06/02/25 17:00 Rivaroxaban 20 Mg Tablet PO DAILY@1700 [facility] Senna/Docusate Sodium 2 tab 06/01/25 21:00 06/01/25 20:17 Senna/Docusate Sodium Tablet PO 2 tab Q12HR VICTORIA Administration Sertraline HCl 50 mg 05/30/25 14:55 06/01/25 08:36 Sertraline Hcl 50 Mg Tablet PO 50 mg DAILY [facility] Administration Timolol Maleate 1 drop 05/31/25 09:00 06/01/25 12:07 Timolol Maleate 0.5% Op Soln 5 Ml Bottle EACH EYE 1 drop DAILY VICTORIA Administration Radiology Results: ITS Impressions Chest X-Ray 05/29/25 07:35 IMPRESSION: 1. No acute cardiopulmonary findings given portable technique. Head CT 05/29/25 07:38 IMPRESSION: 1. No acute intracranial findings. Hip X-Ray 05/29/25 08:30 IMPRESSION: 1. Right femoral neck fracture Hip CT 05/29/25 13:34 IMPRESSION 1. Mildly comminuted transcervical fracture of the proximal right femur with mild varus and anterior angulation. Intraoperative X-Ray 05/30/25 13:14 IMPRESSION: 1. Expected appearance during right total hip arthroplasty. Hip/Pelvis X-Ray 05/30/25 13:53 Impression: No acute fracture or malalignment. Labs Labs: Laboratory Results - last 24 hr 06/01/25 06/01/25 06/01/25 11:24 15:54 20:23 WBC RBC Hgb Hct MCV MCH MCHC RDW Plt Count MPV Sodium Potassium Chloride Carbon Dioxide Anion Gap BUN Creatinine Estim Creat Clear Calc Estimated GFR Glucose POC Capillary Glucose 171 H 131 H 129 H Calcium TSH (Reflex) 06/02/25 06/02/25 03:32 07:25 WBC 9.2 RBC 3.84 L Hgb 11.6 L Hct 36.1 L MCV 94.0 MCH 30.2 MCHC 32.1 RDW 12.7 Plt Count 163 MPV 9.7 Sodium 132 L Potassium 3.8 Chloride 106 Carbon Dioxide 21 L Anion Gap 5 BUN 21 H Creatinine 0.68 L Estim Creat Clear Calc 61 Estimated GFR > 60 Glucose 105 POC Capillary Glucose 111 H Calcium 9.2 TSH (Reflex) 1.720
--- NOTE | 2025-06-02 11:15 | P.PNCA_ITS ---
Progress Note: A&P Assessment and Plan (1) A-fib: Code(s): I48.91 - Unspecified atrial fibrillation Status: Acute Plan 79-year-old lady with paroxysmal atrial fibrillation. Continue her regimen of flecainide and Xarelto. Following discharge she will follow up with her community development manager, Dr. Grijalva at [place]. We will sign off of inpatient follow-up at this time since there are no additional active cardiac issues Stone Red MD [facility] Subjective Date/time seen: Date of service: 06/02/25 11:15 Interval history: 79-year-old status post hip fracture history atrial fibrillation Date of service 06/01/2025: Was called to see patient again because of atrial fibrillation. Patient went in atrial fibrillation with rapid ventricular response. Transferred from 3rd floor to IMU for diltiazem drip. She has since reverted back into sinus rhythm. She otherwise feels fine and denies any chest pain or shortness of breath Date of service 06/02/2025: The patient is comfortable recovering from her fracture repair and has no complaints. Still maintaining sinus rhythm on telemetry. Says she follows up with community development manager at [place] regarding her arrhythmias Exam Const: General: comfortable, no acute distress, alert and awake Orientation/consciousness: patient oriented x3 HENMT: Head: normal to inspection Eyes: General: appearance normal, both eyes and all related structures Pupils: Equal, round and reactive pupils present Neck: Neck: normal visual inspection, supple and no JVD Carotids: normal carotid upstroke Resp: Effort & Inspection: normal respiratory effort Auscultation: clear to auscultation bilaterally Cardio: Rate: regular rate Rhythm: regular rhythm Heart sounds: S1 normal heart sound present, S2 normal heart sound present and no murmurs GI: Auscultation: normal bowel sounds Skin: General skin exam: normal color Neuro: General: patient oriented x3 Cranial nerves: Yes Equal, round and reactive pupils present and Yes Normal hearing present Extrem: General: normal to inspection Psych: Appearance: grossly normal Mental Status: mental status grossly normal Objective Data Vital Signs Vital Signs: Vital Signs - 24 hr 06/01/25 12:00 06/01/25 12:00 06/01/25 12:00 Temperature 36.7 C Pulse Rate 73 76 Respiratory Rate 12 Blood Pressure 104/53 L Pulse Oximetry 92 92 Oxygen Delivery Room Air 06/01/25 14:00 06/01/25 16:00 06/01/25 16:00 Temperature 36.7 C Pulse Rate 70 73 74 Respiratory Rate 28 H Blood Pressure 122/49 L Pulse Oximetry 91 Oxygen Delivery 06/01/25 18:00 06/01/25 20:00 06/01/25 20:00 Temperature 37.2 C Pulse Rate 73 73 Respiratory Rate 28 H Blood Pressure 136/62 Pulse Oximetry 90 Oxygen Delivery Room Air 06/01/25 20:00 06/01/25 20:17 06/01/25 22:00 Temperature Pulse Rate 74 74 76 Respiratory Rate Blood Pressure Pulse Oximetry Oxygen Delivery 06/01/25 22:30 06/01/25 23:26 06/02/25 00:00 Temperature 36.9 C Pulse Rate 73 Respiratory Rate 28 H Blood Pressure 127/44 L Pulse Oximetry 95 Oxygen Delivery Autopap CPAP 06/02/25 00:00 06/02/25 02:00 06/02/25 03:44 Temperature 36.8 C Pulse Rate 76 77 73 Respiratory Rate 20 Blood Pressure 152/63 H Pulse Oximetry 91 Oxygen Delivery 06/02/25 04:00 06/02/25 04:00 06/02/25 06:00 Temperature Pulse Rate 72 70 Respiratory Rate Blood Pressure Pulse Oximetry Oxygen Delivery CPAP 06/02/25 07:56 06/02/25 08:00 06/02/25 09:23 Temperature 36.3 C L Pulse Rate 75 78 88 Respiratory Rate 18 Blood Pressure 127/94 H Pulse Oximetry 91 Oxygen Delivery 06/02/25 09:23 Temperature Pulse Rate 88 Respiratory Rate Blood Pressure Pulse Oximetry Oxygen Delivery Intake/Output Intake/Output: Intake & Output 05/30/25 05/31/25 06/01/25 06/02/25 23:59 23:59 23:59 23:59 Intake Total 1290 3635.8 855.0 100 Output Total 1500 2400 1100 900 Balance -210 1235.8 -245.0 -800 Meds/Results Medications: Active Medications Generic Name Dose Route Start Last Admin Trade Name Freq PRN Reason Stop Dose Admin Acetaminophen 500 mg 05/30/25 15:00 06/02/25 09:22 Acetaminophen 500 Mg Tablet PO 500 mg Q4H VICTORIA Administration Atorvastatin Calcium 10 mg 05/30/25 21:00 06/01/25 20:18 Atorvastatin 10 Mg Tablet PO 10 mg HS VICTORIA Administration Calcium Citrate 1 tablet 06/01/25 21:00 06/02/25 09:23 Calcium Citrate 315 Mg/Vitamin D 6.25 Mcg (250 Units) Tab PO 1 tablet Q12HR VICTORIA Administration Dextrose 12.5 gm 05/30/25 17:28 Dextrose 50% 25 Gm/50 Ml Syringe IV PUSH PRN PRN Hypoglycemia Protocol Doxycycline Hyclate 100 mg 05/31/25 09:00 06/02/25 09:23 Doxycycline Hyclate 100 Mg Tablet PO 06/12/25 08:59 100 mg Q12HR VICTORIA Administration Empagliflozin 25 mg 05/30/25 21:00 06/01/25 20:18 Empagliflozin 25 Mg Tablet PO 25 mg HS VICTORIA Administration Flecainide Acetate 50 mg 05/30/25 21:00 06/02/25 09:23 Flecainide Acetate 50 Mg Tablet PO 50 mg Q12H VICTORIA Administration Glucagon 1 mg 05/30/25 17:28 Glucagon For Inj 1 Mg Vial IM PRN PRN Hypoglycemia Protocol Glucose 15 gm 05/30/25 17:28 Glucose Oral Gel 15 Gm Of Glucse In 37.5 Gm Tube PO PRN PRN Hypoglycemia Protocol Dextrose 1,000 mls @ 100 mls/hr 05/30/25 17:28 Dextrose 5% 1,000 Ml IVPB PRN PRN Hypoglycemia Protocol Insulin Aspart 2 - 5 units 05/30/25 18:40 06/02/25 09:26 Insulin Aspart (*Bkc) 100 Units/Ml SUB-Q Not Given TIDWM VICTORIA Protocol Latanoprost 1 drop 06/01/25 21:00 06/01/25 20:19 Latanoprost 0.005% Op Soln 2.5 Ml Btl EACH EYE 1 drop HS VICTORIA Administration Levothyroxine Sodium 112 mcg 05/31/25 06:30 05/31/25 06:26 Levothyroxine Sodium 112 Mcg Tablet PO 112 mcg DAILY@0630 VICTORIA Administration Lisinopril 10 mg 06/02/25 09:00 06/02/25 10:00 Lisinopril 10 Mg Tablet PO 10 mg DAILY VICTORIA Administration Metoprolol Succinate 25 mg 05/30/25 14:55 06/02/25 09:23 Metoprolol Succinate Ext Rel 25 Mg Tabcr PO 25 mg DAILY VICTORIA Administration Morphine Sulfate 2 mg 05/29/25 07:51 05/29/25 21:57 Morphine Sulfate (*Crx) 4 Mg/Ml Inj IV PUSH 2 mg Q2H PRN Administration Pain Rated 7-10 Naloxone HCl 0.1 mg 05/30/25 14:46 Naloxone Hcl 0.4 Mg/Ml Vial IV PUSH Q2M PRN Opiate Reversal Oxycodone HCl 2.5 mg 05/30/25 14:46 Oxycodone Hcl (*Crx) 2.5 Mg Tab Ir PO Q4H PRN Pain Rated 4-10 Oxycodone HCl 2.5 mg 06/01/25 16:00 06/02/25 09:24 Oxycodone Hcl (*Crx) 2.5 Mg Tab Ir PO 2.5 mg Q4H VICTORIA Administration Polyethylene Glycol 17 gm 05/31/25 09:00 06/02/25 09:24 Polyethylene Glycol 3350 17 Gm Powd.Pack PO 17 gm QAM VICTORIA Administration Pregabalin 100 mg 05/30/25 21:00 06/01/25 20:17 Pregabalin (*Crx) 50 Mg Capsule PO 100 mg HS VICTORIA Administration Rivaroxaban 20 mg 06/02/25 17:00 Rivaroxaban 20 Mg Tablet PO DAILY@1700 VICTORIA Senna/Docusate Sodium 2 tab 06/01/25 21:00 06/02/25 09:23 Senna/Docusate Sodium Tablet PO 2 tab Q12HR VICTORIA Administration Sertraline HCl 50 mg 05/30/25 14:55 06/02/25 09:22 Sertraline Hcl 50 Mg Tablet PO 50 mg DAILY VICTORIA Administration Timolol Maleate 1 drop 05/31/25 09:00 06/02/25 09:24 Timolol Maleate 0.5% Op Soln 5 Ml Bottle EACH EYE 1 drop DAILY VICTORIA Administration Radiology Results: ITS Impressions Chest X-Ray 05/29/25 07:35 IMPRESSION: 1. No acute cardiopulmonary findings given portable technique. Head CT 05/29/25 07:38 IMPRESSION: 1. No acute intracranial findings. Hip X-Ray 05/29/25 08:30 IMPRESSION: 1. Right femoral neck fracture Hip CT 05/29/25 13:34 IMPRESSION 1. Mildly comminuted transcervical fracture of the proximal right femur with mild varus and anterior angulation. Intraoperative X-Ray 05/30/25 13:14 IMPRESSION: 1. Expected appearance during right total hip arthroplasty. Hip/Pelvis X-Ray 05/30/25 13:53 Impression: No acute fracture or malalignment. Labs Labs: Laboratory Results - last 24 hr 06/01/25 06/01/25 06/01/25 11:24 15:54 20:23 WBC RBC Hgb Hct MCV MCH MCHC RDW Plt Count MPV Sodium Potassium Chloride Carbon Dioxide Anion Gap BUN Creatinine Estim Creat Clear Calc Estimated GFR Glucose POC Capillary Glucose 171 H 131 H 129 H Calcium TSH (Reflex) 06/02/25 06/02/25 03:32 07:25 WBC 9.2 RBC 3.84 L Hgb 11.6 L Hct 36.1 L MCV 94.0 MCH 30.2 MCHC 32.1 RDW 12.7 Plt Count 163 MPV 9.7 Sodium 132 L Potassium 3.8 Chloride 106 Carbon Dioxide 21 L Anion Gap 5 BUN 21 H Creatinine 0.68 L Estim Creat Clear Calc 61 Estimated GFR > 60 Glucose 105 POC Capillary Glucose 111 H Calcium 9.2 TSH (Reflex) 1.720
--- NOTE | 2025-06-02 12:58 | PC.NURSE ---
Pt arrived to [facility] Rm. [id number] from [facility] @1783 06/02/25.
[2025-06-02] MEDS: RIVAROXABAN 20 MG TABLET PO (16:00)
--- NOTE | 2025-06-02 16:25 | PM.PNORT ---
Progress Note: A&P Assessment and Plan (1) Status post hemiarthroplasty of right hip: Code(s): Z96.641 - Presence of right artificial hip joint Status: Acute Plan POD 3 Right Hip Hemiarthroplasty. Doing well with physical therapy, ambulated 2x today. Afebrile, HR 70's to low 80s, WBC 9.2, Hgb 11.6, Platelet 163. - Plans for transfer to Rehab, either here or [facility]. Oxycodone 2.5mg PO Q4 hrs PRN, Resumed Lisinopril, Xarelto 20mg daily. Subjective Subjective Date/Time Seen: 06/02/25 16:25 Post Op day: 3 (Right Hip Hemiarthroplasty) Interval history: Continues to do very well with less pain on ambulation today x2. Good appetite, no nausea. No SOB, increase energy levels compared to yesterday. Had therapy visit 2x today. Exam Narrative: Resting comfortably, Right Hip bandaged and dry. Const: General: comfortable, alert and awake Objective Data Vital Signs Vital Signs: Vital Signs - 24 hr 06/01/25 18:00 06/01/25 20:00 06/01/25 20:00 Temperature 37.2 C Pulse Rate 73 73 Respiratory Rate 28 H Blood Pressure 136/62 Pulse Oximetry 90 Oxygen Delivery Room Air 06/01/25 20:00 06/01/25 20:17 06/01/25 22:00 Temperature Pulse Rate 74 74 76 Respiratory Rate Blood Pressure Pulse Oximetry Oxygen Delivery 06/01/25 22:30 06/01/25 23:26 06/02/25 00:00 Temperature 36.9 C Pulse Rate 73 Respiratory Rate 28 H Blood Pressure 127/44 L Pulse Oximetry 95 Oxygen Delivery Autopap CPAP 06/02/25 00:00 06/02/25 02:00 06/02/25 03:44 Temperature 36.8 C Pulse Rate 76 77 73 Respiratory Rate 20 Blood Pressure 152/63 H Pulse Oximetry 91 Oxygen Delivery 06/02/25 04:00 06/02/25 04:00 06/02/25 06:00 Temperature Pulse Rate 72 70 Respiratory Rate Blood Pressure Pulse Oximetry Oxygen Delivery CPAP 06/02/25 07:56 06/02/25 08:00 06/02/25 09:23 Temperature 36.3 C L Pulse Rate 75 78 88 Respiratory Rate 18 Blood Pressure 127/94 H Pulse Oximetry 91 Oxygen Delivery 06/02/25 09:23 06/02/25 12:00 06/02/25 12:00 Temperature 36.6 C Pulse Rate 88 73 80 Respiratory Rate 18 Blood Pressure 103/52 L Pulse Oximetry 93 Oxygen Delivery 06/02/25 14:22 Temperature 36.4 C Pulse Rate 74 Respiratory Rate 18 Blood Pressure 104/43 L Pulse Oximetry 92 Oxygen Delivery Intake/Output Intake/Output: Intake & Output 05/30/25 05/31/25 06/01/25 06/02/25 23:59 23:59 23:59 23:59 Intake Total 1290 3635.8 855.0 620 Output Total 1500 2400 1100 1400 Balance -210 1235.8 -245.0 -780 Meds/Results Medications: Active Medications Generic Name Dose Route Start Last Admin Trade Name Freq PRN Reason Stop Dose Admin Acetaminophen 500 mg 05/30/25 15:00 06/02/25 15:57 Acetaminophen 500 Mg Tablet PO 500 mg Q4H VICTORIA Administration Atorvastatin Calcium 10 mg 05/30/25 21:00 06/01/25 20:18 Atorvastatin 10 Mg Tablet PO 10 mg HS VICTORIA Administration Calcium Citrate 1 tablet 06/01/25 21:00 06/02/25 09:23 Calcium Citrate 315 Mg/Vitamin D 6.25 Mcg (250 Units) Tab PO 1 tablet Q12HR [facility]CTORIA Administration Dextrose 12.5 gm 05/30/25 17:28 Dextrose 50% 25 Gm/50 Ml Syringe IV PUSH PRN PRN Hypoglycemia Protocol Doxycycline Hyclate 100 mg 05/31/25 09:00 06/02/25 09:23 Doxycycline Hyclate 100 Mg Tablet PO 06/12/25 08:59 100 mg Q12HR VICTORIA Administration Empagliflozin 25 mg 05/30/25 21:00 06/01/25 20:18 Empagliflozin 25 Mg Tablet PO 25 mg HS VICTORIA Administration Flecainide Acetate 50 mg 05/30/25 21:00 06/02/25 09:23 Flecainide Acetate 50 Mg Tablet PO 50 mg Q12H VICTORIA Administration Glucagon 1 mg 05/30/25 17:28 Glucagon For Inj 1 Mg Vial IM PRN PRN Hypoglycemia Protocol Glucose 15 gm 05/30/25 17:28 Glucose Oral Gel 15 Gm Of Glucse In 37.5 Gm Tube PO PRN PRN Hypoglycemia Protocol Dextrose 1,000 mls @ 100 mls/hr 05/30/25 17:28 Dextrose 5% 1,000 Ml IVPB PRN PRN Hypoglycemia Protocol Insulin Aspart 2 - 5 units 05/30/25 18:40 06/02/25 11:47 Insulin Aspart (*Bkc) 100 Units/Ml SUB-Q Not Given TIDWM [facility] Protocol Latanoprost 1 drop 06/01/25 21:00 06/01/25 20:19 Latanoprost 0.005% Op Soln 2.5 Ml Btl EACH EYE 1 drop HS VICTORIA Administration Levothyroxine Sodium 112 mcg 05/31/25 06:30 05/31/25 06:26 Levothyroxine Sodium 112 Mcg Tablet PO 112 mcg DAILY@0630 [facility]IA Administration Lisinopril 10 mg 06/02/25 09:00 06/02/25 10:00 Lisinopril 10 Mg Tablet PO 10 mg DAILY [facility]IA Administration Metoprolol Succinate 25 mg 05/30/25 14:55 06/02/25 09:23 Metoprolol Succinate Ext Rel 25 Mg Tabcr PO 25 mg DAILY [facility]IA Administration Morphine Sulfate 2 mg 05/29/25 07:51 05/29/25 21:57 Morphine Sulfate (*Crx) 4 Mg/Ml Inj IV PUSH 2 mg Q2H PRN Administration Pain Rated 7-10 Naloxone HCl 0.1 mg 05/30/25 14:46 Naloxone Hcl 0.4 Mg/Ml Vial IV PUSH Q2M PRN Opiate Reversal Oxycodone HCl 2.5 mg 05/30/25 14:46 Oxycodone Hcl (*Crx) 2.5 Mg Tab Ir PO Q4H PRN Pain Rated 4-10 Oxycodone HCl 2.5 mg 06/01/25 16:00 06/02/25 15:57 Oxycodone Hcl (*Crx) 2.5 Mg Tab Ir PO 2.5 mg Q4H [facility]IA Administration Polyethylene Glycol 17 gm 05/31/25 09:00 06/02/25 09:24 Polyethylene Glycol 3350 17 Gm Powd.Pack PO 17 gm QAM [facility]IA Administration Pregabalin 100 mg 05/30/25 21:00 06/01/25 20:17 Pregabalin (*Crx) 50 Mg Capsule PO 100 mg HS VICTORIA Administration Rivaroxaban 20 mg 06/02/25 17:00 06/02/25 16:00 Rivaroxaban 20 Mg Tablet PO 20 mg DAILY@1700 [facility] Administration Senna/Docusate Sodium 2 tab 06/01/25 21:00 06/02/25 09:23 Senna/Docusate Sodium Tablet PO 2 tab Q12HR [facility]IA Administration Sertraline HCl 50 mg 05/30/25 14:55 06/02/25 09:22 Sertraline Hcl 50 Mg Tablet PO 50 mg DAILY [facility] Administration Timolol Maleate 1 drop 05/31/25 09:00 06/02/25 09:24 Timolol Maleate 0.5% Op Soln 5 Ml Bottle EACH EYE 1 drop DAILY [facility] Administration Radiology Results: ITS Impressions Chest X-Ray 05/29/25 07:35 IMPRESSION: 1. No acute cardiopulmonary findings given portable technique. Head CT 05/29/25 07:38 IMPRESSION: 1. No acute intracranial findings. Hip X-Ray 05/29/25 08:30 IMPRESSION: 1. Right femoral neck fracture Hip CT 05/29/25 13:34 IMPRESSION 1. Mildly comminuted transcervical fracture of the proximal right femur with mild varus and anterior angulation. Intraoperative X-Ray 05/30/25 13:14 IMPRESSION: 1. Expected appearance during right total hip arthroplasty. Hip/Pelvis X-Ray 05/30/25 13:53 Impression: No acute fracture or malalignment. Labs Labs: Laboratory Results - last 24 hr 06/01/25 06/01/25 06/02/25 15:54 20:23 03:32 WBC 9.2 RBC 3.84 L Hgb 11.6 L Hct 36.1 L MCV 94.0 MCH 30.2 MCHC 32.1 RDW 12.7 Plt Count 163 MPV 9.7 Sodium 132 L Potassium 3.8 Chloride 106 Carbon Dioxide 21 L Anion Gap 5 BUN 21 H Creatinine 0.68 L Estim Creat Clear Calc 61 Estimated GFR > 60 Glucose 105 POC Capillary Glucose 131 H 129 H Calcium 9.2 TSH (Reflex) 1.720 06/02/25 06/02/25 07:25 11:41 WBC RBC Hgb Hct MCV MCH MCHC RDW Plt Count MPV Sodium Potassium Chloride Carbon Dioxide Anion Gap BUN Creatinine Estim Creat Clear Calc Estimated GFR Glucose POC Capillary Glucose 111 H 173 H Calcium TSH (Reflex)
[2025-06-02] MEDS: PREGABALIN (*CRX) 50 MG CAPSULE 100 MG PO (20:47)
[2025-06-02] MEDS: ATORVASTATIN 10 MG TABLET PO (20:47)
[2025-06-02] MEDS: EMPAGLIFLOZIN 25 MG TABLET PO (20:49)
[2025-06-02] MEDS: LATANOPROST 0.005% OP SOLN 2.5 ML BTL 1 DROP EACH EYE (20:53)
[2025-06-03] VITALS (14 sets, daily range): BP systolic 115–142; BP diastolic 67–96; PULSE 61–98; RESP 16–224; TEMP 36.4–36.7; O2SAT 91–99
[2025-06-03] MEDS: oxyCODONE HCL (*CRX) 2.5 MG TAB IR PO ×6 (04:00→23:35)
[2025-06-03] MEDS: ACETAMINOPHEN 500 MG TABLET PO ×5 (04:00→23:35)
[2025-06-03] MEDS: LEVOTHYROXINE SODIUM 112 MCG TABLET PO (05:35)
[2025-06-03 05:47] LABS: Hematocrit 33.3 % (37.0-47.0); Hemoglobin 10.9 g/dL (12.0-15.0); Immature Granulocyte Percent A 0.8 % (0-0.5); Lymphocytes Absolute Auto 1.56 K/mm3 (0.9-3.2); Mean Corpuscular HGB Conc 32.7 g/dl (32-36); Mean Corpuscular Hemoglobin 30.0 pg (26-34); Mean Corpuscular Volume 91.7 fl (80-100); Nucleated Red Blood Cells Absolute Auto 0.000 K/mm3 (0.0-0.012); Nucleated Red Blood Cells Perc 0.0 % (0.0-0.2); Platelet Count Result 175 k/mm3 (150-375); Red Blood Count 3.63 M/mm3 (4.2-5.4); White Blood Count 6.5 K/mm3 (4.5-10.0)
[2025-06-03 06:03] LABS: Alanine Aminotransferase 22 U/L (6-35); Albumin Level 3.1 g/dL (3.5-5.1); Alkaline Phosphatase 84 U/L (38-126); Anion Gap 5 mmol/L (4-12); Aspartate Amino Transferase 33 U/L (14-36); Bilirubin,Total 0.7 mg/dL (0.2-1.3); Blood Urea Nitrogen 23 mg/dL (7-17); Calcium 9.2 mg/dL (8.4-10.2); Carbon Dioxide 24 mmol/L (22-30); Chloride 105 mmol/L (98-107); Estimated CRCL calculation 58 ml/min; Estimated Glomerular Filt Rate > 60; Glucose 117 mg/dL (65-110); Magnesium 2.0 mg/dL (1.6-2.3); Potassium 3.7 mmol/L (3.4-5.0); Sodium 134 mmol/L (137-145); Total Protein 6.1 g/dL (6.3-8.2)
[2025-06-03] MEDS: METOPROLOL SUCCINATE EXT REL 25 MG TABCR PO (08:54)
[2025-06-03] MEDS: DOXYCYCLINE HYCLATE 100 MG TABLET PO ×2 (08:54→20:03)
[2025-06-03] MEDS: SENNA/DOCUSATE SODIUM TABLET 2 TAB PO ×2 (08:54→20:07)
[2025-06-03] MEDS: SERTRALINE HCL 50 MG TABLET PO (08:55)
[2025-06-03] MEDS: FLECAINIDE ACETATE 50 MG TABLET PO ×2 (08:55→20:03)
[2025-06-03] MEDS: TIMOLOL MALEATE 0.5% OP SOLN 5 ML BOTTLE 1 DROP EACH EYE (08:56)
[2025-06-03] MEDS: CALCIUM CITRATE 315 MG/VITAMIN D 6.25 MCG (250 UNITS) TAB 1 TABLET PO ×2 (08:56→20:03)
--- NOTE | 2025-06-03 11:30 | PC.NURSE ---
I, Kaylee Francis RN, have reviewed documentation by Eda BRITT and agree with the findings. 06/03/25 [id number]
--- NOTE | 2025-06-03 12:34 | PM.IMPN ---
Progress Note: A&P Assessment and Plan (1) Hip fracture, right: Code(s): S72.001A - Fracture of unspecified part of neck of right femur, initial encounter for closed fracture Status: Acute Assessment and Plan: Hip x-ray on admission showing right femoral IT fracture with varus angulation Ortho consulted. Patient underwent a cemented bipolar hemiarthroplasty right hip on 05/31/25 Patient tolerated the procedure well. Tolerating therapy. Pain controlled (2) Fall: Code(s): W19.XXXA - Unspecified fall, initial encounter Status: Acute Assessment and Plan: Patient with ground level fall. Related to hypoglycemia? UA not consistent with UTI. Medications were reviewed which does not include anxiolytics or sedatives Head CT scan shows no acute intracranial findings PT/OT ordered working with therapy. Suggest LUCHO (3) A-fib: Code(s): I48.91 - Unspecified atrial fibrillation Status: Acute Assessment and Plan: Patient developed AFib/RVR and was moved to IMU. Metoprolol resumed but ultimately had to be placed on Diltiazem drip. She has been continued with Xarelto at lower dose. She has converted to NSR so will resume oral metoprolol Stop diltiazem. Continue flecanide Home with Xarelto 20mg daily (4) Hypothyroid: Code(s): E03.9 - Hypothyroidism, unspecified Status: Acute Assessment and Plan: TSH low at 0.124. But no FT4 ordered. Repeat TSH was normal 06/02/2025 Resume levothyroxine 112 mcg (5) Diabetes: Code(s): E11.9 - Type 2 diabetes mellitus without complications Status: Acute Assessment and Plan: Glucose better controlled today. Continue AccuCheks covering with sliding scale. Hypoglycemia protocol available as needed. Continue to follow (6) Hypertension: Code(s): I10 - Essential (primary) hypertension Status: Acute Assessment and Plan: Blood pressure remains well controlled. Will continue to follow On lisinopril 10 mg Plan DVT prophylaxis on xarelto Code status - full Disposition: Plan for LUCHO. Awaiting insurance authorization. Transferred to [facility] Date/time seen: 06/03/25 12:34 Interval history: No overnight events. Feels well. Work with therapy. Awaiting placement. Review of Systems Review of Systems: All systems reviewed & are unremarkable except as noted in HPI and below (the History and physical examination.) Exam Narrative: Gen - NARD Chest - CTA bilaterally, nml RR CV - RRR S1/S2. Tele showing sinus rhythm Abd - Soft, NT/ND, Positive BS Ext - No pedal edema. Right hip dressing is clean, dry and intact Neuro - Alert and oriented. Nonfocal exam. Psych - Nml mood and affect Skin - Warm and dry Objective Data Vital Signs Vital Signs: Vital Signs - 24 hr 06/02/25 14:22 06/02/25 16:00 06/02/25 20:00 Temperature 97.6 F Pulse Rate 74 75 97 Respiratory Rate 18 22 H Blood Pressure 104/43 L Pulse Oximetry 92 92 Oxygen Delivery Autopap Fraction of Inspired Oxygen 24 06/02/25 20:00 06/02/25 20:47 06/02/25 20:48 Temperature 97.6 F Pulse Rate 74 76 74 Respiratory Rate 16 Blood Pressure 135/61 Pulse Oximetry 92 Oxygen Delivery Fraction of Inspired Oxygen 06/02/25 23:00 06/03/25 00:00 06/03/25 04:00 Temperature Pulse Rate 97 74 73 Respiratory Rate 22 H Blood Pressure Pulse Oximetry 92 Oxygen Delivery Autopap Fraction of Inspired Oxygen 06/03/25 04:29 06/03/25 05:00 06/03/25 08:00 Temperature 97.6 F Pulse Rate 98 61 Respiratory Rate 224 H 16 Blood Pressure 142/67 H Pulse Oximetry 92 99 Oxygen Delivery Autopap Room Air Fraction of Inspired Oxygen 06/03/25 08:00 06/03/25 08:54 06/03/25 08:55 Temperature Pulse Rate 68 76 76 Respiratory Rate Blood Pressure Pulse Oximetry Oxygen Delivery Fraction of Inspired Oxygen Intake/Output Intake/Output: Intake & Output 05/31/25 06/01/25 06/02/25 06/03/25 23:59 23:59 23:59 23:59 Intake Total 3635.8 855.0 920 730 Output Total 2400 1100 2100 1400 Balance 1235.8 -245.0 -1180 -670 Meds/Results Medications: Active Medications Generic Name Dose Route Start Last Admin Trade Name Freq PRN Reason Stop Dose Admin Acetaminophen 500 mg 05/30/25 15:00 06/03/25 11:25 Acetaminophen 500 Mg Tablet PO 500 mg Q4H VICTORIA Administration Atorvastatin Calcium 10 mg 05/30/25 21:00 06/02/25 20:47 Atorvastatin 10 Mg Tablet PO 10 mg HS VICTORIA Administration Calcium Citrate 1 tablet 06/01/25 21:00 06/03/25 08:56 Calcium Citrate 315 Mg/Vitamin D 6.25 Mcg (250 Units) Tab PO 1 tablet Q12HR VICTORIA Administration Dextrose 12.5 gm 05/30/25 17:28 Dextrose 50% 25 Gm/50 Ml Syringe IV PUSH PRN PRN Hypoglycemia Protocol Doxycycline Hyclate 100 mg 05/31/25 09:00 06/03/25 08:54 Doxycycline Hyclate 100 Mg Tablet PO 06/12/25 08:59 100 mg Q12HR VICTORIA Administration Empagliflozin 25 mg 05/30/25 21:00 06/02/25 20:49 Empagliflozin 25 Mg Tablet PO 25 mg HS VICTORIA Administration Flecainide Acetate 50 mg 05/30/25 21:00 06/03/25 08:55 Flecainide Acetate 50 Mg Tablet PO 50 mg Q12H VICTORIA Administration Glucagon 1 mg 05/30/25 17:28 Glucagon For Inj 1 Mg Vial IM PRN PRN Hypoglycemia Protocol Glucose 15 gm 05/30/25 17:28 Glucose Oral Gel 15 Gm Of Glucse In 37.5 Gm Tube PO PRN PRN Hypoglycemia Protocol Dextrose 1,000 mls @ 100 mls/hr 05/30/25 17:28 Dextrose 5% 1,000 Ml IVPB PRN PRN Hypoglycemia Protocol Insulin Aspart 2 - 5 units 05/30/25 18:40 06/03/25 12:28 Insulin Aspart (*Bkc) 100 Units/Ml SUB-Q Not Given TIDWM [facility] Protocol Latanoprost 1 drop 06/01/25 21:00 06/02/25 20:53 Latanoprost 0.005% Op Soln 2.5 Ml Btl EACH EYE 1 drop HS VICTORIA Administration Levothyroxine Sodium 112 mcg 05/31/25 06:30 06/03/25 05:35 Levothyroxine Sodium 112 Mcg Tablet PO 112 mcg DAILY@0630 VICTORIA Administration Lisinopril 10 mg 06/02/25 09:00 06/03/25 08:54 Lisinopril 10 Mg Tablet PO 10 mg DAILY VICTORIA Administration Metoprolol Succinate 25 mg 05/30/25 14:55 06/03/25 08:54 Metoprolol Succinate Ext Rel 25 Mg Tabcr PO 25 mg DAILY VICTORIA Administration Morphine Sulfate 2 mg 05/29/25 07:51 05/29/25 21:57 Morphine Sulfate (*Crx) 4 Mg/Ml Inj IV PUSH 2 mg Q2H PRN Administration Pain Rated 7-10 Naloxone HCl 0.1 mg 05/30/25 14:46 Naloxone Hcl 0.4 Mg/Ml Vial IV PUSH Q2M PRN Opiate Reversal Oxycodone HCl 2.5 mg 05/30/25 14:46 Oxycodone Hcl (*Crx) 2.5 Mg Tab Ir PO Q4H PRN Pain Rated 4-10 Oxycodone HCl 2.5 mg 06/01/25 16:00 06/03/25 11:25 Oxycodone Hcl (*Crx) 2.5 Mg Tab Ir PO 2.5 mg Q4H VICTORIA Administration Polyethylene Glycol 17 gm 05/31/25 09:00 06/03/25 08:54 Polyethylene Glycol 3350 17 Gm Powd.Pack PO 17 gm QAM VICTORIA Administration Pregabalin 100 mg 05/30/25 21:00 06/02/25 20:47 Pregabalin (*Crx) 50 Mg Capsule PO 100 mg HS VICTORIA Administration Rivaroxaban 20 mg 06/02/25 17:00 06/02/25 16:00 Rivaroxaban 20 Mg Tablet PO 20 mg DAILY@1700 [facility] Administration Senna/Docusate Sodium 2 tab 06/01/25 21:00 06/03/25 08:54 Senna/Docusate Sodium Tablet PO 2 tab Q12HR VICTORIA Administration Sertraline HCl 50 mg 05/30/25 14:55 06/03/25 08:55 Sertraline Hcl 50 Mg Tablet PO 50 mg DAILY [facility] Administration Timolol Maleate 1 drop 05/31/25 09:00 06/03/25 08:56 Timolol Maleate 0.5% Op Soln 5 Ml Bottle EACH EYE 1 drop DAILY [facility] Administration Radiology Results: ITS Impressions Chest X-Ray 05/29/25 07:35 IMPRESSION: 1. No acute cardiopulmonary findings given portable technique. Head CT 05/29/25 07:38 IMPRESSION: 1. No acute intracranial findings. Hip X-Ray 05/29/25 08:30 IMPRESSION: 1. Right femoral neck fracture Hip CT 05/29/25 13:34 IMPRESSION 1. Mildly comminuted transcervical fracture of the proximal right femur with mild varus and anterior angulation. Intraoperative X-Ray 05/30/25 13:14 IMPRESSION: 1. Expected appearance during right total hip arthroplasty. Hip/Pelvis X-Ray 05/30/25 13:53 Impression: No acute fracture or malalignment. Labs Labs: Laboratory Results - last 24 hr 06/02/25 06/02/25 06/02/25 11:41 17:02 17:09 WBC RBC Hgb Hct MCV MCH MCHC RDW Plt Count MPV Immature Gran % (Auto) Neut % (Auto) Lymph % (Auto) Hill % (Auto) Eos % (Auto) Baso % (Auto) Lymph # (Auto) Hill # (Auto) Eos # (Auto) Baso # (Auto) Abs Immat Gran (auto) Absolute Neuts (auto) Absolute Nucleated RBC Nucleated RBC % Sodium Potassium Chloride Carbon Dioxide Anion Gap BUN Creatinine Estim Creat Clear Calc Estimated GFR Glucose POC Capillary Glucose 173 H 145 H 150 H Calcium Magnesium Total Bilirubin AST ALT Alkaline Phosphatase Total Protein Albumin 06/02/25 06/03/25 06/03/25 20:52 05:12 08:06 WBC 6.5 RBC 3.63 L Hgb 10.9 L Hct 33.3 L MCV 91.7 MCH 30.0 MCHC 32.7 RDW 12.5 Plt Count 175 MPV 9.9 Immature Gran % (Auto) 0.8 H Neut % (Auto) 61.0 Lymph % (Auto) 24.0 Hill % (Auto) 8.8 H Eos % (Auto) 4.6 H Baso % (Auto) 0.8 Lymph # (Auto) 1.56 Hill # (Auto) 0.6 Eos # (Auto) 0.3 Baso # (Auto) 0.1 Abs Immat Gran (auto) 0.05 H Absolute Neuts (auto) 4.0 Absolute Nucleated RBC 0.000 Nucleated RBC % 0.0 Sodium 134 L Potassium 3.7 Chloride 105 Carbon Dioxide 24 Anion Gap 5 BUN 23 H Creatinine 0.72 Estim Creat Clear Calc 58 Estimated GFR > 60 Glucose 117 H POC Capillary Glucose 154 H 125 H Calcium 9.2 Magnesium 2.0 Total Bilirubin 0.7 AST 33 ALT 22 Alkaline Phosphatase 84 Total Protein 6.1 L Albumin 3.1 L 06/03/25 11:57 WBC RBC Hgb Hct MCV MCH MCHC RDW Plt Count MPV Immature Gran % (Auto) Neut % (Auto) Lymph % (Auto) Hill % (Auto) Eos % (Auto) Baso % (Auto) Lymph # (Auto) Hill # (Auto) Eos # (Auto) Baso # (Auto) Abs Immat Gran (auto) Absolute Neuts (auto) Absolute Nucleated RBC Nucleated RBC % Sodium Potassium Chloride Carbon Dioxide Anion Gap BUN Creatinine Estim Creat Clear Calc Estimated GFR Glucose POC Capillary Glucose 159 H Calcium Magnesium Total Bilirubin AST ALT Alkaline Phosphatase Total Protein Albumin
[2025-06-03] MEDS: RIVAROXABAN 20 MG TABLET PO (17:05)
[2025-06-03] MEDS: EMPAGLIFLOZIN 25 MG TABLET PO (20:03)
[2025-06-03] MEDS: ATORVASTATIN 10 MG TABLET PO (20:03)
[2025-06-03] MEDS: PREGABALIN (*CRX) 50 MG CAPSULE 100 MG PO (20:07)
[2025-06-03] MEDS: LATANOPROST 0.005% OP SOLN 2.5 ML BTL 1 DROP EACH EYE (21:08)
[2025-06-04] VITALS (10 sets, daily range): BP systolic 108–149; BP diastolic 46–61; PULSE 67–88; RESP 16–18; TEMP 36.2–36.8; O2SAT 91–96
[2025-06-04] MEDS: oxyCODONE HCL (*CRX) 2.5 MG TAB IR PO ×6 (03:58→23:30)
[2025-06-04] MEDS: ACETAMINOPHEN 500 MG TABLET PO ×6 (03:58→23:30)
[2025-06-04] MEDS: LEVOTHYROXINE SODIUM 112 MCG TABLET PO (06:34)
[2025-06-04] MEDS: SENNA/DOCUSATE SODIUM TABLET 2 TAB PO ×2 (08:25→20:20)
[2025-06-04] MEDS: FLECAINIDE ACETATE 50 MG TABLET PO ×2 (08:25→20:20)
[2025-06-04] MEDS: CALCIUM CITRATE 315 MG/VITAMIN D 6.25 MCG (250 UNITS) TAB 1 TABLET PO ×2 (08:26→20:20)
[2025-06-04] MEDS: SERTRALINE HCL 50 MG TABLET PO (08:26)
[2025-06-04] MEDS: METOPROLOL SUCCINATE EXT REL 25 MG TABCR PO (08:26)
[2025-06-04] MEDS: DOXYCYCLINE HYCLATE 100 MG TABLET PO ×2 (08:26→20:20)
[2025-06-04] MEDS: TIMOLOL MALEATE 0.5% OP SOLN 5 ML BOTTLE 1 DROP EACH EYE (08:30)
--- NOTE | 2025-06-04 09:18 | P.PNOP_ITS ---
Progress Note: A&P Time Spent With Patient Time: Patient continues to do well with therapy still awaiting placement into rehab facility Subjective Subjective Date/Time Seen: 06/04/25 09:18 Post Op day: 4 (Right hip hemiarthroplasty) Interval history: The patient had a good session with physical therapy yesterday was able to walk the hallway with less pain compared to previous days. She is still awaiting placement into a rehab facility. Exam Narrative: Resting comfortably in bed right hip is bandaged and dry Objective Data Vital Signs Vital Signs: Vital Signs - 24 hr 06/03/25 12:00 06/03/25 15:29 06/03/25 16:00 Temperature 36.7 C Pulse Rate 77 71 68 Respiratory Rate 18 Blood Pressure 121/68 Pulse Oximetry 94 Oxygen Delivery Fraction of Inspired Oxygen 06/03/25 20:00 06/03/25 20:00 06/03/25 20:03 Temperature Pulse Rate 89 73 76 Respiratory Rate 19 Blood Pressure Pulse Oximetry 91 Oxygen Delivery Autopap Fraction of Inspired Oxygen 24 06/03/25 20:33 06/03/25 22:20 06/04/25 00:00 Temperature 36.7 C Pulse Rate 76 89 70 Respiratory Rate 16 19 Blood Pressure 115/96 H Pulse Oximetry 93 91 Oxygen Delivery Autopap Fraction of Inspired Oxygen 06/04/25 04:00 06/04/25 04:07 06/04/25 04:50 Temperature 36.2 C L Pulse Rate 70 67 Respiratory Rate 16 Blood Pressure 149/61 H Pulse Oximetry 91 Oxygen Delivery Room Air Fraction of Inspired Oxygen 06/04/25 08:24 06/04/25 08:25 06/04/25 08:26 Temperature 36.4 C L Pulse Rate 74 74 74 Respiratory Rate 18 Blood Pressure 119/52 L Pulse Oximetry 96 Oxygen Delivery Fraction of Inspired Oxygen 06/04/25 08:26 06/04/25 08:26 Temperature Pulse Rate 74 67 Respiratory Rate Blood Pressure Pulse Oximetry 96 Oxygen Delivery Room Air Fraction of Inspired Oxygen Intake/Output Intake/Output: Intake & Output 06/01/25 06/02/25 06/03/25 06/04/25 23:59 23:59 23:59 23:59 Intake Total 855.0 920 2508 300 Output Total 1100 2100 1400 1200 Balance -245.0 -1180 1108 -900 Meds/Results Medications: Active Medications Generic Name Dose Route Start Last Admin Trade Name Enriqueq PRN Reason Stop Dose Admin Acetaminophen 500 mg 05/30/25 15:00 06/04/25 06:34 Acetaminophen 500 Mg Tablet PO 500 mg Q4H VICTORIA Administration Atorvastatin Calcium 10 mg 05/30/25 21:00 06/03/25 20:03 Atorvastatin 10 Mg Tablet PO 10 mg HS VICTORIA Administration Calcium Citrate 1 tablet 06/01/25 21:00 06/04/25 08:26 Calcium Citrate 315 Mg/Vitamin D 6.25 Mcg (250 Units) Tab PO 1 tablet Q12HR VICTORIA Administration Dextrose 12.5 gm 05/30/25 17:28 Dextrose 50% 25 Gm/50 Ml Syringe IV PUSH PRN PRN Hypoglycemia Protocol Doxycycline Hyclate 100 mg 05/31/25 09:00 06/04/25 08:26 Doxycycline Hyclate 100 Mg Tablet PO 06/12/25 08:59 100 mg Q12HR VICTORIA Administration Empagliflozin 25 mg 05/30/25 21:00 06/03/25 20:03 Empagliflozin 25 Mg Tablet PO 25 mg HS VICTORIA Administration Flecainide Acetate 50 mg 05/30/25 21:00 06/04/25 08:25 Flecainide Acetate 50 Mg Tablet PO 50 mg Q12H VICTORIA Administration Glucagon 1 mg 05/30/25 17:28 Glucagon For Inj 1 Mg Vial IM PRN PRN Hypoglycemia Protocol Glucose 15 gm 05/30/25 17:28 Glucose Oral Gel 15 Gm Of Glucse In 37.5 Gm Tube PO PRN PRN Hypoglycemia Protocol Dextrose 1,000 mls @ 100 mls/hr 05/30/25 17:28 Dextrose 5% 1,000 Ml IVPB PRN PRN Hypoglycemia Protocol Insulin Aspart 2 - 5 units 05/30/25 18:40 06/04/25 08:18 Insulin Aspart (*Bkc) 100 Units/Ml SUB-Q Not Given TIDWM [facility] Protocol Latanoprost 1 drop 06/01/25 21:00 06/03/25 21:08 Latanoprost 0.005% Op Soln 2.5 Ml Btl EACH EYE 1 drop HS VICTORIA Administration Levothyroxine Sodium 112 mcg 05/31/25 06:30 06/04/25 06:34 Levothyroxine Sodium 112 Mcg Tablet PO 112 mcg DAILY@0630 [facility] Administration Lisinopril 10 mg 06/02/25 09:00 06/04/25 08:26 Lisinopril 10 Mg Tablet PO 10 mg DAILY [facility] Administration Metoprolol Succinate 25 mg 05/30/25 14:55 06/04/25 08:26 Metoprolol Succinate Ext Rel 25 Mg Tabcr PO 25 mg DAILY [facility] Administration Morphine Sulfate 2 mg 05/29/25 07:51 05/29/25 21:57 Morphine Sulfate (*Crx) 4 Mg/Ml Inj IV PUSH 2 mg Q2H PRN Administration Pain Rated 7-10 Naloxone HCl 0.1 mg 05/30/25 14:46 Naloxone Hcl 0.4 Mg/Ml Vial IV PUSH Q2M PRN Opiate Reversal Oxycodone HCl 2.5 mg 05/30/25 14:46 Oxycodone Hcl (*Crx) 2.5 Mg Tab Ir PO Q4H PRN Pain Rated 4-10 Oxycodone HCl 2.5 mg 06/01/25 16:00 06/04/25 08:26 Oxycodone Hcl (*Crx) 2.5 Mg Tab Ir PO 2.5 mg Q4H [facility] Administration Polyethylene Glycol 17 gm 05/31/25 09:00 06/04/25 08:27 Polyethylene Glycol 3350 17 Gm Powd.Pack PO Not Given QAM VICTORIA Pregabalin 100 mg 05/30/25 21:00 06/03/25 20:07 Pregabalin (*Crx) 50 Mg Capsule PO 100 mg HS [facility] Administration Rivaroxaban 20 mg 06/02/25 17:00 06/03/25 17:05 Rivaroxaban 20 Mg Tablet PO 20 mg DAILY@1700 [facility] Administration Senna/Docusate Sodium 2 tab 06/01/25 21:00 06/04/25 08:25 Senna/Docusate Sodium Tablet PO 2 tab Q12HR [facility] Administration Sertraline HCl 50 mg 05/30/25 14:55 06/04/25 08:26 Sertraline Hcl 50 Mg Tablet PO 50 mg DAILY [facility] Administration Timolol Maleate 1 drop 05/31/25 09:00 06/04/25 08:30 Timolol Maleate 0.5% Op Soln 5 Ml Bottle EACH EYE 1 drop DAILY [facility] Administration Radiology Results: ITS Impressions Chest X-Ray 05/29/25 07:35 IMPRESSION: 1. No acute cardiopulmonary findings given portable technique. Head CT 05/29/25 07:38 IMPRESSION: 1. No acute intracranial findings. Hip X-Ray 05/29/25 08:30 IMPRESSION: 1. Right femoral neck fracture Hip CT 05/29/25 13:34 IMPRESSION 1. Mildly comminuted transcervical fracture of the proximal right femur with mild varus and anterior angulation. Intraoperative X-Ray 05/30/25 13:14 IMPRESSION: 1. Expected appearance during right total hip arthroplasty. Hip/Pelvis X-Ray 05/30/25 13:53 Impression: No acute fracture or malalignment. Labs Labs: Laboratory Results - last 24 hr 06/03/25 06/03/25 06/03/25 11:57 16:45 20:49 POC Capillary Glucose 159 H 138 H 154 H 06/04/25 07:44 POC Capillary Glucose 134 H
--- NOTE | 2025-06-04 11:25 | PC.NURSE ---
On 06/02/25, the DIRECTOR OF GUIDANCE, [Patrice Garcia ], provided care and completed [facility] documentation on this patient. I have reviewed the DIRECTOR OF GUIDANCE's documentation and agree with the findings.
--- NOTE | 2025-06-04 12:01 | P.PNIM_ITS ---
Progress Note: A&P Assessment and Plan (1) Hip fracture, right: Code(s): S72.001A - Fracture of unspecified part of neck of right femur, initial encounter for closed fracture Status: Acute Assessment and Plan: Hip x-ray on admission showing right femoral IT fracture with varus angulation Ortho consulted. Patient underwent a cemented bipolar hemiarthroplasty right hip on 05/31/25 Patient tolerated the procedure well. Tolerating therapy. Pain controlled (2) Fall: Code(s): W19.XXXA - Unspecified fall, initial encounter Status: Acute Assessment and Plan: Patient with ground level fall. Related to hypoglycemia? UA not consistent with UTI. Medications were reviewed which does not include anxiolytics or sedatives Head CT scan shows no acute intracranial findings PT/OT ordered working with therapy. Suggest [facility] (3) A-fib: Code(s): I48.91 - Unspecified atrial fibrillation Status: Acute Assessment and Plan: Patient developed AFib/RVR and was moved to IMU. Metoprolol resumed but ultimately had to be placed on Diltiazem drip. She has been continued with Xarelto at lower dose. She has converted to NSR so will resume oral metoprolol Stop diltiazem. Continue flecanide Home with Xarelto 20mg daily Will remove telemetry (4) Hypothyroid: Code(s): E03.9 - Hypothyroidism, unspecified Status: Acute Assessment and Plan: TSH low at 0.124. But no FT4 ordered. Repeat TSH was normal 06/02/2025 Resume levothyroxine 112 mcg (5) Diabetes: Code(s): E11.9 - Type 2 diabetes mellitus without complications Status: Acute Assessment and Plan: Glucose better controlled today. Continue AccuCheks covering with sliding scale. Hypoglycemia protocol available as needed. Continue to follow (6) Hypertension: Code(s): I10 - Essential (primary) hypertension Status: Acute Assessment and Plan: Blood pressure remains well controlled. Will continue to follow On lisinopril 10 mg Plan DVT prophylaxis on xarelto Code status - full Disposition: Plan for [facility]. Awaiting insurance authorization. Transferred to [facility] Date/time seen: 06/04/25 12:01 Interval history: No overnight events. No new complaints. Awaiting placement. Review of Systems Review of Systems: All systems reviewed & are unremarkable except as noted in HPI and below (the History and physical examination.) Exam Narrative: Gen - NARD Chest - CTA bilaterally, nml RR CV - RRR S1/S2. Tele showing sinus rhythm Abd - Soft, NT/ND, Positive BS Ext - No pedal edema. Right hip dressing is clean, dry and intact Neuro - Alert and oriented. Nonfocal exam. Psych - Nml mood and affect Skin - Warm and dry Objective Data Vital Signs Vital Signs: Vital Signs - 24 hr 06/03/25 15:29 06/03/25 16:00 06/03/25 20:00 Temperature 98.0 F Pulse Rate 71 68 89 Respiratory Rate 18 19 Blood Pressure 121/68 Pulse Oximetry 94 91 Oxygen Delivery Autopap Fraction of Inspired Oxygen 24 06/03/25 20:00 06/03/25 20:03 06/03/25 20:33 Temperature 98.1 F Pulse Rate 73 76 76 Respiratory Rate 16 Blood Pressure 115/96 H Pulse Oximetry 93 Oxygen Delivery Fraction of Inspired Oxygen 06/03/25 22:20 06/04/25 00:00 06/04/25 04:00 Temperature Pulse Rate 89 70 70 Respiratory Rate 19 Blood Pressure Pulse Oximetry 91 Oxygen Delivery Autopap Fraction of Inspired Oxygen 06/04/25 04:07 06/04/25 04:50 06/04/25 08:24 Temperature 97.2 F L 97.5 F L Pulse Rate 67 74 Respiratory Rate 16 18 Blood Pressure 149/61 H 119/52 L Pulse Oximetry 91 96 Oxygen Delivery Room Air Fraction of Inspired Oxygen 06/04/25 08:25 06/04/25 08:26 06/04/25 08:26 Temperature Pulse Rate 74 74 74 Respiratory Rate Blood Pressure Pulse Oximetry 96 Oxygen Delivery Room Air Fraction of Inspired Oxygen 06/04/25 08:26 Temperature Pulse Rate 67 Respiratory Rate Blood Pressure Pulse Oximetry Oxygen Delivery Fraction of Inspired Oxygen Intake/Output Intake/Output: Intake & Output 06/01/25 06/02/25 06/03/25 06/04/25 23:59 23:59 23:59 23:59 Intake Total 855.0 920 2508 780 Output Total 1100 2100 1400 1200 Balance -245.0 -1180 1108 -420 Meds/Results Medications: Active Medications Generic Name Dose Route Start Last Admin Trade Name Freq PRN Reason Stop Dose Admin Acetaminophen 500 mg 05/30/25 15:00 06/04/25 11:23 Acetaminophen 500 Mg Tablet PO 500 mg Q4H VICTORIA Administration Atorvastatin Calcium 10 mg 05/30/25 21:00 06/03/25 20:03 Atorvastatin 10 Mg Tablet PO 10 mg HS VICTORIA Administration Calcium Citrate 1 tablet 06/01/25 21:00 06/04/25 08:26 Calcium Citrate 315 Mg/Vitamin D 6.25 Mcg (250 Units) Tab PO 1 tablet Q12HR VICTORIA Administration Dextrose 12.5 gm 05/30/25 17:28 Dextrose 50% 25 Gm/50 Ml Syringe IV PUSH PRN PRN Hypoglycemia Protocol Doxycycline Hyclate 100 mg 05/31/25 09:00 06/04/25 08:26 Doxycycline Hyclate 100 Mg Tablet PO 06/12/25 08:59 100 mg Q12HR VICTORIA Administration Empagliflozin 25 mg 05/30/25 21:00 06/03/25 20:03 Empagliflozin 25 Mg Tablet PO 25 mg HS VICTORIA Administration Flecainide Acetate 50 mg 05/30/25 21:00 06/04/25 08:25 Flecainide Acetate 50 Mg Tablet PO 50 mg Q12H VICTORIA Administration Glucagon 1 mg 05/30/25 17:28 Glucagon For Inj 1 Mg Vial IM PRN PRN Hypoglycemia Protocol Glucose 15 gm 05/30/25 17:28 Glucose Oral Gel 15 Gm Of Glucse In 37.5 Gm Tube PO PRN PRN Hypoglycemia Protocol Dextrose 1,000 mls @ 100 mls/hr 05/30/25 17:28 Dextrose 5% 1,000 Ml IVPB PRN PRN Hypoglycemia Protocol Insulin Aspart 2 - 5 units 05/30/25 18:40 06/04/25 08:18 Insulin Aspart (*Bkc) 100 Units/Ml SUB-Q Not Given TIDWM VICTORIA Protocol Latanoprost 1 drop 06/01/25 21:00 06/03/25 21:08 Latanoprost 0.005% Op Soln 2.5 Ml Btl EACH EYE 1 drop HS VICTORIA Administration Levothyroxine Sodium 112 mcg 05/31/25 06:30 06/04/25 06:34 Levothyroxine Sodium 112 Mcg Tablet PO 112 mcg DAILY@0630 VICTORIA Administration Lisinopril 10 mg 06/02/25 09:00 06/04/25 08:26 Lisinopril 10 Mg Tablet PO 10 mg DAILY VICTORIA Administration Metoprolol Succinate 25 mg 05/30/25 14:55 06/04/25 08:26 Metoprolol Succinate Ext Rel 25 Mg Tabcr PO 25 mg DAILY VICTORIA Administration Morphine Sulfate 2 mg 05/29/25 07:51 05/29/25 21:57 Morphine Sulfate (*Crx) 4 Mg/Ml Inj IV PUSH 2 mg Q2H PRN Administration Pain Rated 7-10 Naloxone HCl 0.1 mg 05/30/25 14:46 Naloxone Hcl 0.4 Mg/Ml Vial IV PUSH Q2M PRN Opiate Reversal Oxycodone HCl 2.5 mg 05/30/25 14:46 Oxycodone Hcl (*Crx) 2.5 Mg Tab Ir PO Q4H PRN Pain Rated 4-10 Oxycodone HCl 2.5 mg 06/01/25 16:00 06/04/25 11:23 Oxycodone Hcl (*Crx) 2.5 Mg Tab Ir PO 2.5 mg Q4H VICTORIA Administration Polyethylene Glycol 17 gm 05/31/25 09:00 06/04/25 08:27 Polyethylene Glycol 3350 17 Gm Powd.Pack PO Not Given QAM [facility] Pregabalin 100 mg 05/30/25 21:00 06/03/25 20:07 Pregabalin (*Crx) 50 Mg Capsule PO 100 mg HS VICTORIA Administration Rivaroxaban 20 mg 06/02/25 17:00 06/03/25 17:05 Rivaroxaban 20 Mg Tablet PO 20 mg DAILY@1700 [facility] Administration Senna/Docusate Sodium 2 tab 06/01/25 21:00 06/04/25 08:25 Senna/Docusate Sodium Tablet PO 2 tab Q12HR VICTORIA Administration Sertraline HCl 50 mg 05/30/25 14:55 06/04/25 08:26 Sertraline Hcl 50 Mg Tablet PO 50 mg DAILY [facility] Administration Timolol Maleate 1 drop 05/31/25 09:00 06/04/25 08:30 Timolol Maleate 0.5% Op Soln 5 Ml Bottle EACH EYE 1 drop DAILY VICTORIA Administration Radiology Results: ITS Impressions Chest X-Ray 05/29/25 07:35 IMPRESSION: 1. No acute cardiopulmonary findings given portable technique. Head CT 05/29/25 07:38 IMPRESSION: 1. No acute intracranial findings. Hip X-Ray 05/29/25 08:30 IMPRESSION: 1. Right femoral neck fracture Hip CT 05/29/25 13:34 IMPRESSION 1. Mildly comminuted transcervical fracture of the proximal right femur with mild varus and anterior angulation. Intraoperative X-Ray 05/30/25 13:14 IMPRESSION: 1. Expected appearance during right total hip arthroplasty. Hip/Pelvis X-Ray 05/30/25 13:53 Impression: No acute fracture or malalignment. Labs Labs: Laboratory Results - last 24 hr 06/03/25 06/03/25 06/03/25 11:57 16:45 20:49 POC Capillary Glucose 159 H 138 H 154 H 06/04/25 06/04/25 07:44 11:48 POC Capillary Glucose 134 H 151 H
[2025-06-04] MEDS: RIVAROXABAN 20 MG TABLET PO (16:12)
[2025-06-04] MEDS: EMPAGLIFLOZIN 25 MG TABLET PO (20:20)
[2025-06-04] MEDS: ATORVASTATIN 10 MG TABLET PO (20:20)
[2025-06-04] MEDS: PREGABALIN (*CRX) 50 MG CAPSULE 100 MG PO (20:20)
[2025-06-04] MEDS: LATANOPROST 0.005% OP SOLN 2.5 ML BTL 1 DROP EACH EYE (20:21)
[2025-06-05] VITALS (7 sets, daily range): BP systolic 134–158; BP diastolic 58–70; PULSE 68–89; RESP 18–20; TEMP 36.2–36.4; O2SAT 94–96
[2025-06-05] MEDS: ACETAMINOPHEN 500 MG TABLET PO ×6 (03:16→22:59)
[2025-06-05] MEDS: oxyCODONE HCL (*CRX) 2.5 MG TAB IR PO ×6 (03:16→22:59)
[2025-06-05] MEDS: LEVOTHYROXINE SODIUM 112 MCG TABLET PO (06:00)
[2025-06-05] MEDS: FLECAINIDE ACETATE 50 MG TABLET PO ×2 (08:23→20:14)
[2025-06-05] MEDS: SERTRALINE HCL 50 MG TABLET PO (08:23)
[2025-06-05] MEDS: SENNA/DOCUSATE SODIUM TABLET 2 TAB PO ×2 (08:23→20:13)
[2025-06-05] MEDS: DOXYCYCLINE HYCLATE 100 MG TABLET PO ×2 (08:23→20:13)
[2025-06-05] MEDS: METOPROLOL SUCCINATE EXT REL 25 MG TABCR PO (08:23)
[2025-06-05] MEDS: CALCIUM CITRATE 315 MG/VITAMIN D 6.25 MCG (250 UNITS) TAB 1 TABLET PO ×2 (08:24→20:13)
[2025-06-05] MEDS: TIMOLOL MALEATE 0.5% OP SOLN 5 ML BOTTLE 1 DROP EACH EYE (08:28)
--- NOTE | 2025-06-05 10:29 | PM.DS ---
DS: Admitting Diagnosis Discharge Date 06/05/2025 Admitting Diagnosis Fall DS: Discharge Diagnosis Discharge Diagnosis (1) Hip fracture, right: Code(s): S72.001A - Fracture of unspecified part of neck of right femur, initial encounter for closed fracture Status: Acute (2) Fall: Code(s): W19.XXXA - Unspecified fall, initial encounter Status: Acute (3) A-fib: Code(s): I48.91 - Unspecified atrial fibrillation Status: Acute (4) Hypothyroid: Code(s): E03.9 - Hypothyroidism, unspecified Status: Acute (5) Diabetes: Code(s): E11.9 - Type 2 diabetes mellitus without complications Status: Acute (6) Hypertension: Code(s): I10 - Essential (primary) hypertension Status: Acute DS: Summary Hospital Course Hospital Course: # Hip fracture, right: Hip x-ray on admission showing right femoral IT fracture with varus angulation Ortho consulted. Patient underwent a cemented bipolar hemiarthroplasty right hip on 05/31/25 Patient tolerated the procedure well. Tolerating therapy. Pain controlled # Fall: Patient with ground level fall. Related to hypoglycemia? UA not consistent with UTI. Medications were reviewed which does not include anxiolytics or sedatives Head CT scan shows no acute intracranial findings PT/OT ordered working with therapy. Suggest [facility] # A-fib: Patient developed AFib/RVR and was moved to IMU. Metoprolol resumed but ultimately had to be placed on Diltiazem drip. She has been continued with Xarelto at lower dose. She has converted to NSR so will resume oral metoprolol Stop diltiazem. Continue flecanide Home with Xarelto 20mg daily # Hypothyroid: TSH low at 0.124. But no FT4 ordered. Repeat TSH was normal 06/02/2025 Resume levothyroxine 112 mcg # Diabetes: Glucose better controlled Continue AccuCheks covering with sliding scale. Hypoglycemia protocol available as needed. Continue to follow # Hypertension: Blood pressure remains well controlled. Will continue to follow On lisinopril 10 mg # DVT prophylaxis on xarelto # Code status - full # Disposition: Plan for [facility]. however insurance denied. going to SNF Time Spent with Patient Time attestation: Total time spent providing and/or coordinating discharge services: 40 minutes Exam Narrative: Gen - NARD Chest - CTA bilaterally, nml RR CV - RRR S1/S2. Tele showing sinus rhythm Abd - Soft, NT/ND, Positive BS Ext - No pedal edema. Right hip dressing is clean, dry and intact Neuro - Alert and oriented. Nonfocal exam. Psych - Nml mood and affect Skin - Warm and dry DS: Data Data Completed and Pending Pending studies at discharge: Pending at discharge 05/30/25 11:08 Surgical [PTH] Routine Labs on day of discharge: Labs from last 24 hours 06/05/25 06/04/25 06/04/25 07:54 20:14 16:37 POC Capillary Glucose 126 H 175 H 153 H 06/04/25 11:48 POC Capillary Glucose 151 H Imaging Radiologist's impression: ITS Impressions Hip/Pelvis X-Ray 05/29/25 07:00 Impression: 1: Right femoral intertrochanteric fracture with varus angulation. Chest X-Ray 05/29/25 07:35 IMPRESSION: 1. No acute cardiopulmonary findings given portable technique. Head CT 05/29/25 07:38 IMPRESSION: 1. No acute intracranial findings. Hip X-Ray 05/29/25 08:30 IMPRESSION: 1. Right femoral neck fracture Hip CT 05/29/25 13:34 IMPRESSION 1. Mildly comminuted transcervical fracture of the proximal right femur with mild varus and anterior angulation. Intraoperative X-Ray 05/30/25 13:14 IMPRESSION: 1. Expected appearance during right total hip arthroplasty. Hip/Pelvis X-Ray 05/30/25 13:53 Impression: No acute fracture or malalignment. Discharge Plan Discharge Attending physician on discharge: Jason Negro Consulting providers: Romaine Kelly; Yasmany Jacobo; Lv Sexton; Adrianna Maciel; Robbie Whipple Discharging Clinician: Jason Negro Anticipated Discharge Date/Time: 06/05/25 10:33 Patient Disposition: SNF Activity: as tolerated Diet: heart healthy Discharge Instructions: Make sure she goes home on Xarelto 20mg daily Please apply a new Mepilex dressing on June 05. Discontinue Mepilex dressing on June 12 and leave wound open to air. Physical therapy: The patient will be weight-bearing as tolerated with walker. 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 She may not be able to keep much weight off the right hip. Refrain from active abduction strengthening or active supine heel slides to protect the abductor repair. Anticipate use of walker for 6 weeks. Elevate the right leg on pillows when in bed to reduce swelling. Complete the doxycycline prescription which she is for prophylaxis against wound infection since she is at higher risk for infection due to diabetes. Follow-up: Follow-up with Dr. Kelly in approximately 3 weeks. Call for appointment at [phone] Patient Instructions: Rivaroxaban (By mouth) Patient Language: Occitan Stand Alone Forms: General Discharge Information, Intermediate Discharge Follow-up/Referrals: Shawn Huerta [Other] - 1 Week Adrianna Maciel APN-C [Advanced Practice Nurse, Cardiology] - 4 Weeks Romaine Kelly MD [Physician, Orthopedics] - 3 Weeks Discharge Medications: New oxycodone 5 mg tablet 2.5 mg PO Q8H PRN (Reason: Pain Rated 4-10) Qty: 20 0RF oxycodone 5 mg tablet 2.5 mg PO Q6H PRN (Reason: pain (scale score 4-6)) Qty: 20 0RF Rx Instructions: Take half tablet acetaminophen 500 mg Tablet 500 mg PO Q4H PRN (Reason: pain) Qty: 30 0RF doxycycline hyclate 100 mg Tablet 100 mg PO Q12HR Qty: 16 0RF polyethylene glycol 3350 [Miralax] 17 gram Powder In Packet 17 g PO QAM Qty: 30 0RF sennosides-docusate sodium [Senokot-S] 8.6-50 mg Tablet 2 tab PO Q12HR Qty: 120 0RF Continued atorvastatin 10 mg Tablet 10 mg PO HS lisinopril 10 mg Tablet 10 mg PO DAILY metoprolol succinate 25 mg Tablet Extended Release 24 Hr 25 mg PO DAILY sertraline 50 mg Tablet 50 mg PO DAILY levothyroxine 112 mcg Tablet 112 mcg PO DAILY pregabalin [Lyrica] 100 mg Capsule 100 mg PO HS Lumigan 0.01 % Drops 1 drp EACH EYE QPM Xarelto 20 mg Tablet 20 mg PO QPM Jardiance 25 mg tablet 25 mg PO HS flecainide 50 mg tablet 50 mg PO Q12H timolol maleate 0.5 % drops 1 drp EACH EYE DAILY Date of admission: 05/29/25 08:01 Primary Care Provider: Shawn Huerta Admitting Provider: Rehan Dean Attending physician on admission: Rehan Dean Condition: Stable
--- NOTE | 2025-06-05 10:43 | PCNWS ---
Weekly nutritional screen. Patient is tolerating current Diabetic consistent carb diet with adequate intake. No weight loss reported. No nutritional needs at this time.
--- NOTE | 2025-06-05 12:26 | PM.PNORT ---
Progress Note: A&P Assessment and Plan (1) Status post hemiarthroplasty of right hip: Code(s): Z96.641 - Presence of right artificial hip joint Status: Acute Plan Patient is postop day 6. After cemented bipolar hemiarthroplasty right hip for femoral neck fracture. She is alert and oriented. She is comfortable. She has been up walking with physical therapy. Her Mepilex dressing shows no blood visible. She has no significant swelling in the right lower extremity. The no new labs today. Hemoglobin yesterday 10.9. Sodium 134. GFR greater than 60 yesterday. She is waiting for transfer to rehab. She does not feel she would be safe being at home by herself. Apparently she has been accepted to [facility] and that is a planned when a bed becomes available which will be today, possibly tomorrow. Subjective Subjective Date/Time Seen: 06/05/25 12:26 Objective Data Vital Signs Vital Signs: Vital Signs - 24 hr 06/04/25 16:00 06/04/25 20:00 06/04/25 20:20 Temperature 36.8 C Pulse Rate 80 80 Respiratory Rate 16 Blood Pressure 108/46 L Pulse Oximetry 93 Oxygen Delivery Room Air Fraction of Inspired Oxygen 06/04/25 20:59 06/04/25 23:11 06/05/25 03:03 Temperature 36.2 C L Pulse Rate 71 88 89 Respiratory Rate 16 17 19 Blood Pressure 135/51 L Pulse Oximetry 94 93 94 Oxygen Delivery Autopap Autopap Fraction of Inspired Oxygen 06/05/25 05:58 06/05/25 08:23 06/05/25 08:23 Temperature 36.4 C L Pulse Rate 70 68 68 Respiratory Rate 18 Blood Pressure 158/70 H Pulse Oximetry 96 Oxygen Delivery Fraction of Inspired Oxygen 06/05/25 08:23 Temperature Pulse Rate 68 Respiratory Rate 18 Blood Pressure Pulse Oximetry 96 Oxygen Delivery Room Air Fraction of Inspired Oxygen 24 Intake/Output Intake/Output: Intake & Output 06/02/25 06/03/25 06/04/25 06/05/25 23:59 23:59 23:59 23:59 Intake Total 920 2508 3240 640 Output Total 2100 1400 2700 800 Balance -1180 1108 540 -160 Meds/Results Medications: Active Medications Generic Name Dose Route Start Last Admin Trade Name Freq PRN Reason Stop Dose Admin Acetaminophen 500 mg 05/30/25 15:00 06/05/25 12:16 Acetaminophen 500 Mg Tablet PO 500 mg Q4H VICTORIA Administration Atorvastatin Calcium 10 mg 05/30/25 21:00 06/04/25 20:20 Atorvastatin 10 Mg Tablet PO 10 mg HS VICTORIA Administration Calcium Citrate 1 tablet 06/01/25 21:00 06/05/25 08:24 Calcium Citrate 315 Mg/Vitamin D 6.25 Mcg (250 Units) Tab PO 1 tablet Q12HR VICTORIA Administration Dextrose 12.5 gm 05/30/25 17:28 Dextrose 50% 25 Gm/50 Ml Syringe IV PUSH PRN PRN Hypoglycemia Protocol Doxycycline Hyclate 100 mg 05/31/25 09:00 06/05/25 08:23 Doxycycline Hyclate 100 Mg Tablet PO 06/12/25 08:59 100 mg Q12HR VICTORIA Administration Empagliflozin 25 mg 05/30/25 21:00 06/04/25 20:20 Empagliflozin 25 Mg Tablet PO 25 mg HS VICTORIA Administration Flecainide Acetate 50 mg 05/30/25 21:00 06/05/25 08:23 Flecainide Acetate 50 Mg Tablet PO 50 mg Q12H VICTORIA Administration Glucagon 1 mg 05/30/25 17:28 Glucagon For Inj 1 Mg Vial IM PRN PRN Hypoglycemia Protocol Glucose 15 gm 05/30/25 17:28 Glucose Oral Gel 15 Gm Of Glucse In 37.5 Gm Tube PO PRN PRN Hypoglycemia Protocol Dextrose 1,000 mls @ 100 mls/hr 05/30/25 17:28 Dextrose 5% 1,000 Ml IVPB PRN PRN Hypoglycemia Protocol Insulin Aspart 2 - 5 units 05/30/25 18:40 06/05/25 12:17 Insulin Aspart (*Bkc) 100 Units/Ml SUB-Q Not Given TIDWM VICTORIA Protocol Latanoprost 1 drop 06/01/25 21:00 06/04/25 20:21 Latanoprost 0.005% Op Soln 2.5 Ml Btl EACH EYE 1 drop HS VICTORIA Administration Levothyroxine Sodium 112 mcg 05/31/25 06:30 06/05/25 06:00 Levothyroxine Sodium 112 Mcg Tablet PO 112 mcg DAILY@0630 VICTORIA Administration Lisinopril 10 mg 06/02/25 09:00 06/05/25 08:23 Lisinopril 10 Mg Tablet PO 10 mg DAILY VICTORIA Administration Metoprolol Succinate 25 mg 05/30/25 14:55 06/05/25 08:23 Metoprolol Succinate Ext Rel 25 Mg Tabcr PO 25 mg DAILY VICTORIA Administration Morphine Sulfate 2 mg 05/29/25 07:51 05/29/25 21:57 Morphine Sulfate (*Crx) 4 Mg/Ml Inj IV PUSH 2 mg Q2H PRN Administration Pain Rated 7-10 Naloxone HCl 0.1 mg 05/30/25 14:46 Naloxone Hcl 0.4 Mg/Ml Vial IV PUSH Q2M PRN Opiate Reversal Oxycodone HCl 2.5 mg 05/30/25 14:46 Oxycodone Hcl (*Crx) 2.5 Mg Tab Ir PO Q4H PRN Pain Rated 4-10 Oxycodone HCl 2.5 mg 06/01/25 16:00 06/05/25 12:16 Oxycodone Hcl (*Crx) 2.5 Mg Tab Ir PO 2.5 mg Q4H VICTORIA Administration Polyethylene Glycol 17 gm 05/31/25 09:00 06/05/25 08:24 Polyethylene Glycol 3350 17 Gm Powd.Pack PO 17 gm QAM VICTORIA Administration Pregabalin 100 mg 05/30/25 21:00 06/04/25 20:20 Pregabalin (*Crx) 50 Mg Capsule PO 100 mg HS VICTORIA Administration Rivaroxaban 20 mg 06/02/25 17:00 06/04/25 16:12 Rivaroxaban 20 Mg Tablet PO 20 mg DAILY@1700 VICTORIA Administration Senna/Docusate Sodium 2 tab 06/01/25 21:00 06/05/25 08:23 Senna/Docusate Sodium Tablet PO 2 tab Q12HR VICTORIA Administration Sertraline HCl 50 mg 05/30/25 14:55 06/05/25 08:23 Sertraline Hcl 50 Mg Tablet PO 50 mg DAILY VICTORIA Administration Timolol Maleate 1 drop 05/31/25 09:00 06/05/25 08:28 Timolol Maleate 0.5% Op Soln 5 Ml Bottle EACH EYE 1 drop DAILY VICTORIA Administration Radiology Results: ITS Impressions Chest X-Ray 05/29/25 07:35 IMPRESSION: 1. No acute cardiopulmonary findings given portable technique. Head CT 05/29/25 07:38 IMPRESSION: 1. No acute intracranial findings. Hip X-Ray 05/29/25 08:30 IMPRESSION: 1. Right femoral neck fracture Hip CT 05/29/25 13:34 IMPRESSION 1. Mildly comminuted transcervical fracture of the proximal right femur with mild varus and anterior angulation. Intraoperative X-Ray 05/30/25 13:14 IMPRESSION: 1. Expected appearance during right total hip arthroplasty. Hip/Pelvis X-Ray 05/30/25 13:53 Impression: No acute fracture or malalignment. Labs Labs: Laboratory Results - last 24 hr 06/04/25 06/04/25 06/05/25 16:37 20:14 07:54 POC Capillary Glucose 153 H 175 H 126 H
--- NOTE | 2025-06-05 13:45 | PM.IMPN2 ---
Subjective Date/time seen: 06/05/25 13:45 Interval history: No overnight events. No new complaints. Awaiting placement. Peer to peer performed with the insurance company today. Review of Systems Review of Systems: All systems reviewed & are unremarkable except as noted in HPI and below Exam Narrative: Gen - NARD Chest - CTA bilaterally, nml RR CV - RRR S1/S2. Tele showing sinus rhythm Abd - Soft, NT/ND, Positive BS Ext - No pedal edema. Right hip dressing is clean, dry and intact Neuro - Alert and oriented. Nonfocal exam. Psych - Nml mood and affect Skin - Warm and dry Objective Data Vital Signs Vital Signs: Vital Signs - 24 hr 06/04/25 16:00 06/04/25 20:00 06/04/25 20:20 Temperature 98.2 F Pulse Rate 80 80 Respiratory Rate 16 Blood Pressure 108/46 L Pulse Oximetry 93 Oxygen Delivery Room Air Fraction of Inspired Oxygen 06/04/25 20:59 06/04/25 23:11 06/05/25 03:03 Temperature 97.2 F L Pulse Rate 71 88 89 Respiratory Rate 16 17 19 Blood Pressure 135/51 L Pulse Oximetry 94 93 94 Oxygen Delivery Autopap Autopap Fraction of Inspired Oxygen 06/05/25 05:58 06/05/25 08:23 06/05/25 08:23 Temperature 97.5 F L Pulse Rate 70 68 68 Respiratory Rate 18 Blood Pressure 158/70 H Pulse Oximetry 96 Oxygen Delivery Fraction of Inspired Oxygen 06/05/25 08:23 Temperature Pulse Rate 68 Respiratory Rate 18 Blood Pressure Pulse Oximetry 96 Oxygen Delivery Room Air Fraction of Inspired Oxygen 24 Intake/Output Intake/Output: Intake & Output 06/02/25 06/03/25 06/04/25 06/05/25 23:59 23:59 23:59 23:59 Intake Total 920 2508 3240 1060 Output Total 2100 1400 2700 800 Balance -1180 1108 540 260 Meds/Results Medications: Active Medications Generic Name Dose Route Start Last Admin Trade Name Freq PRN Reason Stop Dose Admin Acetaminophen 500 mg 05/30/25 15:00 06/05/25 12:16 Acetaminophen 500 Mg Tablet PO 500 mg Q4H [facility] Administration Atorvastatin Calcium 10 mg 05/30/25 21:00 06/04/25 20:20 Atorvastatin 10 Mg Tablet PO 10 mg HS [facility]ICOTRIA Administration Calcium Citrate 1 tablet 06/01/25 21:00 06/05/25 08:24 Calcium Citrate 315 Mg/Vitamin D 6.25 Mcg (250 Units) Tab PO 1 tablet Q12HR [facility] Administration Dextrose 12.5 gm 05/30/25 17:28 Dextrose 50% 25 Gm/50 Ml Syringe IV PUSH PRN PRN Hypoglycemia Protocol Doxycycline Hyclate 100 mg 05/31/25 09:00 06/05/25 08:23 Doxycycline Hyclate 100 Mg Tablet PO 06/12/25 08:59 100 mg Q12HR [facility] Administration Empagliflozin 25 mg 05/30/25 21:00 06/04/25 20:20 Empagliflozin 25 Mg Tablet PO 25 mg HS VI[facility]IA Administration Flecainide Acetate 50 mg 05/30/25 21:00 06/05/25 08:23 Flecainide Acetate 50 Mg Tablet PO 50 mg Q12H [facility] Administration Glucagon 1 mg 05/30/25 17:28 Glucagon For Inj 1 Mg Vial IM PRN PRN Hypoglycemia Protocol Glucose 15 gm 05/30/25 17:28 Glucose Oral Gel 15 Gm Of Glucse In 37.5 Gm Tube PO PRN PRN Hypoglycemia Protocol Dextrose 1,000 mls @ 100 mls/hr 05/30/25 17:28 Dextrose 5% 1,000 Ml IVPB PRN PRN Hypoglycemia Protocol Insulin Aspart 2 - 5 units 05/30/25 18:40 06/05/25 12:17 Insulin Aspart (*Bkc) 100 Units/Ml SUB-Q Not Given [facility] Protocol Latanoprost 1 drop 06/01/25 21:00 06/04/25 20:21 Latanoprost 0.005% Op Soln 2.5 Ml Btl EACH EYE 1 drop HS VICTORIA Administration Levothyroxine Sodium 112 mcg 05/31/25 06:30 06/05/25 06:00 Levothyroxine Sodium 112 Mcg Tablet PO 112 mcg DAILY@0630 [facility] Administration Lisinopril 10 mg 06/02/25 09:00 06/05/25 08:23 Lisinopril 10 Mg Tablet PO 10 mg DAILY [facility] Administration Metoprolol Succinate 25 mg 05/30/25 14:55 06/05/25 08:23 Metoprolol Succinate Ext Rel 25 Mg Tabcr PO 25 mg DAILY [facility] Administration Morphine Sulfate 2 mg 05/29/25 07:51 05/29/25 21:57 Morphine Sulfate (*Crx) 4 Mg/Ml Inj IV PUSH 2 mg Q2H PRN Administration Pain Rated 7-10 Naloxone HCl 0.1 mg 05/30/25 14:46 Naloxone Hcl 0.4 Mg/Ml Vial IV PUSH Q2M PRN Opiate Reversal Oxycodone HCl 2.5 mg 05/30/25 14:46 Oxycodone Hcl (*Crx) 2.5 Mg Tab Ir PO Q4H PRN Pain Rated 4-10 Oxycodone HCl 2.5 mg 06/01/25 16:00 06/05/25 12:16 Oxycodone Hcl (*Crx) 2.5 Mg Tab Ir PO 2.5 mg Q4H [facility] Administration Polyethylene Glycol 17 gm 05/31/25 09:00 06/05/25 08:24 Polyethylene Glycol 3350 17 Gm Powd.Pack PO 17 gm QAM [facility]IA Administration Pregabalin 100 mg 05/30/25 21:00 06/04/25 20:20 Pregabalin (*Crx) 50 Mg Capsule PO 100 mg HS [facility]CTORIA Administration Rivaroxaban 20 mg 06/02/25 17:00 06/04/25 16:12 Rivaroxaban 20 Mg Tablet PO 20 mg DAILY@1700 [facility] Administration Senna/Docusate Sodium 2 tab 06/01/25 21:00 06/05/25 08:23 Senna/Docusate Sodium Tablet PO 2 tab Q12HR [facility] Administration Sertraline HCl 50 mg 05/30/25 14:55 06/05/25 08:23 Sertraline Hcl 50 Mg Tablet PO 50 mg DAILY [facility] Administration Timolol Maleate 1 drop 05/31/25 09:00 06/05/25 08:28 Timolol Maleate 0.5% Op Soln 5 Ml Bottle EACH EYE 1 drop DAILY VICTORIA Administration Radiology Results: ITS Impressions Chest X-Ray 05/29/25 07:35 IMPRESSION: 1. No acute cardiopulmonary findings given portable technique. Head CT 05/29/25 07:38 IMPRESSION: 1. No acute intracranial findings. Hip X-Ray 05/29/25 08:30 IMPRESSION: 1. Right femoral neck fracture Hip CT 05/29/25 13:34 IMPRESSION 1. Mildly comminuted transcervical fracture of the proximal right femur with mild varus and anterior angulation. Intraoperative X-Ray 05/30/25 13:14 IMPRESSION: 1. Expected appearance during right total hip arthroplasty. Hip/Pelvis X-Ray 05/30/25 13:53 Impression: No acute fracture or malalignment. Labs Labs: Laboratory Results - last 24 hr 06/04/25 06/04/25 06/05/25 16:37 20:14 07:54 POC Capillary Glucose 153 H 175 H 126 H Assessment and Plan Assessment and Plan (1) Hip fracture, right: Code(s): S72.001A - Fracture of unspecified part of neck of right femur, initial encounter for closed fracture Status: Acute Assessment and Plan: Hip x-ray on admission showing right femoral IT fracture with varus angulation Ortho consulted. Patient underwent a cemented bipolar hemiarthroplasty right hip on 05/31/25 Patient tolerated the procedure well. Tolerating therapy. Pain controlled (2) Fall: Code(s): W19.XXXA - Unspecified fall, initial encounter Status: Acute Assessment and Plan: Patient with ground level fall. Related to hypoglycemia? UA not consistent with UTI. Medications were reviewed which does not include anxiolytics or sedatives Head CT scan shows no acute intracranial findings PT/OT ordered working with therapy. Suggest [facility] (3) A-fib: Code(s): I48.91 - Unspecified atrial fibrillation Status: Acute Assessment and Plan: Patient developed AFib/RVR and was moved to IMU. Metoprolol resumed but ultimately had to be placed on Diltiazem drip. She has been continued with Xarelto at lower dose. She has converted to NSR so will resume oral metoprolol Stop diltiazem. Continue flecanide Home with Xarelto 20mg daily Will remove telemetry (4) Hypothyroid: Code(s): E03.9 - Hypothyroidism, unspecified Status: Acute Assessment and Plan: TSH low at 0.124. But no FT4 ordered. Repeat TSH was normal 06/02/2025 Resume levothyroxine 112 mcg (5) Diabetes: Code(s): E11.9 - Type 2 diabetes mellitus without complications Status: Acute Assessment and Plan: Glucose better controlled today. Continue AccuCheks covering with sliding scale. Hypoglycemia protocol available as needed. Continue to follow (6) Hypertension: Code(s): I10 - Essential (primary) hypertension Status: Acute Assessment and Plan: Blood pressure remains well controlled. Will continue to follow On lisinopril 10 mg Plan DVT prophylaxis on xarelto Code status - full Disposition: Plan for [facility]. Insurance authorization grace. Submitted for subacute rehab placement. Delete
[2025-06-05] MEDS: RIVAROXABAN 20 MG TABLET PO (17:06)
[2025-06-05] MEDS: EMPAGLIFLOZIN 25 MG TABLET PO (20:12)
[2025-06-05] MEDS: ATORVASTATIN 10 MG TABLET PO (20:13)
[2025-06-05] MEDS: PREGABALIN (*CRX) 50 MG CAPSULE 100 MG PO (20:13)
[2025-06-05] MEDS: LATANOPROST 0.005% OP SOLN 2.5 ML BTL 1 DROP EACH EYE (20:15)
[2025-06-06] VITALS (8 sets, daily range): BP systolic 105–150; BP diastolic 54–64; PULSE 63–81; RESP 16–20; TEMP 36.1–36.7; O2SAT 95–97
[2025-06-06] MEDS: oxyCODONE HCL (*CRX) 2.5 MG TAB IR PO ×4 (03:34→23:13)
[2025-06-06] MEDS: ACETAMINOPHEN 500 MG TABLET PO ×6 (03:34→23:13)
[2025-06-06] MEDS: LEVOTHYROXINE SODIUM 112 MCG TABLET PO (05:58)
[2025-06-06] MEDS: SENNA/DOCUSATE SODIUM TABLET 2 TAB PO ×2 (08:33→20:00)
[2025-06-06] MEDS: SERTRALINE HCL 50 MG TABLET PO (08:33)
[2025-06-06] MEDS: METOPROLOL SUCCINATE EXT REL 25 MG TABCR PO (08:33)
[2025-06-06] MEDS: FLECAINIDE ACETATE 50 MG TABLET PO ×2 (08:33→20:00)
[2025-06-06] MEDS: CALCIUM CITRATE 315 MG/VITAMIN D 6.25 MCG (250 UNITS) TAB 1 TABLET PO ×2 (08:33→20:00)
[2025-06-06] MEDS: DOXYCYCLINE HYCLATE 100 MG TABLET PO ×2 (08:34→20:00)
[2025-06-06] MEDS: TIMOLOL MALEATE 0.5% OP SOLN 5 ML BOTTLE 1 DROP EACH EYE (08:34)
--- NOTE | 2025-06-06 15:57 | P.PNIM_ITS ---
Assessment and Plan Assessment and Plan (1) Hip fracture, right: Code(s): S72.001A - Fracture of unspecified part of neck of right femur, initial encounter for closed fracture Status: Acute Assessment and Plan: Hip x-ray on admission showing right femoral IT fracture with varus angulation Ortho consulted. Patient underwent a cemented bipolar hemiarthroplasty right hip on 05/31/25 Patient tolerated the procedure well. Tolerating therapy. Pain controlled (2) Fall: Code(s): W19.XXXA - Unspecified fall, initial encounter Status: Acute Assessment and Plan: Patient with ground level fall. Related to hypoglycemia? UA not consistent with UTI. Medications were reviewed which does not include anxiolytics or sedatives Head CT scan shows no acute intracranial findings PT/OT ordered working with therapy. Suggest [facility] which is denied be submitted for SNF placement awaiting insurance authorization (3) A-fib: Code(s): I48.91 - Unspecified atrial fibrillation Status: Acute Assessment and Plan: Patient developed AFib/RVR and was moved to IMU. Metoprolol resumed but ultimately had to be placed on Diltiazem drip. She has been continued with Xarelto at lower dose. She has converted to NSR so will resume oral metoprolol Stop diltiazem. Continue flecanide Home with Xarelto 20mg daily Removed telemetry (4) Hypothyroid: Code(s): E03.9 - Hypothyroidism, unspecified Status: Acute Assessment and Plan: TSH low at 0.124. But no FT4 ordered. Repeat TSH was normal 06/02/2025 Resume levothyroxine 112 mcg (5) Diabetes: Code(s): E11.9 - Type 2 diabetes mellitus without complications Status: Acute Assessment and Plan: Glucose better controlled today. Continue AccuCheks covering with sliding scale. Hypoglycemia protocol available as needed. Continue to follow (6) Hypertension: Code(s): I10 - Essential (primary) hypertension Status: Acute Assessment and Plan: Blood pressure remains well controlled. Will continue to follow On lisinopril 10 mg Plan DVT prophylaxis on xarelto Code status - full Disposition: Plan for [facility]. Insurance authorization denied. Submitted for subacute rehab placement. Awaiting authorization Subjective Date/time seen: 06/06/25 15:57 Interval history: No overnight events. No new complaints. Awaiting placement. This is still awaiting insurance authorization Review of Systems Review of Systems: All systems reviewed & are unremarkable except as noted in HPI and below Exam Narrative: Gen - NARD Chest - CTA bilaterally, nml RR CV - RRR S1/S2. Tele showing sinus rhythm Abd - Soft, NT/ND, Positive BS Ext - No pedal edema. Right hip dressing is clean, dry and intact Neuro - Alert and oriented. Nonfocal exam. Psych - Nml mood and affect Skin - Warm and dry Objective Data Vital Signs Vital Signs: Vital Signs - 24 hr 06/05/25 16:00 06/05/25 19:34 06/05/25 19:50 Temperature 97.6 F 97.2 F L Pulse Rate 71 70 Respiratory Rate 18 20 Blood Pressure 149/64 H 134/58 L Pulse Oximetry 95 95 Oxygen Delivery Room Air 06/05/25 20:14 06/05/25 23:03 06/06/25 03:04 Temperature Pulse Rate 71 69 65 Respiratory Rate 18 Blood Pressure Pulse Oximetry 95 Oxygen Delivery Autopap Autopap 06/06/25 04:35 06/06/25 08:33 06/06/25 08:33 Temperature 96.9 F L Pulse Rate 63 81 81 Respiratory Rate 16 Blood Pressure 150/64 H Pulse Oximetry 95 Oxygen Delivery 06/06/25 08:33 06/06/25 10:39 Temperature 98.1 F Pulse Rate 81 72 Respiratory Rate 16 16 Blood Pressure 105/59 L Pulse Oximetry 97 97 Oxygen Delivery Room Air Intake/Output Intake/Output: Intake & Output 06/03/25 06/04/25 06/05/25 06/06/25 23:59 23:59 23:59 23:59 Intake Total 2508 3240 1390 1055 Output Total 1400 2700 1700 1425 Balance 1104 125 -134 -571 Meds/Results Medications: Active Medications Generic Name Dose Route Start Last Admin Trade Name Freq PRN Reason Stop Dose Admin Acetaminophen 500 mg 05/30/25 15:00 06/06/25 12:12 Acetaminophen 500 Mg Tablet PO 500 mg Q4H VICTORIA Administration Atorvastatin Calcium 10 mg 05/30/25 21:00 06/05/25 20:13 Atorvastatin 10 Mg Tablet PO 10 mg HS VICTORIA Administration Calcium Citrate 1 tablet 06/01/25 21:00 06/06/25 08:33 Calcium Citrate 315 Mg/Vitamin D 6.25 Mcg (250 Units) Tab PO 1 tablet Q12HR VICTORIA Administration Dextrose 12.5 gm 05/30/25 17:28 Dextrose 50% 25 Gm/50 Ml Syringe IV PUSH PRN PRN Hypoglycemia Protocol Doxycycline Hyclate 100 mg 05/31/25 09:00 06/06/25 08:34 Doxycycline Hyclate 100 Mg Tablet PO 06/12/25 08:59 100 mg Q12HR VICTORIA Administration Empagliflozin 25 mg 05/30/25 21:00 06/05/25 20:12 Empagliflozin 25 Mg Tablet PO 25 mg HS VICTORIA Administration Flecainide Acetate 50 mg 05/30/25 21:00 06/06/25 08:33 Flecainide Acetate 50 Mg Tablet PO 50 mg Q12H VICTORIA Administration Glucagon 1 mg 05/30/25 17:28 Glucagon For Inj 1 Mg Vial IM PRN PRN Hypoglycemia Protocol Glucose 15 gm 05/30/25 17:28 Glucose Oral Gel 15 Gm Of Glucse In 37.5 Gm Tube PO PRN PRN Hypoglycemia Protocol Dextrose 1,000 mls @ 100 mls/hr 05/30/25 17:28 Dextrose 5% 1,000 Ml IVPB PRN PRN Hypoglycemia Protocol Insulin Aspart 2 - 5 units 05/30/25 18:40 06/06/25 12:18 Insulin Aspart (*Bkc) 100 Units/Ml SUB-Q Not Given [facility] Protocol Latanoprost 1 drop 06/01/25 21:00 06/05/25 20:15 Latanoprost 0.005% Op Soln 2.5 Ml Btl EACH EYE 1 drop HS VICTORIA Administration Levothyroxine Sodium 112 mcg 05/31/25 06:30 06/06/25 05:58 Levothyroxine Sodium 112 Mcg Tablet PO 112 mcg DAILY@0630 VICTORIA Administration Lisinopril 10 mg 06/02/25 09:00 06/06/25 08:33 Lisinopril 10 Mg Tablet PO 10 mg DAILY VICTORIA Administration Metoprolol Succinate 25 mg 05/30/25 14:55 06/06/25 08:33 Metoprolol Succinate Ext Rel 25 Mg Tabcr PO 25 mg DAILY VICTORIA Administration Morphine Sulfate 2 mg 05/29/25 07:51 05/29/25 21:57 Morphine Sulfate (*Crx) 4 Mg/Ml Inj IV PUSH 2 mg Q2H PRN Administration Pain Rated 7-10 Naloxone HCl 0.1 mg 05/30/25 14:46 Naloxone Hcl 0.4 Mg/Ml Vial IV PUSH Q2M PRN Opiate Reversal Oxycodone HCl 2.5 mg 05/30/25 14:46 Oxycodone Hcl (*Crx) 2.5 Mg Tab Ir PO Q4H PRN Pain Rated 4-10 Oxycodone HCl 2.5 mg 06/01/25 16:00 06/06/25 12:13 Oxycodone Hcl (*Crx) 2.5 Mg Tab Ir PO Not Given Q4H VICTORIA Polyethylene Glycol 17 gm 05/31/25 09:00 06/06/25 08:33 Polyethylene Glycol 3350 17 Gm Powd.Pack PO 17 gm QAM VICTORIA Administration Pregabalin 100 mg 05/30/25 21:00 06/05/25 20:13 Pregabalin (*Crx) 50 Mg Capsule PO 100 mg HS VICTORIA Administration Rivaroxaban 20 mg 06/02/25 17:00 06/05/25 17:06 Rivaroxaban 20 Mg Tablet PO 20 mg DAILY@1700 VICTORIA Administration Senna/Docusate Sodium 2 tab 06/01/25 21:00 06/06/25 08:33 Senna/Docusate Sodium Tablet PO 2 tab Q12HR VICTORIA Administration Sertraline HCl 50 mg 05/30/25 14:55 06/06/25 08:33 Sertraline Hcl 50 Mg Tablet PO 50 mg DAILY VICTORIA Administration Timolol Maleate 1 drop 05/31/25 09:00 06/06/25 08:34 Timolol Maleate 0.5% Op Soln 5 Ml Bottle EACH EYE 1 drop DAILY VICTORIA Administration Radiology Results: ITS Impressions Chest X-Ray 05/29/25 07:35 IMPRESSION: 1. No acute cardiopulmonary findings given portable technique. Head CT 05/29/25 07:38 IMPRESSION: 1. No acute intracranial findings. Hip X-Ray 05/29/25 08:30 IMPRESSION: 1. Right femoral neck fracture Hip CT 05/29/25 13:34 IMPRESSION 1. Mildly comminuted transcervical fracture of the proximal right femur with mild varus and anterior angulation. Intraoperative X-Ray 05/30/25 13:14 IMPRESSION: 1. Expected appearance during right total hip arthroplasty. Hip/Pelvis X-Ray 05/30/25 13:53 Impression: No acute fracture or malalignment. Labs Labs: Laboratory Results - last 24 hr 06/05/25 06/05/25 06/06/25 16:58 19:54 07:50 POC Capillary Glucose 160 H 195 H 142 H 06/06/25 12:12 POC Capillary Glucose 141 H
[2025-06-06] MEDS: RIVAROXABAN 20 MG TABLET PO (17:07)
[2025-06-06] MEDS: ATORVASTATIN 10 MG TABLET PO (20:00)
[2025-06-06] MEDS: EMPAGLIFLOZIN 25 MG TABLET PO (20:00)
[2025-06-06] MEDS: PREGABALIN (*CRX) 50 MG CAPSULE 100 MG PO (20:00)
[2025-06-06] MEDS: LATANOPROST 0.005% OP SOLN 2.5 ML BTL 1 DROP EACH EYE (20:02)
[2025-06-07] VITALS (7 sets, daily range): BP systolic 98–137; BP diastolic 46–61; PULSE 71–88; RESP 16–18; TEMP 36.1–36.8; O2SAT 93–100
[2025-06-07] MEDS: oxyCODONE HCL (*CRX) 2.5 MG TAB IR PO ×4 (03:56→21:28)
[2025-06-07] MEDS: ACETAMINOPHEN 500 MG TABLET PO ×6 (03:56→22:28)
[2025-06-07] MEDS: LEVOTHYROXINE SODIUM 112 MCG TABLET PO (05:59)
[2025-06-07] MEDS: DOXYCYCLINE HYCLATE 100 MG TABLET PO ×2 (09:40→21:28)
[2025-06-07] MEDS: FLECAINIDE ACETATE 50 MG TABLET PO ×2 (09:41→21:27)
[2025-06-07] MEDS: SERTRALINE HCL 50 MG TABLET PO (09:41)
[2025-06-07] MEDS: SENNA/DOCUSATE SODIUM TABLET 2 TAB PO ×2 (09:41→21:28)
[2025-06-07] MEDS: TIMOLOL MALEATE 0.5% OP SOLN 5 ML BOTTLE 1 DROP EACH EYE (09:42)
[2025-06-07] MEDS: CALCIUM CITRATE 315 MG/VITAMIN D 6.25 MCG (250 UNITS) TAB 1 TABLET PO ×2 (11:21→17:11)
--- NOTE | 2025-06-07 15:00 | P.PNIM_ITS ---
Assessment and Plan Assessment and Plan (1) Hip fracture, right: Code(s): S72.001A - Fracture of unspecified part of neck of right femur, initial encounter for closed fracture Status: Acute Assessment and Plan: Hip x-ray on admission showing right femoral IT fracture with varus angulation Ortho consulted. Patient underwent a cemented bipolar hemiarthroplasty right hip on 05/31/25 Patient tolerated the procedure well. Tolerating therapy. Pain controlled (2) Fall: Code(s): W19.XXXA - Unspecified fall, initial encounter Status: Acute Assessment and Plan: Patient with ground level fall. Related to hypoglycemia? UA not consistent with UTI. Medications were reviewed which does not include anxiolytics or sedatives Head CT scan shows no acute intracranial findings PT/OT ordered working with therapy. Suggest [facility] which is denied be submitted for SNF placement awaiting insurance authorization (3) A-fib: Code(s): I48.91 - Unspecified atrial fibrillation Status: Acute Assessment and Plan: Patient developed AFib/RVR and was moved to IMU. Metoprolol resumed but ultimately had to be placed on Diltiazem drip. She has been continued with Xarelto at lower dose. She has converted to NSR so will resume oral metoprolol Stop diltiazem. Continue flecanide Home with Xarelto 20mg daily Removed telemetry (4) Hypothyroid: Code(s): E03.9 - Hypothyroidism, unspecified Status: Acute Assessment and Plan: TSH low at 0.124. But no FT4 ordered. Repeat TSH was normal 06/02/2025 Resume levothyroxine 112 mcg (5) Diabetes: Code(s): E11.9 - Type 2 diabetes mellitus without complications Status: Acute Assessment and Plan: Glucose better controlled today. Continue AccuCheks covering with sliding scale. Hypoglycemia protocol available as needed. Continue to follow (6) Hypertension: Code(s): I10 - Essential (primary) hypertension Status: Acute Assessment and Plan: Blood pressure remains well controlled. Will continue to follow On lisinopril 10 mg Plan patient is 79 Y/O female S/P right hip ORIF POD#8 stats feels better and pain is controlled, able to ambulate with PT, patient is waiting for approval for rehab. plan is possibly discharge patient tomorrow. DVT prophylaxis on xarelto Code status - full Disposition: Plan for [facility]. Insurance authorization denied. Submitted for subacute rehab placement. Awaiting authorization Subjective Date/time seen: 06/07/25 15:00 Interval history: No overnight events. No new complaints. Awaiting placement. This is still awaiting insurance authorization patient is 79 Y/O female S/P right hip ORIF POD#8 stats feels better and pain is controlled, able to ambulate with PT, patient is waiting for approval for rehab. plan is possibly discharge patient tomorrow. Review of Systems Review of Systems: All systems reviewed & are unremarkable except as noted in HPI and below Exam Narrative: Gen - NARD Chest - CTA bilaterally, nml RR CV - RRR S1/S2. Tele showing sinus rhythm Abd - Soft, NT/ND, Positive BS Ext - No pedal edema. Right hip dressing is clean, dry and intact Neuro - Alert and oriented. Nonfocal exam. Psych - Nml mood and affect Skin - Warm and dry Objective Data Vital Signs Vital Signs: Vital Signs - 24 hr 06/06/25 16:00 06/06/25 20:00 06/06/25 20:00 Temperature 36.5 C Pulse Rate 68 68 Respiratory Rate 16 Blood Pressure 109/54 L Pulse Oximetry 97 Oxygen Delivery Room Air 06/06/25 20:20 06/06/25 23:20 06/07/25 03:20 Temperature 36.3 C L Pulse Rate 74 72 Respiratory Rate 20 20 Blood Pressure 131/63 Pulse Oximetry 96 96 Oxygen Delivery Autopap Autopap 06/07/25 04:35 06/07/25 09:31 06/07/25 09:40 Temperature 36.1 C L Pulse Rate 71 80 Respiratory Rate 18 Blood Pressure 114/58 L 98/51 L Pulse Oximetry 93 95 Oxygen Delivery Room Air 06/07/25 09:41 Temperature Pulse Rate 80 Respiratory Rate Blood Pressure Pulse Oximetry Oxygen Delivery Intake/Output Intake/Output: Intake & Output 06/04/25 06/05/25 06/06/25 06/07/25 23:59 23:59 23:59 23:59 Intake Total 3240 1390 1385 390 Output Total 2700 1700 1425 Balance 540 -310 -40 390 Meds/Results Medications: Active Medications Generic Name Dose Route Start Last Admin Trade Name Freq PRN Reason Stop Dose Admin Acetaminophen 500 mg 05/30/25 15:00 12/03/25 11:21 Acetaminophen 500 Mg Tablet PO 500 mg Q4H VICTORIA Administration Atorvastatin Calcium 10 mg 05/30/25 21:00 06/06/25 20:00 Atorvastatin 10 Mg Tablet PO 10 mg HS VICTORIA Administration Calcium Citrate 1 tablet 06/07/25 12:00 06/07/25 11:21 Calcium Citrate 315 Mg/Vitamin D 6.25 Mcg (250 Units) Tab PO 1 tablet BID@1200,1700 VICTORIA Administration Dextrose 12.5 gm 05/30/25 17:28 Dextrose 50% 25 Gm/50 Ml Syringe IV PUSH PRN PRN Hypoglycemia Protocol Doxycycline Hyclate 100 mg 05/31/25 09:00 06/07/25 09:40 Doxycycline Hyclate 100 Mg Tablet PO 06/12/25 08:59 100 mg Q12HR VICTORIA Administration Empagliflozin 25 mg 05/30/25 21:00 06/06/25 20:00 Empagliflozin 25 Mg Tablet PO 25 mg HS VICTORIA Administration Flecainide Acetate 50 mg 05/30/25 21:00 06/07/25 09:41 Flecainide Acetate 50 Mg Tablet PO 50 mg Q12H VICTORIA Administration Glucagon 1 mg 05/30/25 17:28 Glucagon For Inj 1 Mg Vial IM PRN PRN Hypoglycemia Protocol Glucose 15 gm 05/30/25 17:28 Glucose Oral Gel 15 Gm Of Glucse In 37.5 Gm Tube PO PRN PRN Hypoglycemia Protocol Dextrose 1,000 mls @ 100 mls/hr 05/30/25 17:28 Dextrose 5% 1,000 Ml IVPB PRN PRN Hypoglycemia Protocol Insulin Aspart 2 - 5 units 05/30/25 18:40 06/07/25 11:38 Insulin Aspart (*Bkc) 100 Units/Ml SUB-Q Not Given [facility] Protocol Latanoprost 1 drop 06/01/25 21:00 06/06/25 20:02 Latanoprost 0.005% Op Soln 2.5 Ml Btl EACH EYE 1 drop HS VICTORIA Administration Levothyroxine Sodium 112 mcg 05/31/25 06:30 06/07/25 05:59 Levothyroxine Sodium 112 Mcg Tablet PO 112 mcg DAILY@0630 VICTORIA Administration Lisinopril 10 mg 06/02/25 09:00 06/07/25 10:57 Lisinopril 10 Mg Tablet PO Not Given DAILY [facility] Metoprolol Succinate 25 mg 05/30/25 14:55 06/07/25 10:57 Metoprolol Succinate Ext Rel 25 Mg Tabcr PO Not Given DAILY [facility] Miscellaneous Information 1 each 06/07/25 00:01 Morphine Needs To Be Renewed Or It Will Automatically Discontinue. XX 07/07/25 00:00 CLARIFY [facility] Morphine Sulfate 2 mg 05/29/25 07:51 05/29/25 21:57 Morphine Sulfate (*Crx) 4 Mg/Ml Inj IV PUSH 2 mg Q2H PRN Administration Pain Rated 7-10 Naloxone HCl 0.1 mg 05/30/25 14:46 Naloxone Hcl 0.4 Mg/Ml Vial IV PUSH Q2M PRN Opiate Reversal Oxycodone HCl 2.5 mg 05/30/25 14:46 Oxycodone Hcl (*Crx) 2.5 Mg Tab Ir PO Q4H PRN Pain Rated 4-10 Oxycodone HCl 2.5 mg 06/07/25 15:00 Oxycodone Hcl (*Crx) 2.5 Mg Tab Ir PO Q6H [facility] Polyethylene Glycol 17 gm 05/31/25 09:00 06/07/25 09:26 Polyethylene Glycol 3350 17 Gm Powd.Pack PO Not Given QAM [facility] Pregabalin 100 mg 05/30/25 21:00 06/06/25 20:00 Pregabalin (*Crx) 50 Mg Capsule PO 100 mg HS [facility]CTORIA Administration Rivaroxaban 20 mg 06/02/25 17:00 06/06/25 17:07 Rivaroxaban 20 Mg Tablet PO 20 mg DAILY@1700 [facility] Administration Senna/Docusate Sodium 2 tab 06/01/25 21:00 06/07/25 09:41 Senna/Docusate Sodium Tablet PO 2 tab Q12HR [facility] Administration Sertraline HCl 50 mg 05/30/25 14:55 06/07/25 09:41 Sertraline Hcl 50 Mg Tablet PO 50 mg DAILY [facility] Administration Timolol Maleate 1 drop 05/31/25 09:00 06/07/25 09:42 Timolol Maleate 0.5% Op Soln 5 Ml Bottle EACH EYE 1 drop DAILY [facility] Administration Radiology Results: ITS Impressions Chest X-Ray 05/29/25 07:35 IMPRESSION: 1. No acute cardiopulmonary findings given portable technique. Head CT 05/29/25 07:38 IMPRESSION: 1. No acute intracranial findings. Hip X-Ray 05/29/25 08:30 IMPRESSION: 1. Right femoral neck fracture Hip CT 05/29/25 13:34 IMPRESSION 1. Mildly comminuted transcervical fracture of the proximal right femur with mild varus and anterior angulation. Intraoperative X-Ray 05/30/25 13:14 IMPRESSION: 1. Expected appearance during right total hip arthroplasty. Hip/Pelvis X-Ray 05/30/25 13:53 Impression: No acute fracture or malalignment. Labs Labs: Laboratory Results - last 24 hr 06/06/25 06/06/25 06/07/25 17:03 20:25 07:52 POC Capillary Glucose 143 H 174 H 136 H 06/07/25 11:33 POC Capillary Glucose 146 H
[2025-06-07] MEDS: RIVAROXABAN 20 MG TABLET PO (17:11)
[2025-06-07] MEDS: LATANOPROST 0.005% OP SOLN 2.5 ML BTL 1 DROP EACH EYE (21:28)
[2025-06-07] MEDS: ATORVASTATIN 10 MG TABLET PO (21:28)
[2025-06-07] MEDS: EMPAGLIFLOZIN 25 MG TABLET PO (21:28)
[2025-06-07] MEDS: PREGABALIN (*CRX) 50 MG CAPSULE 100 MG PO (21:29)
[2025-06-08] MEDS: ACETAMINOPHEN 500 MG TABLET PO ×3 (04:25→11:42)
[2025-06-08] MEDS: oxyCODONE HCL (*CRX) 2.5 MG TAB IR PO ×3 (04:26→15:23)
[2025-06-08 05:10] VITALS: BP 145/62; PULSE 74; RESP 20; TEMP 36.2; O2SAT 97
[2025-06-08] MEDS: LEVOTHYROXINE SODIUM 112 MCG TABLET PO (06:29)
[2025-06-08 08:15] VITALS: PULSE 74
[2025-06-08] MEDS: SENNA/DOCUSATE SODIUM TABLET 2 TAB PO (08:15)
[2025-06-08] MEDS: METOPROLOL SUCCINATE EXT REL 25 MG TABCR PO (08:15)
[2025-06-08] MEDS: FLECAINIDE ACETATE 50 MG TABLET PO (08:15)
[2025-06-08] MEDS: DOXYCYCLINE HYCLATE 100 MG TABLET PO (08:15)
[2025-06-08] MEDS: SERTRALINE HCL 50 MG TABLET PO (08:15)
[2025-06-08] MEDS: TIMOLOL MALEATE 0.5% OP SOLN 5 ML BOTTLE 1 DROP EACH EYE (08:17)
--- NOTE | 2025-06-08 10:48 | P.DS_ITS ---
DS: Admitting Diagnosis Discharge Date 06/08/25 Admitting Diagnosis Fall DS: Discharge Diagnosis Discharge Diagnosis (1) Hip fracture, right: Code(s): S72.001A - Fracture of unspecified part of neck of right femur, initial encounter for closed fracture Status: Acute Assessment and Plan: Hip x-ray on admission showing right femoral IT fracture with varus angulation Ortho consulted. Patient underwent a cemented bipolar hemiarthroplasty right hip on 05/31/25 Patient tolerated the procedure well. Tolerating therapy. Pain controlled (2) Fall: Code(s): W19.XXXA - Unspecified fall, initial encounter Status: Acute Assessment and Plan: Patient with ground level fall. Related to hypoglycemia? UA not consistent with UTI. Medications were reviewed which does not include anxiolytics or sedatives Head CT scan shows no acute intracranial findings PT/OT ordered working with therapy. Suggest [facility] which is denied be submitted for SNF placement awaiting insurance authorization (3) A-fib: Code(s): I48.91 - Unspecified atrial fibrillation Status: Acute Assessment and Plan: Patient developed AFib/RVR and was moved to IMU. Metoprolol resumed but ultimately had to be placed on Diltiazem drip. She has been continued with Xarelto at lower dose. She has converted to NSR so will resume oral metoprolol Stop diltiazem. Continue flecanide Home with Xarelto 20mg daily Removed telemetry (4) Hypothyroid: Code(s): E03.9 - Hypothyroidism, unspecified Status: Acute Assessment and Plan: TSH low at 0.124. But no FT4 ordered. Repeat TSH was normal 06/02/2025 Resume levothyroxine 112 mcg (5) Diabetes: Code(s): E11.9 - Type 2 diabetes mellitus without complications Status: Acute Assessment and Plan: Glucose better controlled today. Continue AccuCheks covering with sliding scale. Hypoglycemia protocol available as needed. Continue to follow (6) Hypertension: Code(s): I10 - Essential (primary) hypertension Status: Acute Assessment and Plan: Blood pressure remains well controlled. Will continue to follow On lisinopril 10 mg Plan patient is 79 Y/O female S/P right hip ORIF POD#8 stats feels better and pain is controlled, able to ambulate with PT, patient is waiting for approval for rehab. plan is possibly discharge patient tomorrow. DVT prophylaxis on xarelto Code status - full Disposition: Plan for [facility]. Insurance authorization denied. Submitted for subacute rehab placement. Awaiting authorization DS: Summary Hospital Course Hospital Course: patient is 79 Y/O female S/P right hip ORIF POD#9 stats feels better and pain is controlled, able to ambulate with PT, patient is waiting for approval for rehab. patient is clinically stable, will discharge patient to rehab today. Time Spent with Patient Time attestation: Total time spent providing and/or coordinating discharge services: Exam Narrative: Gen - NARD Chest - CTA bilaterally, nml RR CV - RRR S1/S2. Tele showing sinus rhythm Abd - Soft, NT/ND, Positive BS Ext - No pedal edema. Right hip dressing is clean, dry and intact Neuro - Alert and oriented. Nonfocal exam. Psych - Nml mood and affect Skin - Warm and dry DS: Data Data Completed and Pending Completed studies during hospitalization: Pending at discharge 05/30/25 11:08 Surgical [PTH] Routine Labs on day of discharge: Labs from last 24 hours 06/08/25 06/07/25 06/07/25 07:50 20:15 16:53 POC Capillary Glucose 136 H 162 H 163 H 06/07/25 11:33 POC Capillary Glucose 146 H Discharge Plan Discharge Attending physician on discharge: Jason Negro Consulting providers: Romaine Kelly; Yasmany Jacobo; Lv Sexton; Adrianna Maciel; Robbie Whipple; Tiffanie Valderrama Michael J.; Devonte Hall; Mich Krishnamurthy; Ivis Harvey; Avi Smith; Jason Negro; Matthew Wells; Gianluca Lincoln; Honorio Saul Syed A. Discharging Clinician: Molly Low Anticipated Discharge Date/Time: 06/05/25 10:33 Patient Disposition: SNF Activity: as tolerated Diet: heart healthy Discharge Instructions: Make sure she goes home on Xarelto 20mg daily Please apply a new Mepilex dressing on June 05. Discontinue Mepilex dressing on June 12 and leave wound open to air. Physical therapy: The patient will be weight-bearing as tolerated with walker. 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 She may not be able to keep much weight off the right hip. Refrain from active abduction strengthening or active supine heel slides to protect the abductor repair. Anticipate use of walker for 6 weeks. Elevate the right leg on pillows when in bed to reduce swelling. Complete the doxycycline prescription which she is for prophylaxis against wound infection since she is at higher risk for infection due to diabetes. Follow-up: Follow-up with Dr. Kelly in approximately 3 weeks. Call for appointment at [phone] Patient Instructions: Rivaroxaban (By mouth) Patient Language: Belgian Stand Alone Forms: General Discharge Information, [facility] Discharge Follow-up/Referrals: Shawn Huerta [Other] - 1 Week Adrianna Maciel APN-C [Advanced Practice Nurse, Cardiology] - 4 Weeks Romaine Kelly MD [Physician, Orthopedics] - 3 Weeks Discharge Medications: New sennosides-docusate sodium [Senokot-S] 8.6-50 mg Tablet 2 tab PO Q12HR Qty: 120 0RF doxycycline hyclate 100 mg Tablet 100 mg PO Q12HR Qty: 16 0RF oxycodone 5 mg tablet 2.5 mg PO Q8H PRN (Reason: Pain Rated 4-10) Qty: 20 0RF polyethylene glycol 3350 [Miralax] 17 gram Powder In Packet 17 g PO QAM Qty: 30 0RF oxycodone 5 mg tablet 2.5 mg PO Q6H PRN (Reason: pain (scale score 4-6)) Qty: 20 0RF Rx Instructions: Take half tablet acetaminophen 500 mg Tablet 500 mg PO Q4H PRN (Reason: pain) Qty: 30 0RF calcium 26-vit D3-magnesium 15 167 mg calcium- 1.67 mcg-83 mg capsule 1 cap PO DAILY Qty: 30 0RF Continued atorvastatin 10 mg Tablet 10 mg PO HS lisinopril 10 mg Tablet 10 mg PO DAILY metoprolol succinate 25 mg Tablet Extended Release 24 Hr 25 mg PO DAILY sertraline 50 mg Tablet 50 mg PO DAILY levothyroxine 112 mcg Tablet 112 mcg PO DAILY pregabalin [Lyrica] 100 mg Capsule 100 mg PO HS Lumigan 0.01 % Drops 1 drp EACH EYE QPM Xarelto 20 mg Tablet 20 mg PO QPM Jardiance 25 mg tablet 25 mg PO HS flecainide 50 mg tablet 50 mg PO Q12H timolol maleate 0.5 % drops 1 drp EACH EYE DAILY Date of admission: 05/29/25 08:01 Primary Care Provider: Shawn Huerta Admitting Provider: Rehan Dean Attending physician on admission: Molly Low Condition: Stable
[2025-06-08] MEDS: CALCIUM CITRATE 315 MG/VITAMIN D 6.25 MCG (250 UNITS) TAB 1 TABLET PO (11:43)
== END 2025-06-08 16:11 | DRG 522 ==
LOC: ANHED 07:39 → ANH3MEDSUR 08:27 → ANHIMU 05-31 21:41 → ANH2MED 06-02 13:07
PROVIDERS: Internal Medicine; Orthopaedic Surgery; Admitting Provider General Practice; Emergency Provider Emergency Medicine; Visit Provider Family Medicine
PROC: (CPT 27125; principal; 2025-05-30 09:30)
DX: S72.031A Displaced midcervical fracture of right femur, initial encounter for closed fracture (principal); I48.20 Chronic atrial fibrillation, unspecified; I97.191 Other postprocedural cardiac functional disturbances following other surgery; I10 Essential (primary) hypertension; E11.9 Type 2 diabetes mellitus without complications; E78.00 Pure hypercholesterolemia, unspecified; F32.A Depression, unspecified; W19.XXXA Unspecified fall, initial encounter; Z79.01 Long term (current) use of anticoagulants
CPT/HCPCS: 36415; 70450; 71045; 73501; 73502; 73700; 80048; 80053; 81001; 82306; 82550; 82948; 83036; 83735; 84443; 85025; 85027; 85610; 85730; 86850; 86900; 86901; 87081; 87186; 88307; 88311; 93005; 97110; 97116; 97161; 97166; 97530; 97535; 99199; 99285; J0690; A9270; C1713; C1776; C8929; J0166; J0616; J1163; J1171; J1815; J1885; J2003; J2270; J2371; J2704; J2795; J3010; J3290; J3373; J7030; J7050; J7120; Q9957